=== PATIENT | male | born 1960 | race African-American/Black ===

== ENCOUNTER 2017-01-13 15:48 | Inpatient (IN) | payer OTHER ==
[2017-01-13 16:32] VITALS: BMI 22.8
[2017-01-13] MEDS ORDERED: IBUPROFEN 400 MG TABLET (FP) PO PRN (18:37)
[2017-01-13] MEDS ORDERED: MAGNESIUM HYDROX 2400MG/30ML ORAL SUSPENSION 30 ML CUP PO PRN (18:37)
[2017-01-13] MEDS ORDERED: LOPERAMIDE HCL 2 MG CAPSULE PO PRN (18:37)
[2017-01-13] MEDS ORDERED: hydrOXYzine PAMOATE 50 MG CAPSULE (FP) PO PRN (18:37)
[2017-01-13] MEDS ORDERED: MAG HYDROX/AL HYDROX/SIMETH 30 ML UNIT-DOSE CUP PO PRN (18:37)
[2017-01-13] MEDS ORDERED: MAGNESIUM CITRATE 300 ML BOTTLE PO PRN (18:37)
[2017-01-13] MEDS ORDERED: NICOTINE 14 MG/24 HOURS TOPICAL PATCH TD PRN (18:37)
[2017-01-13] MEDS ORDERED: ACETAMINOPHEN 325 MG TABLET (FP) PO PRN (18:37)
[2017-01-13] MEDS ORDERED: P-EPHED 60MG/TRIPROLIDI 2.5MG TABLET PO PRN (18:37)
[2017-01-13] MEDS ORDERED: chlordiazePOXIDE HCL 25 MG CAPSULE PO PRN (18:37)
[2017-01-13] MEDS ORDERED: guaiFENesin/D-METHORPHAN HB 10 ML UNIT-DOSE CUPS PO PRN (18:37)
[2017-01-13] MEDS ORDERED: MENTHOL/PHENOL 1 EACH UD MM PRN (18:37)
--- NOTE | 2017-01-13 18:37 | HP ---
CIWA Score - CIWA Score Nausea/Vomitin-Mild Nausea/No Vomiting Muscle Tremors: 4-Moderate,w/Arms Extend Anxiety: 4-Mod. Anxious/Guarded Agitation: 4-Moderately Restless Paroxysmal Sweats: 1-Minimal Palms Moist Orientation: 0-Oriented Tacttile Disturbances: 0-None Auditory Disturbances: 0-None Visual Disturbances: 0-None Headache: 0-None Present CIWA-Ar Total Score: 14 Admission ROS BHS - HPI Chief Complaint: WITHDRAWAL SX Allergies/Adverse Reactions: Allergies Allergy/AdvReac Type Severity Reaction Status Date / Time No Known Allergies Allergy Verified 01/13/17 16:54 History of Present Illness: 56 YEARS OLD MALE WITH LONG HISTORY OF ALCOHOL NICOTINE DEPENDENCE DENIES MEDICAL ISSUE HAS BIPOLAR II IS ADMITTED TO REHAB Exam Limitations: No Limitations - Ebola screening Have you traveled outside of the country in the last 21 days: No Have you had contact with anyone from an Ebola affected area: No Have you been sick,other than usual withdrawal symptoms: No Do you have a fever: No - Review of Systems Constitutional: Loss of Appetite, Changes in sleep, Unintentional Wgt. Loss, Unexplained wgt Loss EENT: reports: No Symptoms Reported Respiratory: reports: No Symptoms reported Cardiac: reports: No Symptoms Reported GI: reports: Nausea, Poor Appetite, Poor Fluid Intake, Abdominal cramping : reports: No Symptoms Reported Musculoskeletal: reports: Joint Pain (SHOULDERS) Integumentary: reports: No Symptoms Reported Neuro: reports: Tremors Endocrine: reports: No Symptoms Reported Hematology: reports: No Symptoms Reported Psychiatric: reports: Judgement Intact, Orientated x3, Anxious, Depressed Other Systems: Reviewed and Negative Patient History - Patient Medical History Hx Anemia: No Hx Asthma: No Hx Chronic Obstructive Pulmonary Disease (COPD): No Hx Cancer: No Hx Cardiac Disorders: No Hx Congestive Heart Failure: No Hx Hypertension: No Hx Hypercholesterolemia: No Hx Pacemaker: No HX Cerebrovascular Accident: No Hx Seizures: No Hx Dementia: No Hx Diabetes: No Hx Gastrointestinal Disorders: No Hx Liver Disease: No Hx Genitourinary Disorders: No Hx Sexually Transmitted Disorders: No Hx Renal Disease (ESRD): No Hx Thyroid Disease: No Hx Human Immunodeficiency Virus (HIV): No Hx Hepatitis C: No Hx Depression: No Hx Suicide Attempt: No Hx Bipolar Disorder: Yes Hx Schizophrenia: No - Patient Surgical History Past Surgical History: No Hx Neurologic Surgery: No Hx Cataract Extraction: No Hx Cardiac Surgery: No Hx Lung Surgery: No Hx Breast Surgery: No Hx Breast Biopsy: No Hx Abdominal Surgery: No Hx Appendectomy: No Hx Cholecystectomy: No Hx Genitourinary Surgery: No Hx Orthopedic Surgery: No - PPD History Previous Implant?: Yes Documented Results: Negative w/o proof Implanted On Prior [facility] Admission?: No PPD to be Administered?: Yes - Smoking Cessation Smoking history: Current every day smoker Have you smoked in the past 12 months: Yes Aproximately how many cigarettes per day: 3 Cigars Per Day: 0 Hx Chewing Tobacco Use: No Initiated information on smoking cessation: Yes 'Breaking Loose' booklet given: 01/13/17 - Substance & Tx. History Hx Alcohol Use: Yes Hx Substance Use: Yes Substance Use Type: Alcohol, Cocaine, Heroin, Opiates Hx Substance Use Treatment: Yes (2008 [facility]) - Substances Abused Crack Route: Smoking Frequency: 3-6 times per week Amount used: $30 Age of first use: 27 Date of Last Use: 01/12/17 Heroin Route: Inhalation Frequency: 1-3 times last 30 days Amount used: 1 bag Age of first use: 57 Date of Last Use: 01/12/17 Alcohol-vodka/4 wallaec Route: Oral Frequency: Daily Amount used: 1 pt./2 (32 oz.) Age of first use: 15 Date of Last Use: 01/12/17 Family Disease History - Family Disease History Family Disease History: Diabetes: Mother (), CA: Father (), Other: Father, Mother Admission Physical Exam S - Vital Signs Vital Signs: Vital Signs - 24 hr 01/13/17 16:28 Temperature 97.8 F Pulse Rate 60 Respiratory 18 Rate Blood Pressure 150/70 - Physical General Appearance: Yes: Appropriately Dressed, Mild Distress, Thin, Tremorous, Irritable, Sweating, Anxious HEENTM: Yes: Hearing grossly Normal, Normal ENT Inspection, Normocephalic, Normal Voice Respiratory: Yes: Chest Non-Tender, Lungs Clear, Normal Breath Sounds, No Respiratory Distress, No Accessory Muscle Use Neck: Yes: Supple, Trachea in good position Breast: Yes: Breasts Symetrical Cardiology: Yes: Regular Rhythm, S1, S2, Bradycardia Abdominal: Yes: Non Tender, Soft, Increased Bowel Sounds Genitourinary: Yes: Within Normal Limits Back: Yes: Normal Inspection Musculoskeletal: Yes: full range of Motion, Gait Steady, Muscle Pain (SHOULDERS) Extremities: Yes: Normal Range of Motion, Non-Tender, Tremors Neurological: Yes: Fully Oriented, Alert, Motor Strength 5/5, Normal Response, Depressed Affect Integumentary: Yes: Warm Lymphatic: Yes: Within Normal Limits - Diagnostic (1) Alcohol dependence with uncomplicated withdrawal Current Visit: Yes Status: Acute (2) Cocaine dependence, uncomplicated Current Visit: Yes Status: Chronic (3) Nicotine dependence Current Visit: Yes Status: Acute Qualifiers: Nicotine product type: cigarettes Substance use status: in withdrawal Qualified Code(s): F17.213 - Nicotine dependence, cigarettes, with withdrawal (4) Weight loss Current Visit: Yes Status: Acute (5) Dry skin Current Visit: Yes Status: Chronic Cleared for Admission [facility] - Detox or Rehab [facility] Level of Care: Medically Managed Detox Regimen/Protocol: Librium [facility] Breath Alcohol Content Breath Alcohol Content: 0 Urine Drug Screen - Results Drug Screen Negative: No Urine Drug Screen Results: GAVIN-Cocaine, OPI-Opiates, OXY-Oxycodone
[2017-01-13] MEDS ORDERED: COLLOIDAL OATMEAL 1 BAR EACH TP PRN (18:40)
[2017-01-13 20:18] LABS: URINE APPEARANCE CLEAR; URINE BILIRUBIN NEGATIVE (NEGATIVE); URINE BLOOD NEGATIVE (NEGATIVE); URINE COLOR DKYELLOW; URINE GLUCOSE (UA) NEGATIVE (NEGATIVE); URINE KETONE TRACE (NEGATIVE); URINE LEUK ESTERASE NEGATIVE (NEGATIVE); URINE NITRITE NEGATIVE (NEGATIVE); URINE PROTEIN 1+ (NEGATIVE); URINE UROBILINOGEN 4.0 E.U/dl mg/dL (0.2-1.0)
[2017-01-13 21:09] LABS: URINE MUCUS RARE; URINE RBC <1 /hpf (0-3); URINE WBC 1 /hpf (3-5)
[2017-01-13] MEDS: chlordiazePOXIDE HCL 25 MG CAPSULE PO SCH (22:27)
[2017-01-13] MEDS: diphenhydrAMINE HCL 50 MG CAPSULE PO PRN (22:27)
[2017-01-13] MEDS: THIAMINE HCL 100 MG TABLET (FP) PO SCH (22:29)
[2017-01-13] MEDS: MINERAL OIL/PETROLAT/WATER TOPICAL CREAM 113 GM JAR TP SCH (22:46)
[2017-01-14] MEDS: chlordiazePOXIDE HCL 25 MG CAPSULE PO SCH ×4 (05:13→22:44)
[2017-01-14 09:39] LABS: MCH 31.1 pg (25.7-33.7); MCHC 33.5 g/dl (32.0-35.9); MEAN CELL VOLUME 92.9 fl (80-96); PLATELET COUNT 282 K/MM3 (134-434); RDW 15.2 % (11.9-15.9); WHITE BLOOD COUNT 5.8 K/mm3 (4.0-10.0)
[2017-01-14 09:50] LABS: ANION GAP 8 (8-16); CALCIUM 7.9 mg/dL (8.5-10.1); CO2 28 mmol/L (21-32); GLUCOSE,RANDOM 113 mg/dL (74-106); SGOT/AST 13 U/L (15-37); SGPT/ALT 19 U/L (12-78)
[2017-01-14 09:51] LABS: ALK PHOS 82 U/L (45-117); BILIRUBIN,TOTAL 0.4 mg/dL (0.2-1.0); TOT PROT 5.8 g/dl (6.4-8.2)
[2017-01-14] MEDS: PRENATAL VITAMINS W/ FOLIC ACID TABLET (FP) PO SCH (10:58)
--- NOTE | 2017-01-14 12:33 | PN ---
S CIWA - CIWA Score Nausea/Vomitin Muscle Tremors: 2 Anxiety: 2 Agitation: 2 Paroxysmal Sweats: 3 Orientation: 0-Oriented Tacttile Disturbances: 2-Mild Itch/Numbness/Burn Auditory Disturbances: 0-None Visual Disturbances: 0-None Headache: 0-None Present CIWA-Ar Total Score: 13 S Progress Note (SOAP) Subjective: interrupted sleep, sweats, bodyaches Objective: 01/14/17 12:32 Vital Signs Temperature 98.1 F 01/14/17 10:30 Pulse Rate 69 01/14/17 10:30 Respiratory Rate 18 01/14/17 10:30 Blood Pressure 133/82 01/14/17 10:30 O2 Sat by Pulse Oximetry (%) Laboratory Last Values WBC 5.8 K/mm3 (4.0-10.0) 01/14/17 07:00 RBC 4.04 M/mm3 (4.00-5.60) 01/14/17 07:00 Hgb 12.6 GM/dL (11.7-16.9) 01/14/17 07:00 Hct 37.5 % (35.4-49) 01/14/17 07:00 MCV 92.9 fl (80-96) 01/14/17 07:00 MCH 31.1 pg (25.7-33.7) 01/14/17 07:00 MCHC 33.5 g/dl (32.0-35.9) 01/14/17 07:00 RDW 15.2 % (11.9-15.9) 01/14/17 07:00 Plt Count 282 K/MM3 (134-434) 01/14/17 07:00 MPV 8.0 fl (7.5-11.1) 01/14/17 07:00 Sodium 140 mmol/L (136-145) 01/14/17 07:00 Potassium 3.7 mmol/L (3.5-5.1) 01/14/17 07:00 Chloride 104 mmol/L (98-107) 01/14/17 07:00 Carbon Dioxide 28 mmol/L (21-32) 01/14/17 07:00 Anion Gap 8 (8-16) 01/14/17 07:00 BUN 11 mg/dL (7-18) 01/14/17 07:00 Creatinine 1.0 mg/dL (0.7-1.3) 01/14/17 07:00 Creat Clearance w eGFR > 60 (>60) 01/14/17 07:00 Random Glucose 113 mg/dL (74-106) H 01/14/17 07:00 Calcium 7.9 mg/dL (8.5-10.1) L 01/14/17 07:00 Total Bilirubin 0.4 mg/dL (0.2-1.0) 01/14/17 07:00 AST 13 U/L (15-37) L 01/14/17 07:00 ALT 19 U/L (12-78) 01/14/17 07:00 Alkaline Phosphatase 82 U/L (45-117) 01/14/17 07:00 Total Protein 5.8 g/dl (6.4-8.2) L 01/14/17 07:00 Albumin 3.0 g/dl (3.4-5.0) L 01/14/17 07:00 Urine Color Dkyellow 01/13/17 20:02 Urine Appearance Clear 01/13/17 20:02 Urine pH 7.0 (5.0-8.0) 01/13/17 20:02 Ur Specific [place] 1.020 (1.005-1.025) 01/13/17 20:02 Urine Protein 1+ (NEGATIVE) H 01/13/17 20:02 Urine Glucose (UA) Negative (NEGATIVE) 01/13/17 20:02 Urine Ketones Trace (NEGATIVE) H 01/13/17 20:02 Urine Blood Negative (NEGATIVE) 01/13/17 20:02 Urine Nitrite Negative (NEGATIVE) 01/13/17 20:02 Urine Bilirubin Negative (NEGATIVE) 01/13/17 20:02 Urine Urobilinogen 4.0 e.u/dl mg/dL (0.2-1.0) 01/13/17 20:02 Ur Leukocyte Esterase Negative (NEGATIVE) 01/13/17 20:02 Urine RBC <1 /hpf (0-3) 01/13/17 20:02 Urine WBC 1 /hpf (3-5) 01/13/17 20:02 Urine Mucus Rare 01/13/17 20:02 pt aox3 in nad ambulating Assessment: 01/14/17 12:32 withdrawal sx''s Plan: cont. detox increase fluids motrin prn
--- NOTE | 2017-01-14 12:56 | EKG ---
Test Reason : Blood Pressure : / mmHG Vent. Rate : 063 BPM Atrial Rate : 063 BPM P-R Int : 166 ms QRS Dur : 084 ms QT Int : 460 ms P-R-T Axes : -15 055 -16 degrees QTc Int : 470 ms NORMAL SINUS RHYTHM MINIMAL VOLTAGE CRITERIA FOR LVH, MAY BE NORMAL VARIANT T WAVE ABNORMALITY, CONSIDER ANTEROLATERAL ISCHEMIA PROLONGED QT ABNORMAL ECG NO PREVIOUS ECGS AVAILABLE Confirmed by MD REG, YOLANDA ([id number]) on 01/14/2017 12:55:43 PM Referred By: Confirmed By:YOLANDA FINNEY MD
[2017-01-14 17:51] LABS: HIV 1 & 2 AB NEGATIVE; HIV 1 AGp24 NEGATIVE
[2017-01-14] MEDS: NICOTINE POLACRILEX 2 MG GUM BC PRN ×2 (18:51→22:53)
--- NOTE | 2017-01-14 18:55 | CONSULT ---
[facility] Psychiatric Consult - Data Date of interview: 01/14/17 Admission source: [facility] Identifying data: Readmission to [facility] for this 57 y/o AA male seeking detox treatment on for alcohol,cocaine and opioid dependence.Patient is single without chidren,domiciled,unemployed and supported on welfare. 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 Smoking Cessation. Smoking history: Current every day smoker. Have you smoked in the past 12 months: Yes. Aproximately how many cigarettes per day : 3. Cigars Per Day: 0. Hx Chewing Tobacco Use: No. Initiated information on smoking cessation: Yes. 'Breaking Loose' booklet given: 01/13/17. - Substance & Tx. History. Hx Alcohol Use: Yes. Hx Substance Use: Yes. Substance Use Type : Alcohol, Cocaine, Heroin, Opiates. Hx Substance Use Treatment: Yes (2008). - Substances Abused. Crack. Route: Smoking. Frequency: 3-6 times per week. Amount used: $30. Age of first use: 27. Date of Last Use: . Heroin. Route: Inhalation. Frequency: 1-3 times last 30 days. Amount used: 1 bag. Age of first use: 57. Date of Last Use: 01/12/17. Alcohol-vodka/4 wallace. Route: Oral. Frequency: Daily. Amount used: 1 pt./2 ( 32 oz.). Age of first use: 15. Date of Last Use: 01/12/17 Medical History: Patient endorses good general health. Psychiatric History: Patient admits to a history of 8 -10 psychiatric hospitalizations ([facility]).Diagnosed with Bipolar Disorder.Last hospitalized in May 2015.Followed by Dr Jean-Baptiste,a private psychiatrist in [facility].Mr Veras states that he is maintained on a regimen of seroquel 600 mg/hs + remeron 45 mg/ hs + vistaril (dose not recalled).According to the patient,these medications were last taken on 01/13/17.Patient denies history of suicide attempts. Physical/Sexual Abuse/Trauma History: Patient denies. Additional Comment: Urine Drug Screen Results: GAVIN-Cocaine, OPI-Opiates, OXY- Oxycodone.Noted. Mental Status Exam - Mental Status Exam Alert and Oriented to: Time, Place, Person Cognitive Function: Good Patient Appearance: Well Groomed Mood: Hopeful, Euthymic Affect: Appropriate, Normal Range Patient Behavior: Fatigued, Appropriate, Cooperative Speech Pattern: Clear Voice Loudness: Normal Thought Process: Intact, Goal Oriented Thought Disorder: Not Present Hallucinations: Denies Suicidal Ideation: Denies Homicidal Ideation: Denies Insight/Judgement: Poor Sleep: Poorly, Difficulty falling asleep Appetite: Good Muscle strength/Tone: Normal Gait/Station: Normal Psychiatric Findings - Problem List ([place] 1, 2,3) (1) Alcohol dependence with uncomplicated withdrawal Current Visit: Yes Status: Acute (2) Nicotine dependence Current Visit: Yes Status: Acute Qualifiers: Nicotine product type: cigarettes Substance use status: in withdrawal Qualified Code(s): F17.213 - Nicotine dependence, cigarettes, with withdrawal (3) Cocaine dependence, uncomplicated Current Visit: Yes Status: Acute (4) Heroin abuse Current Visit: Yes Status: Acute (5) Substance induced mood disorder Current Visit: Yes Status: Acute (6) Bipolar disorder Current Visit: Yes Status: Chronic Comment: Self-report. (7) Insomnia Current Visit: Yes Status: Acute - Initial Treatment Plan Initial Treatment Plan: Psychoeducation.Detoxification.Medications : seroquel 300 mg po hs (intentionally reduced at this time ; to be titrated if no oversedation) + remeron 15 mg po hs (also reduced).Side effects/benefits discussed with the patient.He is informed of plan to increase doses if no oversedation form drug-drug interactions.Mr Veras consents to follow this careplan.Observation.Pharmacy claims are reviewed.Patient is a good and reliable historian : documented evidence of scripts dated 12/17/[address] Kim Jean-Baptiste at [facility] # [id number].
[2017-01-14] MEDS ORDERED: QUEtiapine FUMARATE 300 MG TABLET PO SCH (22:00)
[2017-01-14] MEDS ORDERED: MIRTAZAPINE 15 MG TABLET (FP) PO SCH (22:00)
[2017-01-14] MEDS: THIAMINE HCL 100 MG TABLET (FP) PO SCH (22:44)
[2017-01-14] MEDS: diphenhydrAMINE HCL 50 MG CAPSULE PO PRN (22:48)
[2017-01-14] MEDS: MINERAL OIL/PETROLAT/WATER TOPICAL CREAM 113 GM JAR TP SCH (22:58)
[2017-01-15] MEDS: chlordiazePOXIDE HCL 25 MG CAPSULE PO SCH ×3 (05:51→17:35)
[2017-01-15] MEDS: PRENATAL VITAMINS W/ FOLIC ACID TABLET (FP) PO SCH (10:55)
[2017-01-15] MEDS: NICOTINE POLACRILEX 2 MG GUM BC PRN ×4 (10:55→23:16)
--- NOTE | 2017-01-15 15:40 | PN ---
[facility] Progress Note Note: Psychatry Attending's note : Met with patient. Reason : adjustment of seroquel dose. No evidence of oversedation. Dose is now raised to 400 mg po hs. Remeron 15 mg/hs is discontinued. Now increased to 30 mg po hs. Explained to patient. Mr Veras agrees with careplan.
--- NOTE | 2017-01-15 15:42 | PN ---
[facility] CIWA - CIWA Score Nausea/Vomitin-No Nausea/No Vomiting Muscle Tremors: 4-Moderate,w/Arms Extend Anxiety: 5 Agitation: 4-Moderately Restless Paroxysmal Sweats: 2 Orientation: 0-Oriented Tacttile Disturbances: 2-Mild Itch/Numbness/Burn Auditory Disturbances: 0-None Visual Disturbances: 0-None Headache: 0-None Present CIWA-Ar Total Score: 17 S Progress Note (SOAP) Subjective: Tremors, Fatigue, Anxious. Objective: PT. A & O X 3, OBSERVED AMBULATING ON UNIT. NO ACUTE DISTRESS. 01/15/17 15:41 Vital Signs Temperature 97.1 F L 01/15/17 15:30 Pulse Rate 80 01/15/17 15:30 Respiratory Rate 18 01/15/17 15:30 Blood Pressure 114/75 01/15/17 15:30 O2 Sat by Pulse Oximetry (%) Laboratory Tests 01/13/17 01/14/17 01/14/17 20:02 07:00 07:00 WBC 5.8 RBC 4.04 Hgb 12.6 Hct 37.5 MCV 92.9 MCH 31.1 MCHC 33.5 RDW 15.2 Plt Count 282 MPV 8.0 Sodium 140 Potassium 3.7 Chloride 104 Carbon Dioxide 28 Anion Gap 8 BUN 11 Creatinine 1.0 Creat Clearance w eGFR > 60 Random Glucose 113 H Calcium 7.9 L Total Bilirubin 0.4 AST 13 L ALT 19 Alkaline Phosphatase 82 Total Protein 5.8 L Albumin 3.0 L Urine Color Dkyellow Urine Appearance Clear Urine pH 7.0 Ur Specific [place] 1.020 Urine Protein 1+ H Urine Glucose (UA) Negative Urine Ketones Trace H Urine Blood Negative Urine Nitrite Negative Urine Bilirubin Negative Urine Urobilinogen 4.0 e.u/dl Ur Leukocyte Esterase Negative Urine RBC <1 Urine WBC 1 Urine Mucus Rare RPR Titer HIV 1&2 Antibody Screen HIV P24 Antigen 01/14/17 01/14/17 07:00 12:15 WBC RBC Hgb Hct MCV MCH MCHC RDW Plt Count MPV Sodium Potassium Chloride Carbon Dioxide Anion Gap BUN Creatinine Creat Clearance w eGFR Random Glucose Calcium Total Bilirubin AST ALT Alkaline Phosphatase Total Protein Albumin Urine Color Urine Appearance Urine pH Ur Specific [place] Urine Protein Urine Glucose (UA) Urine Ketones Urine Blood Urine Nitrite Urine Bilirubin Urine Urobilinogen Ur Leukocyte Esterase Urine RBC Urine WBC Urine Mucus RPR Titer Nonreactive HIV 1&2 Antibody Screen Negative HIV P24 Antigen Negative LABS NOTED. Assessment: 01/15/17 15:41 WITHDRAWAL SYMPTOMS. Plan: CONTINUE DETOX.
[2017-01-15] MEDS: MIRTAZAPINE 30 MG TABLET (FP) PO SCH (22:55)
[2017-01-15] MEDS: chlordiazePOXIDE 5 MG CAPSULE PO SCH (22:55)
[2017-01-15] MEDS: QUEtiapine FUMARATE 200 MG TABLET PO SCH (22:55)
[2017-01-15] MEDS: MINERAL OIL/PETROLAT/WATER TOPICAL CREAM 113 GM JAR TP SCH (22:56)
[2017-01-15] MEDS: THIAMINE HCL 100 MG TABLET (FP) PO SCH (22:56)
[2017-01-16] MEDS: chlordiazePOXIDE 5 MG CAPSULE PO SCH ×3 (05:48→17:16)
[2017-01-16] MEDS: NICOTINE POLACRILEX 2 MG GUM BC PRN ×4 (05:56→22:41)
[2017-01-16] MEDS: PRENATAL VITAMINS W/ FOLIC ACID TABLET (FP) PO SCH (10:35)
--- NOTE | 2017-01-16 16:41 | PN ---
[facility] Progress Note (SOAP) Subjective: Tremor, chills, sweating, nausea, diarrhea, interrupted sleep Objective: 01/16/17 16:39 Last Vital Signs Temp Pulse Resp BP Pulse Ox 96.9 F L 77 18 115/76 01/16/17 13:16 01/16/17 13:16 01/16/17 13:16 01/16/17 13:16 Laboratory Tests 01/13/17 01/14/17 01/14/17 20:02 07:00 07:00 WBC 5.8 RBC 4.04 Hgb 12.6 Hct 37.5 MCV 92.9 MCH 31.1 MCHC 33.5 RDW 15.2 Plt Count 282 MPV 8.0 Sodium 140 Potassium 3.7 Chloride 104 Carbon Dioxide 28 Anion Gap 8 BUN 11 Creatinine 1.0 Creat Clearance w eGFR > 60 Random Glucose 113 H Calcium 7.9 L Total Bilirubin 0.4 AST 13 L ALT 19 Alkaline Phosphatase 82 Total Protein 5.8 L Albumin 3.0 L Urine Color Dkyellow Urine Appearance Clear Urine pH 7.0 Ur Specific [place] 1.020 Urine Protein 1+ H Urine Glucose (UA) Negative Urine Ketones Trace H Urine Blood Negative Urine Nitrite Negative Urine Bilirubin Negative Urine Urobilinogen 4.0 e.u/dl Ur Leukocyte Esterase Negative Urine RBC <1 Urine WBC 1 Urine Mucus Rare RPR Titer HIV 1&2 Antibody Screen HIV P24 Antigen 01/14/17 01/14/17 07:00 12:15 WBC RBC Hgb Hct MCV MCH MCHC RDW Plt Count MPV Sodium Potassium Chloride Carbon Dioxide Anion Gap BUN Creatinine Creat Clearance w eGFR Random Glucose Calcium Total Bilirubin AST ALT Alkaline Phosphatase Total Protein Albumin Urine Color Urine Appearance Urine pH Ur Specific [place] Urine Protein Urine Glucose (UA) Urine Ketones Urine Blood Urine Nitrite Urine Bilirubin Urine Urobilinogen Ur Leukocyte Esterase Urine RBC Urine WBC Urine Mucus RPR Titer Nonreactive HIV 1&2 Antibody Screen Negative HIV P24 Antigen Negative Labs noted: UA shows 1+ protein Assessment: 01/16/17 16:40 Withdrawal symptoms Noted with proteinuria Plan: Continue detox Proteinuria: encouraged to drink more water, repeat UA
[2017-01-16] MEDS: QUEtiapine FUMARATE 200 MG TABLET PO SCH (22:38)
[2017-01-16] MEDS: chlordiazePOXIDE HCL 10 MG CAPSULE PO SCH (22:38)
[2017-01-16] MEDS: THIAMINE HCL 100 MG TABLET (FP) PO SCH (22:38)
[2017-01-16] MEDS: MIRTAZAPINE 30 MG TABLET (FP) PO SCH (22:39)
[2017-01-16] MEDS: MINERAL OIL/PETROLAT/WATER TOPICAL CREAM 113 GM JAR TP SCH (22:40)
[2017-01-17] MEDS: chlordiazePOXIDE HCL 10 MG CAPSULE PO SCH ×2 (06:13→10:40)
[2017-01-17 09:11] VITALS: BP 116/76; PULSE 78; TEMP 96.7
[2017-01-17] MEDS: NICOTINE POLACRILEX 2 MG GUM BC PRN ×2 (09:55→12:12)
[2017-01-17] MEDS: PRENATAL VITAMINS W/ FOLIC ACID TABLET (FP) PO SCH (10:40)
--- NOTE | 2017-01-17 13:35 | DS ---
[facility] Detox Discharge Summary Admission Date: 01/13/17 Discharge Date: 01/17/17 - History Present History: Alcohol Dependence, Cocaine Dependence Additional Comments: PATIENT GOING TO [facility], [place], [place]. PATIENT ADVISED TO FOLLOW-UP THERE FOR AFTERCARE PER DISCHARGE ARRANGEMENT. PATIENT DISCHARGED FROM UNIT IN STABLE MEDICAL CONDITION. Pertinent Past History: Insomnia. - Physical Exam Results Vital Signs: Vital Signs Temperature 96.7 F L 01/17/17 09:06 Pulse Rate 78 01/17/17 09:06 Respiratory Rate 18 01/17/17 09:06 Blood Pressure 116/76 01/17/17 09:06 O2 Sat by Pulse Oximetry (%) Pertinent Admission Physical Exam Findings: WITHDRAWAL SYMPTOMS. Vital Signs Temperature 96.7 F L 01/17/17 09:06 Pulse Rate 78 01/17/17 09:06 Respiratory Rate 18 01/17/17 09:06 Blood Pressure 116/76 01/17/17 09:06 O2 Sat by Pulse Oximetry (%) Laboratory Tests 01/13/17 01/14/17 01/14/17 20:02 07:00 07:00 WBC 5.8 RBC 4.04 Hgb 12.6 Hct 37.5 MCV 92.9 MCH 31.1 MCHC 33.5 RDW 15.2 Plt Count 282 MPV 8.0 Sodium 140 Potassium 3.7 Chloride 104 Carbon Dioxide 28 Anion Gap 8 BUN 11 Creatinine 1.0 Creat Clearance w eGFR > 60 Random Glucose 113 H Calcium 7.9 L Total Bilirubin 0.4 AST 13 L ALT 19 Alkaline Phosphatase 82 Total Protein 5.8 L Albumin 3.0 L Urine Color Dkyellow Urine Appearance Clear Urine pH 7.0 Ur Specific [place] 1.020 Urine Protein 1+ H Urine Glucose (UA) Negative Urine Ketones Trace H Urine Blood Negative Urine Nitrite Negative Urine Bilirubin Negative Urine Urobilinogen 4.0 e.u/dl Ur Leukocyte Esterase Negative Urine RBC <1 Urine WBC 1 Urine Mucus Rare RPR Titer HIV 1&2 Antibody Screen HIV P24 Antigen 01/14/17 01/14/17 07:00 12:15 WBC RBC Hgb Hct MCV MCH MCHC RDW Plt Count MPV Sodium Potassium Chloride Carbon Dioxide Anion Gap BUN Creatinine Creat Clearance w eGFR Random Glucose Calcium Total Bilirubin AST ALT Alkaline Phosphatase Total Protein Albumin Urine Color Urine Appearance Urine pH Ur Specific [place] Urine Protein Urine Glucose (UA) Urine Ketones Urine Blood Urine Nitrite Urine Bilirubin Urine Urobilinogen Ur Leukocyte Esterase Urine RBC Urine WBC Urine Mucus RPR Titer Nonreactive HIV 1&2 Antibody Screen Negative HIV P24 Antigen Negative LABS NOTED. - Treatment Hospital Course: Detox Protocol Followed, Detoxed Safely, Responded well, Discharged Condition Good Patient has Accepted a Rehab Referral to: PT. GOING TO [facility] FOR AFTERCARE. - Medication Discharge Medications: Ambulatory Orders Folic Acid - 1 mg PO DAILY 01/13/17 Mirtazapine [Remeron -] 45 mg PO HS 01/13/17 Multivitamins [Tab-A-Vit -] 1 tab PO DAILY 01/13/17 Quetiapine Fumarate [Seroquel -] 600 mg PO HS 01/13/17 Thiamine HCl [Vitamin B1] 100 mg PO DAILY 01/13/17 - Diagnosis (1) Alcohol dependence with uncomplicated withdrawal Status: Acute (2) Cocaine dependence, uncomplicated Status: Acute (3) Heroin abuse Status: Acute (4) Insomnia Status: Acute Qualifiers: Insomnia type: unspecified Qualified Code(s): G47.00 - Insomnia, unspecified (5) Nicotine dependence Status: Chronic Qualifiers: Nicotine product type: cigarettes Substance use status: in withdrawal Qualified Code(s): F17.213 - Nicotine dependence, cigarettes, with withdrawal (6) Substance induced mood disorder Status: Acute (7) Weight loss Status: Acute (8) Bipolar disorder Status: Chronic Qualifiers: Active/Remission status: remission status unspecified Qualified Code (s): F31.9 - Bipolar disorder, unspecified (9) Dry skin Status: Chronic - AMA Did Patient Leave Against Medical Advice: No
[2017-01-17 15:36] LABS: URINE APPEARANCE CLEAR; URINE BILIRUBIN NEGATIVE (NEGATIVE); URINE BLOOD NEGATIVE (NEGATIVE); URINE COLOR STRAW; URINE GLUCOSE (UA) NEGATIVE (NEGATIVE); URINE KETONE NEGATIVE (NEGATIVE); URINE LEUK ESTERASE NEGATIVE (NEGATIVE); URINE NITRITE NEGATIVE (NEGATIVE); URINE PROTEIN NEGATIVE (NEGATIVE); URINE UROBILINOGEN NEGATIVE mg/dL (0.2-1.0)
== END 2017-01-17 12:30 | disposition home or self-care (01) | DRG 773 ==
LOC: YASAS 15:48 → Y3N 17:22
PROVIDERS: ADMIT Internal Medicine; ATTEND Internal Medicine
PROC: HZ2ZZZZ Detoxification Services for Substance Abuse Treatment (ICD-10-PCS; principal; 2017-01-13)
DX: F10.230 Alcohol dependence with withdrawal, uncomplicated (principal); F14.20 Cocaine dependence, uncomplicated; F11.10 Opioid abuse, uncomplicated; F17.213 Nicotine dependence, cigarettes, with withdrawal; F19.24 Other psychoactive substance dependence with psychoactive substance-induced mood disorder; F31.9 Bipolar disorder, unspecified; G47.00 Insomnia, unspecified; L98.8 Other specified disorders of the skin and subcutaneous tissue; R80.9 Proteinuria, unspecified; R00.1 Bradycardia, unspecified; Z87.898 Personal history of other specified conditions
CPT/HCPCS: 36415; 80053; 81003; 81015; 85027; 86593; 87389; 93005; 93010

== ENCOUNTER 2017-03-16 09:41 | Inpatient (IN) | payer OTHER ==
[2017-03-16 10:25] VITALS: BMI 23.7
--- NOTE | 2017-03-16 12:42 | HP ---
CIWA Score - CIWA Score Nausea/Vomitin Muscle Tremors: 3 Anxiety: 3 Agitation: 3 Paroxysmal Sweats: 1-Minimal Palms Moist Orientation: 0-Oriented Tacttile Disturbances: 2-Mild Itch/Numbness/Burn Auditory Disturbances: 2-Mild Harshness/Frighten Visual Disturbances: 2-Mild Sensitivity Headache: 2-Mild CIWA-Ar Total Score: 21 Admission ROS BHS - HPI Chief Complaint: i need help to stop drinking alcohol and cocaine dependence Allergies/Adverse Reactions: Allergies Allergy/AdvReac Type Severity Reaction Status Date / Time No Known Allergies Allergy Verified 03/16/17 10:26 History of Present Illness: this 57 years old black male with alcohol and cocaine dependence,seeking detox, last treatment 01/13/17 to 01/17/17 syncope nicotine dependence bipolar disorder longest period of sobriety 2 years Exam Limitations: No Limitations - Ebola screening Have you traveled outside of the country in the last 21 days: No Have you been sick,other than usual withdrawal symptoms: No - Review of Systems Constitutional: Loss of Appetite, Malaise, Night Sweats, Changes in sleep, Weakness, Unintentional Wgt. Loss EENT: reports: Nose Congestion Respiratory: reports: No Symptoms reported Cardiac: reports: No Symptoms Reported GI: reports: Diarrhea, Nausea, Vomiting, Abdominal cramping : reports: No Symptoms Reported Musculoskeletal: reports: Back Pain, Muscle Pain Integumentary: reports: Dryness Neuro: reports: Tremors Endocrine: reports: No Symptoms Reported Hematology: reports: No Symptoms Reported Psychiatric: reports: No Sypmtoms Reported, Judgement Intact, Mood/Affect Appropiate, Orientated x3, other (bipolar disorder) Patient History - Patient Medical History Hx Anemia: No Hx Asthma: No Hx Chronic Obstructive Pulmonary Disease (COPD): No Hx Cancer: No Hx Cardiac Disorders: No Hx Congestive Heart Failure: No Hx Hypertension: No Hx Hypercholesterolemia: No Hx Pacemaker: No HX Cerebrovascular Accident: No Hx Seizures: No Hx Dementia: No Hx Diabetes: No Hx Gastrointestinal Disorders: No Hx Liver Disease: No Hx Genitourinary Disorders: No Hx Sexually Transmitted Disorders: No Hx Renal Disease (ESRD): No Hx Thyroid Disease: No Hx Human Immunodeficiency Virus (HIV): No Hx Hepatitis C: No Hx Depression: Yes (on med) Hx Suicide Attempt: No Hx Bipolar Disorder: Yes (on med) Hx Schizophrenia: No Other Medical History: no suicidal,no homicidal - Patient Surgical History Past Surgical History: No Hx Neurologic Surgery: No Hx Cataract Extraction: No Hx Cardiac Surgery: No Hx Lung Surgery: No Hx Breast Surgery: No Hx Breast Biopsy: No Hx Abdominal Surgery: No Hx Appendectomy: No Hx Cholecystectomy: No Hx Genitourinary Surgery: No Hx Section: No Hx Orthopedic Surgery: No Anesthesia Reaction: No - PPD History Previous Implant?: Yes Documented Results: Negative w/proof Implanted On Prior [facility] Admission?: Yes Date: 01/15/17 Results: 0 mm PPD to be Administered?: No - Smoking Cessation Smoking history: Current every day smoker Have you smoked in the past 12 months: Yes Aproximately how many cigarettes per day: 7 Cigars Per Day: 0 Hx Chewing Tobacco Use: No Initiated information on smoking cessation: Yes 'Breaking Loose' booklet given: 03/16/17 - Substance & Tx. History Hx Alcohol Use: Yes Hx Substance Use: Yes Substance Use Type: Alcohol, Cocaine Hx Substance Use Treatment: Yes (last treatment [facility] 01/13/17 to 01/17/17) - Substances Abused Crack Route: Smoking Frequency: Daily Amount used: $40 Age of first use: 27 Date of Last Use: 03/15/17 Alcohol-vodka/beer Route: Oral Frequency: Daily Amount used: 1 pt./3 (24 oz.) Age of first use: 15 Date of Last Use: 03/15/17 Family Disease History - Family Disease History Family Disease History: Diabetes: Mother (), CA: Father (), Other: Father, Mother Admission Physical Exam S - Vital Signs Vital Signs: Vital Signs - 24 hr 03/16/17 10:15 Temperature 95.5 F L Pulse Rate 60 Respiratory 18 Rate Blood Pressure 120/71 - Physical General Appearance: Yes: Moderate Distress, Tremorous, Irritable, Sweating, Anxious HEENTM: Yes: Normal ENT Inspection, KIRSTIE, Pharynx Normal Respiratory: Yes: Lungs Clear, Normal Breath Sounds, No Respiratory Distress Neck: Yes: Within Normal Limits, Supple, Trachea in good position Breast: Yes: Within Normal Limits Cardiology: Yes: Within Normal Limits, Regular Rhythm, Regular Rate, S1, S2 Abdominal: Yes: Within Normal Limits, Normal Bowel Sounds, Non Tender, Flat, Soft Genitourinary: Yes: Within Normal Limits Back: Yes: Muscle Spasm Extremities: Yes: Normal Range of Motion, Tremors Neurological: Yes: wirer maintenance II-XII NML intact, Fully Oriented, Alert, Motor Strength 5/5 Integumentary: Yes: Dry Lymphatic: Yes: Within Normal Limits - Diagnostic (1) Alcohol dependence with uncomplicated withdrawal Current Visit: Yes Status: Acute (2) Cocaine dependence, uncomplicated Current Visit: Yes Status: Acute (3) Insomnia Current Visit: Yes Status: Acute Qualifiers: Insomnia type: unspecified Qualified Code(s): G47.00 - Insomnia, unspecified; G47.00 - Insomnia, unspecified (4) Weight loss Current Visit: No Status: Acute (5) Bipolar disorder Current Visit: Yes Status: Chronic Qualifiers: Active/Remission status: remission status unspecified Qualified Code (s): F31.9 - Bipolar disorder, unspecified; F31.9 - Bipolar disorder, unspecified; F31.9 - Bipolar disorder, unspecified; F31.9 - Bipolar disorder, unspecified Comment: Self-report. (6) Dry skin Current Visit: No Status: Chronic (7) Nicotine dependence Current Visit: Yes Status: Acute Qualifiers: Nicotine product type: cigarettes Substance use status: in withdrawal Qualified Code(s): F17.213 - Nicotine dependence, cigarettes, with withdrawal; F17.213 - Nicotine dependence, cigarettes, with withdrawal (8) Syncope Current Visit: Yes Status: Acute Cleared for Admission [facility] - Detox or Rehab [facility] Level of Care: Medically Managed Detox Regimen/Protocol: Librium [facility] Breath Alcohol Content Breath Alcohol Content: 0 Urine Drug Screen - Results Drug Screen Negative: No Urine Drug Screen Results: GAVIN-Cocaine, TCA-Tricyclic Antidepress
[2017-03-16] MEDS ORDERED: MAGNESIUM CITRATE 300 ML BOTTLE PO PRN (12:49)
[2017-03-16] MEDS ORDERED: hydrOXYzine PAMOATE 25 MG CAPSULE (FP) PO PRN (12:49)
[2017-03-16] MEDS ORDERED: MAGNESIUM HYDROX 2400MG/30ML ORAL SUSPENSION 30 ML CUP PO PRN (12:49)
[2017-03-16] MEDS ORDERED: chlordiazePOXIDE HCL 25 MG CAPSULE PO PRN (12:49)
[2017-03-16] MEDS ORDERED: P-EPHED 60MG/TRIPROLIDI 2.5MG TABLET PO PRN (12:49)
[2017-03-16] MEDS ORDERED: IBUPROFEN 400 MG TABLET (FP) PO PRN (12:49)
[2017-03-16] MEDS ORDERED: ACETAMINOPHEN 325 MG TABLET (FP) PO PRN (12:49)
[2017-03-16] MEDS ORDERED: LOPERAMIDE HCL 2 MG CAPSULE PO PRN (12:49)
[2017-03-16] MEDS ORDERED: diphenhydrAMINE HCL 50 MG CAPSULE PO PRN (12:49)
[2017-03-16] MEDS ORDERED: MENTHOL/PHENOL 1 EACH UD MM PRN (12:49)
[2017-03-16] MEDS ORDERED: guaiFENesin/D-METHORPHAN HB 10 ML UNIT-DOSE CUPS PO PRN (12:49)
[2017-03-16] MEDS ORDERED: MAG HYDROX/AL HYDROX/SIMETH 30 ML UNIT-DOSE CUP PO PRN (12:49)
[2017-03-16] MEDS ORDERED: chlordiazePOXIDE HCL 25 MG CAPSULE PO ONE (12:59)
[2017-03-16 14:14] LABS: HIV 1 & 2 AB NEGATIVE; HIV 1 AGp24 NEGATIVE
[2017-03-16] MEDS: chlordiazePOXIDE HCL 25 MG CAPSULE PO SCH ×2 (17:14→22:06)
[2017-03-16] MEDS: BACITRACIN 0.9 GM PACKET TP SCH ×2 (17:16→22:06)
[2017-03-16] MEDS: AMMONIUM LACTATE 12% LOTION 225 GM BOTTLE TP SCH ×2 (17:16→22:19)
--- NOTE | 2017-03-16 17:38 | CONSULT ---
[facility] Psychiatric Consult - Data Date of interview: 03/16/17 Admission source: [facility] Identifying data: This is one of multiple admissions to [facility] for this 57 y/ o AA male seeking detox treatment on for alcohol,cocaine and opioid dependence.Patient is single,father of two,domiciled,unemployed and supported by relatives. Substance Abuse History: Discussed with patient in this session.He admits to the use of crack and alcohol.See this [facility] report : Smoking history: Current every day smoker. Have you smoked in the past 12 months: Yes. Aproximately how many cigarettes per day: 7. Cigars Per Day: 0. Hx Chewing Tobacco Use: No. Initiated information on smoking cessation: Yes. 'Breaking Loose' booklet given: 03/16/17. - Substance & Tx. History. Hx Alcohol Use: Yes. Hx Substance Use: Yes. Substance Use Type: Alcohol, Cocaine. Hx Substance Use Treatment: Yes (last treatment [facility] 01/13/17 to 01/17/17). - Substances Abused. Crack. Route: Smoking. Frequency: Daily. Amount used: $40. Age of first use: 27. Date of Last Use: 03/15/17. Alcohol-vodka/beer. Route: Oral. Frequency: Daily. Amount used: 1 pt./3 (24 oz.). Age of first use: 15. Date of Last Use: 03/15/17 Medical History: Patient denies medical problems. Psychiatric History: History of multiple psychiatric hospitalizations ( [facility]) .Diagnosed with Bipolar Disorder.Still followed by Dr Jean-Baptiste,a private psychiatrist in [facility].Prescribed seroquel 600 mg/hs + remeron 45 mg/hs.Mr Veras endorses a history of adequate adherence to his medications + OPD care.Denies history of suicide attempts. Physical/Sexual Abuse/Trauma History: No reported history of abuse. Additional Comment: Urine Drug Screen Results: GAVIN-Cocaine, TCA-Tricyclic Antidepressant.Noted. Mental Status Exam - Mental Status Exam Alert and Oriented to: Time, Place, Person Cognitive Function: Good Patient Appearance: Well Groomed Mood: Hopeful, Euthymic Affect: Normal Range Patient Behavior: Fatigued, Appropriate, Cooperative Speech Pattern: Clear Voice Loudness: Normal Thought Process: Intact, Goal Oriented Thought Disorder: Not Present Hallucinations: Denies Suicidal Ideation: Denies Homicidal Ideation: Denies Insight/Judgement: Poor Sleep: Poorly, Difficulty falling asleep Appetite: Good Muscle strength/Tone: Normal Gait/Station: Normal Psychiatric Findings - Problem List ([place] 1, 2,3) (1) Alcohol dependence with uncomplicated withdrawal Current Visit: Yes Status: Acute (2) Cocaine dependence, uncomplicated Current Visit: Yes Status: Acute (3) Substance induced mood disorder Current Visit: Yes Status: Acute (4) Nicotine dependence Current Visit: Yes Status: Acute Qualifiers: Nicotine product type: cigarettes Substance use status: in withdrawal Qualified Code(s): F17.213 - Nicotine dependence, cigarettes, with withdrawal; F17.213 - Nicotine dependence, cigarettes, with withdrawal (5) Bipolar disorder Current Visit: Yes Status: Chronic Qualifiers: Active/Remission status: remission status unspecified Qualified Code (s): F31.9 - Bipolar disorder, unspecified; F31.9 - Bipolar disorder, unspecified; F31.9 - Bipolar disorder, unspecified; F31.9 - Bipolar disorder, unspecified Comment: Self-report. (6) Insomnia Current Visit: Yes Status: Acute Qualifiers: Insomnia type: unspecified Qualified Code(s): G47.00 - Insomnia, unspecified; G47.00 - Insomnia, unspecified - Initial Treatment Plan Initial Treatment Plan: Previous records are reviewed.Psychoeducation.Detoxification.Medications : seroquel 100 mg po daily + 200 mg po hs (intentionally reduced in view of potential for oversedation ; rapid titration up to 600 mg/day to follow in next 24-48 hours) + remeron 15 mg po hs (to escalate to 30 mg/hs in next 24 hours if no hypotension).Side effects/ benefits are discussed with the patient.Agrees with this careplan.Observation.Pharmacy claims are revisited : confirmed scripts for remeron + seroquel issued on 01/21/17 at [facility] # [id number].Observation.
[2017-03-16] MEDS ORDERED: QUEtiapine FUMARATE 200 MG TABLET PO SCH (22:00)
[2017-03-16] MEDS ORDERED: MIRTAZAPINE 15 MG TABLET (FP) PO SCH (22:00)
[2017-03-16] MEDS: THIAMINE HCL 100 MG TABLET (FP) PO SCH (22:06)
[2017-03-16] MEDS: NICOTINE POLACRILEX 2 MG GUM BUC PRN (22:07)
[2017-03-16 22:31] LABS: URINE APPEARANCE CLEAR; URINE BILIRUBIN NEGATIVE (NEGATIVE); URINE BLOOD NEGATIVE (NEGATIVE); URINE COLOR YELLOW; URINE GLUCOSE (UA) NEGATIVE (NEGATIVE); URINE KETONE NEGATIVE (NEGATIVE); URINE NITRITE NEGATIVE (NEGATIVE); URINE PROTEIN NEGATIVE (NEGATIVE); URINE UROBILINOGEN NEGATIVE mg/dL (0.2-1.0)
[2017-03-17] MEDS: chlordiazePOXIDE HCL 25 MG CAPSULE PO SCH ×4 (05:38→22:15)
[2017-03-17] MEDS: NICOTINE POLACRILEX 2 MG GUM BUC PRN ×3 (05:39→22:19)
[2017-03-17] MEDS ORDERED: QUEtiapine FUMARATE 100 MG TABLET (FP) PO SCH (10:00)
[2017-03-17 10:09] LABS: URINE LEUK ESTERASE Negative (NEGATIVE)
[2017-03-17 10:17] LABS: MCH 31.2 pg (25.7-33.7); MCHC 33.1 g/dl (32.0-35.9); MEAN CELL VOLUME 94.2 fl (80-96); MEAN PLT VOLUME 8.6 fl (7.5-11.1); PLATELET COUNT 326 K/MM3 (134-434); RDW 14.8 % (11.9-15.9); WHITE BLOOD COUNT 4.9 K/mm3 (4.0-10.0)
[2017-03-17 10:41] LABS: ALBUMIN 3.6 g/dl (3.4-5.0); ALK PHOS 88 U/L (45-117); ANION GAP 5 (8-16); BILIRUBIN,TOTAL 0.8 mg/dL (0.2-1.0); CALCIUM 8.7 mg/dL (8.5-10.1); CO2 32 mmol/L (21-32); CREATININE 1.2 mg/dL (0.7-1.3); GLUCOSE,RANDOM 112 mg/dL (74-106); SGOT/AST 14 U/L (15-37); SGPT/ALT 22 U/L (12-78)
[2017-03-17] MEDS: PRENATAL VITAMINS W/ FOLIC ACID TABLET (FP) PO SCH (10:46)
--- NOTE | 2017-03-17 10:47 | EKG ---
Test Reason : Blood Pressure : / mmHG Vent. Rate : 059 BPM Atrial Rate : 059 BPM P-R Int : 178 ms QRS Dur : 090 ms QT Int : 456 ms P-R-T Axes : 058 057 043 degrees QTc Int : 451 ms SINUS BRADYCARDIA MINIMAL VOLTAGE CRITERIA FOR LVH, MAY BE NORMAL VARIANT T WAVE ABNORMALITY, CONSIDER LATERAL ISCHEMIA ABNORMAL ECG WHEN COMPARED WITH ECG OF 13-JAN-2017 18:05, T WAVE INVERSION LESS EVIDENT IN ANTERIOR LEADS Confirmed by DERECK LOVE MD ([id number]) on 03/17/2017 10:47:21 AM Referred By: Confirmed By:DERECK LOVE MD
[2017-03-17] MEDS: BACITRACIN 0.9 GM PACKET TP SCH ×2 (11:07→22:15)
[2017-03-17] MEDS: AMMONIUM LACTATE 12% LOTION 225 GM BOTTLE TP SCH ×2 (11:08→22:16)
--- NOTE | 2017-03-17 12:30 | PN ---
[facility] CIWA - CIWA Score Nausea/Vomitin-No Nausea/No Vomiting Muscle Tremors: 4-Moderate,w/Arms Extend Anxiety: 3 Agitation: 2 Paroxysmal Sweats: 3 Orientation: 0-Oriented Tacttile Disturbances: 2-Mild Itch/Numbness/Burn Auditory Disturbances: 2-Mild Harshness/Frighten Visual Disturbances: 0-None Headache: 0-None Present CIWA-Ar Total Score: 16 S Progress Note (SOAP) Subjective: Fatigue, Tremors, Sweating, Anxious. Objective: PT. A & O X 3. NO ACUTE DISTRESS. 03/17/17 12:28 Vital Signs Temperature 96.1 F L 03/17/17 09:07 Pulse Rate 62 03/17/17 09:07 Respiratory Rate 18 03/17/17 09:07 Blood Pressure 131/72 03/17/17 09:07 O2 Sat by Pulse Oximetry (%) Laboratory Tests 03/16/17 03/16/17 03/17/17 11:00 22:10 06:00 WBC 4.9 RBC 4.38 Hgb 13.7 Hct 41.2 MCV 94.2 MCH 31.2 MCHC 33.1 RDW 14.8 Plt Count 326 MPV 8.6 Sodium Potassium Chloride Carbon Dioxide Anion Gap BUN Creatinine Creat Clearance w eGFR Random Glucose Calcium Total Bilirubin AST ALT Alkaline Phosphatase Total Protein Albumin Urine Color Yellow Urine Appearance Clear Urine pH 7.0 Ur Specific [place] 1.015 Urine Protein Negative Urine Glucose (UA) Negative Urine Ketones Negative Urine Blood Negative Urine Nitrite Negative Urine Bilirubin Negative Urine Urobilinogen Negative Ur Leukocyte Esterase Negative HIV 1&2 Antibody Screen Negative HIV P24 Antigen Negative 03/17/17 06:00 WBC RBC Hgb Hct MCV MCH MCHC RDW Plt Count MPV Sodium 139 Potassium 4.1 Chloride 102 Carbon Dioxide 32 Anion Gap 5 L BUN 15 D Creatinine 1.2 Creat Clearance w eGFR > 60 Random Glucose 112 H Calcium 8.7 Total Bilirubin 0.8 D AST 14 L ALT 22 Alkaline Phosphatase 88 Total Protein 7.0 D Albumin 3.6 Urine Color Urine Appearance Urine pH Ur Specific [place] Urine Protein Urine Glucose (UA) Urine Ketones Urine Blood Urine Nitrite Urine Bilirubin Urine Urobilinogen Ur Leukocyte Esterase HIV 1&2 Antibody Screen HIV P24 Antigen LABS NOTED. RPR RESULT PENDING. 03/17/17 12:29 Assessment: 03/17/17 12:29 WITHDRAWAL SYMPTOMS. Plan: CONTINUE DETOX. INCREASE DAILY PO FLUID INTAKE.
--- NOTE | 2017-03-17 14:26 | PN ---
Psychiatric Progress Note Vital Signs: Vital Signs Period Temp Pulse Resp BP Sys/Lawler Pulse Ox Last 24 Hr 95.2 F-97.9 F 56-93 18-18 102-137/57-78 Date of Session: 03/17/17 Chief Complaint:: Insomnia HPI: Patient reports insomnia, reports taking prior to admission: Seroquel 600mg po qhs. Vistaril 50mg po qhs. Remeron 30mg po qhs Current Medications: Active Medications Generic Name Dose Route Start Last Admin Trade Name Freq PRN Reason Stop Dose Admin Acetaminophen 650 mg 03/16/17 12:49 Tylenol - PO Q4H PRN FEVER OR PAIN Al Hydroxide/Mg Hydroxide 30 ml 03/16/17 12:49 Mylanta Oral Suspension - PO Q6H PRN DYSPEPSIA Bacitracin 0.9 gm 03/16/17 13:56 03/17/17 11:07 Bacitracin - TP Not Given BID SERGIO Chlordiazepoxide HCl 10 mg 03/19/17 17:00 Librium - PO 03/20/17 11:01 [id number] SERGIO Chlordiazepoxide HCl 25 mg 03/16/17 12:49 Librium - PO 03/19/17 12:48 Q4H PRN WITHDRAWAL(CONT SUBST) Chlordiazepoxide HCl 25 mg 03/17/17 17:00 Librium - PO 03/18/17 11:01 [id number] SERGIO Chlordiazepoxide HCl 15 mg 03/18/17 17:00 Librium - PO 03/19/17 11:01 [id number] SERGIO Diphenhydramine HCl 50 mg 03/16/17 12:49 Benadryl - PO HSMR1 PRN INSOMNIA Eucalyptus/Menthol/Phenol/Sorbitol 1 each 03/16/17 12:49 Cepastat Lozenge - MM Q4H PRN SORE THROAT Guaifenesin 10 ml 03/16/17 12:49 Robitussin Dm - PO Q6H PRN COUGH Hydroxyzine Pamoate 25 mg 03/16/17 12:49 Vistaril - PO Q4H PRN AGITATION Ibuprofen 400 mg 03/16/17 12:49 Motrin - PO Q6H PRN SEVERE PAIN Lactic Acid 1 applic 03/16/17 13:30 03/17/17 11:08 Lac-Hydrin 12 TP Not Given BID SERGIO Loperamide HCl 4 mg 03/16/17 12:49 Imodium - PO Q6H PRN DIARRHEA Magnesium Citrate 300 ml 03/16/17 12:49 Citroma - PO Q48H PRN CONSTIPATION Magnesium Hydroxide 30 ml 03/16/17 12:49 Milk Of Magnesia - PO DAILY PRN CONSTIPATION Mirtazapine 15 mg 03/16/17 22:00 03/16/17 22:06 Remeron - PO 15 mg HS SERGIO Administration Nicotine Polacrilex 2 mg 03/16/17 12:49 03/17/17 05:39 Nicorette Gum - BUC 2 mg Q2H PRN Administration NICOTINE REPLACEMENT RX Multivit/Folic Acid/Iron 1 tab 03/17/17 10:00 03/17/17 10:46 Vitamins (Sjr) - PO 1 tab DAILY SERGIO Administration Pseudoephedrine/Triprolidine 1 combo 03/16/17 12:49 Actifed - PO TID PRN NASAL CONGESTION Quetiapine Fumarate 200 mg 03/16/17 22:00 03/16/17 22:06 Seroquel - PO 200 mg HS SERGIO Administration Quetiapine Fumarate 100 mg 03/17/17 10:00 03/17/17 10:46 Seroquel - PO 100 mg DAILY SERGIO Administration Thiamine HCl 100 mg 03/16/17 22:00 03/16/17 22:06 Vitamin B1 - PO 100 mg HS SERGIO Administration Medication(s) Change(s): Seroquel 300mg po qhs. Vistaril 50mg po qhs. Remeron 30mg po qhs Mental Status Exam - Mental Status Exam Alert and Oriented to: Place, Person Cognitive Function: Fair Patient Appearance: Unkempt Mood: Apprehensive Affect: Mood Congruent Patient Behavior: Cooperative Speech Pattern: Appropriate Voice Loudness: Normal Thought Process: Goal Oriented Thought Disorder: Being Controlled Hallucinations: Denies Suicidal Ideation: Denies Homicidal Ideation: Denies Insight/Judgement: Fair Sleep: Difficulty falling asleep Appetite: Fair Muscle strength/Tone: Normal Gait/Station: Normal Additional Comments: Seroquel 600mg po qhs. Vistaril 50mg po qhs. Remeron 30mg po qhs Psychiatric Treatment Plan - Problem List (1) Alcohol dependence with uncomplicated withdrawal Current Visit: Yes (2) Cocaine dependence, uncomplicated Current Visit: Yes (3) Substance induced mood disorder Current Visit: Yes (4) Bipolar disorder Current Visit: Yes Qualifiers: Active/Remission status: remission status unspecified Qualified Code (s): F31.9 - Bipolar disorder, unspecified; F31.9 - Bipolar disorder, unspecified; F31.9 - Bipolar disorder, unspecified; F31.9 - Bipolar disorder, unspecified Comment: Self-report. (5) Opioid-induced sleep disorder, insomnia type, with onset during discontinuation/withdrawal Current Visit: Yes Initial treatment plan: Seroquel 300mg po qhs. Vistaril 50mg po qhs. Remeron 30mg po qhs
--- NOTE | 2017-03-17 14:30 | PN ---
Psychiatric Progress Note Vital Signs: Vital Signs Period Temp Pulse Resp BP Sys/Lawler Pulse Ox Last 24 Hr 95.2 F-97.9 F 56-93 18-18 102-137/57-78 Current Medications: Active Medications Generic Name Dose Route Start Last Admin Trade Name Freq PRN Reason Stop Dose Admin Acetaminophen 650 mg 03/16/17 12:49 Tylenol - PO Q4H PRN FEVER OR PAIN Al Hydroxide/Mg Hydroxide 30 ml 03/16/17 12:49 Mylanta Oral Suspension - PO Q6H PRN DYSPEPSIA Bacitracin 0.9 gm 03/16/17 13:56 03/17/17 11:07 Bacitracin - TP Not Given BID SERGIO Chlordiazepoxide HCl 10 mg 03/19/17 17:00 Librium - PO 03/20/17 11:01 [id number] SERGIO Chlordiazepoxide HCl 25 mg 03/16/17 12:49 Librium - PO 03/19/17 12:48 Q4H PRN WITHDRAWAL(CONT SUBST) Chlordiazepoxide HCl 25 mg 03/17/17 17:00 Librium - PO 03/18/17 11:01 [id number] SERGIO Chlordiazepoxide HCl 15 mg 03/18/17 17:00 Librium - PO 03/19/17 11:01 [id number] SERGIO Diphenhydramine HCl 50 mg 03/16/17 12:49 Benadryl - PO HSMR1 PRN INSOMNIA Eucalyptus/Menthol/Phenol/Sorbitol 1 each 03/16/17 12:49 Cepastat Lozenge - MM Q4H PRN SORE THROAT Guaifenesin 10 ml 03/16/17 12:49 Robitussin Dm - PO Q6H PRN COUGH Hydroxyzine Pamoate 50 mg 03/17/17 22:00 Vistaril - PO HS SERGIO Ibuprofen 400 mg 03/16/17 12:49 Motrin - PO Q6H PRN SEVERE PAIN Lactic Acid 1 applic 03/16/17 13:30 03/17/17 11:08 Lac-Hydrin 12 TP Not Given BID SERGIO Loperamide HCl 4 mg 03/16/17 12:49 Imodium - PO Q6H PRN DIARRHEA Magnesium Citrate 300 ml 03/16/17 12:49 Citroma - PO Q48H PRN CONSTIPATION Magnesium Hydroxide 30 ml 03/16/17 12:49 Milk Of Magnesia - PO DAILY PRN CONSTIPATION Mirtazapine 30 mg 03/17/17 14:28 Remeron - PO HS SERGIO Nicotine Polacrilex 2 mg 03/16/17 12:49 03/17/17 05:39 Nicorette Gum - BUC 2 mg Q2H PRN Administration NICOTINE REPLACEMENT RX Multivit/Folic Acid/Iron 1 tab 03/17/17 10:00 03/17/17 10:46 Vitamins (Sjr) - PO 1 tab DAILY SERGIO Administration Pseudoephedrine/Triprolidine 1 combo 03/16/17 12:49 Actifed - PO TID PRN NASAL CONGESTION Quetiapine Fumarate 300 mg 03/17/17 14:28 Seroquel - PO HS SERGIO Thiamine HCl 100 mg 03/16/17 22:00 03/16/17 22:06 Vitamin B1 - PO 100 mg HS SERGIO Administration Psychiatric Treatment Plan - Problem List (1) Alcohol dependence with uncomplicated withdrawal Current Visit: Yes (2) Cocaine dependence, uncomplicated Current Visit: Yes (3) Substance induced mood disorder Current Visit: Yes (4) Bipolar disorder Current Visit: Yes Qualifiers: Active/Remission status: remission status unspecified Qualified Code (s): F31.9 - Bipolar disorder, unspecified; F31.9 - Bipolar disorder, unspecified; F31.9 - Bipolar disorder, unspecified; F31.9 - Bipolar disorder, unspecified Comment: Self-report. (5) Opioid-induced sleep disorder, insomnia type, with onset during discontinuation/withdrawal Current Visit: Yes
[2017-03-17] MEDS ORDERED: QUEtiapine FUMARATE 300 MG TABLET PO SCH (22:00)
[2017-03-17] MEDS: hydrOXYzine PAMOATE 50 MG CAPSULE (FP) PO SCH (22:16)
[2017-03-17] MEDS: MIRTAZAPINE 30 MG TABLET (FP) PO SCH (22:16)
[2017-03-17] MEDS: THIAMINE HCL 100 MG TABLET (FP) PO SCH (22:17)
[2017-03-18] MEDS: NICOTINE POLACRILEX 2 MG GUM BUC PRN ×5 (04:36→22:09)
[2017-03-18] MEDS: chlordiazePOXIDE HCL 25 MG CAPSULE PO SCH ×2 (04:36→10:18)
[2017-03-18] MEDS: BACITRACIN 0.9 GM PACKET TP SCH ×2 (10:18→22:04)
[2017-03-18] MEDS: AMMONIUM LACTATE 12% LOTION 225 GM BOTTLE TP SCH ×2 (10:18→22:08)
[2017-03-18] MEDS: PRENATAL VITAMINS W/ FOLIC ACID TABLET (FP) PO SCH (10:18)
--- NOTE | 2017-03-18 10:29 | PN ---
[facility] Progress Note Note: Psychiatry Attending's note : Approached by patient for discussion of medications. Mr Veras requests to be on his usual dose of seroquel. Patient is maintained on 600 mg/hs (verified by this screen writer). " It has been my regular dose for years.It works for me." Progress notes are reviewed.No oversedation.Normal vitals. Intervention : Discontinue seroquel 300 mg po hs. Seroquel 600 mg po hs. Ordered. Patient agrees.
--- NOTE | 2017-03-18 12:43 | PN ---
[facility] CIWA - CIWA Score Nausea/Vomitin-No Nausea/No Vomiting Muscle Tremors: 3 Anxiety: 4-Mod. Anxious/Guarded Agitation: 3 Paroxysmal Sweats: No Perspiration Orientation: 0-Oriented Tacttile Disturbances: 2-Mild Itch/Numbness/Burn Auditory Disturbances: 3-Moderate Harsh/Frighten Visual Disturbances: 2-Mild Sensitivity Headache: 0-None Present CIWA-Ar Total Score: 17 S Progress Note (SOAP) Subjective: Anxious, Sweating, Interrupted sleep. Objective: PT. A & O X 3, OBSERVED AMBULATING ON UNIT. NO ACUTE DISTRESS. 03/18/17 12:42 Vital Signs Temperature 96.3 F L 03/18/17 10:00 Pulse Rate 66 03/18/17 10:00 Respiratory Rate 18 03/18/17 10:00 Blood Pressure 137/81 03/18/17 10:00 O2 Sat by Pulse Oximetry (%) Laboratory Tests 03/16/17 03/16/17 03/17/17 11:00 22:10 06:00 WBC 4.9 RBC 4.38 Hgb 13.7 Hct 41.2 MCV 94.2 MCH 31.2 MCHC 33.1 RDW 14.8 Plt Count 326 MPV 8.6 Sodium Potassium Chloride Carbon Dioxide Anion Gap BUN Creatinine Creat Clearance w eGFR Random Glucose Calcium Total Bilirubin AST ALT Alkaline Phosphatase Total Protein Albumin Urine Color Yellow Urine Appearance Clear Urine pH 7.0 Ur Specific [place] 1.015 Urine Protein Negative Urine Glucose (UA) Negative Urine Ketones Negative Urine Blood Negative Urine Nitrite Negative Urine Bilirubin Negative Urine Urobilinogen Negative Ur Leukocyte Esterase Negative RPR Titer HIV 1&2 Antibody Screen Negative HIV P24 Antigen Negative 03/17/17 03/17/17 06:00 06:00 WBC RBC Hgb Hct MCV MCH MCHC RDW Plt Count MPV Sodium 139 Potassium 4.1 Chloride 102 Carbon Dioxide 32 Anion Gap 5 L BUN 15 D Creatinine 1.2 Creat Clearance w eGFR > 60 Random Glucose 112 H Calcium 8.7 Total Bilirubin 0.8 D AST 14 L ALT 22 Alkaline Phosphatase 88 Total Protein 7.0 D Albumin 3.6 Urine Color Urine Appearance Urine pH Ur Specific [place] Urine Protein Urine Glucose (UA) Urine Ketones Urine Blood Urine Nitrite Urine Bilirubin Urine Urobilinogen Ur Leukocyte Esterase RPR Titer Nonreactive HIV 1&2 Antibody Screen HIV P24 Antigen LABS NOTED. Assessment: 03/18/17 12:42 WITHDRAWAL SYMPTOMS. Plan: CONTINUE DETOX.
[2017-03-18] MEDS: chlordiazePOXIDE 5 MG CAPSULE PO SCH ×2 (17:07→22:04)
[2017-03-18] MEDS: QUEtiapine FUMARATE 300 MG TABLET PO SCH (22:04)
[2017-03-18] MEDS: MIRTAZAPINE 30 MG TABLET (FP) PO SCH (22:05)
[2017-03-18] MEDS: THIAMINE HCL 100 MG TABLET (FP) PO SCH (22:05)
[2017-03-18] MEDS: hydrOXYzine PAMOATE 50 MG CAPSULE (FP) PO SCH (22:19)
[2017-03-19] MEDS: chlordiazePOXIDE 5 MG CAPSULE PO SCH ×2 (05:46→10:33)
[2017-03-19] MEDS: PRENATAL VITAMINS W/ FOLIC ACID TABLET (FP) PO SCH (10:33)
[2017-03-19] MEDS: AMMONIUM LACTATE 12% LOTION 225 GM BOTTLE TP SCH ×2 (10:33→22:34)
[2017-03-19] MEDS: BACITRACIN 0.9 GM PACKET TP SCH ×2 (10:33→22:32)
[2017-03-19] MEDS: NICOTINE POLACRILEX 2 MG GUM BUC PRN ×4 (10:34→22:33)
--- NOTE | 2017-03-19 16:19 | PN ---
[facility] Progress Note (SOAP) Subjective: Fatigue, Interrupted sleep. Objective: PT. A & O X 2 (DISORIENTED ABOUT DAY / DATE). PT. OBSERVED AMBULATING ON UNIT. NO ACUTE DISTRESS. 03/19/17 16:18 Laboratory Tests 03/16/17 03/16/17 03/17/17 11:00 22:10 06:00 WBC 4.9 RBC 4.38 Hgb 13.7 Hct 41.2 MCV 94.2 MCH 31.2 MCHC 33.1 RDW 14.8 Plt Count 326 MPV 8.6 Sodium Potassium Chloride Carbon Dioxide Anion Gap BUN Creatinine Creat Clearance w eGFR Random Glucose Calcium Total Bilirubin AST ALT Alkaline Phosphatase Total Protein Albumin Urine Color Yellow Urine Appearance Clear Urine pH 7.0 Ur Specific [place] 1.015 Urine Protein Negative Urine Glucose (UA) Negative Urine Ketones Negative Urine Blood Negative Urine Nitrite Negative Urine Bilirubin Negative Urine Urobilinogen Negative Ur Leukocyte Esterase Negative RPR Titer HIV 1&2 Antibody Screen Negative HIV P24 Antigen Negative 03/17/17 03/17/17 06:00 06:00 WBC RBC Hgb Hct MCV MCH MCHC RDW Plt Count MPV Sodium 139 Potassium 4.1 Chloride 102 Carbon Dioxide 32 Anion Gap 5 L BUN 15 D Creatinine 1.2 Creat Clearance w eGFR > 60 Random Glucose 112 H Calcium 8.7 Total Bilirubin 0.8 D AST 14 L ALT 22 Alkaline Phosphatase 88 Total Protein 7.0 D Albumin 3.6 Urine Color Urine Appearance Urine pH Ur Specific [place] Urine Protein Urine Glucose (UA) Urine Ketones Urine Blood Urine Nitrite Urine Bilirubin Urine Urobilinogen Ur Leukocyte Esterase RPR Titer Nonreactive HIV 1&2 Antibody Screen HIV P24 Antigen LABS NOTED. Assessment: 03/19/17 16:18 WITHDRAWAL SYMPTOMS. Plan: CONTINUE DETOX.
[2017-03-19] MEDS: chlordiazePOXIDE HCL 10 MG CAPSULE PO SCH ×2 (17:18→22:32)
[2017-03-19] MEDS: MIRTAZAPINE 30 MG TABLET (FP) PO SCH (22:32)
[2017-03-19] MEDS: THIAMINE HCL 100 MG TABLET (FP) PO SCH (22:32)
[2017-03-19] MEDS: QUEtiapine FUMARATE 300 MG TABLET PO SCH (22:33)
[2017-03-19] MEDS: hydrOXYzine PAMOATE 50 MG CAPSULE (FP) PO SCH (22:36)
[2017-03-20] MEDS: chlordiazePOXIDE HCL 10 MG CAPSULE PO SCH (05:40)
[2017-03-20 06:37] VITALS: BP 132/71; PULSE 66; TEMP 97.7
[2017-03-20] MEDS: NICOTINE POLACRILEX 2 MG GUM BUC PRN (09:03)
--- NOTE | 2017-03-20 13:00 | DS ---
[facility] Detox Discharge Summary Admission Date: 03/16/17 Discharge Date: 03/20/17 - History Present History: Alcohol Dependence, Cocaine Dependence Pertinent Past History: Denies - Physical Exam Results Vital Signs: Vital Signs Temperature 97.7 F 03/20/17 06:36 Pulse Rate 66 03/20/17 06:36 Respiratory Rate 18 03/20/17 06:36 Blood Pressure 132/71 03/20/17 06:36 O2 Sat by Pulse Oximetry (%) Pertinent Admission Physical Exam Findings: Withdrawal symptoms Laboratory Tests 03/16/17 03/16/17 03/17/17 11:00 22:10 06:00 WBC 4.9 RBC 4.38 Hgb 13.7 Hct 41.2 MCV 94.2 MCH 31.2 MCHC 33.1 RDW 14.8 Plt Count 326 MPV 8.6 Sodium Potassium Chloride Carbon Dioxide Anion Gap BUN Creatinine Creat Clearance w eGFR Random Glucose Calcium Total Bilirubin AST ALT Alkaline Phosphatase Total Protein Albumin Urine Color Yellow Urine Appearance Clear Urine pH 7.0 Ur Specific [place] 1.015 Urine Protein Negative Urine Glucose (UA) Negative Urine Ketones Negative Urine Blood Negative Urine Nitrite Negative Urine Bilirubin Negative Urine Urobilinogen Negative Ur Leukocyte Esterase Negative RPR Titer HIV 1&2 Antibody Screen Negative HIV P24 Antigen Negative 03/17/17 03/17/17 06:00 06:00 WBC RBC Hgb Hct MCV MCH MCHC RDW Plt Count MPV Sodium 139 Potassium 4.1 Chloride 102 Carbon Dioxide 32 Anion Gap 5 L BUN 15 D Creatinine 1.2 Creat Clearance w eGFR > 60 Random Glucose 112 H Calcium 8.7 Total Bilirubin 0.8 D AST 14 L ALT 22 Alkaline Phosphatase 88 Total Protein 7.0 D Albumin 3.6 Urine Color Urine Appearance Urine pH Ur Specific [place] Urine Protein Urine Glucose (UA) Urine Ketones Urine Blood Urine Nitrite Urine Bilirubin Urine Urobilinogen Ur Leukocyte Esterase RPR Titer Nonreactive HIV 1&2 Antibody Screen HIV P24 Antigen Labs noted - Treatment Hospital Course: Detox Protocol Followed, Detoxed Safely, Responded well, Discharged Condition Good - Medication Discharge Medications: Ambulatory Orders Mirtazapine [Remeron -] 45 mg PO HS 01/13/17 Hydroxyzine HCl [Atarax -] 50 mg PO HS 03/16/17 Quetiapine Fumarate [Seroquel -] 800 mg PO HS 03/16/17 Hydroxyzine Pamoate [Vistaril -] 50 mg PO HS #30 cap 03/17/17 Mirtazapine [Remeron -] 30 mg PO HS #30 tablet 03/17/17 Quetiapine Fumarate [Seroquel -] 300 mg PO HS #30 tab 03/17/17 - Diagnosis (1) Alcohol dependence with uncomplicated withdrawal Status: Acute (2) Cocaine dependence, uncomplicated Status: Chronic (3) Insomnia Status: Acute Qualifiers: Insomnia type: unspecified Qualified Code(s): G47.00 - Insomnia, unspecified; G47.00 - Insomnia, unspecified (4) Nicotine dependence Status: Chronic Qualifiers: Nicotine product type: cigarettes Substance use status: in withdrawal Qualified Code(s): F17.213 - Nicotine dependence, cigarettes, with withdrawal; F17.213 - Nicotine dependence, cigarettes, with withdrawal (5) Substance induced mood disorder Status: Acute (6) Bipolar disorder Status: Chronic Qualifiers: Active/Remission status: remission status unspecified Qualified Code (s): F31.9 - Bipolar disorder, unspecified; F31.9 - Bipolar disorder, unspecified; F31.9 - Bipolar disorder, unspecified; F31.9 - Bipolar disorder, unspecified (7) Depression Status: Chronic - AMA Did Patient Leave Against Medical Advice: No (F/U with your PCP in 1-2 weeks)
== END 2017-03-20 09:31 | disposition home or self-care (01) | DRG 774 ==
LOC: YASAS 09:41 → Y3N 12:56
PROVIDERS: ADMIT Internal Medicine; ATTEND Internal Medicine
PROC: HZ2ZZZZ Detoxification Services for Substance Abuse Treatment (ICD-10-PCS; principal; 2017-03-16)
DX: F10.230 Alcohol dependence with withdrawal, uncomplicated (principal); F14.20 Cocaine dependence, uncomplicated; F17.213 Nicotine dependence, cigarettes, with withdrawal; F19.24 Other psychoactive substance dependence with psychoactive substance-induced mood disorder; F31.9 Bipolar disorder, unspecified; F32.9 Major depressive disorder, single episode, unspecified; G47.00 Insomnia, unspecified; L98.8 Other specified disorders of the skin and subcutaneous tissue; Z86.79 Personal history of other diseases of the circulatory system; Z87.898 Personal history of other specified conditions
CPT/HCPCS: 36415; 80053; 81003; 85027; 86593; 87389; 93005; 93010

== ENCOUNTER 2017-05-19 10:49 | Inpatient (IN) | payer OTHER ==
[2017-05-19 14:09] VITALS: BMI 24.1
[2017-05-19] MEDS ORDERED: ACETAMINOPHEN 325 MG TABLET (FP) PO PRN (14:22)
[2017-05-19] MEDS ORDERED: guaiFENesin/D-METHORPHAN HB 10 ML UNIT-DOSE CUPS PO PRN (14:22)
[2017-05-19] MEDS ORDERED: IBUPROFEN 400 MG TABLET (FP) PO PRN (14:22)
[2017-05-19] MEDS ORDERED: LOPERAMIDE HCL 2 MG CAPSULE PO PRN (14:22)
[2017-05-19] MEDS ORDERED: MENTHOL/PHENOL 1 EACH UD MM PRN (14:22)
[2017-05-19] MEDS ORDERED: MAG HYDROX/AL HYDROX/SIMETH 30 ML UNIT-DOSE CUP PO PRN (14:22)
[2017-05-19] MEDS ORDERED: P-EPHED 60MG/TRIPROLIDI 2.5MG TABLET PO PRN (14:22)
[2017-05-19] MEDS ORDERED: chlordiazePOXIDE HCL 25 MG CAPSULE PO PRN (14:22)
[2017-05-19] MEDS ORDERED: MAGNESIUM HYDROX 2400MG/30ML ORAL SUSPENSION 30 ML CUP PO PRN (14:22)
[2017-05-19] MEDS ORDERED: MAGNESIUM CITRATE 300 ML BOTTLE PO PRN (14:22)
--- NOTE | 2017-05-19 14:32 | HP ---
CIWA Score - CIWA Score Nausea/Vomitin Muscle Tremors: 4-Moderate,w/Arms Extend Anxiety: 1-Mildly Anxious Agitation: 1-Slight > Activity Paroxysmal Sweats: 2 Orientation: 0-Oriented Tacttile Disturbances: 2-Mild Itch/Numbness/Burn Auditory Disturbances: 0-None Visual Disturbances: 0-None Headache: 3-Moderate CIWA-Ar Total Score: 16 Admission ROS BHS - HPI Chief Complaint: 57 yr with bipolar d/o, alcohol and cocaine dependence, seeking detox for alcohol. Allergies/Adverse Reactions: Allergies Allergy/AdvReac Type Severity Reaction Status Date / Time No Known Allergies Allergy Verified 05/19/17 14:11 History of Present Illness: has drinking beer without eating solid food or drinking water for the past 2 days. called the van yesterday to come here for rehab. denies withdrawal seizures or ICU stays Exam Limitations: No Limitations - Ebola screening Have you traveled outside of the country in the last 21 days: No Have you had contact with anyone from an Ebola affected area: No Have you been sick,other than usual withdrawal symptoms: No Do you have a fever: No - Review of Systems Constitutional: Loss of Appetite, Unintentional Wgt. Loss (15lbs since feb 2017) EENT: reports: No Symptoms Reported Respiratory: reports: No Symptoms reported Cardiac: reports: No Symptoms Reported GI: reports: Constipated, Nausea : reports: No Symptoms Reported Musculoskeletal: reports: No Symptoms Reported Integumentary: reports: No Symptoms Reported Neuro: reports: Headache, Numbness, Tingling Endocrine: reports: No Symptoms Reported Hematology: reports: No Symptoms Reported Psychiatric: reports: Mood/Affect Appropiate, Orientated x3, Anxious Patient History - Patient Medical History Hx Anemia: No Hx Asthma: No Hx Chronic Obstructive Pulmonary Disease (COPD): No Hx Cancer: No Hx Cardiac Disorders: No Hx Congestive Heart Failure: No Hx Hypertension: No Hx Hypercholesterolemia: No Hx Pacemaker: No HX Cerebrovascular Accident: No Hx Seizures: No Hx Dementia: No Hx Diabetes: No Hx Gastrointestinal Disorders: No Hx Liver Disease: No Hx Genitourinary Disorders: No Hx Sexually Transmitted Disorders: No Hx Renal Disease (ESRD): No Hx Thyroid Disease: No Hx Human Immunodeficiency Virus (HIV): No Hx Hepatitis C: No Hx Depression: Yes Hx Suicide Attempt: No Hx Bipolar Disorder: Yes (on med) Hx Schizophrenia: No - Patient Surgical History Past Surgical History: No Hx Neurologic Surgery: No Hx Cataract Extraction: No Hx Cardiac Surgery: No Hx Lung Surgery: No Hx Breast Surgery: No Hx Breast Biopsy: No Hx Abdominal Surgery: No Hx Appendectomy: No Hx Cholecystectomy: No Hx Genitourinary Surgery: No Hx Section: No Hx Orthopedic Surgery: No Anesthesia Reaction: No - PPD History Previous Implant?: No Documented Results: Negative w/proof Implanted On Prior [facility] Admission?: Yes Date: 01/15/17 Results: 0 mm - Smoking Cessation Smoking history: Current every day smoker Have you smoked in the past 12 months: Yes Aproximately how many cigarettes per day: 7 Cigars Per Day: 0 Hx Chewing Tobacco Use: No Initiated information on smoking cessation: Yes 'Breaking Loose' booklet given: 05/20/17 - Substances Abused Crack Route: Smoking Frequency: Daily Amount used: $60 Age of first use: 33 Date of Last Use: 05/18/17 Alcohol-vodka/beer Route: Oral Frequency: Daily Amount used: 1 1/2 pts./2 (22 oz) Age of first use: 15 Date of Last Use: 05/18/17 Family Disease History - Family Disease History Family Disease History: Diabetes: Grandparent (maternal grandmother), Mother ( , stroke age 52, etoh), Sister, [place]: Father (, lung cancer age 72 , smoker), Other: Father, Mother Admission Physical Exam BHS - Vital Signs Vital Signs: Vital Signs - 24 hr 05/19/17 13:59 Temperature 97.0 F L Pulse Rate 70 Respiratory 18 Rate Blood Pressure 133/68 - Physical General Appearance: Yes: Disheveled, Mild Distress HEENTM: Yes: EOMI, Normal Voice, KIRSTIE, Pharynx Normal, Other (Dry mucous membranes). No: Thrush Respiratory: Yes: Chest Non-Tender, Lungs Clear, Normal Breath Sounds Neck: Yes: No masses,lesions,Nodules, Trachea in good position Breast: Yes: Breast Exam Deferred Cardiology: Yes: Regular Rhythm, Regular Rate, S1, S2 Abdominal: Yes: Normal Bowel Sounds, Flat, Soft Back: Yes: Normal Inspection. No: CVA Tenderness Musculoskeletal: Yes: Within Normal Limits, Gait Steady, Other (b/l arm tremors) Extremities: Yes: Normal Range of Motion, Non-Tender. No: Pedal Edema, Calf Tenderness Neurological: Yes: radiological health specialist II-XII NML intact, Motor Strength 5/5 Integumentary: Yes: Normal Color, Dry, Clammy (hands) Lymphatic: No: Adenopathy Cleared for Admission [facility] - Detox or Rehab [facility] Level of Care: Medically Managed Detox Regimen/Protocol: Librium [facility] Breath Alcohol Content Breath Alcohol Content: 0 Urine Drug Screen - Results Drug Screen Negative: No Urine Drug Screen Results: GAVIN-Cocaine, TCA-Tricyclic Antidepress
[2017-05-19] MEDS ORDERED: chlordiazePOXIDE HCL 25 MG CAPSULE PO ONE (15:47)
[2017-05-19] MEDS: chlordiazePOXIDE HCL 25 MG CAPSULE PO SCH ×2 (17:29→22:37)
[2017-05-19] MEDS: NICOTINE POLACRILEX 2 MG GUM BUC PRN ×2 (17:30→22:18)
[2017-05-19 21:02] LABS: URINE APPEARANCE CLEAR; URINE BILIRUBIN NEGATIVE (NEGATIVE); URINE BLOOD NEGATIVE (NEGATIVE); URINE COLOR YELLOW; URINE GLUCOSE (UA) NEGATIVE (NEGATIVE); URINE KETONE NEGATIVE (NEGATIVE); URINE LEUK ESTERASE NEGATIVE (NEGATIVE); URINE NITRITE NEGATIVE (NEGATIVE); URINE PROTEIN NEGATIVE (NEGATIVE); URINE UROBILINOGEN NEGATIVE mg/dL (0.2-1.0)
[2017-05-19] MEDS ORDERED: MIRTAZAPINE 15 MG TABLET (FP) PO SCH (22:00)
[2017-05-19] MEDS ORDERED: QUEtiapine FUMARATE 300 MG TABLET PO SCH (22:00)
[2017-05-19] MEDS: THIAMINE HCL 100 MG TABLET (FP) PO SCH (22:15)
[2017-05-20] MEDS: chlordiazePOXIDE HCL 25 MG CAPSULE PO SCH ×4 (05:06→22:07)
[2017-05-20] MEDS: NICOTINE POLACRILEX 2 MG GUM BUC PRN ×3 (09:03→22:09)
[2017-05-20 09:53] LABS: HEMATOCRIT 38.8 % (35.4-49); HEMOGLOBIN 12.9 GM/dL (11.7-16.9); MCH 31.1 pg (25.7-33.7); MCHC 33.2 g/dl (32.0-35.9); MEAN CELL VOLUME 93.7 fl (80-96); MEAN PLT VOLUME 8.5 fl (7.5-11.1); PLATELET COUNT 342 K/MM3 (134-434); RBC 4.14 M/mm3 (4.00-5.60); RDW 14.3 % (11.9-15.9); WHITE BLOOD COUNT 6.5 K/mm3 (4.0-10.0)
[2017-05-20 09:59] LABS: ALBUMIN 3.6 g/dl (3.4-5.0); ANION GAP 4 (8-16); BLOOD UREA NITROGEN 23 mg/dL (7-18); CHLORIDE 108 mmol/L (98-107); CO2 30 mmol/L (21-32); GLUCOSE,RANDOM 90 mg/dL (74-106); POTASSIUM 4.5 mmol/L (3.5-5.1); SODIUM 142 mmol/L (136-145)
[2017-05-20 10:04] LABS: ALK PHOS 99 U/L (45-117); BILIRUBIN,TOTAL 0.5 mg/dL (0.2-1.0); CALCIUM 8.6 mg/dL (8.5-10.1); CREATININE 1.1 mg/dL (0.7-1.3); SGOT/AST 16 U/L (15-37); SGPT/ALT 18 U/L (12-78); TOT PROT 7.2 g/dl (6.4-8.2)
[2017-05-20] MEDS: PRENATAL VITAMINS W/ FOLIC ACID TABLET (FP) PO SCH (10:23)
--- NOTE | 2017-05-20 10:23 | CONSULT ---
[facility] Psychiatric Consult - Data Date of interview: 05/20/17 Admission source: [facility] Identifying data: Pt. is a 57 year old male, single, father of two, and currently unemployed. This is one of multiple admissions at [facility]. Pt. admitted to for alcohol and crack/cocaine dependence. Substance Abuse History: Crack/cocaine- First used:33 Frequency: Daily Amount : $60 Last used: 05/18. Alcohol: First used: 15 Frequency: Daily Amount: 1 1/ 2 22oz and 3 beers. Cigarette- Current everyday smoke. 7 cigarettes per day. Medical History: Denies. Psychiatric History: Pt. reports h/o multiple psychiatric hospitalizations with the most recent hospitalization at [facility] in [place] in May of 2015. Pt. states he was admitted for 17 days because he had a "bipolar episode." Pt. states he see's an outpatient psychatrist in [place] named Dr. Jean-Baptiste and also see's a therapist due to needing support after the of his 3 years ago. Pt. is currently prescribed remeron 45mg qhs Seroquel 600mg qhs and vistaril 50mg qhs. Pt. denies h/o suicide attempts. Pt. denies suicidal and homicidal ideation. Physical/Sexual Abuse/Trauma History: Denies. Mental Status Exam - Mental Status Exam Alert and Oriented to: Time, Place, Person Cognitive Function: Good Patient Appearance: Well Groomed Mood: Hopeful Affect: Mood Congruent Patient Behavior: Appropriate, Cooperative Speech Pattern: Clear, Appropriate Voice Loudness: Normal Thought Process: Goal Oriented Thought Disorder: Not Present Hallucinations: Denies Suicidal Ideation: Denies Homicidal Ideation: Denies Insight/Judgement: Poor Sleep: Poorly Appetite: Fair Muscle strength/Tone: Normal Gait/Station: Normal Psychiatric Findings - Problem List ([place] 1, 2,3) (1) Alcohol dependence with uncomplicated withdrawal Current Visit: Yes Status: Acute (2) Heroin abuse Current Visit: Yes Status: Acute (3) Opioid-induced sleep disorder, insomnia type, with onset during discontinuation/withdrawal Current Visit: Yes Status: Acute (4) Insomnia Current Visit: Yes Status: Acute Qualifiers: Insomnia type: unspecified Qualified Code(s): G47.00 - Insomnia, unspecified (5) Substance induced mood disorder Current Visit: Yes Status: Suspected (6) Bipolar disorder Current Visit: Yes Status: Chronic Qualifiers: Active/Remission status: remission status unspecified Qualified Code(s): F31.9 - Bipolar disorder, unspecified Comment: Self-report. (7) Cocaine dependence, uncomplicated Current Visit: Yes Status: Chronic (8) Depression Current Visit: Yes Status: Chronic (9) Nicotine dependence Current Visit: Yes Status: Chronic Qualifiers: Nicotine product type: cigarettes Substance use status: in withdrawal Qualified Code(s): F17.213 - Nicotine dependence, cigarettes, with withdrawal - Initial Treatment Plan Initial Treatment Plan: Psychoeducation provided. Detoxification in progress. Seroquel 300mg qhs and remeron 15mg qhs to be ordered. Both medications will be given as reduce dosages due to drug to drug interactions which can cause oversedation. Plan is to titrate seroquel to 600mg qhs and remeron to 30mg pending oversedation and if no hypotension is noted. Benefits and side effects discussed. Verbal consent given. Pt. agreeable with plan. Will continue to monitor.
[2017-05-20] MEDS: AMMONIUM LACTATE 12% LOTION 225 GM BOTTLE TP PRN ×2 (10:25→22:06)
[2017-05-20] MEDS: NICOTINE 14 MG/24 HOURS TOPICAL PATCH TD SCH (10:25)
--- NOTE | 2017-05-20 12:30 | PN ---
[facility] CIWA - CIWA Score Nausea/Vomitin-Mild Nausea/No Vomiting Muscle Tremors: 4-Moderate,w/Arms Extend Anxiety: 4-Mod. Anxious/Guarded Agitation: 4-Moderately Restless Paroxysmal Sweats: 3 Orientation: 0-Oriented Tacttile Disturbances: 1-Very Mild Itch/Numbness Auditory Disturbances: 0-None Visual Disturbances: 0-None Headache: 1-Very Mild CIWA-Ar Total Score: 18 BHS Progress Note (SOAP) Subjective: Nausea, interrupted sleep, anxious Objective: 05/20/17 12:33 Last Vital Signs Temp Pulse Resp BP Pulse Ox 97.7 F 75 18 119/76 05/20/17 10:00 05/20/17 10:00 05/20/17 10:00 05/20/17 10:00 Laboratory Tests 05/19/17 05/20/17 05/20/17 18:30 06:05 06:05 WBC 6.5 D RBC 4.14 Hgb 12.9 Hct 38.8 MCV 93.7 MCH 31.1 MCHC 33.2 RDW 14.3 Plt Count 342 MPV 8.5 Sodium 142 Potassium 4.5 Chloride 108 H Carbon Dioxide 30 Anion Gap 4 L BUN 23 H D Creatinine 1.1 Creat Clearance w eGFR > 60 Random Glucose 90 Calcium 8.6 Total Bilirubin 0.5 D AST 16 ALT 18 Alkaline Phosphatase 99 Total Protein 7.2 Albumin 3.6 Urine Color Yellow Urine Appearance Clear Urine pH 5.0 D Ur Specific [place] 1.028 Urine Protein Negative Urine Glucose (UA) Negative Urine Ketones Negative Urine Blood Negative Urine Nitrite Negative Urine Bilirubin Negative Urine Urobilinogen Negative Ur Leukocyte Esterase Negative Labs noted: bun 23 Assessment: 05/20/17 12:37 Withdrawal symptoms Azotemia noted Plan: Continue detox Azotemia: encouraged to drink lots of water
[2017-05-20] MEDS: THIAMINE HCL 100 MG TABLET (FP) PO SCH (22:07)
[2017-05-20] MEDS: QUEtiapine FUMARATE 300 MG TABLET PO SCH (22:07)
[2017-05-20] MEDS: MIRTAZAPINE 15 MG TABLET (FP) PO SCH (22:07)
[2017-05-21] MEDS: chlordiazePOXIDE HCL 25 MG CAPSULE PO SCH ×2 (05:14→10:20)
[2017-05-21] MEDS: NICOTINE POLACRILEX 2 MG GUM BUC PRN ×5 (05:15→22:06)
[2017-05-21] MEDS: PRENATAL VITAMINS W/ FOLIC ACID TABLET (FP) PO SCH (10:20)
[2017-05-21] MEDS: NICOTINE 14 MG/24 HOURS TOPICAL PATCH TD SCH (10:20)
--- NOTE | 2017-05-21 11:32 | EKG ---
Test Reason : Blood Pressure : / mmHG Vent. Rate : 062 BPM Atrial Rate : 062 BPM P-R Int : 164 ms QRS Dur : 090 ms QT Int : 428 ms P-R-T Axes : 063 050 -39 degrees QTc Int : 434 ms NORMAL SINUS RHYTHM MINIMAL VOLTAGE CRITERIA FOR LVH, MAY BE NORMAL VARIANT T WAVE ABNORMALITY, CONSIDER LATERAL ISCHEMIA ABNORMAL ECG WHEN COMPARED WITH ECG OF 16-MAR-2017 15:56, NO SIGNIFICANT CHANGE WAS FOUND BASELINE ARTIFACT Confirmed by DENISE HEBERT MD ([id number]) on 05/21/2017 11:32:12 AM Referred By: Confirmed By:DENISE HEBERT MD
--- NOTE | 2017-05-21 13:08 | PN ---
S CIWA - CIWA Score Nausea/Vomitin Muscle Tremors: 3 Anxiety: 2 Agitation: 2 Paroxysmal Sweats: 2 Orientation: 0-Oriented Tacttile Disturbances: 0-None Auditory Disturbances: 0-None Visual Disturbances: 0-None Headache: 0-None Present CIWA-Ar Total Score: 11 BHS Progress Note (SOAP) Subjective: Anxious, sweats, tremors Objective: 05/21/17 13:05 [address], withdrawal sx Vital Signs Temperature 96.3 F L 05/21/17 10:00 Pulse Rate 69 05/21/17 10:00 Respiratory Rate 18 05/21/17 10:00 Blood Pressure 127/79 05/21/17 10:00 O2 Sat by Pulse Oximetry (%) VS noted Laboratory Last Values WBC 6.5 K/mm3 (4.0-10.0) D 05/20/17 06:05 RBC 4.14 M/mm3 (4.00-5.60) 05/20/17 06:05 Hgb 12.9 GM/dL (11.7-16.9) 05/20/17 06:05 Hct 38.8 % (35.4-49) 05/20/17 06:05 MCV 93.7 fl (80-96) 05/20/17 06:05 MCH 31.1 pg (25.7-33.7) 05/20/17 06:05 MCHC 33.2 g/dl (32.0-35.9) 05/20/17 06:05 RDW 14.3 % (11.9-15.9) 05/20/17 06:05 Plt Count 342 K/MM3 (134-434) 05/20/17 06:05 MPV 8.5 fl (7.5-11.1) 05/20/17 06:05 Sodium 142 mmol/L (136-145) 05/20/17 06:05 Potassium 4.5 mmol/L (3.5-5.1) 05/20/17 06:05 Chloride 108 mmol/L (98-107) H 05/20/17 06:05 Carbon Dioxide 30 mmol/L (21-32) 05/20/17 06:05 Anion Gap 4 (8-16) L 05/20/17 06:05 BUN 23 mg/dL (7-18) H D 05/20/17 06:05 Creatinine 1.1 mg/dL (0.7-1.3) 05/20/17 06:05 Creat Clearance w eGFR > 60 (>60) 05/20/17 06:05 Random Glucose 90 mg/dL (74-106) 05/20/17 06:05 Calcium 8.6 mg/dL (8.5-10.1) 05/20/17 06:05 Total Bilirubin 0.5 mg/dL (0.2-1.0) D 05/20/17 06:05 AST 16 U/L (15-37) 05/20/17 06:05 ALT 18 U/L (12-78) 05/20/17 06:05 Alkaline Phosphatase 99 U/L (45-117) 05/20/17 06:05 Total Protein 7.2 g/dl (6.4-8.2) 05/20/17 06:05 Albumin 3.6 g/dl (3.4-5.0) 05/20/17 06:05 Urine Color Yellow 05/19/17 18:30 Urine Appearance Clear 05/19/17 18:30 Urine pH 5.0 (5.0-8.0) D 05/19/17 18:30 Ur Specific [place] 1.028 (1.001-1.035) 05/19/17 18:30 Urine Protein Negative (NEGATIVE) 05/19/17 18:30 Urine Glucose (UA) Negative (NEGATIVE) 05/19/17 18:30 Urine Ketones Negative (NEGATIVE) 05/19/17 18:30 Urine Blood Negative (NEGATIVE) 05/19/17 18:30 Urine Nitrite Negative (NEGATIVE) 05/19/17 18:30 Urine Bilirubin Negative (NEGATIVE) 05/19/17 18:30 Urine Urobilinogen Negative mg/dL (0.2-1.0) 05/19/17 18:30 Ur Leukocyte Esterase Negative (NEGATIVE) 05/19/17 18:30 RPR Titer Nonreactive (NONREACTIVE) 05/20/17 06:05 labs noted Assessment: 05/21/17 13:06 withdrawal symptoms Plan: Continue detox
[2017-05-21] MEDS: chlordiazePOXIDE 5 MG CAPSULE PO SCH ×2 (17:44→22:04)
[2017-05-21] MEDS: THIAMINE HCL 100 MG TABLET (FP) PO SCH (22:03)
[2017-05-21] MEDS: MIRTAZAPINE 15 MG TABLET (FP) PO SCH (22:04)
[2017-05-21] MEDS: QUEtiapine FUMARATE 300 MG TABLET PO SCH (22:04)
[2017-05-22] MEDS: chlordiazePOXIDE 5 MG CAPSULE PO SCH ×2 (05:34→10:13)
[2017-05-22] MEDS: NICOTINE POLACRILEX 2 MG GUM BUC PRN ×4 (05:35→22:14)
[2017-05-22] MEDS: PRENATAL VITAMINS W/ FOLIC ACID TABLET (FP) PO SCH (10:13)
[2017-05-22] MEDS: NICOTINE 14 MG/24 HOURS TOPICAL PATCH TD SCH (10:14)
--- NOTE | 2017-05-22 13:42 | PN ---
BHS Progress Note (SOAP) Subjective: withdrawal sx Objective: 05/22/17 13:40 Vital Signs Temperature 97.5 F L 05/22/17 09:37 Pulse Rate 81 05/22/17 09:37 Respiratory Rate 16 05/22/17 09:37 Blood Pressure 134/65 05/22/17 09:37 O2 Sat by Pulse Oximetry (%) Laboratory Last Values WBC 6.5 K/mm3 (4.0-10.0) D 05/20/17 06:05 RBC 4.14 M/mm3 (4.00-5.60) 05/20/17 06:05 Hgb 12.9 GM/dL (11.7-16.9) 05/20/17 06:05 Hct 38.8 % (35.4-49) 05/20/17 06:05 MCV 93.7 fl (80-96) 05/20/17 06:05 MCH 31.1 pg (25.7-33.7) 05/20/17 06:05 MCHC 33.2 g/dl (32.0-35.9) 05/20/17 06:05 RDW 14.3 % (11.9-15.9) 05/20/17 06:05 Plt Count 342 K/MM3 (134-434) 05/20/17 06:05 MPV 8.5 fl (7.5-11.1) 05/20/17 06:05 Sodium 142 mmol/L (136-145) 05/20/17 06:05 Potassium 4.5 mmol/L (3.5-5.1) 05/20/17 06:05 Chloride 108 mmol/L (98-107) H 05/20/17 06:05 Carbon Dioxide 30 mmol/L (21-32) 05/20/17 06:05 Anion Gap 4 (8-16) L 05/20/17 06:05 BUN 23 mg/dL (7-18) H D 05/20/17 06:05 Creatinine 1.1 mg/dL (0.7-1.3) 05/20/17 06:05 Creat Clearance w eGFR > 60 (>60) 05/20/17 06:05 Random Glucose 90 mg/dL (74-106) 05/20/17 06:05 Calcium 8.6 mg/dL (8.5-10.1) 05/20/17 06:05 Total Bilirubin 0.5 mg/dL (0.2-1.0) D 05/20/17 06:05 AST 16 U/L (15-37) 05/20/17 06:05 ALT 18 U/L (12-78) 05/20/17 06:05 Alkaline Phosphatase 99 U/L (45-117) 05/20/17 06:05 Total Protein 7.2 g/dl (6.4-8.2) 05/20/17 06:05 Albumin 3.6 g/dl (3.4-5.0) 05/20/17 06:05 Urine Color Yellow 05/19/17 18:30 Urine Appearance Clear 05/19/17 18:30 Urine pH 5.0 (5.0-8.0) D 05/19/17 18:30 Ur Specific [place] 1.028 (1.001-1.035) 05/19/17 18:30 Urine Protein Negative (NEGATIVE) 05/19/17 18:30 Urine Glucose (UA) Negative (NEGATIVE) 05/19/17 18:30 Urine Ketones Negative (NEGATIVE) 05/19/17 18:30 Urine Blood Negative (NEGATIVE) 05/19/17 18:30 Urine Nitrite Negative (NEGATIVE) 05/19/17 18:30 Urine Bilirubin Negative (NEGATIVE) 05/19/17 18:30 Urine Urobilinogen Negative mg/dL (0.2-1.0) 05/19/17 18:30 Ur Leukocyte Esterase Negative (NEGATIVE) 05/19/17 18:30 RPR Titer Nonreactive (NONREACTIVE) 05/20/17 06:05 labs noted Assessment: 05/22/17 13:41 withdrawal sx Plan: continue detox
[2017-05-22] MEDS: chlordiazePOXIDE HCL 10 MG CAPSULE PO SCH ×2 (17:38→22:13)
[2017-05-22] MEDS: QUEtiapine FUMARATE 300 MG TABLET PO SCH (22:13)
[2017-05-22] MEDS: THIAMINE HCL 100 MG TABLET (FP) PO SCH (22:13)
[2017-05-22] MEDS: MIRTAZAPINE 15 MG TABLET (FP) PO SCH (22:13)
[2017-05-23] MEDS: chlordiazePOXIDE HCL 10 MG CAPSULE PO SCH (05:46)
[2017-05-23] MEDS: NICOTINE POLACRILEX 2 MG GUM BUC PRN ×2 (05:47→10:52)
--- NOTE | 2017-05-23 09:36 | DS ---
[facility] Detox Discharge Summary Admission Date: 05/19/17 Discharge Date: 05/23/17 - History Present History: Alcohol Dependence, Cocaine Dependence Additional Comments: FOLLOW UP WITH AFTER CARE PROGRAM ARRANGEMENT Pertinent Past History: NICOTINE DEPENDENCE BIPOLAR DISORDER - Physical Exam Results Vital Signs: Vital Signs Temperature 98.1 F 05/23/17 06:00 Pulse Rate 78 05/23/17 06:00 Respiratory Rate 18 05/23/17 06:00 Blood Pressure 104/64 05/23/17 06:00 O2 Sat by Pulse Oximetry (%) Pertinent Admission Physical Exam Findings: WITHDRAWAL SYMPTOM - Treatment Hospital Course: Detox Protocol Followed, Detoxed Safely, Responded well, Discharged Condition Good, Rehab Referral Accepted Patient has Accepted a Rehab Referral to: [facility] - Medication Discharge Medications: Ambulatory Orders Mirtazapine [Remeron -] 45 mg PO HS 01/13/17 Hydroxyzine Pamoate [Vistaril -] 100 mg PO HS 05/19/17 Quetiapine Fumarate [Seroquel -] 600 mg PO HS 05/19/17 - Diagnosis (1) Alcohol dependence with uncomplicated withdrawal Current Visit: Yes Status: Acute (2) Bipolar disorder Current Visit: Yes Status: Chronic Qualifiers: Active/Remission status: remission status unspecified Qualified Code(s): F31.9 - Bipolar disorder, unspecified (3) Cocaine dependence, uncomplicated Current Visit: Yes Status: Chronic (4) Nicotine dependence Current Visit: Yes Status: Chronic Qualifiers: Nicotine product type: cigarettes Substance use status: in withdrawal Qualified Code(s): F17.213 - Nicotine dependence, cigarettes, with withdrawal (5) Syncope Current Visit: No Status: Acute - AMA Did Patient Leave Against Medical Advice: No
[2017-05-23] MEDS: NICOTINE 14 MG/24 HOURS TOPICAL PATCH TD SCH (10:16)
[2017-05-23] MEDS: PRENATAL VITAMINS W/ FOLIC ACID TABLET (FP) PO SCH (10:16)
[2017-05-23 10:18] VITALS: BP 106/60; PULSE 74; TEMP 97
== END 2017-05-23 11:57 | disposition home or self-care (01) | DRG 774 ==
LOC: YASAS 10:49 → Y6N 15:45
PROVIDERS: ADMIT Internal Medicine; ATTEND Internal Medicine
PROC: HZ2ZZZZ Detoxification Services for Substance Abuse Treatment (ICD-10-PCS; principal; 2017-05-19)
DX: F10.230 Alcohol dependence with withdrawal, uncomplicated (principal); F14.20 Cocaine dependence, uncomplicated; F11.982 Opioid use, unspecified with opioid-induced sleep disorder; F17.213 Nicotine dependence, cigarettes, with withdrawal; F31.9 Bipolar disorder, unspecified; F19.24 Other psychoactive substance dependence with psychoactive substance-induced mood disorder; F32.9 Major depressive disorder, single episode, unspecified; G47.00 Insomnia, unspecified; R79.89 Other specified abnormal findings of blood chemistry; Z86.79 Personal history of other diseases of the circulatory system
CPT/HCPCS: 36415; 80053; 81003; 85027; 86593; 93005; 93010

== ENCOUNTER 2017-09-12 10:52 | Inpatient (IN) | payer OTHER ==
[2017-09-12 11:51] VITALS: BMI 24.9
--- NOTE | 2017-09-12 14:13 | HP ---
CIWA Score - CIWA Score Nausea/Vomitin Muscle Tremors: 3 Anxiety: 3 Agitation: 2 Paroxysmal Sweats: 3 Orientation: 0-Oriented Tacttile Disturbances: 0-None Auditory Disturbances: 0-None Visual Disturbances: 0-None Headache: 0-None Present CIWA-Ar Total Score: 14 Admission ROS S - HPI Chief Complaint: "I am here for detox for alcohol and cocaine" Allergies/Adverse Reactions: Allergies Allergy/AdvReac Type Severity Reaction Status Date / Time No Known Allergies Allergy Verified 05/19/17 14:11 History of Present Illness: 57 y/o male with a long history of alcohol abuse here requesting detox. Pt has been here for both detox and rehab, last visit here 12/2016 for detox. Hx Bipolar, Depression, Anxiety, denies medical hx. Pt is on self referral, brought in by Kamila Denies current nor past SI/HI Exam Limitations: No Limitations - Ebola screening Have you traveled outside of the country in the last 21 days: No Have you had contact with anyone from an Ebola affected area: No Have you been sick,other than usual withdrawal symptoms: No Do you have a fever: No - Review of Systems Constitutional: Loss of Appetite, Changes in sleep EENT: reports: No Symptoms Reported Respiratory: reports: No Symptoms reported Cardiac: reports: No Symptoms Reported GI: reports: No Symptoms Reported : reports: No Symptoms Reported Musculoskeletal: reports: No Symptoms Reported Integumentary: reports: Dryness (Generalized dry skin - uses 12% Ammonium lactate lotion) Neuro: reports: No Symptoms reported Endocrine: reports: No Symptoms Reported Hematology: reports: No Symptoms Reported Psychiatric: reports: other (Bipolar, Depression) Other Systems: Reviewed and Negative Patient History - Patient Medical History Hx Anemia: No Hx Asthma: No Hx Chronic Obstructive Pulmonary Disease (COPD): No Hx Cancer: No Hx Cardiac Disorders: No Hx Congestive Heart Failure: No Hx Hypertension: No Hx Hypercholesterolemia: No Hx Pacemaker: No HX Cerebrovascular Accident: No Hx Seizures: No Hx Dementia: No Hx Diabetes: No Hx Gastrointestinal Disorders: No ([place] - not on medication) Hx Liver Disease: No Hx Genitourinary Disorders: No Hx Sexually Transmitted Disorders: No Hx Renal Disease (ESRD): No Hx Thyroid Disease: No Hx Human Immunodeficiency Virus (HIV): No Hx Hepatitis C: No Hx Depression: Yes (On Remeron ) Hx Suicide Attempt: No (Denies) Hx Bipolar Disorder: Yes (on Mirtazapine) Hx Schizophrenia: No (On Seroquel) - Patient Surgical History Past Surgical History: No Hx Neurologic Surgery: No Hx Cataract Extraction: No Hx Cardiac Surgery: No Hx Lung Surgery: No Hx Breast Surgery: No Hx Breast Biopsy: No Hx Abdominal Surgery: No Hx Appendectomy: No Hx Cholecystectomy: No Hx Genitourinary Surgery: No Hx Section: No Hx Orthopedic Surgery: No Anesthesia Reaction: No - PPD History Previous Implant?: Yes Documented Results: Negative w/proof Implanted On Prior R Admission?: Yes Date: 01/15/17 Results: 0 mm PPD to be Administered?: No - Reproductive History Patient is a Female of Child Bearing Age (11 -55 yrs old): No - Smoking Cessation Smoking history: Current every day smoker Have you smoked in the past 12 months: Yes Aproximately how many cigarettes per day: 10 Cigars Per Day: 0 Hx Chewing Tobacco Use: No Initiated information on smoking cessation: Yes 'Breaking Loose' booklet given: 09/12/17 - Substance & Tx. History Hx Alcohol Use: Yes (Vodka, Beer) Hx Substance Use: Yes (Crack cocaine) Hx Substance Use Treatment: Yes - Substances Abused Alcohol Route: Oral Frequency: Daily Amount used: 2 Pints Vodka, 3 (22oz) Age of first use: 15 Date of Last Use: 09/11/17 Crack Route: Smoking Frequency: Daily Amount used: 6 bags Age of first use: 28 Date of Last Use: 09/11/17 Family Disease History - Family Disease History Family Disease History: Diabetes: Grandparent (maternal grandmother, ), Mother (, stroke age 52, etoh), Brother, [place]: Father (, lung cancer age 72, smoker), Other: Father, Mother Admission Physical Exam [facility] - Vital Signs Vital Signs: Vital Signs - 24 hr 09/12/17 11:47 Temperature 95.5 F L Pulse Rate 61 Respiratory 20 Rate Blood Pressure 151/77 - Physical General Appearance: Yes: Appropriately Dressed, Mild Distress HEENTM: Yes: Nasal Congestion Respiratory: Yes: Lungs Clear, No Respiratory Distress Neck: Yes: No masses,lesions,Nodules, Trachea in good position Breast: Yes: Breast Exam Deferred Cardiology: Yes: Regular Rhythm Abdominal: Yes: Normal Bowel Sounds, Non Tender, Distended Genitourinary: Yes: Within Normal Limits Back: Yes: Normal Inspection Musculoskeletal: Yes: full range of Motion, Gait Steady Extremities: Yes: Normal Capillary Refill, Normal Range of Motion Neurological: Yes: Within Normal Limits, Fully Oriented, Motor Strength 5/5 Integumentary: Yes: Normal Color (Uses ammonium lactate lotion for dry skin - dry skin not apparent at this time) Lymphatic: Yes: Within Normal Limits - Diagnostic (1) Alcohol dependence with uncomplicated withdrawal Current Visit: No Status: Acute (2) Cocaine dependence, uncomplicated Current Visit: No Status: Chronic (3) Dry skin Current Visit: No Status: Resolved (4) Nicotine dependence Current Visit: No Status: Chronic Qualifiers: Nicotine product type: cigarettes Substance use status: in withdrawal Qualified Code(s): F17.213 - Nicotine dependence, cigarettes, with withdrawal (5) Substance induced mood disorder Current Visit: No Status: Suspected (6) Bipolar disorder Current Visit: No Status: Chronic Qualifiers: Active/Remission status: remission status unspecified Qualified Code(s): F31.9 - Bipolar disorder, unspecified Comment: Self-report. Cleared for Admission [facility] - Detox or Rehab [facility] Level of Care: Medically Managed Detox Regimen/Protocol: Librium [facility] Breath Alcohol Content Breath Alcohol Content: 0 Urine Drug Screen - Results Drug Screen Negative: No Urine Drug Screen Results: GAVIN-Cocaine, TCA-Tricyclic Antidepress
[2017-09-12] MEDS ORDERED: LOPERAMIDE HCL 2 MG CAPSULE PO PRN (14:46)
[2017-09-12] MEDS ORDERED: IBUPROFEN 400 MG TABLET (FP) PO PRN (14:46)
[2017-09-12] MEDS ORDERED: MENTHOL/PHENOL 1 EACH UD MM PRN (14:46)
[2017-09-12] MEDS ORDERED: P-EPHED 60MG/TRIPROLIDI 2.5MG TABLET PO PRN (14:46)
[2017-09-12] MEDS ORDERED: MAGNESIUM HYDROX 2400MG/30ML ORAL SUSPENSION 30 ML CUP PO PRN (14:46)
[2017-09-12] MEDS ORDERED: MAG HYDROX/AL HYDROX/SIMETH 30 ML UNIT-DOSE CUP PO PRN (14:46)
[2017-09-12] MEDS ORDERED: MAGNESIUM CITRATE 300 ML BOTTLE PO PRN (14:46)
[2017-09-12] MEDS ORDERED: ACETAMINOPHEN 325 MG TABLET (FP) PO PRN (14:46)
[2017-09-12] MEDS ORDERED: MIRTAZAPINE 15 MG TABLET (FP) PO ONE (14:51)
--- NOTE | 2017-09-12 15:42 | CONSULT ---
[facility] Psychiatric Consult - Data Date of interview: 09/12/17 Admission source: [facility] Identifying data: Readmission to [facility] for this 57 y/o AA male seeking detox treatment on for alcohol,cocaine and opioid dependence.Patient is single,father of two,domiciled,unemployed and supported by relatives. Substance Abuse History: Confirmed by the patient in this interview.Details in [facility] report : Smoking history: Current every day smoker. Have you smoked in the past 12 months: Yes. Aproximately how many cigarettes per day: 10. Cigars Per Day: 0. Hx Chewing Tobacco Use: No. Initiated information on smoking cessation: Yes. 'Breaking Loose' booklet given: 09/12/17. - Substance & Tx. History. Hx Alcohol Use: Yes (Vodka, Beer). Hx Substance Use: Yes ( Crack cocaine). Hx Substance Use Treatment: Yes. - Substances Abused. Alcohol. Route: Oral. Frequency: Daily. Amount used: 2 Pints Vodka, 3 (22oz) . Age of first use: 15. Date of Last Use: 09/11/17. Crack. Route: Smoking. Frequency: Daily. Amount used: 6 bags. Age of first use: 28. Date of Last Use: 09/11/17 Medical History: Patient endorses good general health. Psychiatric History: Patient suscribes to a history of multiple psychiatric hospitalizations ([facility]).Diagnosed with Bipolar Disorder.Discharged from [facility] in May 2017.Patient sees Dr Kim Jean-Baptiste,a private psychiatrist in [facility], for medication management.Prescribed seroquel 400 mg/hs + remeron 45 mg/hs + vistaril 45 mg/hs.Mr Veras endorses a history of optimal adherence to his medications.Has maintained a therapeutic alliance with his psychiatrist for past eight years.Patient denies history of suicide attempts. Physical/Sexual Abuse/Trauma History: Patient denies. Additional Comment: Urine Drug Screen Results: GAVIN-Cocaine, TCA-Tricyclic Antidepressant.Noted. Mental Status Exam - Mental Status Exam Alert and Oriented to: Time, Place, Person Cognitive Function: Good Patient Appearance: Well Groomed Mood: Hopeful, Euthymic Affect: Appropriate, Normal Range Patient Behavior: Fatigued, Appropriate, Cooperative Speech Pattern: Clear, Appropriate Voice Loudness: Normal Thought Process: Intact, Goal Oriented Thought Disorder: Not Present Hallucinations: Denies Suicidal Ideation: Denies Homicidal Ideation: Denies Insight/Judgement: Fair Sleep: Poorly, Difficulty falling asleep Appetite: Good Muscle strength/Tone: Normal Gait/Station: Normal Psychiatric Findings - Problem List ([place] 1, 2,3) (1) Alcohol dependence with uncomplicated withdrawal Current Visit: Yes Status: Acute (2) Cocaine dependence, uncomplicated Current Visit: Yes Status: Acute (3) Nicotine dependence Current Visit: Yes Status: Acute Qualifiers: Nicotine product type: cigarettes Substance use status: in withdrawal Qualified Code(s): F17.213 - Nicotine dependence, cigarettes, with withdrawal (4) Substance induced mood disorder Current Visit: Yes Status: Acute (5) Bipolar disorder Current Visit: Yes Status: Chronic Qualifiers: Active/Remission status: remission status unspecified Qualified Code(s): F31.9 - Bipolar disorder, unspecified Comment: As per existing records.On medications.OPD care is confirmed. (6) Insomnia Current Visit: Yes Status: Acute Qualifiers: Insomnia type: unspecified Qualified Code(s): G47.00 - Insomnia, unspecified - Initial Treatment Plan Initial Treatment Plan: Psychoeducation.Sleep hygiene.Detoxification in progress.Medications : seroquel 300 mg po hs + remeron 30 mg po hs (both drugs are resumed at reduced doses as a precaution for oversedation).To be titrated to usual doses if good tolerability.Side effects/benefits are discussed with the patient.Mr Veras has expressed his agreement to this plan of care.Observation.
--- NOTE | 2017-09-12 16:39 | PN ---
[facility] Progress Note Note: Admitting EKG reviewed and compared to previous EKG. EKG interpretation shows junctional rhythm. Pt has history of crack/cocaine and ETOH use. Vital Signs Temperature 96.4 F L 09/12/17 15:40 Pulse Rate 57 L 09/12/17 15:40 Respiratory Rate 18 09/12/17 15:40 Blood Pressure 138/75 09/12/17 15:40 O2 Sat by Pulse Oximetry (%) Subj: Pt denies CP, SOB and dizziness Obj: Car: S1S2. No gallops or murmurs Resp: CTA b/l, no wheezes or rales Ext: no edema noted A/P: Abnormal EKG Will repeat EKG at 8pm continue to monitor clinically
[2017-09-12] MEDS: NICOTINE 21 MG/24 HOURS TOPICAL PATCH TD SCH (16:43)
[2017-09-12] MEDS ORDERED: chlordiazePOXIDE HCL 25 MG CAPSULE PO PRN (16:48)
[2017-09-12] MEDS: chlordiazePOXIDE HCL 25 MG CAPSULE PO SCH ×2 (17:26→22:16)
[2017-09-12 18:01] LABS: URINE APPEARANCE CLEAR; URINE BILIRUBIN NEGATIVE (<2.0 mg/dL); URINE BLOOD NEGATIVE (NEGATIVE); URINE COLOR YELLOW; URINE GLUCOSE (UA) NEGATIVE (NEGATIVE); URINE KETONE NEGATIVE (NEGATIVE); URINE LEUK ESTERASE NEGATIVE (NEGATIVE); URINE NITRITE NEGATIVE (NEGATIVE); URINE PROTEIN NEGATIVE (NEGATIVE)
[2017-09-12] MEDS ORDERED: QUEtiapine FUMARATE 300 MG TABLET PO SCH (22:00)
[2017-09-12] MEDS ORDERED: MELATONIN 5 MG TABLETS PO PRN (22:00)
[2017-09-12] MEDS ORDERED: MIRTAZAPINE 15 MG TABLET (FP) PO SCH (22:00)
[2017-09-12] MEDS: THIAMINE HCL 100 MG TABLET (FP) PO SCH (22:15)
[2017-09-12] MEDS: NICOTINE POLACRILEX 2 MG GUM BUC PRN (22:18)
[2017-09-12] MEDS: hydrOXYzine PAMOATE 50 MG CAPSULE (FP) PO PRN (22:43)
[2017-09-13] MEDS: chlordiazePOXIDE HCL 25 MG CAPSULE PO SCH ×4 (05:58→22:28)
[2017-09-13] MEDS: guaiFENesin/D-METHORPHAN HB 10 ML UNIT-DOSE CUPS PO PRN ×3 (05:59→18:40)
[2017-09-13] MEDS: NICOTINE 21 MG/24 HOURS TOPICAL PATCH TD SCH (10:09)
[2017-09-13] MEDS: NICOTINE POLACRILEX 2 MG GUM BUC PRN ×4 (10:09→22:34)
[2017-09-13] MEDS: PRENATAL VITAMINS W/ FOLIC ACID TABLET (FP) PO SCH (10:09)
--- NOTE | 2017-09-13 10:26 | EKG ---
Test Reason : Blood Pressure : / mmHG Vent. Rate : 060 BPM Atrial Rate : 060 BPM P-R Int : 176 ms QRS Dur : 088 ms QT Int : 444 ms P-R-T Axes : 058 041 -80 degrees QTc Int : 444 ms NORMAL SINUS RHYTHM MINIMAL VOLTAGE CRITERIA FOR LVH, MAY BE NORMAL VARIANT T WAVE ABNORMALITY, CONSIDER INFEROLATERAL ISCHEMIA ABNORMAL ECG WHEN COMPARED WITH ECG OF 12-SEP-2017 15:54, SINUS RHYTHM HAS REPLACED JUNCTIONAL RHYTHM INVERTED T WAVES HAVE REPLACED NONSPECIFIC T WAVE ABNORMALITY IN INFERIOR LEADS Confirmed by MD SAVANNA, BELIA ([id number]) on 09/13/2017 10:25:28 AM Referred By: Confirmed By:BELIA CORRALES MD
--- NOTE | 2017-09-13 10:27 | EKG ---
Test Reason : Blood Pressure : / mmHG Vent. Rate : 057 BPM Atrial Rate : 086 BPM P-R Int : 000 ms QRS Dur : 078 ms QT Int : 458 ms P-R-T Axes : 000 036 -15 degrees QTc Int : 445 ms SINUS BRADYCARDIA T WAVE ABNORMALITY, CONSIDER LATERAL ISCHEMIA ABNORMAL ECG WHEN COMPARED WITH ECG OF 19-MAY-2017 16:57, JUNCTIONAL RHYTHM HAS REPLACED SINUS RHYTHM Confirmed by MD SAVANNA, BELIA ([id number]) on 09/13/2017 10:26:35 AM Referred By: Confirmed By:BELIA CORRALES MD
[2017-09-13 10:30] LABS: HEMATOCRIT 40.3 % (35.4-49); HEMOGLOBIN 13.7 GM/dL (11.7-16.9); MCH 31.6 pg (25.7-33.7); MCHC 34.1 g/dl (32.0-35.9); MEAN CELL VOLUME 92.8 fl (80-96); MEAN PLT VOLUME 9.3 fl (7.5-11.1); PLATELET COUNT 315 K/MM3 (134-434); RBC 4.34 M/mm3 (4.00-5.60); RDW 14.3 % (11.9-15.9); WHITE BLOOD COUNT 5.3 K/mm3 (4.0-10.0)
[2017-09-13 11:10] LABS: ALBUMIN 3.8 g/dl (3.4-5.0); ANION GAP 10 (8-16); BLOOD UREA NITROGEN 13 mg/dL (7-18); CALCIUM 8.8 mg/dL (8.5-10.1); CHLORIDE 107 mmol/L (98-107); CO2 27 mmol/L (21-32); CREATININE 1.2 mg/dL (0.7-1.3); GLUCOSE,RANDOM 109 mg/dL (74-106); POTASSIUM 4.3 mmol/L (3.5-5.1); SGOT/AST 15 U/L (15-37); SGPT/ALT 16 U/L (12-78); SODIUM 144 mmol/L (136-145)
[2017-09-13 11:12] LABS: ALK PHOS 81 U/L (45-117); BILIRUBIN,TOTAL 0.3 mg/dL (0.2-1.0); TOT PROT 7.2 g/dl (6.4-8.2)
--- NOTE | 2017-09-13 12:21 | PN ---
[facility] CIWA - CIWA Score Nausea/Vomitin-No Nausea/No Vomiting Muscle Tremors: 2 Anxiety: 4-Mod. Anxious/Guarded Agitation: 0-Normal Activity Paroxysmal Sweats: 2 Orientation: 0-Oriented Tacttile Disturbances: 3-Moderate Itch/Numb/Burn Auditory Disturbances: 1-Very Mild Visual Disturbances: 2-Mild Sensitivity Headache: 0-None Present CIWA-Ar Total Score: 14 B[facility] Progress Note (SOAP) Subjective: Fatigue, Anxious, Cough, Nasal Congestion, Sweating. Objective: PATIENT A & O X 3, OBSERVED AMBULATING ON UNIT. NO ACUTE DISTRESS. LUNG SOUNDS AUSCULTATED CLEAR AND EQUAL BILATERALLY. 09/13/17 12:18 Vital Signs Temperature 96.6 F L 09/13/17 09:04 Pulse Rate 57 L 09/13/17 09:04 Respiratory Rate 18 09/13/17 09:04 Blood Pressure 109/62 09/13/17 09:04 O2 Sat by Pulse Oximetry (%) Laboratory Tests 09/12/17 09/13/17 09/13/17 17:44 06:00 06:00 WBC 5.3 RBC 4.34 Hgb 13.7 Hct 40.3 MCV 92.8 MCH 31.6 MCHC 34.1 RDW 14.3 Plt Count 315 MPV 9.3 Sodium 144 Potassium 4.3 Chloride 107 Carbon Dioxide 27 Anion Gap 10 BUN 13 D Creatinine 1.2 Creat Clearance w eGFR > 60 Random Glucose 109 H D Calcium 8.8 Total Bilirubin 0.3 D AST 15 ALT 16 Alkaline Phosphatase 81 Total Protein 7.2 Albumin 3.8 Urine Color Yellow Urine Appearance Clear Urine pH 6.0 Ur Specific [place] 1.017 Urine Protein Negative Urine Glucose (UA) Negative Urine Ketones Negative Urine Blood Negative Urine Nitrite Negative Urine Bilirubin Negative Urine Urobilinogen 2.0 Ur Leukocyte Esterase Negative LABS NOTED. RPR RESULT PENDING. 09/13/17 12:19 Assessment: 09/13/17 12:19 WITHDRAWAL SYMPTOMS. Plan: CONTINUE DETOX. PRN GUAIFENESIN FOR COUGH. PRN ACTIFED FOR NASAL CONGESTION. INCREASE DAILY PO FLUID INTAKE.
--- NOTE | 2017-09-13 18:55 | PN ---
[facility] Progress Note Note: Psychiatry Attending's note : Seroquel dose is raised to 400 mg po hs. Remeron titrated to 30 mg po hs. At patient's request.Medications are well tolerated. Steady gait.Benign hospital course.
[2017-09-13] MEDS: THIAMINE HCL 100 MG TABLET (FP) PO SCH (22:28)
[2017-09-13] MEDS: MIRTAZAPINE 30 MG TABLET (FP) PO SCH (22:28)
[2017-09-13] MEDS: QUEtiapine FUMARATE 100 MG TABLET (FP) PO SCH (22:29)
[2017-09-13] MEDS: hydrOXYzine PAMOATE 50 MG CAPSULE (FP) PO PRN (22:31)
[2017-09-14] MEDS: chlordiazePOXIDE HCL 25 MG CAPSULE PO SCH ×2 (05:31→10:08)
[2017-09-14] MEDS: guaiFENesin/D-METHORPHAN HB 10 ML UNIT-DOSE CUPS PO PRN ×3 (05:31→22:31)
[2017-09-14] MEDS: NICOTINE POLACRILEX 2 MG GUM BUC PRN ×5 (05:32→22:33)
[2017-09-14] MEDS: NICOTINE 21 MG/24 HOURS TOPICAL PATCH TD SCH (10:06)
[2017-09-14] MEDS: PRENATAL VITAMINS W/ FOLIC ACID TABLET (FP) PO SCH (10:07)
--- NOTE | 2017-09-14 12:48 | PN ---
[facility] CIWA - CIWA Score Nausea/Vomitin-No Nausea/No Vomiting Muscle Tremors: 4-Moderate,w/Arms Extend Anxiety: 4-Mod. Anxious/Guarded Agitation: 4-Moderately Restless Paroxysmal Sweats: 1-Minimal Palms Moist Orientation: 0-Oriented Tacttile Disturbances: 0-None Auditory Disturbances: 0-None Visual Disturbances: 0-None Headache: 0-None Present CIWA-Ar Total Score: 13 S Progress Note (SOAP) Subjective: ANXIETY,SWEATS,FATIGUE, DRY SKIN, INTERMITTENT SLEEP. Objective: 09/14/17 12:45 Vital Signs Temperature 98.6 F 09/14/17 09:47 Pulse Rate 70 09/14/17 09:47 Respiratory Rate 18 09/14/17 09:47 Blood Pressure 121/68 09/14/17 09:47 O2 Sat by Pulse Oximetry (%) Laboratory Last Values WBC 5.3 K/mm3 (4.0-10.0) 09/13/17 06:00 RBC 4.34 M/mm3 (4.00-5.60) 09/13/17 06:00 Hgb 13.7 GM/dL (11.7-16.9) 09/13/17 06:00 Hct 40.3 % (35.4-49) 09/13/17 06:00 MCV 92.8 fl (80-96) 09/13/17 06:00 MCH 31.6 pg (25.7-33.7) 09/13/17 06:00 MCHC 34.1 g/dl (32.0-35.9) 09/13/17 06:00 RDW 14.3 % (11.9-15.9) 09/13/17 06:00 Plt Count 315 K/MM3 (134-434) 09/13/17 06:00 MPV 9.3 fl (7.5-11.1) 09/13/17 06:00 Sodium 144 mmol/L (136-145) 09/13/17 06:00 Potassium 4.3 mmol/L (3.5-5.1) 09/13/17 06:00 Chloride 107 mmol/L (98-107) 09/13/17 06:00 Carbon Dioxide 27 mmol/L (21-32) 09/13/17 06:00 Anion Gap 10 (8-16) 09/13/17 06:00 BUN 13 mg/dL (7-18) D 09/13/17 06:00 Creatinine 1.2 mg/dL (0.7-1.3) 09/13/17 06:00 Creat Clearance w eGFR > 60 (>60) 09/13/17 06:00 Random Glucose 109 mg/dL (74-106) H D 09/13/17 06:00 Calcium 8.8 mg/dL (8.5-10.1) 09/13/17 06:00 Total Bilirubin 0.3 mg/dL (0.2-1.0) D 09/13/17 06:00 AST 15 U/L (15-37) 09/13/17 06:00 ALT 16 U/L (12-78) 09/13/17 06:00 Alkaline Phosphatase 81 U/L (45-117) 09/13/17 06:00 Total Protein 7.2 g/dl (6.4-8.2) 09/13/17 06:00 Albumin 3.8 g/dl (3.4-5.0) 09/13/17 06:00 Urine Color Yellow 09/12/17 17:44 Urine Appearance Clear 09/12/17 17:44 Urine pH 6.0 (5.0-8.0) 09/12/17 17:44 Ur Specific [place] 1.017 (1.001-1.035) 09/12/17 17:44 Urine Protein Negative (NEGATIVE) 09/12/17 17:44 Urine Glucose (UA) Negative (NEGATIVE) 09/12/17 17:44 Urine Ketones Negative (NEGATIVE) 09/12/17 17:44 Urine Blood Negative (NEGATIVE) 09/12/17 17:44 Urine Nitrite Negative (NEGATIVE) 09/12/17 17:44 Urine Bilirubin Negative (<2.0 mg/dL) 09/12/17 17:44 Urine Urobilinogen 2.0 mg/dL (0.2-1.0) 09/12/17 17:44 Ur Leukocyte Esterase Negative (NEGATIVE) 09/12/17 17:44 RPR Titer Nonreactive (NONREACTIVE) 09/13/17 06:00 Assessment: 09/14/17 12:45 WITHDRAWAL SX Plan: CONTINUE DETOX. LAC HYDRIN LOTION DIRECTED.
[2017-09-14] MEDS: AMMONIUM LACTATE 12% LOTION 225 GM BOTTLE TP SCH (15:15)
[2017-09-14] MEDS: chlordiazePOXIDE 5 MG CAPSULE PO SCH ×2 (17:07→22:29)
[2017-09-14] MEDS: THIAMINE HCL 100 MG TABLET (FP) PO SCH (22:29)
[2017-09-14] MEDS: MIRTAZAPINE 30 MG TABLET (FP) PO SCH (22:29)
[2017-09-14] MEDS: QUEtiapine FUMARATE 100 MG TABLET (FP) PO SCH (22:29)
[2017-09-15] MEDS: chlordiazePOXIDE 5 MG CAPSULE PO SCH ×2 (05:05→10:03)
[2017-09-15] MEDS: guaiFENesin/D-METHORPHAN HB 10 ML UNIT-DOSE CUPS PO PRN (05:06)
[2017-09-15] MEDS: hydrOXYzine PAMOATE 50 MG CAPSULE (FP) PO PRN ×2 (05:07→22:20)
[2017-09-15] MEDS: NICOTINE POLACRILEX 2 MG GUM BUC PRN ×4 (05:08→17:16)
[2017-09-15] MEDS: PRENATAL VITAMINS W/ FOLIC ACID TABLET (FP) PO SCH (10:03)
[2017-09-15] MEDS: AMMONIUM LACTATE 12% LOTION 225 GM BOTTLE TP SCH (10:04)
[2017-09-15] MEDS: NICOTINE 21 MG/24 HOURS TOPICAL PATCH TD SCH (10:04)
--- NOTE | 2017-09-15 13:17 | PN ---
[facility] Progress Note (SOAP) Subjective: DECREASED ANXIETY,SWEATS. ALERT O X 3. REPORTS DETOX PROCEEDING WELL. Objective: 09/15/17 13:17 Vital Signs Temperature 96.2 F L 09/15/17 09:01 Pulse Rate 64 09/15/17 09:01 Respiratory Rate 18 09/15/17 09:01 Blood Pressure 114/61 09/15/17 09:01 O2 Sat by Pulse Oximetry (%) Laboratory Last Values WBC 5.3 K/mm3 (4.0-10.0) 09/13/17 06:00 RBC 4.34 M/mm3 (4.00-5.60) 09/13/17 06:00 Hgb 13.7 GM/dL (11.7-16.9) 09/13/17 06:00 Hct 40.3 % (35.4-49) 09/13/17 06:00 MCV 92.8 fl (80-96) 09/13/17 06:00 MCH 31.6 pg (25.7-33.7) 09/13/17 06:00 MCHC 34.1 g/dl (32.0-35.9) 09/13/17 06:00 RDW 14.3 % (11.9-15.9) 09/13/17 06:00 Plt Count 315 K/MM3 (134-434) 09/13/17 06:00 MPV 9.3 fl (7.5-11.1) 09/13/17 06:00 Sodium 144 mmol/L (136-145) 09/13/17 06:00 Potassium 4.3 mmol/L (3.5-5.1) 09/13/17 06:00 Chloride 107 mmol/L (98-107) 09/13/17 06:00 Carbon Dioxide 27 mmol/L (21-32) 09/13/17 06:00 Anion Gap 10 (8-16) 09/13/17 06:00 BUN 13 mg/dL (7-18) D 09/13/17 06:00 Creatinine 1.2 mg/dL (0.7-1.3) 09/13/17 06:00 Creat Clearance w eGFR > 60 (>60) 09/13/17 06:00 Random Glucose 109 mg/dL (74-106) H D 09/13/17 06:00 Calcium 8.8 mg/dL (8.5-10.1) 09/13/17 06:00 Total Bilirubin 0.3 mg/dL (0.2-1.0) D 09/13/17 06:00 AST 15 U/L (15-37) 09/13/17 06:00 ALT 16 U/L (12-78) 09/13/17 06:00 Alkaline Phosphatase 81 U/L (45-117) 09/13/17 06:00 Total Protein 7.2 g/dl (6.4-8.2) 09/13/17 06:00 Albumin 3.8 g/dl (3.4-5.0) 09/13/17 06:00 Urine Color Yellow 09/12/17 17:44 Urine Appearance Clear 09/12/17 17:44 Urine pH 6.0 (5.0-8.0) 09/12/17 17:44 Ur Specific [place] 1.017 (1.001-1.035) 09/12/17 17:44 Urine Protein Negative (NEGATIVE) 09/12/17 17:44 Urine Glucose (UA) Negative (NEGATIVE) 09/12/17 17:44 Urine Ketones Negative (NEGATIVE) 09/12/17 17:44 Urine Blood Negative (NEGATIVE) 09/12/17 17:44 Urine Nitrite Negative (NEGATIVE) 09/12/17 17:44 Urine Bilirubin Negative (<2.0 mg/dL) 09/12/17 17:44 Urine Urobilinogen 2.0 mg/dL (0.2-1.0) 09/12/17 17:44 Ur Leukocyte Esterase Negative (NEGATIVE) 09/12/17 17:44 RPR Titer Nonreactive (NONREACTIVE) 09/13/17 06:00 Assessment: 09/15/17 13:17 WITHDRAWAL SX Plan: CONTINUE DETOX
--- NOTE | 2017-09-15 16:40 | PN ---
[facility] Progress Note Note: Psychiatric nurse practitioner note: Patient approached bid writer concerning his seroquel dose. Dr. Quinonez note read and appreciated. Pt. with multiple admissions to detox. Pt. with a history of Bipolar disorder and reports taking seroquel 600mg qhs while at home. Pharmacy claims reviewed. Pt. able to tolerate current dose of Seroquel 400mg qhs. Pt. denies oversedation or dizziness. Pt. requesting seroquel dose to be increased. Seroquel to be increased to 500mg. Pt. agreeable with plan. Will continue to monitor.
[2017-09-15] MEDS: chlordiazePOXIDE HCL 10 MG CAPSULE PO SCH ×2 (17:16→22:21)
[2017-09-15] MEDS ORDERED: QUEtiapine FUMARATE 200 MG TABLET ONE (21:36)
[2017-09-15] MEDS ORDERED: QUEtiapine FUMARATE 300 MG TABLET ONE (21:36)
[2017-09-15] MEDS ORDERED: QUEtiapine FUMARATE 400 MG TABLET PO SCH ×2 (22:00)
[2017-09-15] MEDS ORDERED: QUETIAPINE FUMARATE 300 MG, QUETIAPINE FUMARATE 200 MG PO SCH (22:00)
[2017-09-15] MEDS: THIAMINE HCL 100 MG TABLET (FP) PO SCH (22:21)
[2017-09-15] MEDS: MIRTAZAPINE 30 MG TABLET (FP) PO SCH (22:23)
[2017-09-16 06:11] VITALS: BP 108/73; PULSE 85; TEMP 97.5
[2017-09-16] MEDS: chlordiazePOXIDE HCL 10 MG CAPSULE PO SCH (06:28)
[2017-09-16] MEDS: AMMONIUM LACTATE 12% LOTION 225 GM BOTTLE TP SCH (09:38)
[2017-09-16] MEDS: PRENATAL VITAMINS W/ FOLIC ACID TABLET (FP) PO SCH (09:38)
[2017-09-16] MEDS: NICOTINE 21 MG/24 HOURS TOPICAL PATCH TD SCH (09:38)
--- NOTE | 2017-09-16 13:59 | PN ---
[facility] Progress Note (SOAP) Subjective: Patient Denies any current Detox symptoms and reports that he feels well overall. Objective: PATIENT A & O X 3, OBSERVED AMBULATING ON UNIT. NO ACUTE DISTRESS. 09/16/17 13:58 Vital Signs Temperature 97.5 F L 09/16/17 06:11 Pulse Rate 85 09/16/17 06:11 Respiratory Rate 18 09/16/17 06:11 Blood Pressure 108/73 09/16/17 06:11 O2 Sat by Pulse Oximetry (%) Laboratory Tests 09/12/17 09/13/17 09/13/17 17:44 06:00 06:00 WBC 5.3 RBC 4.34 Hgb 13.7 Hct 40.3 MCV 92.8 MCH 31.6 MCHC 34.1 RDW 14.3 Plt Count 315 MPV 9.3 Sodium 144 Potassium 4.3 Chloride 107 Carbon Dioxide 27 Anion Gap 10 BUN 13 D Creatinine 1.2 Creat Clearance w eGFR > 60 Random Glucose 109 H D Calcium 8.8 Total Bilirubin 0.3 D AST 15 ALT 16 Alkaline Phosphatase 81 Total Protein 7.2 Albumin 3.8 Urine Color Yellow Urine Appearance Clear Urine pH 6.0 Ur Specific [place] 1.017 Urine Protein Negative Urine Glucose (UA) Negative Urine Ketones Negative Urine Blood Negative Urine Nitrite Negative Urine Bilirubin Negative Urine Urobilinogen 2.0 Ur Leukocyte Esterase Negative RPR Titer 09/13/17 06:00 WBC RBC Hgb Hct MCV MCH MCHC RDW Plt Count MPV Sodium [place] Chloride Carbon Dioxide Anion Gap BUN Creatinine Creat Clearance w eGFR Random Glucose Calcium Total Bilirubin AST ALT Alkaline Phosphatase Total Protein Albumin Urine Color Urine Appearance Urine pH Ur Specific [place] Urine Protein Urine Glucose (UA) Urine Ketones Urine Blood Urine Nitrite Urine Bilirubin Urine Urobilinogen Ur Leukocyte Esterase RPR Titer Nonreactive LABS NOTED. Assessment: 09/16/17 13:58 COMPLETION OF DETOX REGIMEN. 09/16/17 13:59 Plan: PATIENT SCHEDULED FOR DISCHARGE FROM DETOX UNIT TODAY.
--- NOTE | 2017-09-16 14:06 | DS ---
[facility] Detox Discharge Summary Admission Date: 09/12/17 Discharge Date: 09/16/17 - History Present History: Alcohol Dependence, Cocaine Dependence Additional Comments: PATIENT ELECTING TO GO HOME. PATIENT ADVISED TO CONSIDER LOCAL 12-STEP / NA / AA OUTPATIENT SUPPORT GROUP MEETINGS FOR AFTERCARE. PATIENT WAS DISCHARGED FROM DETOX UNIT IN STABLE MEDICAL CONDITION. Pertinent Past History: Depression, Bipolar Disorder, Dry Skin, Nicotine Dependence, Insomnia. - Physical Exam Results Vital Signs: Vital Signs Temperature 97.5 F L 09/16/17 06:11 Pulse Rate 85 09/16/17 06:11 Respiratory Rate 18 09/16/17 06:11 Blood Pressure 108/73 09/16/17 06:11 O2 Sat by Pulse Oximetry (%) Pertinent Admission Physical Exam Findings: WITHDRAWAL SYMPTOMS. Laboratory Tests 09/12/17 09/13/17 09/13/17 17:44 06:00 06:00 WBC 5.3 RBC 4.34 Hgb 13.7 Hct 40.3 MCV 92.8 MCH 31.6 MCHC 34.1 RDW 14.3 Plt Count 315 MPV 9.3 Sodium 144 Potassium 4.3 Chloride 107 Carbon Dioxide 27 Anion Gap 10 BUN 13 D Creatinine 1.2 Creat Clearance w eGFR > 60 Random Glucose 109 H D Calcium 8.8 Total Bilirubin 0.3 D AST 15 ALT 16 Alkaline Phosphatase 81 Total Protein 7.2 Albumin 3.8 Urine Color Yellow Urine Appearance Clear Urine pH 6.0 Ur Specific [place] 1.017 Urine Protein Negative Urine Glucose (UA) Negative Urine Ketones Negative Urine Blood Negative Urine Nitrite Negative Urine Bilirubin Negative Urine Urobilinogen 2.0 Ur Leukocyte Esterase Negative RPR Titer 09/13/17 06:00 WBC RBC Hgb Hct MCV MCH MCHC RDW Plt Count MPV Sodium Potassium Chloride Carbon Dioxide Anion Gap BUN Creatinine Creat Clearance w eGFR Random Glucose Calcium Total Bilirubin AST ALT Alkaline Phosphatase Total Protein Albumin Urine Color Urine Appearance Urine pH Ur Specific [place] Urine Protein Urine Glucose (UA) Urine Ketones Urine Blood Urine Nitrite Urine Bilirubin Urine Urobilinogen Ur Leukocyte Esterase RPR Titer Nonreactive LABS NOTED. - Treatment Hospital Course: Detox Protocol Followed, Detoxed Safely, Responded well, Discharged Condition Good Patient has Accepted a Rehab Referral to: PT GOING HOME, ADVISED TO CONSIDER LOCAL 12-STEP/NA/AA OP SUPPORT GROUPS. - Medication Discharge Medications: Ambulatory Orders Mirtazapine [Remeron -] 45 mg PO HS 01/13/17 Ammonium Lactate Cream [Lac-Hydrin 12% *Cream*] 1 applic TP BID 09/12/17 Mirtazapine [Remeron -] 30 mg PO HS #30 tablet 09/16/17 Quetiapine Fumarate [Seroquel -] 500 mg PO HS #5 tablet 09/16/17 Quetiapine Fumarate [Seroquel -] 500 mg PO HS #5 tablet 09/16/17 Quetiapine Fumarate [Seroquel] 600 mg PO HS #30 tablet 09/16/17 - Diagnosis (1) Alcohol dependence with uncomplicated withdrawal Status: Acute (2) Cocaine dependence, uncomplicated Status: Acute (3) Nicotine dependence Status: Acute Qualifiers: Nicotine product type: cigarettes Substance use status: in withdrawal Qualified Code(s): F17.213 - Nicotine dependence, cigarettes, with withdrawal (4) Substance induced mood disorder Status: Acute (5) Bipolar disorder Status: Chronic Qualifiers: Active/Remission status: remission status unspecified Qualified Code(s): F31.9 - Bipolar disorder, unspecified (6) Dry skin Status: Chronic (7) Insomnia Status: Acute Qualifiers: Insomnia type: unspecified Qualified Code(s): G47.00 - Insomnia, unspecified - AMA Did Patient Leave Against Medical Advice: No
== END 2017-09-16 09:10 | disposition home or self-care (01) | DRG 774 ==
LOC: YASAS 10:52 → Y3N 15:07
PROVIDERS: ADMIT Internal Medicine; ATTEND Internal Medicine
PROC: HZ2ZZZZ Detoxification Services for Substance Abuse Treatment (ICD-10-PCS; principal; 2017-09-12)
DX: F10.230 Alcohol dependence with withdrawal, uncomplicated (principal); F14.20 Cocaine dependence, uncomplicated; F17.213 Nicotine dependence, cigarettes, with withdrawal; F19.24 Other psychoactive substance dependence with psychoactive substance-induced mood disorder; F31.9 Bipolar disorder, unspecified; L98.8 Other specified disorders of the skin and subcutaneous tissue; G47.00 Insomnia, unspecified; R94.31 Abnormal electrocardiogram [ECG] [EKG]; Z87.898 Personal history of other specified conditions
CPT/HCPCS: 36415; 80053; 81003; 85027; 86593; 93005; 93010

== ENCOUNTER 2017-11-22 13:22 | Inpatient (IN) | payer OTHER ==
[2017-11-22 14:24] VITALS: BMI 23.8
--- NOTE | 2017-11-22 17:08 | HP ---
CIWA Score - CIWA Score Nausea/Vomitin-No Nausea/No Vomiting Muscle Tremors: 2 Anxiety: 3 Agitation: 3 Paroxysmal Sweats: 1-Minimal Palms Moist Orientation: 0-Oriented Tacttile Disturbances: 1-Very Mild Itch/Numbness Auditory Disturbances: 0-None Visual Disturbances: 0-None Headache: 0-None Present CIWA-Ar Total Score: 10 Admission ROS BHS - HPI Chief Complaint: " I don't feel to good." Allergies/Adverse Reactions: Allergies Allergy/AdvReac Type Severity Reaction Status Date / Time No Known Allergies Allergy Verified 09/12/17 14:45 History of Present Illness: 57 yo male with hx of nicotine, alcohol and cocaine dependence is here seeking detox, this one of multiple admissions to [facility]. Last detox [facility] 09/12/17 -. Denies any medical problems , reports hx of depression and schizophrenia. Denies hx of seizures, reports blackouts related to alcohol use. Denies suicidal / homicidal ideation or hx of suicide attempts. Longest period of sobriety 3 years [id number]. Exam Limitations: No Limitations - Ebola screening Have you traveled outside of the country in the last 21 days: No (N) Have you had contact with anyone from an Ebola affected area: No Have you been sick,other than usual withdrawal symptoms: No Do you have a fever: No - Review of Systems Constitutional: Loss of Appetite, Unintentional Wgt. Loss EENT: reports: Nose Congestion, Throat Pain (x 4 days) Respiratory: reports: No Symptoms reported Cardiac: reports: No Symptoms Reported GI: reports: Poor Appetite, Poor Fluid Intake : reports: No Symptoms Reported Musculoskeletal: reports: No Symptoms Reported Integumentary: reports: No Symptoms Reported Neuro: reports: See HPI Endocrine: reports: Increased Thirst Hematology: reports: No Symptoms Reported Psychiatric: reports: Orientated x3, Anxious Other Systems: Reviewed and Negative Patient History - Patient Medical History Hx Anemia: No Hx Asthma: No Hx Chronic Obstructive Pulmonary Disease (COPD): No Hx Cancer: No Hx Cardiac Disorders: No Hx Congestive Heart Failure: No Hx Hypertension: No Hx Hypercholesterolemia: No Hx Pacemaker: No HX Cerebrovascular Accident: No Hx Seizures: No Hx Dementia: No Hx Diabetes: No Hx Gastrointestinal Disorders: No Hx Liver Disease: No Hx Genitourinary Disorders: No Hx Sexually Transmitted Disorders: No Hx Renal Disease (ESRD): No Hx Thyroid Disease: No Hx Human Immunodeficiency Virus (HIV): No Hx Hepatitis C: No Hx Depression: Yes Hx Suicide Attempt: No Hx Bipolar Disorder: Yes (on Mirtazapine) Hx Schizophrenia: No - Patient Surgical History Past Surgical History: No Hx Neurologic Surgery: No Hx Cataract Extraction: No Hx Cardiac Surgery: No Hx Lung Surgery: No Hx Breast Surgery: No Hx Breast Biopsy: No Hx Abdominal Surgery: No Hx Appendectomy: No Hx Cholecystectomy: No Hx Genitourinary Surgery: No Hx Section: No Hx Orthopedic Surgery: No Anesthesia Reaction: No - PPD History Documented Results: Negative w/proof Date: 01/15/17 Results: 0 mm PPD to be Administered?: No - Smoking Cessation Smoking history: Current every day smoker Have you smoked in the past 12 months: Yes Aproximately how many cigarettes per day: 10 Cigars Per Day: 0 Hx Chewing Tobacco Use: No Initiated information on smoking cessation: Yes 'Breaking Loose' booklet given: 11/22/17 - Substance & Tx. History Hx Alcohol Use: Yes Hx Substance Use: Yes Substance Use Type: Alcohol, Cocaine Hx Substance Use Treatment: Yes (Last detox [facility] 09/12/17 -09/16/17.) - Substances Abused Alcohol Route: Oral Frequency: Daily Amount used: 2 pints vodka / az + 4 beers x 22 oz Age of first use: 15 Date of Last Use: 11/21/17 Family Disease History - Family Disease History Family Disease History: Diabetes: Grandparent (maternal grandmother, ), Mother (, stroke age 52, etoh), Brother, Sister, [place]: Father (, lung cancer age 72, smoker), Other: Father, Mother Admission Physical Exam S - Vital Signs Vital Signs: Vital Signs - 24 hr 11/22/17 14:20 Temperature 99.0 F Pulse Rate 79 Respiratory 16 Rate Blood Pressure 125/66 - Physical General Appearance: Yes: Disheveled, Mild Distress, Thin, Anxious HEENTM: Yes: Hearing grossly Normal, Normocephalic, Normal Voice, KIRSTIE, Nasal Congestion, Pharyngeal Erythemia Respiratory: Yes: Chest Non-Tender, Lungs Clear, Normal Breath Sounds, No Respiratory Distress, No Accessory Muscle Use Neck: Yes: No masses,lesions,Nodules, Trachea in good position Breast: Yes: Breast Exam Deferred Cardiology: Yes: Regular Rhythm, Regular Rate Abdominal: Yes: Normal Bowel Sounds, Non Tender, Flat, Soft Genitourinary: Yes: Within Normal Limits Back: Yes: Normal Inspection Musculoskeletal: Yes: full range of Motion, Gait Steady, Pelvis Stable Extremities: Yes: Normal Capillary Refill, Normal Inspection, Normal Range of Motion, Non-Tender Neurological: Yes: personal lines sales rep II-XII NML intact, Fully Oriented, Alert, Motor Strength 5/5, Depressed Affect Integumentary: Yes: Normal Color, Warm, Diaphoresis Lymphatic: Yes: Adenopathy (rigth cervical) - Diagnostic (1) Sore throat Current Visit: Yes Status: Acute (2) Alcohol dependence with uncomplicated withdrawal Current Visit: Yes Status: Acute (3) Cocaine dependence, uncomplicated Current Visit: Yes Status: Acute (4) Insomnia Current Visit: Yes Status: Acute Qualifiers: Insomnia type: unspecified Qualified Code(s): G47.00 - Insomnia, unspecified (5) Nicotine dependence Current Visit: Yes Status: Acute Qualifiers: Nicotine product type: cigarettes Substance use status: in withdrawal Qualified Code(s): F17.213 - Nicotine dependence, cigarettes, with withdrawal (6) Dry skin Current Visit: Yes Status: Chronic Cleared for Admission [facility] - Detox or Rehab [facility] Level of Care: Medically Supervised Detox Regimen/Protocol: Librium [facility] Breath Alcohol Content Breath Alcohol Content: 0 Urine Drug Screen - Results Drug Screen Negative: No Urine Drug Screen Results: GAVIN-Cocaine, TCA-Tricyclic Antidepress
[2017-11-22] MEDS ORDERED: P-EPHED 60MG/TRIPROLIDI 2.5MG TABLET PO PRN (17:14)
[2017-11-22] MEDS ORDERED: MAG HYDROX/AL HYDROX/SIMETH 30 ML UNIT-DOSE CUP PO PRN (17:14)
[2017-11-22] MEDS ORDERED: MAGNESIUM CITRATE 300 ML BOTTLE PO PRN (17:14)
[2017-11-22] MEDS ORDERED: hydrOXYzine PAMOATE 50 MG CAPSULE (FP) PO PRN (17:14)
[2017-11-22] MEDS ORDERED: chlordiazePOXIDE HCL 25 MG CAPSULE PO PRN (17:14)
[2017-11-22] MEDS ORDERED: IBUPROFEN 400 MG TABLET (FP) PO PRN (17:14)
[2017-11-22] MEDS ORDERED: MAGNESIUM HYDROX 2400MG/30ML ORAL SUSPENSION 30 ML CUP PO PRN (17:14)
[2017-11-22] MEDS ORDERED: LOPERAMIDE HCL 2 MG CAPSULE PO PRN (17:14)
[2017-11-22] MEDS ORDERED: ACETAMINOPHEN 325 MG TABLET (FP) PO PRN (17:14)
[2017-11-22] MEDS ORDERED: chlordiazePOXIDE HCL 25 MG CAPSULE PO ONE (18:15)
[2017-11-22] MEDS: guaiFENesin/D-METHORPHAN HB 10 ML UNIT-DOSE CUPS PO PRN (20:38)
[2017-11-22] MEDS: MENTHOL/PHENOL 1 EACH UD MM PRN (20:39)
[2017-11-22] MEDS ORDERED: MELATONIN 5 MG TABLETS PO PRN (22:00)
[2017-11-22] MEDS: THIAMINE HCL 100 MG TABLET (FP) PO SCH (22:20)
[2017-11-22] MEDS: AMMONIUM LACTATE 12% LOTION 225 GM BOTTLE TP SCH (22:20)
[2017-11-22] MEDS: chlordiazePOXIDE HCL 25 MG CAPSULE PO SCH (22:21)
[2017-11-22] MEDS: CHLORHEXIDINE GLUCONATE 0.12% 15ML CUP MM SCH (22:21)
[2017-11-23] MEDS: guaiFENesin/D-METHORPHAN HB 10 ML UNIT-DOSE CUPS PO PRN ×3 (04:11→17:55)
[2017-11-23] MEDS: MENTHOL/PHENOL 1 EACH UD MM PRN (04:11)
[2017-11-23] MEDS: chlordiazePOXIDE HCL 25 MG CAPSULE PO SCH ×4 (05:50→22:02)
[2017-11-23 09:40] LABS: HEMATOCRIT 36.7 % (35.4-49); HEMOGLOBIN 12.4 GM/dL (11.7-16.9); MCH 31.3 pg (25.7-33.7); MCHC 33.6 g/dl (32.0-35.9); MEAN CELL VOLUME 93.1 fl (80-96); PLATELET COUNT 254 K/MM3 (134-434); RBC 3.94 M/mm3 (4.00-5.60); RDW 14.9 % (11.9-15.9)
[2017-11-23 09:58] LABS: CHLORIDE 104 mmol/L (98-107); POTASSIUM 3.8 mmol/L (3.5-5.1); SODIUM 139 mmol/L (136-145)
[2017-11-23] MEDS: PRENATAL VITAMINS W/ FOLIC ACID TABLET (FP) PO SCH (10:11)
[2017-11-23] MEDS: CHLORHEXIDINE GLUCONATE 0.12% 15ML CUP MM SCH ×2 (10:12→22:01)
[2017-11-23] MEDS: NICOTINE 14 MG/24 HOURS TOPICAL PATCH TD SCH (10:12)
[2017-11-23] MEDS: AMMONIUM LACTATE 12% LOTION 225 GM BOTTLE TP SCH ×2 (10:14→23:54)
[2017-11-23] MEDS: NICOTINE POLACRILEX 2 MG GUM BC PRN ×2 (10:14→17:56)
[2017-11-23 10:35] LABS: ALBUMIN 3.3 g/dl (3.4-5.0); ALK PHOS 70 U/L (45-117); ANION GAP 12 (8-16); BILIRUBIN,TOTAL 0.4 mg/dL (0.2-1.0); BLOOD UREA NITROGEN 12 mg/dL (7-18); CO2 23 mmol/L (21-32); CREATININE 1.1 mg/dL (0.7-1.3); GLUCOSE,RANDOM 113 mg/dL (74-106); SGOT/AST 15 U/L (15-37); SGPT/ALT 17 U/L (12-78); TOT PROT 6.4 g/dl (6.4-8.2)
[2017-11-23 11:07] LABS: CALCIUM 8.3 mg/dL (8.5-10.1)
--- NOTE | 2017-11-23 13:36 | PN ---
S CIWA - CIWA Score Nausea/Vomitin-No Nausea/No Vomiting Muscle Tremors: 3 Anxiety: 2 Agitation: 2 Paroxysmal Sweats: 1-Minimal Palms Moist Orientation: 0-Oriented Tacttile Disturbances: 1-Very Mild Itch/Numbness Auditory Disturbances: 0-None Visual Disturbances: 0-None Headache: 1-Very Mild CIWA-Ar Total Score: 10 BHS Progress Note (SOAP) Subjective: sweat tremor restlessness anxiety worry about physical health Objective: 11/23/17 13:35 Vital Signs Temperature 97.9 F 11/23/17 09:52 Pulse Rate 56 L 11/23/17 09:52 Respiratory Rate 16 11/23/17 09:52 Blood Pressure 106/63 11/23/17 09:52 O2 Sat by Pulse Oximetry (%) Laboratory Last Values WBC 5.0 K/mm3 (4.0-10.0) 11/23/17 08:00 RBC 3.94 M/mm3 (4.00-5.60) L 11/23/17 08:00 Hgb 12.4 GM/dL (11.7-16.9) 11/23/17 08:00 Hct 36.7 % (35.4-49) 11/23/17 08:00 MCV 93.1 fl (80-96) 11/23/17 08:00 MCH 31.3 pg (25.7-33.7) 11/23/17 08:00 MCHC 33.6 g/dl (32.0-35.9) 11/23/17 08:00 RDW 14.9 % (11.9-15.9) 11/23/17 08:00 Plt Count 254 K/MM3 (134-434) 11/23/17 08:00 MPV 8.0 fl (7.5-11.1) D 11/23/17 08:00 Sodium 139 mmol/L (136-145) 11/23/17 08:00 Potassium 3.8 mmol/L (3.5-5.1) 11/23/17 08:00 Chloride 104 mmol/L (98-107) 11/23/17 08:00 Carbon Dioxide 23 mmol/L (21-32) 11/23/17 08:00 Anion Gap 12 (8-16) 11/23/17 08:00 BUN 12 mg/dL (7-18) 11/23/17 08:00 Creatinine 1.1 mg/dL (0.7-1.3) 11/23/17 08:00 Creat Clearance w eGFR > 60 (>60) 11/23/17 08:00 Random Glucose 113 mg/dL (74-106) H 11/23/17 08:00 Calcium 8.3 mg/dL (8.5-10.1) L 11/23/17 08:00 Total Bilirubin 0.4 mg/dL (0.2-1.0) 11/23/17 08:00 AST 15 U/L (15-37) 11/23/17 08:00 ALT 17 U/L (12-78) 11/23/17 08:00 Alkaline Phosphatase 70 U/L (45-117) 11/23/17 08:00 Total Protein 6.4 g/dl (6.4-8.2) 11/23/17 08:00 Albumin 3.3 g/dl (3.4-5.0) L 11/23/17 08:00 RPR Titer Nonreactive (NONREACTIVE) 11/23/17 06:20 lab noted Assessment: 11/23/17 13:35 withdrawal sx Plan: continue detox discuss alcohol related health issues
--- NOTE | 2017-11-23 15:42 | CONSULT ---
[facility] Psychiatric Consult - Data Date of interview: 11/23/17 Admission source: [facility] Identifying data: Patient is a 57 year old single male, father of two, unemployed, homeless, and supported by food stamps. This is one of multiple admissions for patient. Pt. admitted to for alcohol and cocaine dependence. Substance Abuse History: Smoking Cessation. Smoking history: Current every day smoker. Have you smoked in the past 12 months: Yes. Aproximately how many cigarettes per day: 10. Cigars Per Day: 0. Hx Chewing Tobacco Use: No. Initiated information on smoking cessation: Yes. 'Breaking Loose' booklet given : 11/22/17. - Substance & Tx. History. Hx Alcohol Use: Yes. Hx Substance Use : Yes. Substance Use Type: Alcohol, Cocaine. Hx Substance Use Treatment: Yes ( Last detox [facility] 09/12/17 -09/16/17.). - Substances Abused. Alcohol. Route: Oral. Frequency: Daily. Amount used: 2 pints vodka / az + 4 beers x 22 oz. Age of first use: 15. Date of Last Use: 11/21/17 Medical History: Denies. Psychiatric History: Patient reports multiple psychiatric hospitalizations, most recently at [facility] in May of 2017 for exhibiting episodes of simran. Diagnosis of Bipolar disorder. Pt. is also known to [facility] and [facility]. OPD is provided by Dr. Jean-Baptiste. Pt. is currently prescribed Seroquel 600mg qhs +Mirtzapine 45mg qhs. Pt. denies h/o suicide attempt. Physical/Sexual Abuse/Trauma History: Denies. Mental Status Exam - Mental Status Exam Alert and Oriented to: Time, Place, Person Cognitive Function: Good Patient Appearance: Well Groomed Mood: Hopeful Affect: Appropriate Patient Behavior: Appropriate, Cooperative Speech Pattern: Clear, Appropriate Voice Loudness: Normal Thought Process: Intact, Goal Oriented Thought Disorder: Not Present Hallucinations: Denies Suicidal Ideation: Denies Homicidal Ideation: Denies Insight/Judgement: Poor Sleep: Poorly Appetite: Fair Muscle strength/Tone: Normal Gait/Station: Normal Psychiatric Findings - Problem List ([place] 1, 2,3) (1) Alcohol dependence with uncomplicated withdrawal Current Visit: Yes Status: Acute (2) Cocaine dependence, uncomplicated Current Visit: Yes Status: Acute (3) Insomnia Current Visit: Yes Status: Acute Qualifiers: Insomnia type: unspecified Qualified Code(s): G47.00 - Insomnia, unspecified (4) Nicotine dependence Current Visit: Yes Status: Acute Qualifiers: Nicotine product type: cigarettes Substance use status: in withdrawal Qualified Code(s): F17.213 - Nicotine dependence, cigarettes, with withdrawal (5) Bipolar disorder Current Visit: Yes Status: Chronic Qualifiers: Active/Remission status: remission status unspecified Qualified Code(s): F31.9 - Bipolar disorder, unspecified Comment: As per existing records.On medications.OPD care is confirmed. - Initial Treatment Plan Initial Treatment Plan: Psychoeducation provided. Detoxification in progress. Will order Seroquel 300mg qhs + Mirtzapine 30mg (reduced dose for both seroquel and mirtzapine due to risk of oversedation). Pt. agreeable with plan. Verbal consent given.
--- NOTE | 2017-11-23 15:47 | EKG ---
Test Reason : Blood Pressure : / mmHG Vent. Rate : 058 BPM Atrial Rate : 058 BPM P-R Int : 184 ms QRS Dur : 088 ms QT Int : 448 ms P-R-T Axes : 074 060 051 degrees QTc Int : 439 ms SINUS BRADYCARDIA T WAVE ABNORMALITY, CONSIDER ANTERIOR ISCHEMIA ABNORMAL ECG WHEN COMPARED WITH ECG OF 12-SEP-2017 20:18, NONSPECIFIC T WAVE ABNORMALITY HAS REPLACED INVERTED T WAVES IN INFERIOR LEADS NONSPECIFIC T WAVE ABNORMALITY HAS REPLACED INVERTED T WAVES IN LATERAL LEADS Confirmed by CARMINE BERKOWITZ, LOPEZ ([id number]) on 11/23/2017 3:46:40 PM Referred By: Confirmed By:LOPEZ LOU MD
[2017-11-23 17:56] LABS: URINE APPEARANCE CLEAR; URINE BILIRUBIN NEGATIVE (<2.0 mg/dL); URINE COLOR LTYELLOW; URINE GLUCOSE (UA) NEGATIVE (NEGATIVE); URINE KETONE NEGATIVE (NEGATIVE); URINE LEUK ESTERASE NEGATIVE (NEGATIVE); URINE NITRITE NEGATIVE (NEGATIVE); URINE PROTEIN NEGATIVE (NEGATIVE); URINE UROBILINOGEN NEGATIVE mg/dL (0.2-1.0)
[2017-11-23] MEDS ORDERED: MIRTAZAPINE 30 MG TABLET (FP) PO SCH (22:00)
[2017-11-23] MEDS ORDERED: QUEtiapine FUMARATE 300 MG TABLET PO SCH (22:00)
[2017-11-23] MEDS: THIAMINE HCL 100 MG TABLET (FP) PO SCH (22:02)
[2017-11-24] MEDS: chlordiazePOXIDE HCL 25 MG CAPSULE PO SCH ×3 (05:52→17:53)
[2017-11-24] MEDS: guaiFENesin/D-METHORPHAN HB 10 ML UNIT-DOSE CUPS PO PRN ×3 (05:54→22:15)
[2017-11-24] MEDS: MENTHOL/PHENOL 1 EACH UD MM PRN ×2 (05:56→15:03)
[2017-11-24] MEDS: NICOTINE POLACRILEX 2 MG GUM BC PRN ×5 (05:56→23:27)
[2017-11-24] MEDS: PRENATAL VITAMINS W/ FOLIC ACID TABLET (FP) PO SCH (11:00)
[2017-11-24] MEDS: NICOTINE 14 MG/24 HOURS TOPICAL PATCH TD SCH (11:01)
[2017-11-24] MEDS: AMMONIUM LACTATE 12% LOTION 225 GM BOTTLE TP SCH ×2 (11:01→22:16)
[2017-11-24] MEDS: CHLORHEXIDINE GLUCONATE 0.12% 15ML CUP MM SCH ×2 (11:04→22:21)
--- NOTE | 2017-11-24 11:29 | PN ---
S CIWA - CIWA Score Nausea/Vomitin-No Nausea/No Vomiting Muscle Tremors: 4-Moderate,w/Arms Extend Anxiety: 2 Agitation: 3 Paroxysmal Sweats: 1-Minimal Palms Moist Orientation: 0-Oriented Tacttile Disturbances: 0-None Auditory Disturbances: 0-None Visual Disturbances: 0-None Headache: 0-None Present CIWA-Ar Total Score: 10 BHS Progress Note (SOAP) Subjective: sweat tremor anxiety restlessness irritable Objective: 11/24/17 11:32 Vital Signs Temperature 97.3 F L 11/24/17 09:31 Pulse Rate 62 11/24/17 09:31 Respiratory Rate 20 11/24/17 09:31 Blood Pressure 120/72 11/24/17 09:31 O2 Sat by Pulse Oximetry (%) Laboratory Last Values WBC 5.0 K/mm3 (4.0-10.0) 11/23/17 08:00 RBC 3.94 M/mm3 (4.00-5.60) L 11/23/17 08:00 Hgb 12.4 GM/dL (11.7-16.9) 11/23/17 08:00 Hct 36.7 % (35.4-49) 11/23/17 08:00 MCV 93.1 fl (80-96) 11/23/17 08:00 MCH 31.3 pg (25.7-33.7) 11/23/17 08:00 MCHC 33.6 g/dl (32.0-35.9) 11/23/17 08:00 RDW 14.9 % (11.9-15.9) 11/23/17 08:00 Plt Count 254 K/MM3 (134-434) 11/23/17 08:00 MPV 8.0 fl (7.5-11.1) D 11/23/17 08:00 Sodium 139 mmol/L (136-145) 11/23/17 08:00 Potassium 3.8 mmol/L (3.5-5.1) 11/23/17 08:00 Chloride 104 mmol/L (98-107) 11/23/17 08:00 Carbon Dioxide 23 mmol/L (21-32) 11/23/17 08:00 Anion Gap 12 (8-16) 11/23/17 08:00 BUN 12 mg/dL (7-18) 11/23/17 08:00 Creatinine 1.1 mg/dL (0.7-1.3) 11/23/17 08:00 Creat Clearance w eGFR > 60 (>60) 11/23/17 08:00 Random Glucose 113 mg/dL (74-106) H 11/23/17 08:00 Calcium 8.3 mg/dL (8.5-10.1) L 11/23/17 08:00 Total Bilirubin 0.4 mg/dL (0.2-1.0) 11/23/17 08:00 AST 15 U/L (15-37) 11/23/17 08:00 ALT 17 U/L (12-78) 11/23/17 08:00 Alkaline Phosphatase 70 U/L (45-117) 11/23/17 08:00 Total Protein 6.4 g/dl (6.4-8.2) 11/23/17 08:00 Albumin 3.3 g/dl (3.4-5.0) L 11/23/17 08:00 Urine Color Ltyellow 11/23/17 16:45 Urine Appearance Clear 11/23/17 16:45 Urine pH 6.0 (5.0-8.0) 11/23/17 16:45 Ur Specific [place] 1.011 (1.001-1.035) 11/23/17 16:45 Urine Protein Negative (NEGATIVE) 11/23/17 16:45 Urine Glucose (UA) Negative (NEGATIVE) 11/23/17 16:45 Urine Ketones Negative (NEGATIVE) 11/23/17 16:45 Urine Blood Negative (NEGATIVE) 11/23/17 16:45 Urine Nitrite Negative (NEGATIVE) 11/23/17 16:45 Urine Bilirubin Negative (<2.0 mg/dL) 11/23/17 16:45 Urine Urobilinogen Negative mg/dL (0.2-1.0) 11/23/17 16:45 Ur Leukocyte Esterase Negative (NEGATIVE) 11/23/17 16:45 RPR Titer Nonreactive (NONREACTIVE) 11/23/17 06:20 lab noted Assessment: 11/24/17 11:32 withdrawal sx Plan: continue detox
--- NOTE | 2017-11-24 11:31 | EKG ---
Test Reason : Blood Pressure : / mmHG Vent. Rate : 094 BPM Atrial Rate : 094 BPM P-R Int : 136 ms QRS Dur : 072 ms QT Int : 360 ms P-R-T Axes : 068 054 -62 degrees QTc Int : 450 ms POOR DATA QUALITY, INTERPRETATION MAY BE ADVERSELY AFFECTED NORMAL SINUS RHYTHM ABNORMAL ECG WHEN COMPARED WITH ECG OF 22-NOV-2017 20:21, VENT. RATE HAS INCREASED BY [address] NOW DEPRESSED IN LATERAL LEADS T WAVE INVERSION NO LONGER EVIDENT IN ANTERIOR LEADS Confirmed by DERECK LOVE MD ([id number]) on 11/24/2017 11:31:19 AM Referred By: Confirmed By:DERECK LOVE MD
--- NOTE | 2017-11-24 16:13 | PN ---
Psychiatric Progress Note Vital Signs: Vital Signs Period Temp Pulse Resp BP Sys/Lawler Pulse Ox Last 24 Hr 96.6 F-98.1 F 55-77 18-20 104-140/59-72 Date of Session: 11/24/17 Chief Complaint:: Insomnia, anxiety HPI: Patient reports taking prior to admission: Seroquel 600mg po qhs. Remeron 45 mg po qhs Current Medications: Active Medications Generic Name Dose Route Start Last Admin Trade Name Freq PRN Reason Stop Dose Admin Acetaminophen 650 mg 11/22/17 17:14 Tylenol - PO Q4H PRN FEVER Al Hydroxide/Mg Hydroxide 30 ml 11/22/17 17:14 Mylanta Oral Suspension - PO Q6H PRN DYSPEPSIA Chlordiazepoxide HCl 25 mg 11/23/17 23:00 11/24/17 11:01 Librium - PO 11/24/17 17:01 25 mg [id number] SERGIO Administration Chlordiazepoxide HCl 15 mg 11/24/17 23:00 Librium - PO 11/25/17 17:01 [id number] SERGIO Chlordiazepoxide HCl 25 mg 11/22/17 17:14 11/22/17 20:36 Librium - PO 11/25/17 17:13 25 mg Q4H PRN Administration WITHDRAWAL(CONT SUBST) Chlordiazepoxide HCl 10 mg 11/25/17 23:00 Librium - PO 11/26/17 17:01 [id number] SERGIO Chlorhexidine Gluconate 15 ml 11/22/17 22:00 11/24/17 11:04 Peridex - MM 15 ml BID SERGIO Administration Eucalyptus/Menthol/Phenol/Sorbitol 1 each 11/22/17 17:14 11/24/17 15:03 Cepastat Lozenge - MM 1 each Q4H PRN Administration SORE THROAT Guaifenesin 10 ml 11/22/17 17:14 11/24/17 15:02 Robitussin Dm - PO 10 ml Q6H PRN Administration COUGH Hydroxyzine Pamoate 50 mg 11/22/17 17:14 Vistaril - PO Q4H PRN AGITATION Ibuprofen 400 mg 11/22/17 17:14 11/24/17 15:04 Motrin - PO 400 mg Q6H PRN Administration PAIN LEVEL 4-6 Lactic Acid 1 applic 11/22/17 22:00 11/24/17 11:01 Lac-Hydrin 12 TP 1 applic BID SERGIO Administration Loperamide HCl 4 mg 11/22/17 17:14 Imodium - PO Q6H PRN DIARRHEA Magnesium Citrate 300 ml 11/22/17 17:14 Citroma - PO Q48H PRN CONSTIPATION Magnesium Hydroxide 30 ml 11/22/17 17:14 Milk Of Magnesia - PO DAILY PRN CONSTIPATION Melatonin 5 mg 11/22/17 22:00 11/22/17 22:22 Melatonin PO 5 mg HS PRN Administration INSOMNIA Mirtazapine 45 mg 11/24/17 16:08 Remeron - PO HS SERGIO Nicotine 14 mg 11/23/17 10:00 11/24/17 11:01 Nicoderm Patch - TD Not Given DAILY SERGIO Nicotine Polacrilex 2 mg 11/22/17 17:14 11/24/17 15:05 Nicorette Gum - BC 2 mg Q2H PRN Administration NICOTINE REPLACEMENT RX Multivit/Folic Acid/Iron 1 tab 11/23/17 10:00 11/24/17 11:00 Vitamins (Sjr) - PO 1 tab DAILY ESRGIO Administration Pseudoephedrine/Triprolidine 1 combo 11/22/17 17:14 11/24/17 11:05 Actifed - PO 1 combo TID PRN Administration NASAL CONGESTION Quetiapine Fumarate 600 mg 11/24/17 16:09 Seroquel - PO HS SERGIO Thiamine HCl 100 mg 11/22/17 22:00 11/23/17 22:02 Vitamin B1 - PO 100 mg HS SERGIO Administration Medication(s) Change(s): Seroquel 600mg po qhs. Remeron 45 mg po qhs Provider note:: Patient started on preadmission medications. Seroquel 600mg po qhs. Remeron 45 mg po qhs Mental Status Exam - Mental Status Exam Alert and Oriented to: Person Cognitive Function: Fair Patient Appearance: Well Groomed Mood: Apprehensive Affect: Mood Congruent Patient Behavior: Cooperative Speech Pattern: Appropriate Voice Loudness: Normal Thought Process: Goal Oriented Thought Disorder: Being Controlled Hallucinations: Denies Suicidal Ideation: Denies Homicidal Ideation: Denies Insight/Judgement: Fair Sleep: Difficulty falling asleep Appetite: Weight loss Muscle strength/Tone: Normal Gait/Station: Normal Additional Comments: Seroquel 600mg po qhs. Remeron 45 mg po qhs Psychiatric Treatment Plan - Problem List (1) Alcohol dependence with uncomplicated withdrawal Current Visit: Yes (2) Cocaine dependence, uncomplicated Current Visit: Yes (3) Insomnia Current Visit: Yes Qualifiers: Insomnia type: unspecified Qualified Code(s): G47.00 - Insomnia, unspecified (4) Nicotine dependence Current Visit: Yes Qualifiers: Nicotine product type: cigarettes Substance use status: in withdrawal Qualified Code(s): F17.213 - Nicotine dependence, cigarettes, with withdrawal (5) Bipolar disorder Current Visit: Yes Qualifiers: Active/Remission status: remission status unspecified Qualified Code(s): F31.9 - Bipolar disorder, unspecified Comment: As per existing records.On medications.OPD care is confirmed. (6) Opioid-induced sleep disorder, insomnia type, with onset during discontinuation/withdrawal Current Visit: No (7) Substance induced mood disorder Current Visit: No (8) Weight loss Current Visit: No Initial treatment plan: Seroquel 600mg po qhs. Remeron 45 mg po qhs
[2017-11-24] MEDS: chlordiazePOXIDE 5 MG CAPSULE PO SCH (22:15)
[2017-11-24] MEDS: MIRTAZAPINE 15 MG TABLET (FP) PO SCH (22:16)
[2017-11-24] MEDS: THIAMINE HCL 100 MG TABLET (FP) PO SCH (22:17)
[2017-11-24] MEDS: QUEtiapine FUMARATE 300 MG TABLET PO SCH (23:27)
[2017-11-25] MEDS: chlordiazePOXIDE 5 MG CAPSULE PO SCH ×3 (06:04→17:59)
[2017-11-25] MEDS: AMMONIUM LACTATE 12% LOTION 225 GM BOTTLE TP SCH ×2 (10:25→22:41)
[2017-11-25] MEDS: PRENATAL VITAMINS W/ FOLIC ACID TABLET (FP) PO SCH (10:26)
[2017-11-25] MEDS: CHLORHEXIDINE GLUCONATE 0.12% 15ML CUP MM SCH ×2 (10:26→22:40)
[2017-11-25] MEDS: NICOTINE 14 MG/24 HOURS TOPICAL PATCH TD SCH (10:26)
[2017-11-25] MEDS: NICOTINE POLACRILEX 2 MG GUM BC PRN ×3 (10:27→18:02)
[2017-11-25] MEDS: MENTHOL/PHENOL 1 EACH UD MM PRN ×2 (12:22→17:59)
[2017-11-25] MEDS: guaiFENesin/D-METHORPHAN HB 10 ML UNIT-DOSE CUPS PO PRN (12:23)
--- NOTE | 2017-11-25 13:42 | PN ---
[facility] Progress Note (SOAP) Subjective: pt here for alcohol detox- pt doing well Objective: 11/25/17 13:36 CBC, BMP 11/23/17 08:00 11/23/17 08:00 Vital Signs - 24 hr 11/24/17 11/24/17 11/24/17 13:55 17:55 22:45 Temperature 97.7 F 98.1 F 97.2 F L Pulse Rate 66 62 58 L Respiratory 18 18 18 Rate Blood Pressure 140/70 117/72 127/72 11/25/17 11/25/17 11/25/17 00:30 03:30 06:16 Temperature 97.5 F L Pulse Rate 60 Respiratory 18 18 18 Rate Blood Pressure 119/61 11/25/17 11:20 Temperature 96.4 F L Pulse Rate 64 Respiratory 16 Rate Blood Pressure 103/64 VS stable PE grossly nl Assessment: 11/25/17 13:42 Pt doing well on detox protocol Plan: Continue detox protocol Pt states levaing to go to rehab in 2 days
[2017-11-25] MEDS: QUEtiapine FUMARATE 300 MG TABLET PO SCH (22:37)
[2017-11-25] MEDS: chlordiazePOXIDE HCL 10 MG CAPSULE PO SCH (22:37)
[2017-11-25] MEDS: MIRTAZAPINE 15 MG TABLET (FP) PO SCH (22:38)
[2017-11-25] MEDS: THIAMINE HCL 100 MG TABLET (FP) PO SCH (22:41)
[2017-11-26] MEDS: chlordiazePOXIDE HCL 10 MG CAPSULE PO SCH ×2 (05:11→10:15)
--- NOTE | 2017-11-26 08:52 | PN ---
S Progress Note (SOAP) Subjective: ALERT,NO COMPLAINT Objective: 11/26/17 08:50 Vital Signs Temperature 97.5 F L 11/26/17 06:29 Pulse Rate 61 11/26/17 06:29 Respiratory Rate 16 11/26/17 06:29 Blood Pressure 124/68 11/26/17 06:29 O2 Sat by Pulse Oximetry (%) Assessment: 11/26/17 08:51 DETOX COMPLETED,NO WITHDRAWAL SYMPTOM Plan: DISCHARGE TODAY,FOLLOW UP WITH AFTER CARE PROGRAM ARRANGEMENT
--- NOTE | 2017-11-26 08:56 | DS ---
[facility] Detox Discharge Summary Admission Date: 11/22/17 Discharge Date: 11/26/17 - History Present History: Alcohol Dependence, Cocaine Dependence Pertinent Past History: NICOTINE DEPENDENCE BIPOLAR DISORDER - Physical Exam Results Vital Signs: Vital Signs Temperature 97.5 F L 11/26/17 06:29 Pulse Rate 61 11/26/17 06:29 Respiratory Rate 16 11/26/17 06:29 Blood Pressure 124/68 11/26/17 06:29 O2 Sat by Pulse Oximetry (%) Pertinent Admission Physical Exam Findings: WITHDRAWAL SIGNS AND SYMPTOM Vital Signs Temperature 97.5 F L 11/26/17 06:29 Pulse Rate 61 11/26/17 06:29 Respiratory Rate 16 11/26/17 06:29 Blood Pressure 124/68 11/26/17 06:29 O2 Sat by Pulse Oximetry (%) Laboratory Last Values WBC 5.0 K/mm3 (4.0-10.0) 11/23/17 08:00 RBC 3.94 M/mm3 (4.00-5.60) L 11/23/17 08:00 Hgb 12.4 GM/dL (11.7-16.9) 11/23/17 08:00 Hct 36.7 % (35.4-49) 11/23/17 08:00 MCV 93.1 fl (80-96) 11/23/17 08:00 MCH 31.3 pg (25.7-33.7) 11/23/17 08:00 MCHC 33.6 g/dl (32.0-35.9) 11/23/17 08:00 RDW 14.9 % (11.9-15.9) 11/23/17 08:00 Plt Count 254 K/MM3 (134-434) 11/23/17 08:00 MPV 8.0 fl (7.5-11.1) D 11/23/17 08:00 Sodium 139 mmol/L (136-145) 11/23/17 08:00 Potassium 3.8 mmol/L (3.5-5.1) 11/23/17 08:00 Chloride 104 mmol/L (98-107) 11/23/17 08:00 Carbon Dioxide 23 mmol/L (21-32) 11/23/17 08:00 Anion Gap 12 (8-16) 11/23/17 08:00 BUN 12 mg/dL (7-18) 11/23/17 08:00 Creatinine 1.1 mg/dL (0.7-1.3) 11/23/17 08:00 Creat Clearance w eGFR > 60 (>60) 11/23/17 08:00 Random Glucose 113 mg/dL (74-106) H 11/23/17 08:00 Calcium 8.3 mg/dL (8.5-10.1) L 11/23/17 08:00 Total Bilirubin 0.4 mg/dL (0.2-1.0) 11/23/17 08:00 AST 15 U/L (15-37) 11/23/17 08:00 ALT 17 U/L (12-78) 11/23/17 08:00 Alkaline Phosphatase 70 U/L (45-117) 11/23/17 08:00 Total Protein 6.4 g/dl (6.4-8.2) 11/23/17 08:00 Albumin 3.3 g/dl (3.4-5.0) L 11/23/17 08:00 Urine Color Ltyellow 11/23/17 16:45 Urine Appearance Clear 11/23/17 16:45 Urine pH 6.0 (5.0-8.0) 11/23/17 16:45 Ur Specific [place] 1.011 (1.001-1.035) 11/23/17 16:45 Urine Protein Negative (NEGATIVE) 11/23/17 16:45 Urine Glucose (UA) Negative (NEGATIVE) 11/23/17 16:45 Urine Ketones Negative (NEGATIVE) 11/23/17 16:45 Urine Blood Negative (NEGATIVE) 11/23/17 16:45 Urine Nitrite Negative (NEGATIVE) 11/23/17 16:45 Urine Bilirubin Negative (<2.0 mg/dL) 11/23/17 16:45 Urine Urobilinogen Negative mg/dL (0.2-1.0) 11/23/17 16:45 Ur Leukocyte Esterase Negative (NEGATIVE) 11/23/17 16:45 RPR Titer Nonreactive (NONREACTIVE) 11/23/17 06:20 HIV 1&2 Antibody Screen Negative 11/24/17 08:00 HIV P24 Antigen Negative 11/24/17 08:00 - Treatment Hospital Course: Detox Protocol Followed, Detoxed Safely, Responded well, Discharged Condition Good, Rehab Referral Accepted Patient has Accepted a Rehab Referral to: [facility] - Medication Discharge Medications: Ambulatory Orders Mirtazapine [Remeron -] 45 mg PO HS 01/13/17 Ammonium Lactate Cream [Lac-Hydrin 12% *Cream*] 1 applic TP BID 09/12/17 Quetiapine Fumarate [Seroquel] 600 mg PO HS #30 tablet 09/16/17 Hydroxyzine HCl 50 mg PO HS 11/22/17 - Diagnosis (1) Alcohol dependence with uncomplicated withdrawal Current Visit: Yes Status: Acute (2) Cocaine dependence, uncomplicated Current Visit: Yes Status: Acute (3) Nicotine dependence Current Visit: Yes Status: Acute Qualifiers: Nicotine product type: cigarettes Substance use status: in withdrawal Qualified Code(s): F17.213 - Nicotine dependence, cigarettes, with withdrawal (4) Bipolar disorder Current Visit: Yes Status: Chronic Qualifiers: Active/Remission status: remission status unspecified Qualified Code(s): F31.9 - Bipolar disorder, unspecified (5) Weight loss Current Visit: No Status: Acute - AMA Did Patient Leave Against Medical Advice: No
[2017-11-26 09:19] VITALS: BP 133/71; PULSE 62; TEMP 98.4
[2017-11-26] MEDS: NICOTINE POLACRILEX 2 MG GUM BC PRN (10:15)
[2017-11-26] MEDS: PRENATAL VITAMINS W/ FOLIC ACID TABLET (FP) PO SCH (10:15)
[2017-11-26] MEDS: NICOTINE 14 MG/24 HOURS TOPICAL PATCH TD SCH (10:15)
[2017-11-26] MEDS: CHLORHEXIDINE GLUCONATE 0.12% 15ML CUP MM SCH (10:16)
[2017-11-26] MEDS: AMMONIUM LACTATE 12% LOTION 225 GM BOTTLE TP SCH (10:17)
== END 2017-11-26 12:15 | disposition other institution (70) | DRG 774 ==
LOC: YASAS 13:22 → Y6N 17:51
PROVIDERS: ADMIT Surgery; ATTEND Surgery
PROC: HZ2ZZZZ Detoxification Services for Substance Abuse Treatment (ICD-10-PCS; principal; 2017-11-22)
DX: F10.230 Alcohol dependence with withdrawal, uncomplicated (principal); F14.20 Cocaine dependence, uncomplicated; F17.213 Nicotine dependence, cigarettes, with withdrawal; F31.9 Bipolar disorder, unspecified; F19.24 Other psychoactive substance dependence with psychoactive substance-induced mood disorder; F19.282 Other psychoactive substance dependence with psychoactive substance-induced sleep disorder; G47.00 Insomnia, unspecified; L85.3 Xerosis cutis; J02.9 Acute pharyngitis, unspecified; R63.4 Abnormal weight loss; Z68.23 Body mass index [BMI] 23.0-23.9, adult
CPT/HCPCS: 36415; 80053; 81003; 85027; 86593; 87070; 87389; 93005; 93010

== ENCOUNTER 2017-11-26 13:13 | Inpatient (IN) | payer OTHER ==
[2017-11-26] MEDS ORDERED: MAGNESIUM CITRATE 300 ML BOTTLE PO PRN (15:05)
[2017-11-26] MEDS ORDERED: MAGNESIUM HYDROX 2400MG/30ML ORAL SUSPENSION 30 ML CUP PO PRN (15:05)
[2017-11-26] MEDS ORDERED: ACETAMINOPHEN 325 MG TABLET (FP) PO PRN (15:05)
[2017-11-26] MEDS ORDERED: IBUPROFEN 400 MG TABLET (FP) PO PRN (15:05)
[2017-11-26] MEDS ORDERED: LOPERAMIDE HCL 2 MG CAPSULE PO PRN (15:05)
[2017-11-26] MEDS ORDERED: P-EPHED 60MG/TRIPROLIDI 2.5MG TABLET PO PRN (15:05)
[2017-11-26] MEDS ORDERED: MAG HYDROX/AL HYDROX/SIMETH 30 ML UNIT-DOSE CUP PO PRN (15:05)
--- NOTE | 2017-11-26 15:05 | HP ---
[facility]ERKOWIT[facility] Rehab Assess/Revision - Admission History Admitted to Rehab from: [facility] Date of Admission to Rehab: 11/26/17 - Findings Detox History & Physical reviewed: Yes Concur with findings: Yes Comments/Additional Findings: for rehab as protocol Inpatient Rehab Admission - Initial Determination Are CD services needed?: Yes Free of communicable disease: Yes Not in need of hospitalization: Yes - Rehab Admission Criteria Previous failed treatment: Yes Poor recovery environment: Yes Comorbidities: Yes Lacks judgement: No Patient is meeting Inpatient Rehab admission criteria:: Yes
[2017-11-26 15:12] VITALS: BMI 23.1
[2017-11-26] MEDS: NICOTINE POLACRILEX 2 MG GUM BUC PRN ×2 (17:47→21:43)
[2017-11-26] MEDS: MENTHOL/PHENOL 1 EACH UD MM PRN (17:48)
[2017-11-26] MEDS: guaiFENesin/D-METHORPHAN HB 10 ML UNIT-DOSE CUPS PO PRN (17:48)
[2017-11-26] MEDS: AMMONIUM LACTATE 12% LOTION 225 GM BOTTLE TP SCH (21:40)
[2017-11-26] MEDS: THIAMINE HCL 100 MG TABLET (FP) PO SCH (21:41)
[2017-11-26] MEDS: QUEtiapine FUMARATE 300 MG TABLET PO SCH (21:41)
[2017-11-26] MEDS: MIRTAZAPINE 15 MG TABLET (FP) PO SCH (21:41)
[2017-11-26] MEDS: hydrOXYzine PAMOATE 50 MG CAPSULE (FP) PO PRN (21:42)
[2017-11-26] MEDS ORDERED: PATIENT'S OWN MEDICATION (NON-FORMULARY) (Ammonium Lactate Cream 1 APPLIC) TP SCH (22:00)
[2017-11-26] MEDS ORDERED: MELATONIN 5 MG TABLETS PO PRN (22:00)
[2017-11-27] MEDS: AMMONIUM LACTATE 12% LOTION 225 GM BOTTLE TP SCH ×2 (09:40→21:43)
[2017-11-27] MEDS: PRENATAL VITAMINS W/ FOLIC ACID TABLET (FP) PO SCH (09:40)
[2017-11-27] MEDS: guaiFENesin/D-METHORPHAN HB 10 ML UNIT-DOSE CUPS PO PRN ×2 (09:41→21:44)
[2017-11-27] MEDS: NICOTINE POLACRILEX 2 MG GUM BUC PRN ×4 (09:43→21:45)
[2017-11-27] MEDS: MENTHOL/PHENOL 1 EACH UD MM PRN ×2 (09:43→21:45)
[2017-11-27] MEDS: MIRTAZAPINE 15 MG TABLET (FP) PO SCH (21:44)
[2017-11-27] MEDS: QUEtiapine FUMARATE 300 MG TABLET PO SCH (21:44)
[2017-11-27] MEDS: THIAMINE HCL 100 MG TABLET (FP) PO SCH (21:46)
[2017-11-28] MEDS: NICOTINE POLACRILEX 2 MG GUM BUC PRN ×4 (08:39→21:38)
[2017-11-28] MEDS: guaiFENesin/D-METHORPHAN HB 10 ML UNIT-DOSE CUPS PO PRN ×2 (09:47→21:36)
[2017-11-28] MEDS: PRENATAL VITAMINS W/ FOLIC ACID TABLET (FP) PO SCH (09:47)
[2017-11-28] MEDS: AMMONIUM LACTATE 12% LOTION 225 GM BOTTLE TP SCH ×2 (09:49→21:38)
--- NOTE | 2017-11-28 11:53 | HP ---
Psychiatrist Admission - Data Date of interview: 11/28/17 Admission source: 6N Identifying data: This is the second [facility] admission for this 57 years old single Black male, father of 2 children, unemployed on public assistance, domiciled Medical History: Unremarkable. Smokes 10 cigarettes daily Psychiatric History: Patient reports that he was diagnosed with Bipolar Disorder in 2009 wile in assisted. Reports a history of multiple psychiatric hospitalizations at various facilities notably [facility], [facility] and most recently [facility] in May 2017. He was discharged on Seroquel 600 mg po HS, Remeron 45 mg po HS, Vistaril and referred back to Dr Kim Jean-Baptiste, his private psychiatrist in [facility], for medication management. Patient endorses a history of optimal adherence to his medications as well as maintaining good therapeutic alliance with his psychiatrist for past 6-8 years.Patient denies history of suicide attempts. At present, reports sleeping poorly without taking Seroquel. Denes experiencing psychotic, manic or depressive symptoms as well as S/H ideations Physical/Sexual Abuse/Trauma History: Denies Additional Comment: Reports history of 3 previous arrests including 2 felony convictions. Denies Vital Signs: Vital Signs - 24 hr 11/28/17 11/28/17 11/28/17 00:30 03:30 07:13 Temperature 97.7 F Pulse Rate 71 Respiratory 18 18 18 Rate Blood Pressure 145/79 Allergies/Adverse Reactions: Allergies Allergy/AdvReac Type Severity Reaction Status Date / Time No Known Allergies Allergy Verified 11/22/17 17:39 Date of last physical exam: 11/22/17 Concur with the findings of this exam: Yes - Substance Abuse/Tx History Hx Alcohol Use: Yes Hx Substance Use: Yes Substance Use Type: Alcohol (Started drinking alcohol at age 15, consumes 2 pints of vodka(az) & 4x 220z of beer daily. Last drank on 11/21/17), Cocaine ( Started smoking crack cocaine at age 23, consumes $60 worth daily. Last smoked on 11/21/17) Hx Substance Use Treatment: Yes (7 previous inpt detox & one inpt rehab admissions @ [facility]) Mental Status Exam - Mental Status Exam Alert and Oriented to: Time, Place, Person Cognitive Function: Fair Patient Appearance: Well Groomed Mood: Happy Affect: Constricted Patient Behavior: Cooperative Speech Pattern: Clear Voice Loudness: Normal Thought Process: Intact, Goal Oriented Thought Disorder: Not Present Hallucinations: Denies Suicidal Ideation: Denies Homicidal Ideation: Denies Insight/Judgement: Fair Sleep: Poorly Appetite: Good Muscle strength/Tone: Normal Gait/Station: Normal Psychiatric Findings - Problem List ([place] 1, 2,3) (1) Alcohol dependence Current Visit: Yes Status: Acute (2) Cocaine dependence Current Visit: Yes Status: Acute (3) Nicotine dependence Current Visit: No Status: Chronic Qualifiers: Nicotine product type: cigarettes Substance use status: in withdrawal Qualified Code(s): F17.213 - Nicotine dependence, cigarettes, with withdrawal (4) Bipolar disorder Current Visit: No Status: Chronic Qualifiers: Active/Remission status: remission status unspecified Qualified Code(s): F31.9 - Bipolar disorder, unspecified Comment: As per existing records.On medications.OPD care is confirmed. (5) Substance-induced sleep disorder Current Visit: Yes Status: Acute - Initial Treatment Plan Initial Treatment Plan: 1) Continue Seroquel 600 mg po HS and Remeron 45 mg po HS. 2) Monitor progress
[2017-11-28] MEDS: MIRTAZAPINE 15 MG TABLET (FP) PO SCH (21:36)
[2017-11-28] MEDS: THIAMINE HCL 100 MG TABLET (FP) PO SCH (21:36)
[2017-11-28] MEDS: QUEtiapine FUMARATE 300 MG TABLET PO SCH (21:36)
[2017-11-28] MEDS: hydrOXYzine PAMOATE 50 MG CAPSULE (FP) PO PRN (21:36)
[2017-11-28] MEDS ORDERED: PT OWN MED DRAWER 7, Y5N ONE (22:21)
[2017-11-29] MEDS: AMMONIUM LACTATE 12% LOTION 225 GM BOTTLE TP SCH ×2 (10:28→23:11)
[2017-11-29] MEDS: PRENATAL VITAMINS W/ FOLIC ACID TABLET (FP) PO SCH (10:28)
[2017-11-29] MEDS: NICOTINE POLACRILEX 2 MG GUM BUC PRN ×3 (12:22→23:09)
[2017-11-29] MEDS: MIRTAZAPINE 15 MG TABLET (FP) PO SCH (21:57)
[2017-11-29] MEDS: THIAMINE HCL 100 MG TABLET (FP) PO SCH (21:57)
[2017-11-29] MEDS: QUEtiapine FUMARATE 300 MG TABLET PO SCH (21:57)
[2017-11-29] MEDS: hydrOXYzine PAMOATE 50 MG CAPSULE (FP) PO PRN (21:58)
[2017-11-29] MEDS: MENTHOL/PHENOL 1 EACH UD MM PRN (22:00)
[2017-11-30] MEDS: NICOTINE POLACRILEX 2 MG GUM BUC PRN ×2 (08:47→21:15)
[2017-11-30] MEDS: AMMONIUM LACTATE 12% LOTION 225 GM BOTTLE TP SCH ×2 (09:39→21:14)
[2017-11-30] MEDS: PRENATAL VITAMINS W/ FOLIC ACID TABLET (FP) PO SCH (09:39)
[2017-11-30] MEDS ORDERED: PT OWN MED DRAWER 7, Y5N ONE (19:07)
[2017-11-30] MEDS: MIRTAZAPINE 15 MG TABLET (FP) PO SCH (21:14)
[2017-11-30] MEDS: THIAMINE HCL 100 MG TABLET (FP) PO SCH (21:14)
[2017-11-30] MEDS: QUEtiapine FUMARATE 300 MG TABLET PO SCH (21:14)
[2017-11-30] MEDS: hydrOXYzine PAMOATE 50 MG CAPSULE (FP) PO PRN (21:15)
[2017-12-01] MEDS: AMMONIUM LACTATE 12% LOTION 225 GM BOTTLE TP SCH ×2 (09:48→21:58)
[2017-12-01] MEDS: PRENATAL VITAMINS W/ FOLIC ACID TABLET (FP) PO SCH (09:48)
[2017-12-01] MEDS: NICOTINE POLACRILEX 2 MG GUM BUC PRN ×3 (15:36→21:15)
[2017-12-01] MEDS: MIRTAZAPINE 15 MG TABLET (FP) PO SCH (21:14)
[2017-12-01] MEDS: THIAMINE HCL 100 MG TABLET (FP) PO SCH (21:14)
[2017-12-01] MEDS: QUEtiapine FUMARATE 300 MG TABLET PO SCH (21:14)
[2017-12-01] MEDS: hydrOXYzine PAMOATE 50 MG CAPSULE (FP) PO PRN (21:14)
[2017-12-02] MEDS: NICOTINE POLACRILEX 2 MG GUM BUC PRN ×3 (08:39→16:39)
[2017-12-02] MEDS: PRENATAL VITAMINS W/ FOLIC ACID TABLET (FP) PO SCH (09:45)
[2017-12-02] MEDS: AMMONIUM LACTATE 12% LOTION 225 GM BOTTLE TP SCH ×2 (09:45→21:28)
[2017-12-02] MEDS: QUEtiapine FUMARATE 300 MG TABLET PO SCH (21:27)
[2017-12-02] MEDS: MIRTAZAPINE 15 MG TABLET (FP) PO SCH (21:27)
[2017-12-02] MEDS: THIAMINE HCL 100 MG TABLET (FP) PO SCH (21:27)
[2017-12-02] MEDS: hydrOXYzine PAMOATE 50 MG CAPSULE (FP) PO PRN (21:28)
[2017-12-03] MEDS: NICOTINE POLACRILEX 2 MG GUM BUC PRN ×4 (08:28→21:50)
[2017-12-03] MEDS ORDERED: PT OWN MED DRAWER 7, Y5N ONE ×2 (08:34→20:25)
[2017-12-03] MEDS: AMMONIUM LACTATE 12% LOTION 225 GM BOTTLE TP SCH ×2 (09:25→21:51)
[2017-12-03] MEDS: PRENATAL VITAMINS W/ FOLIC ACID TABLET (FP) PO SCH (09:26)
[2017-12-03] MEDS: QUEtiapine FUMARATE 300 MG TABLET PO SCH (21:49)
[2017-12-03] MEDS: MIRTAZAPINE 15 MG TABLET (FP) PO SCH (21:49)
[2017-12-03] MEDS: hydrOXYzine PAMOATE 50 MG CAPSULE (FP) PO PRN (21:49)
[2017-12-03] MEDS: THIAMINE HCL 100 MG TABLET (FP) PO SCH (21:49)
[2017-12-04] MEDS ORDERED: PT OWN MED DRAWER 7, Y5N ONE ×2 (08:25→20:33)
[2017-12-04] MEDS: NICOTINE POLACRILEX 2 MG GUM BUC PRN ×4 (08:34→20:27)
[2017-12-04] MEDS: PRENATAL VITAMINS W/ FOLIC ACID TABLET (FP) PO SCH (09:29)
[2017-12-04] MEDS: guaiFENesin/D-METHORPHAN HB 10 ML UNIT-DOSE CUPS PO PRN ×2 (09:30→21:21)
[2017-12-04] MEDS: AMMONIUM LACTATE 12% LOTION 225 GM BOTTLE TP SCH ×2 (09:30→21:20)
[2017-12-04] MEDS: MIRTAZAPINE 15 MG TABLET (FP) PO SCH (21:20)
[2017-12-04] MEDS: THIAMINE HCL 100 MG TABLET (FP) PO SCH (21:20)
[2017-12-04] MEDS: QUEtiapine FUMARATE 300 MG TABLET PO SCH (21:20)
[2017-12-04] MEDS: hydrOXYzine PAMOATE 50 MG CAPSULE (FP) PO PRN (21:21)
[2017-12-05] MEDS: PRENATAL VITAMINS W/ FOLIC ACID TABLET (FP) PO SCH (10:06)
[2017-12-05] MEDS: NICOTINE POLACRILEX 2 MG GUM BUC PRN ×4 (10:07→21:24)
[2017-12-05] MEDS: AMMONIUM LACTATE 12% LOTION 225 GM BOTTLE TP SCH ×2 (10:07→23:15)
[2017-12-05] MEDS: MIRTAZAPINE 15 MG TABLET (FP) PO SCH (21:22)
[2017-12-05] MEDS: guaiFENesin/D-METHORPHAN HB 10 ML UNIT-DOSE CUPS PO PRN (21:22)
[2017-12-05] MEDS: THIAMINE HCL 100 MG TABLET (FP) PO SCH (21:23)
[2017-12-05] MEDS: hydrOXYzine PAMOATE 50 MG CAPSULE (FP) PO PRN (21:23)
[2017-12-05] MEDS: QUEtiapine FUMARATE 300 MG TABLET PO SCH (21:23)
[2017-12-06] MEDS: NICOTINE POLACRILEX 2 MG GUM BUC PRN ×4 (07:10→21:20)
[2017-12-06] MEDS ORDERED: PT OWN MED DRAWER 7, Y5N ONE (08:45)
[2017-12-06] MEDS: guaiFENesin/D-METHORPHAN HB 10 ML UNIT-DOSE CUPS PO PRN ×2 (09:32→21:21)
[2017-12-06] MEDS: PRENATAL VITAMINS W/ FOLIC ACID TABLET (FP) PO SCH (09:32)
[2017-12-06] MEDS: AMMONIUM LACTATE 12% LOTION 225 GM BOTTLE TP SCH ×2 (09:33→21:22)
[2017-12-06] MEDS: hydrOXYzine PAMOATE 50 MG CAPSULE (FP) PO PRN (21:20)
[2017-12-06] MEDS: QUEtiapine FUMARATE 300 MG TABLET PO SCH (21:20)
[2017-12-06] MEDS: THIAMINE HCL 100 MG TABLET (FP) PO SCH (21:20)
[2017-12-06] MEDS: MIRTAZAPINE 15 MG TABLET (FP) PO SCH (21:20)
[2017-12-07] MEDS: guaiFENesin/D-METHORPHAN HB 10 ML UNIT-DOSE CUPS PO PRN (03:37)
--- NOTE | 2017-12-07 06:47 | PN ---
Psychiatric Progress Note Vital Signs: Vital Signs Period Temp Pulse Resp BP Sys/Lawler Pulse Ox Last 24 Hr 96.5 F 64 18-18 140/74 Date of Session: 12/07/17 Chief Complaint:: Discharge Note HPI: Patient addressing Alcohol and Cocaine Dependence comorbid with Nicotine Dependence, Bipolar Disorder and Substance-Induced Sleep Disorder Current Medications: Active Medications Generic Name Dose Route Start Last Admin Trade Name Freq PRN Reason Stop Dose Admin Acetaminophen 650 mg 11/26/17 15:05 Tylenol - PO Q4H PRN FEVER Al Hydroxide/Mg Hydroxide 30 ml 11/26/17 15:05 Mylanta Oral Suspension - PO Q6H PRN DYSPEPSIA Eucalyptus/Menthol/Phenol/Sorbitol 1 each 11/26/17 15:05 11/29/17 22:00 Cepastat Lozenge - MM 1 each Q4H PRN Administration SORE THROAT Guaifenesin 10 ml 11/26/17 15:05 12/07/17 03:37 Robitussin Dm - PO 10 ml Q6H PRN Administration COUGH Hydroxyzine Pamoate 50 mg 11/26/17 15:05 12/06/17 21:20 Vistaril - PO 50 mg Q4H PRN Administration AGITATION Ibuprofen 400 mg 11/26/17 15:05 Motrin - PO Q6H PRN Pain Level 4-6 Lactic Acid 1 applic 11/26/17 22:00 12/06/17 21:22 Lac-Hydrin 12 TP 1 applic BID SERGIO Administration Loperamide HCl 4 mg 11/26/17 15:05 Imodium - PO Q6H PRN DIARRHEA Magnesium Citrate 300 ml 11/26/17 15:05 Citroma - PO Q48H PRN CONSTIPATION Magnesium Hydroxide 30 ml 11/26/17 15:05 Milk Of Magnesia - PO DAILY PRN CONSTIPATION Melatonin 5 mg 11/26/17 22:00 Melatonin PO HS PRN INSOMNIA Mirtazapine 45 mg 11/26/17 22:00 12/06/17 21:20 Remeron - PO 45 mg HS SERGIO Administration Nicotine Polacrilex 2 mg 11/26/17 15:05 12/06/17 21:20 Nicorette Gum - BUC 2 mg Q2H PRN Administration NICOTINE REPLACEMENT RX Multivit/Folic Acid/Iron 1 tab 11/27/17 10:00 12/06/17 09:32 Vitamins (Sjr) - PO 1 tab DAILY SERGIO Administration Pseudoephedrine/Triprolidine 1 combo 11/26/17 15:05 Actifed - PO TID PRN NASAL CONGESTION Quetiapine Fumarate 600 mg 11/26/17 22:00 12/06/17 21:20 Seroquel - PO 600 mg HS SERGIO Administration Thiamine HCl 100 mg 11/26/17 22:00 12/06/17 21:20 Vitamin B1 - PO 100 mg HS SERGIO Administration Current Side Effect: No Lab tests ordered: Yes Lab tests reviewed: Yes Provider note:: Patient has completed this progran today. He has met his treatment goals and will continue to address his issues in outpatient treatment at [facility]. Told proposal manager writer that from his participation in this program, he has learned to surround himself with a sober support network in order to maintain abstinence. He responded well to Seroquel 600 mg po HS and Remeron 45 mg po HS. Scripts for 30 days supply of these medications are electronically transmitted to [facility] at [address] [place] [address] [phone]. He is stable for discharge today Total face to face time:: 35 Mental Status Exam - Mental Status Exam Alert and Oriented to: Time, Place, Person Cognitive Function: Fair Patient Appearance: Well Groomed Mood: Hopeful, Euthymic Affect: Appropriate Patient Behavior: Cooperative Speech Pattern: Clear Voice Loudness: Normal Thought Process: Intact, Goal Oriented Thought Disorder: Not Present Hallucinations: Denies Suicidal Ideation: Denies Homicidal Ideation: Denies Insight/Judgement: Fair Sleep: Fair Appetite: Good Muscle strength/Tone: Normal Gait/Station: Normal Psychiatric Treatment Plan - Problem List (3) Nicotine dependence Qualifiers: Nicotine product type: cigarettes Substance use status: in withdrawal Qualified Code(s): F17.213 - Nicotine dependence, cigarettes, with withdrawal (4) Bipolar disorder Qualifiers: Active/Remission status: remission status unspecified Qualified Code(s): F31.9 - Bipolar disorder, unspecified Comment: As per existing records.On medications.OPD care is confirmed. (5) Substance-induced sleep disorder Initial treatment plan: Patient is discharged today and referred to [facility] for outpatient treatment
[2017-12-07 06:52] VITALS: BP 144/84; PULSE 66; TEMP 96.7
[2017-12-07] MEDS: NICOTINE POLACRILEX 2 MG GUM BUC PRN (08:43)
== END 2017-12-07 09:11 | disposition home or self-care (01) | DRG 772 ==
LOC: YASAS 13:13 → Y3W 13:14
PROVIDERS: ADMIT Psychiatry & Neurology Psychiatry; ATTEND Psychiatry & Neurology Psychiatry
PROC: HZ42ZZZ Group Counseling for Substance Abuse Treatment, Cognitive-Behavioral (ICD-10-PCS; principal; 2017-11-26)
DX: F10.20 Alcohol dependence, uncomplicated (principal); F14.20 Cocaine dependence, uncomplicated; F17.213 Nicotine dependence, cigarettes, with withdrawal; F31.9 Bipolar disorder, unspecified; F19.282 Other psychoactive substance dependence with psychoactive substance-induced sleep disorder

== ENCOUNTER 2018-06-29 13:49 | Inpatient (IN) | payer OTHER ==
[2018-06-29 14:30] VITALS: BMI 24.0
--- NOTE | 2018-06-29 15:19 | HP ---
CIWA Score Nausea/Vomitin Muscle Tremors: 4-Moderate,w/Arms Extend Anxiety: 3 Agitation: 3 Paroxysmal Sweats: 3 Orientation: 0-Oriented Tacttile Disturbances: 0-None Auditory Disturbances: 0-None Visual Disturbances: 0-None Headache: 0-None Present CIWA-Ar Total Score: 15 - Admission Criteria OASAS Guidelines: Admission for Medically Managed Detox: Requires at least one of the followin. CIWA greater than 12 2. Seizures within the past 24 hours 3. Delirium tremens within the past 24 hours 4. Hallucinations within the past 24 hours 5. Acute intervention needed for co occurring medical disorder 6. Acute intervention needed for co occurring psychiatric disorder 7. Severe withdrawal that cannot be handled at a lower level of care (continued vomiting, continued diarrhea, abnormal vital signs) requiring intravenous medication and/or fluids 8. Admission ROS [facility] Chief Complaint: I am here for detox. I will be willing to go to rehab. Allergies/Adverse Reactions: Allergies Allergy/AdvReac Type Severity Reaction Status Date / Time No Known Allergies Allergy Verified 11/22/17 17:39 History of Present Illness: pt is a 58yr old male with a history of alcohol and cocaine dependence seeking detox for treatment. Exam Limitations: No Limitations - Ebola screening Have you traveled outside of the country in the last 21 days: No Have you had contact with anyone from an Ebola affected area: No Have you been sick,other than usual withdrawal symptoms: No Do you have a fever: No - Review of Systems Constitutional: Chills, Loss of Appetite, Night Sweats, Changes in sleep EENT: reports: No Symptoms Reported Respiratory: reports: No Symptoms reported Cardiac: reports: No Symptoms Reported GI: reports: Nausea, Poor Fluid Intake, Indigestion : reports: No Symptoms Reported Musculoskeletal: reports: No Symptoms Reported Integumentary: reports: Flushing, Sweating Neuro: reports: Tingling, Tremors Endocrine: reports: Excessive Sweating, Flushing, Intolerance to Cold, Intolerance to Heat Hematology: reports: No Symptoms Reported Psychiatric: reports: Judgement Intact, Mood/Affect Appropiate, Orientated x3, Agitated, Anxious Other Systems: Reviewed and Negative Patient History - Patient Medical History Hx Anemia: No Hx Asthma: No Hx Chronic Obstructive Pulmonary Disease (COPD): No Hx Cancer: No Hx Cardiac Disorders: No Hx Congestive Heart Failure: No Hx Hypertension: No Hx Hypercholesterolemia: No Hx Pacemaker: No HX Cerebrovascular Accident: No Hx Seizures: No Hx Dementia: No Hx Diabetes: No Hx Gastrointestinal Disorders: No Hx Liver Disease: No Hx Genitourinary Disorders: No Hx Sexually Transmitted Disorders: No Hx Renal Disease (ESRD): No Hx Thyroid Disease: No Hx Human Immunodeficiency Virus (HIV): No (pt denies) Hx Hepatitis C: No (pt denies) Hx Depression: Yes Hx Suicide Attempt: No Hx Bipolar Disorder: Yes (on Mirtazapine and seroquel) Hx Schizophrenia: No - Patient Surgical History Past Surgical History: No Hx Neurologic Surgery: No Hx Cataract Extraction: No Hx Cardiac Surgery: No Hx Lung Surgery: No Hx Breast Surgery: No Hx Breast Biopsy: No Hx Abdominal Surgery: No Hx Appendectomy: No Hx Cholecystectomy: No Hx Genitourinary Surgery: No Hx Section: No Hx Orthopedic Surgery: No Anesthesia Reaction: No - PPD History Previous Implant?: Yes Documented Results: Negative w/o proof Date: 08/22/17 Results: 0 MM PPD to be Administered?: No - Reproductive History Patient is a Female of Child Bearing Age (11 -55 yrs old): No - Smoking Cessation Smoking history: Current every day smoker Have you smoked in the past 12 months: Yes Aproximately how many cigarettes per day: 10 Cigars Per Day: 0 Hx Chewing Tobacco Use: No Initiated information on smoking cessation: Yes 'Breaking Loose' booklet given: 06/29/18 - Substance & Tx. History Hx Alcohol Use: Yes Hx Substance Use: Yes Substance Use Type: Alcohol, Cocaine Hx Substance Use Treatment: Yes (last detox [facility] 10/2017) - Substances Abused Alcohol Route: Oral Frequency: Daily Amount used: one pint of vodka, 3 beers Age of first use: 15 Date of Last Use: 06/28/18 Cocaine Route: Inhalation Frequency: Daily Amount used: $30 Age of first use: 26 Date of Last Use: 06/28/18 Family Disease History - Family Disease History Family Disease History: Diabetes: Grandparent (maternal grandmother, ), Mother, Brother, Sister, [place]: Father, Other: Father, Mother Admission Physical Exam [facility] - Vital Signs Vital Signs: Vital Signs - 24 hr 06/29/18 14:23 Temperature 97.9 F Pulse Rate 70 Respiratory 18 Rate Blood Pressure 140/73 - Physical General Appearance: Yes: Appropriately Dressed, Thin, Tremorous, Irritable, Sweating, Anxious HEENTM: Yes: Hearing grossly Normal, Normal Voice Respiratory: Yes: Lungs Clear, Normal Breath Sounds, No Respiratory Distress Neck: Yes: No masses,lesions,Nodules Breast: Yes: Within Normal Limits Cardiology: Yes: Regular Rhythm, Regular Rate, S1, S2 Abdominal: Yes: Normal Bowel Sounds, Non Tender, Flat Genitourinary: Yes: Within Normal Limits Back: Yes: Normal Inspection Musculoskeletal: Yes: full range of Motion Extremities: Yes: Normal Capillary Refill, Normal Inspection, Non-Tender, Tremors Neurological: Yes: Fully Oriented, Alert, Normal Response Integumentary: Yes: Normal Color, Diaphoresis Lymphatic: Yes: Within Normal Limits - Diagnostic (1) Alcohol dependence with uncomplicated withdrawal Current Visit: Yes Status: Chronic (2) Cocaine dependence, uncomplicated Current Visit: Yes Status: Chronic (3) Insomnia Current Visit: Yes Status: Acute Qualifiers: Insomnia type: unspecified Qualified Code(s): G47.00 - Insomnia, unspecified (4) Substance induced mood disorder Current Visit: No Status: Acute (5) Bipolar disorder Current Visit: No Status: Chronic Qualifiers: Comment: As per existing records.On medications.OPD care is confirmed. (6) Depression Current Visit: No Status: Chronic (7) Nicotine dependence Current Visit: Yes Status: Chronic Qualifiers: Nicotine product type: cigarettes Substance use status: uncomplicated Qualified Code(s): F17.210 - Nicotine dependence, cigarettes, uncomplicated Cleared for Admission [facility] - Detox or Rehab [facility] Level of Care: Medically Managed Detox Regimen/Protocol: Librium [facility] Breath Alcohol Content Breath Alcohol Content: 0 Urine Drug Screen - Results Drug Screen Negative: No Urine Drug Screen Results: [facility] Inpatient Rehab Admission - Rehab Decision to Admit Inpatient rehab admission?: No
[2018-06-29] MEDS ORDERED: MAG HYDROX/AL HYDROX/SIMETH 30 ML UNIT-DOSE CUP PO PRN (15:26)
[2018-06-29] MEDS ORDERED: chlordiazePOXIDE HCL 25 MG CAPSULE PO PRN (15:26)
[2018-06-29] MEDS ORDERED: LOPERAMIDE HCL 2 MG CAPSULE PO PRN (15:26)
[2018-06-29] MEDS ORDERED: MAGNESIUM CITRATE 300 ML BOTTLE PO PRN (15:26)
[2018-06-29] MEDS ORDERED: ACETAMINOPHEN 325 MG TABLET (FP) PO PRN (15:26)
[2018-06-29] MEDS ORDERED: guaiFENesin/D-METHORPHAN HB 10 ML UNIT-DOSE CUPS PO PRN (15:26)
[2018-06-29] MEDS ORDERED: P-EPHED 60MG/TRIPROLIDI 2.5MG TABLET PO PRN (15:26)
[2018-06-29] MEDS ORDERED: MAGNESIUM HYDROX 2400MG/30ML ORAL SUSPENSION 30 ML CUP PO PRN (15:26)
[2018-06-29] MEDS ORDERED: IBUPROFEN 400 MG TABLET (FP) PO PRN (15:26)
[2018-06-29] MEDS ORDERED: MENTHOL/PHENOL 1 EACH UD MM PRN (15:26)
[2018-06-29] MEDS ORDERED: chlordiazePOXIDE HCL 25 MG CAPSULE PO ONE (15:26)
[2018-06-29] MEDS: chlordiazePOXIDE HCL 25 MG CAPSULE PO SCH ×2 (18:27→22:39)
[2018-06-29] MEDS: MELATONIN 5 MG TABLETS PO PRN (22:39)
[2018-06-29] MEDS: THIAMINE HCL 100 MG TABLET (FP) PO SCH (22:39)
--- NOTE | 2018-06-30 06:27 | CONSULT ---
[facility] Psychiatric Consult - Data Date of interview: 06/30/18 Admission source: Self-referred Identifying data: Mr Veras is a 58 years old single Black male, father of 2 children, unemployed on public assistance, domiciled seeking detox treatment for alcohol and cocaine Substance Abuse History: Reports history of alcohol and cocaine use. Reports that he started drinking alcohol at age 15, consumes one pint of vodka & 3 cans of beer daily. Last drank on 06/28/18. He started using cocaine at age 26, consumes $30 worth daily. Last used on 06/28/18. Refer to addiction counselor's summary for further information Medical History: Unremarkable. Smokes 10 cigarettes daily Psychiatric History: Patient is well known to aligner typewriter from a previous encounter in November 2017. He reports that he was diagnosed with Bipolar Disorder in 2009 wile in correction. Reports a history of multiple psychiatric hospitalizations at various institutions including at [facility], [facility] and most recently [facility] in May 2017. He currently sees Dr Kim Jean-Baptiste, a private psychiatrist in [facility], for medication management. He is currently prescribed Quetiapine Fumarate 400 mg po BID, Mirtazapine 45 mg po HS and Hydroxyzine HCL 50 mg po BID. Refills for these medications on 06/14/18 were verified through pharmacy claim at [facility]. Patient endorses a history of optimal adherence to his medications as well as maintaining good therapeutic alliance with his psychiatrist .Patient denies history of suicide attempts. At present, reports sleeping poorly without taking Seroquel. Denes experiencing psychotic, manic or depressive symptoms as well as S/H ideations Physical/Sexual Abuse/Trauma History: Denies history of emotional, physical or sexual abuse as well as DV relationship. No service Additional Comment: Reports history of 3 previous arrests including 2 felony convictions. Denies being on parole/probation Mental Status Exam - Mental Status Exam Alert and Oriented to: Time, Place, Person Cognitive Function: Fair Patient Appearance: Well Groomed Mood: Hopeful, Euthymic Affect: Appropriate Patient Behavior: Cooperative Speech Pattern: Clear Voice Loudness: Normal Thought Process: Intact, Goal Oriented Thought Disorder: Not Present Hallucinations: Denies Suicidal Ideation: Denies Homicidal Ideation: Denies Insight/Judgement: Fair Sleep: Poorly Appetite: Fair Muscle strength/Tone: Normal Gait/Station: Normal Psychiatric Findings - Problem List ([place] 1, 2,3) (1) Bipolar disorder Current Visit: No Status: Chronic Qualifiers: Comment: As per existing records.On medications.OPD care is confirmed. (2) Substance-induced sleep disorder Current Visit: Yes Status: Acute (3) Alcohol dependence with uncomplicated withdrawal Current Visit: Yes Status: Acute (4) Cocaine dependence, uncomplicated Current Visit: Yes Status: Acute (5) Nicotine dependence Current Visit: Yes Status: Chronic Qualifiers: Nicotine product type: cigarettes Substance use status: uncomplicated Qualified Code(s): F17.210 - Nicotine dependence, cigarettes, uncomplicated - Initial Treatment Plan Initial Treatment Plan: 1) Continue Mirtazapine 45 mg po HS. 2) Start Quetiapine 400 mg po HS(dose reduced to minimize sedation). 3) Continue inpatient detoxification
[2018-06-30] MEDS: chlordiazePOXIDE HCL 25 MG CAPSULE PO SCH ×4 (06:29→22:57)
[2018-06-30 10:09] LABS: HEMATOCRIT 35.7 % (35.4-49); HEMOGLOBIN 12.2 GM/dL (11.7-16.9); MCH 31.9 pg (25.7-33.7); MCHC 34.3 g/dl (32.0-35.9); PLATELET COUNT 253 K/MM3 (134-434); RBC 3.84 M/mm3 (4.00-5.60); WHITE BLOOD COUNT 3.6 K/mm3 (4.0-10.0)
[2018-06-30] MEDS: PRENATAL VITAMINS W/ FOLIC ACID TABLET (FP) PO SCH (10:41)
[2018-06-30 10:57] LABS: ALBUMIN 3.2 g/dl (3.4-5.0); ALK PHOS 84 U/L (45-117); ANION GAP 5 MMOL/L (8-16); BILIRUBIN,TOTAL 0.4 mg/dL (0.2-1); BLOOD UREA NITROGEN 14 mg/dL (7-18); CALCIUM 8.5 mg/dL (8.5-10.1); CHLORIDE 106 mmol/L (98-107); CO2 29 mmol/L (21-32); CREATININE 1.1 mg/dL (0.55-1.3); GLUCOSE,RANDOM 67 mg/dL (74-106); POTASSIUM 4.3 mmol/L (3.5-5.1); SGOT/AST 20 U/L (15-37); SGPT/ALT 19 U/L (13-61); SODIUM 140 mmol/L (136-145); TOT PROT 6.2 g/dl (6.4-8.2)
--- NOTE | 2018-06-30 13:24 | PN ---
S CIWA - CIWA Score Nausea/Vomitin-No Nausea/No Vomiting Muscle Tremors: 3 Anxiety: 4-Mod. Anxious/Guarded Agitation: 3 Paroxysmal Sweats: 2 Orientation: 0-Oriented Tacttile Disturbances: 0-None Auditory Disturbances: 0-None Visual Disturbances: 0-None Headache: 0-None Present CIWA-Ar Total Score: 12 [facility]HS Progress Note (SOAP) Subjective: irritable interrupted sleep body aches chills sweats Objective: 06/30/18 13:23 Vital Signs Temperature 97.7 F 06/30/18 06:31 Pulse Rate 67 06/30/18 09:11 Respiratory Rate 18 06/30/18 09:11 Blood Pressure 125/65 06/30/18 09:11 O2 Sat by Pulse Oximetry (%) Laboratory Tests 06/30/18 06/30/18 06/30/18 07:00 07:00 07:00 WBC 3.6 L RBC 3.84 L Hgb 12.2 Hct 35.7 MCV 93.0 MCH 31.9 MCHC 34.3 RDW 14.0 Plt Count 253 MPV 8.0 Sodium 140 Potassium 4.3 Chloride 106 Carbon Dioxide 29 Anion Gap 5 L BUN 14 Creatinine 1.1 Creat Clearance w eGFR > 60 Random Glucose 67 L Calcium 8.5 Total Bilirubin 0.4 AST 20 ALT 19 Alkaline Phosphatase 84 Total Protein 6.2 L Albumin 3.2 L RPR Titer Nonreactive aaox3 ambulating no acute distress Assessment: 06/30/18 13:23 withdrawal sx Plan: continue detox increase fluids
[2018-06-30 16:36] LABS: URINE APPEARANCE CLEAR; URINE BILIRUBIN NEGATIVE (<2.0 mg/dL); URINE COLOR YELLOW; URINE GLUCOSE (UA) NEGATIVE (NEGATIVE); URINE KETONE NEGATIVE (NEGATIVE); URINE LEUK ESTERASE NEGATIVE (NEGATIVE); URINE NITRITE NEGATIVE (NEGATIVE); URINE PROTEIN NEGATIVE (NEGATIVE); URINE UROBILINOGEN 4.0 E.U/dl mg/dL (0.2-1.0)
[2018-06-30] MEDS: hydrOXYzine PAMOATE 50 MG CAPSULE (FP) PO PRN ×2 (17:26→22:57)
[2018-06-30] MEDS: NICOTINE POLACRILEX 2 MG GUM BC PRN (17:26)
[2018-06-30] MEDS: MIRTAZAPINE 15 MG TABLET (FP) PO SCH (22:55)
[2018-06-30] MEDS: QUEtiapine FUMARATE 400 MG TABLET PO SCH (22:57)
[2018-06-30] MEDS: THIAMINE HCL 100 MG TABLET (FP) PO SCH (22:58)
[2018-07-01] MEDS: chlordiazePOXIDE HCL 25 MG CAPSULE PO SCH ×2 (06:01→10:41)
[2018-07-01] MEDS: PRENATAL VITAMINS W/ FOLIC ACID TABLET (FP) PO SCH (10:41)
[2018-07-01] MEDS: NICOTINE POLACRILEX 2 MG GUM BC PRN ×2 (10:42→14:45)
--- NOTE | 2018-07-01 15:31 | PN ---
[facility] CIWA - CIWA Score Nausea/Vomitin-Mild Nausea/No Vomiting Muscle Tremors: 3 Anxiety: 1-Mildly Anxious Agitation: 3 Paroxysmal Sweats: 3 Orientation: 0-Oriented Tacttile Disturbances: 0-None Auditory Disturbances: 0-None Visual Disturbances: 0-None Headache: 0-None Present CIWA-Ar Total Score: 11 [facility] Progress Note (SOAP) Subjective: States librium making him "very tired" sweats Objective: 07/01/18 15:28 in bed, a & O x 3, irritable Vital Signs Temperature 98.1 F 07/01/18 14:22 Pulse Rate 64 07/01/18 14:22 Respiratory Rate 18 07/01/18 14:22 Blood Pressure 133/52 L 07/01/18 14:22 O2 Sat by Pulse Oximetry (%) Laboratory Last Values WBC 3.6 K/mm3 (4.0-10.0) L 06/30/18 07:00 RBC 3.84 M/mm3 (4.00-5.60) L 06/30/18 07:00 Hgb 12.2 GM/dL (11.7-16.9) 06/30/18 07:00 Hct 35.7 % (35.4-49) 06/30/18 07:00 MCV 93.0 fl (80-96) 06/30/18 07:00 MCH 31.9 pg (25.7-33.7) 06/30/18 07:00 MCHC 34.3 g/dl (32.0-35.9) 06/30/18 07:00 RDW 14.0 % (11.9-15.9) 06/30/18 07:00 Plt Count 253 K/MM3 (134-434) 06/30/18 07:00 MPV 8.0 fl (7.5-11.1) 06/30/18 07:00 Sodium 140 mmol/L (136-145) 06/30/18 07:00 Potassium 4.3 mmol/L (3.5-5.1) 06/30/18 07:00 Chloride 106 mmol/L (98-107) 06/30/18 07:00 Carbon Dioxide 29 mmol/L (21-32) 06/30/18 07:00 Anion Gap 5 MMOL/L (8-16) L 06/30/18 07:00 BUN 14 mg/dL (7-18) 06/30/18 07:00 Creatinine 1.1 mg/dL (0.55-1.3) 06/30/18 07:00 Creat Clearance w eGFR > 60 (>60) 06/30/18 07:00 Random Glucose 67 mg/dL (74-106) L 06/30/18 07:00 Calcium 8.5 mg/dL (8.5-10.1) 06/30/18 07:00 Total Bilirubin 0.4 mg/dL (0.2-1) 06/30/18 07:00 AST 20 U/L (15-37) 06/30/18 07:00 ALT 19 U/L (13-61) 06/30/18 07:00 Alkaline Phosphatase 84 U/L (45-117) 06/30/18 07:00 Total Protein 6.2 g/dl (6.4-8.2) L 06/30/18 07:00 Albumin 3.2 g/dl (3.4-5.0) L 06/30/18 07:00 Urine Color Yellow 06/29/18 23:26 Urine Appearance Clear 06/29/18 23:26 Urine pH 7.0 (5.0-8.0) 06/29/18 23:26 Ur Specific [place] 1.016 (1.010-1.035) 06/29/18 23:26 Urine Protein Negative (NEGATIVE) 06/29/18 23:26 Urine Glucose (UA) Negative (NEGATIVE) 06/29/18 23:26 Urine Ketones Negative (NEGATIVE) 06/29/18 23:26 Urine Blood Negative (NEGATIVE) 06/29/18 23:26 Urine Nitrite Negative (NEGATIVE) 06/29/18 23:26 Urine Bilirubin Negative (<2.0 mg/dL) 06/29/18 23:26 Urine Urobilinogen 4.0 e.u/dl mg/dL (0.2-1.0) 06/29/18 23:26 Ur Leukocyte Esterase Negative (NEGATIVE) 06/29/18 23:26 RPR Titer Nonreactive (NONREACTIVE) 06/30/18 07:00 LAbs noted, RBC slightly low but H & H and MCV wnl Assessment: 07/01/18 15:30 withdrawal sx Plan: continue detox Increase hydration On librium taper, so should feel better with lower doses Continue clinical monitoring of symptoms
[2018-07-01] MEDS: chlordiazePOXIDE 5 MG CAPSULE PO SCH ×2 (17:23→22:39)
[2018-07-01] MEDS: QUEtiapine FUMARATE 400 MG TABLET PO SCH (22:33)
[2018-07-01] MEDS: hydrOXYzine PAMOATE 50 MG CAPSULE (FP) PO PRN (22:34)
[2018-07-01] MEDS: THIAMINE HCL 100 MG TABLET (FP) PO SCH (22:34)
[2018-07-01] MEDS: MELATONIN 5 MG TABLETS PO PRN (22:35)
[2018-07-01] MEDS: MIRTAZAPINE 15 MG TABLET (FP) PO SCH (23:15)
[2018-07-02] MEDS: chlordiazePOXIDE 5 MG CAPSULE PO SCH ×2 (06:37→11:00)
[2018-07-02] MEDS: NICOTINE POLACRILEX 2 MG GUM BC PRN ×2 (06:46→15:23)
[2018-07-02] MEDS: PRENATAL VITAMINS W/ FOLIC ACID TABLET (FP) PO SCH (11:01)
--- NOTE | 2018-07-02 15:11 | PN ---
[facility] Progress Note (SOAP) Subjective: Denies any withdrawal symptoms; appears anxious Objective: 07/02/18 15:10 Last Vital Signs Temp Pulse Resp BP Pulse Ox 98.2 F 63 18 115/53 L 07/02/18 13:11 07/02/18 13:11 07/02/18 13:11 07/02/18 13:11 Laboratory Tests 06/29/18 06/30/18 06/30/18 23:26 07:00 07:00 WBC 3.6 L RBC 3.84 L Hgb 12.2 Hct 35.7 MCV 93.0 MCH 31.9 MCHC 34.3 RDW 14.0 Plt Count 253 MPV 8.0 Sodium 140 Potassium 4.3 Chloride 106 Carbon Dioxide 29 Anion Gap 5 L BUN 14 Creatinine 1.1 Creat Clearance w eGFR > 60 Random Glucose 67 L Calcium 8.5 Total Bilirubin 0.4 AST 20 ALT 19 Alkaline Phosphatase 84 Total Protein 6.2 L Albumin 3.2 L Urine Color Yellow Urine Appearance Clear Urine pH 7.0 Ur Specific [place] 1.016 Urine Protein Negative Urine Glucose (UA) Negative Urine Ketones Negative Urine Blood Negative Urine Nitrite Negative Urine Bilirubin Negative Urine Urobilinogen 4.0 e.u/dl Ur Leukocyte Esterase Negative RPR Titer 06/30/18 07:00 WBC RBC Hgb Hct MCV MCH MCHC RDW Plt Count MPV Sodium Potassium Chloride Carbon Dioxide Anion Gap BUN Creatinine Creat Clearance w eGFR Random Glucose Calcium Total Bilirubin AST ALT Alkaline Phosphatase Total Protein Albumin Urine Color Urine Appearance Urine pH Ur Specific [place] Urine Protein Urine Glucose (UA) Urine Ketones Urine Blood Urine Nitrite Urine Bilirubin Urine Urobilinogen Ur Leukocyte Esterase RPR Titer Nonreactive Labs reviewed Assessment: 07/02/18 15:10 Withdrawal symptoms Plan: Continue detox Encouraged PO water intake Patient is scheduled for discharge tomorrow
[2018-07-02] MEDS: chlordiazePOXIDE HCL 10 MG CAPSULE PO SCH ×2 (21:17→22:50)
[2018-07-02] MEDS: MIRTAZAPINE 15 MG TABLET (FP) PO SCH (22:28)
[2018-07-02] MEDS: hydrOXYzine PAMOATE 50 MG CAPSULE (FP) PO PRN (22:28)
[2018-07-02] MEDS: QUEtiapine FUMARATE 400 MG TABLET PO SCH (22:29)
[2018-07-02] MEDS: THIAMINE HCL 100 MG TABLET (FP) PO SCH (22:30)
[2018-07-03] MEDS: chlordiazePOXIDE HCL 10 MG CAPSULE PO SCH (06:10)
[2018-07-03 06:55] VITALS: BP 115/58; PULSE 57; TEMP 97.7
[2018-07-03] MEDS: NICOTINE POLACRILEX 2 MG GUM BC PRN (07:33)
--- NOTE | 2018-07-03 16:41 | DS ---
[facility] Detox Discharge Summary Admission Date: 06/29/18 Discharge Date: 07/03/18 - History Present History: Alcohol Dependence, Cocaine Dependence Additional Comments: PATIENT GOING TO [facility] ([place] [place]) FOR AFTERCARE. PATIENT WAS DISCHARGED FROM DETOX UNIT IN STABLE MEDICAL CONDITION. Pertinent Past History: History of Bipolar Disorder, History of Depression, Nicotine Dependence, - Physical Exam Results Vital Signs: Vital Signs Temperature 97.7 F 07/03/18 06:54 Pulse Rate 57 L 07/03/18 06:54 Respiratory Rate 18 07/03/18 06:54 Blood Pressure 115/58 L 07/03/18 06:54 O2 Sat by Pulse Oximetry (%) Pertinent Admission Physical Exam Findings: WITHDRAWAL SYMPTOMS. Laboratory Tests 06/29/18 06/30/18 06/30/18 23:26 07:00 07:00 WBC 3.6 L RBC 3.84 L Hgb 12.2 Hct 35.7 MCV 93.0 MCH 31.9 MCHC 34.3 RDW 14.0 Plt Count 253 MPV 8.0 Sodium 140 Potassium 4.3 Chloride 106 Carbon Dioxide 29 Anion Gap 5 L BUN 14 Creatinine 1.1 Creat Clearance w eGFR > 60 Random Glucose 67 L Calcium 8.5 Total Bilirubin 0.4 AST 20 ALT 19 Alkaline Phosphatase 84 Total Protein 6.2 L Albumin 3.2 L Urine Color Yellow Urine Appearance Clear Urine pH 7.0 Ur Specific [place] 1.016 Urine Protein Negative Urine Glucose (UA) Negative Urine Ketones Negative Urine Blood Negative Urine Nitrite Negative Urine Bilirubin Negative Urine Urobilinogen 4.0 e.u/dl Ur Leukocyte Esterase Negative RPR Titer 06/30/18 07:00 WBC RBC Hgb Hct MCV MCH MCHC RDW Plt Count MPV Sodium Potassium Chloride Carbon Dioxide Anion Gap BUN Creatinine Creat Clearance w eGFR Random Glucose Calcium Total Bilirubin AST ALT Alkaline Phosphatase Total Protein Albumin Urine Color Urine Appearance Urine pH Ur Specific [place] Urine Protein Urine Glucose (UA) Urine Ketones Urine Blood Urine Nitrite Urine Bilirubin Urine Urobilinogen Ur Leukocyte Esterase RPR Titer Nonreactive LABS NOTED. - Treatment Hospital Course: Detox Protocol Followed, Detoxed Safely, Responded well, Discharged Condition Good, Rehab Referral Accepted Patient has Accepted a Rehab Referral to: [facility] ([place], [place]). - Medication Discharge Medications: Ambulatory Orders Quetiapine Fumarate [Seroquel] 600 mg PO HS #30 tablet 09/16/17 Hydroxyzine HCl 50 mg PO HS 11/22/17 Ammonium Lactate Cream [Lac-Hydrin 12% Cream -] 1 applic TP BID #1 tube Mirtazapine [Remeron -] 45 mg PO HS #90 tablet 12/07/17 - Diagnosis (1) Alcohol dependence with uncomplicated withdrawal Status: Acute (2) Cocaine dependence, uncomplicated Status: Chronic (3) Nicotine dependence Status: Chronic Qualifiers: Nicotine product type: cigarettes Substance use status: uncomplicated Qualified Code(s): F17.210 - Nicotine dependence, cigarettes, uncomplicated (4) Substance induced mood disorder Status: Acute (5) Bipolar disorder Status: Chronic Qualifiers: Active/Remission status: remission status unspecified (6) Depression Status: Chronic Qualifiers: Depression Type: unspecified Qualified Code(s): F32.9 - Major depressive disorder, single episode, unspecified (7) Insomnia Status: Chronic Qualifiers: Insomnia type: unspecified Qualified Code(s): G47.00 - Insomnia, unspecified (8) Substance-induced sleep disorder Status: Acute - AMA Did Patient Leave Against Medical Advice: No
== END 2018-07-03 09:18 | disposition home or self-care (01) | DRG 774 ==
LOC: YASAS 13:49 → Y6N 17:27 → Y3N 22:52 → Y6N 22:53
PROVIDERS: ADMIT Surgery; ATTEND Surgery
PROC: HZ2ZZZZ Detoxification Services for Substance Abuse Treatment (ICD-10-PCS; principal; 2018-06-29)
DX: F10.230 Alcohol dependence with withdrawal, uncomplicated (principal); F14.20 Cocaine dependence, uncomplicated; F17.210 Nicotine dependence, cigarettes, uncomplicated; F19.24 Other psychoactive substance dependence with psychoactive substance-induced mood disorder; F19.282 Other psychoactive substance dependence with psychoactive substance-induced sleep disorder; F31.9 Bipolar disorder, unspecified; G47.00 Insomnia, unspecified
CPT/HCPCS: 36415; 80053; 81003; 85027; 86593

== ENCOUNTER 2018-08-17 14:05 | Inpatient (IN) | payer OTHER ==
[2018-08-17 15:56] VITALS: BMI 24.3
--- NOTE | 2018-08-17 20:17 | HP ---
COWS - Scale Resting Pulse: 0= [place] 80 or Below Sweatin= Chills/Flushing Restless Observation: 5= Unable to Sit Still Pupil Size: 0= Normal to Room Light Bone or Joint Aches: 0= None Runny Nose/ Eye Tearin= None GI Upset > 30mins: 0= None Tremor Observation: 0= None Yawning Observation: 0= None Anxiety or Irritability: 2=Irritable/Anxious Goose Flesh Skin: 0=Smooth Skin COWS Score: 8 CIWA Score Nausea/Vomitin-No Nausea/No Vomiting (HX/O BIPOLAR, ANXIETY D/O ON MEDS) Muscle Tremors: None Anxiety: 3 Agitation: 4-Moderately Restless Paroxysmal Sweats: 3 Orientation: 0-Oriented Tacttile Disturbances: 0-None Auditory Disturbances: 0-None Visual Disturbances: 0-None Headache: 0-None Present CIWA-Ar Total Score: 10 - Admission Criteria OAS Guidelines: Admission for Medically Managed Detox: Requires at least one of the followin. CIWA greater than 12 2. Seizures within the past 24 hours 3. Delirium tremens within the past 24 hours 4. Hallucinations within the past 24 hours 5. Acute intervention needed for co occurring medical disorder 6. Acute intervention needed for co occurring psychiatric disorder 7. Severe withdrawal that cannot be handled at a lower level of care (continued vomiting, continued diarrhea, abnormal vital signs) requiring intravenous medication and/or fluids 8. Patient presents the following: Acute intervention needed for co-occurring med or psych disorder Admission Criteria Met: Admission criteria met Admission [facility] Chief Complaint: C/O WORSENING WITHDRAWAL SX'S. SEEKING DETOX TXMENT Allergies/Adverse Reactions: Allergies Allergy/AdvReac Type Severity Reaction Status Date / Time No Known Allergies Allergy Verified 08/17/18 19:41 History of Present Illness: 58 Y.O. MALE WITH HX/O ALCOHOLISM AND HEROIN HERE FOR DETOX. CLIENT IS SELF REFERRED HE IS KNOWN TO THE PROGRAM. LAST HERE SIX WEEKS AGO PRESENTS TODAY WITH C/O WORSENING WITHDRAWAL SX'S, REPORTING THAT HE IMMEDIATELY BEING DC FROM LAST ADMISSION. HX/O MULTIPLE DETOX ADMISSIONS. REPORTS DRINKING VODKA 1/2 PINT AND 6 BEERS DAILY. LAST USE 1 DAY AGO. HE REPORTS SNIFFING A BAG OF HEROIN 2 TIMES A WEEK BUT SHARES THE BAG WITH ANOTHER PERSON. LAST USED YESTERDAY. COWS 8/CIWA 10. HE REPORTS HX/O BIPOLAR AND ANXIETY D/O COMPLIANT WITH HIS MED MGMT. DENIES HX/O SEIZURES, BLACK OUTS, AVH, SI/HI. HE CURRENTLY HOMELESS, LIVING IN GROUP HOME, UNEMPLOYED- HRA, DENIES LEGALS. Exam Limitations: No Limitations - Ebola screening Have you traveled outside of the country in the last 21 days: No Have you had contact with anyone from an Ebola affected area: No Have you been sick,other than usual withdrawal symptoms: No Do you have a fever: No - Review of Systems Constitutional: Chills, Loss of Appetite, Night Sweats, Unintentional Wgt. Loss EENT: reports: Other (MISSING TEETH) Respiratory: reports: No Symptoms reported Cardiac: reports: No Symptoms Reported GI: reports: Poor Appetite, Poor Fluid Intake : reports: No Symptoms Reported Musculoskeletal: reports: No Symptoms Reported Integumentary: reports: Sweating Neuro: reports: No Symptoms reported Endocrine: reports: No Symptoms Reported Hematology: reports: No Symptoms Reported Psychiatric: reports: Orientated x3, Anxious Other Systems: Reviewed and Negative Patient History - Patient Medical History Hx Anemia: No Hx Asthma: No Hx Chronic Obstructive Pulmonary Disease (COPD): No Hx Cancer: No Hx Cardiac Disorders: No Hx Congestive Heart Failure: No Hx Hypertension: No Hx Hypercholesterolemia: No Hx Pacemaker: No HX Cerebrovascular Accident: No Hx Seizures: No Hx Dementia: No Hx Diabetes: No Hx Gastrointestinal Disorders: No Hx Liver Disease: No Hx Genitourinary Disorders: No Hx Sexually Transmitted Disorders: No Hx Renal Disease (ESRD): No Hx Thyroid Disease: No Hx Human Immunodeficiency Virus (HIV): No (pt denies) Hx Hepatitis C: No (pt denies) Hx Depression: Yes Hx Suicide Attempt: No Hx Bipolar Disorder: Yes (on Mirtazapine and seroquel) Hx Schizophrenia: No Other Medical History: ANXIETY - Patient Surgical History Past Surgical History: No Hx Neurologic Surgery: No Hx Cataract Extraction: No Hx Cardiac Surgery: No Hx Lung Surgery: No Hx Breast Surgery: No Hx Breast Biopsy: No Hx Abdominal Surgery: No Hx Appendectomy: No Hx Cholecystectomy: No Hx Genitourinary Surgery: No Hx Section: No Hx Orthopedic Surgery: No Anesthesia Reaction: No - PPD History Previous Implant?: Yes Documented Results: Negative w/proof Date: 07/01/18 Results: 0 MM PPD to be Administered?: No - Smoking Cessation Smoking history: Current every day smoker Have you smoked in the past 12 months: Yes Aproximately how many cigarettes per day: 10 Cigars Per Day: 0 Hx Chewing Tobacco Use: No Initiated information on smoking cessation: Yes 'Breaking Loose' booklet given: 08/17/18 - Substance & Tx. History Hx Alcohol Use: Yes Hx Substance Use: Yes Substance Use Type: Alcohol, Cocaine, Heroin Hx Substance Use Treatment: Yes ([facility]) - Substances Abused Alcohol Route: Oral Frequency: Daily Amount used: 1/2 PINT AND 6 BEERS/DAILY Age of first use: 15 Date of Last Use: 08/16/18 Cocaine Route: Smoking Frequency: Daily Amount used: $60-70 Age of first use: 23 Date of Last Use: 08/17/18 HEROIN Route: Inhalation Frequency: 1-2 times per week Amount used: 1 BAG DAILY Age of first use: 54 Date of Last Use: 08/16/18 Family Disease History - Family Disease History Family Disease History: Diabetes: Grandparent (maternal grandmother, ), Mother, Brother, Sister, [place]: Father, Other: Father, Mother Admission Physical Exam [facility] - Vital Signs Vital Signs: Vital Signs - 24 hr 08/17/18 15:52 Temperature 97.0 F L Pulse Rate 67 Respiratory 18 Rate Blood Pressure 123/74 - Physical General Appearance: Yes: Appropriately Dressed, Mild Distress, Anxious, Other ( CHILLS) HEENTM: Yes: EOMI, Normocephalic, Normal Voice, KIRSTIE, Pharynx Normal, Nasal Congestion, Other (POOR DENTITION WITH MISSING TEETH) Respiratory: Yes: Chest Non-Tender, Lungs Clear, Normal Breath Sounds, No Respiratory Distress, No Accessory Muscle Use Neck: Yes: No masses,lesions,Nodules, Supple, Trachea in good position Breast: Yes: Breast Exam Deferred Cardiology: Yes: Regular Rhythm, Regular Rate, S1, S2 Abdominal: Yes: Normal Bowel Sounds, Non Tender, Soft Genitourinary: Yes: Within Normal Limits (NO C/O OFFERRED) Back: Yes: Normal Inspection Musculoskeletal: Yes: full range of Motion, Gait Steady Extremities: Yes: Normal Capillary Refill, Normal Range of Motion, Non-Tender Neurological: Yes: Fully Oriented, Alert, Motor Strength 5/5 Integumentary: Yes: Dry, Other (PILOERECTION) Lymphatic: Yes: Within Normal Limits - Diagnostic (1) Alcohol dependence with uncomplicated withdrawal Current Visit: Yes Status: Acute (2) Substance induced mood disorder Current Visit: Yes Status: Chronic (3) Substance-induced sleep disorder Current Visit: Yes Status: Chronic (4) Bipolar disorder Current Visit: Yes Status: Chronic Qualifiers: Active/Remission status: remission status unspecified Qualified Code(s): F31.9 - Bipolar disorder, unspecified Comment: As per existing records.On medications.OPD care is confirmed. (5) Cocaine dependence, uncomplicated Current Visit: Yes Status: Chronic (6) Nicotine dependence Current Visit: Yes Status: Chronic Qualifiers: Nicotine product type: cigarettes Substance use status: uncomplicated Qualified Code(s): F17.210 - Nicotine dependence, cigarettes, uncomplicated (7) Opioid dependence with withdrawal Current Visit: Yes Status: Acute Cleared for Admission [facility] - Detox or Rehab [facility] Level of Care: Medically Managed Detox Regimen/Protocol: Methadone/Librium Claeared for Rehab Admission: No S Breath Alcohol Content Breath Alcohol Content: 0 Urine Drug Screen - Results Drug Screen Negative: No Urine Drug Screen Results: GAVIN-Cocaine, OPI-Opiates Inpatient Rehab Admission - Rehab Decision to Admit Inpatient rehab admission?: No
[2018-08-17] MEDS ORDERED: MAGNESIUM CITRATE 300 ML BOTTLE PO PRN (20:26)
[2018-08-17] MEDS ORDERED: IBUPROFEN 400 MG TABLET (FP) PO PRN (20:26)
[2018-08-17] MEDS ORDERED: METHOCARBAMOL 500 MG TABLET PO PRN (20:26)
[2018-08-17] MEDS ORDERED: DICYCLOMINE HCL 10 MG CAPSULE PO PRN (20:26)
[2018-08-17] MEDS ORDERED: BISMUTH SUBSALICYLATE 524 MG/30 ML UD PO PRN (20:26)
[2018-08-17] MEDS ORDERED: MAGNESIUM HYDROX 2400MG/30ML ORAL SUSPENSION 30 ML CUP PO PRN (20:26)
[2018-08-17] MEDS ORDERED: MENTHOL/PHENOL 1 EACH UD MM PRN (20:26)
[2018-08-17] MEDS ORDERED: MELATONIN 5 MG TABLETS PO PRN (20:26)
[2018-08-17] MEDS ORDERED: P-EPHED 60MG/TRIPROLIDI 2.5MG TABLET PO PRN (20:26)
[2018-08-17] MEDS ORDERED: NALOXONE HCL 0.4 MG/ML VIAL IVPUSH PRN (20:26)
[2018-08-17] MEDS ORDERED: ONDANSETRON *ODT* 4 MG TABLET SL PRN (20:26)
[2018-08-17] MEDS ORDERED: guaiFENesin 200 MG/10 ML 10 ML UNIT-DOSE CUPS PO PRN (20:26)
[2018-08-17] MEDS ORDERED: ACETAMINOPHEN 325 MG TABLET (FP) PO PRN ×2 (20:26)
[2018-08-17] MEDS ORDERED: MAG HYDROX/AL HYDROX/SIMETH 30 ML UNIT-DOSE CUP PO PRN (20:26)
[2018-08-17] MEDS ORDERED: chlordiazePOXIDE HCL 25 MG CAPSULE PO PRN (20:26)
[2018-08-17] MEDS ORDERED: METHADONE HCL 10 MG TABLET (FOR DETOX USE ONLY) PO ONE (23:00)
[2018-08-17] MEDS: THIAMINE HCL 100 MG TABLET (FP) PO SCH (23:06)
[2018-08-17] MEDS: cloNIDine HCL 0.1 MG TABLET PO PRN (23:06)
[2018-08-17] MEDS: hydrOXYzine PAMOATE 25 MG CAPSULE (FP) PO PRN (23:07)
[2018-08-17] MEDS: chlordiazePOXIDE HCL 25 MG CAPSULE PO SCH (23:08)
[2018-08-18] MEDS: chlordiazePOXIDE HCL 25 MG CAPSULE PO SCH ×4 (05:24→23:10)
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
[2018-08-18] MEDS ORDERED: METHADONE HCL 5 MG TABLET (FOR DETOX USE ONLY) PO ONE (10:00)
[2018-08-18 10:14] LABS: URINE APPEARANCE CLEAR; URINE BILIRUBIN NEGATIVE (NEGATIVE); URINE COLOR YELLOW; URINE GLUCOSE (UA) NEGATIVE (NEGATIVE); URINE KETONE NEGATIVE (NEGATIVE); URINE LEUK ESTERASE NEGATIVE (NEGATIVE); URINE NITRITE NEGATIVE (NEGATIVE); URINE PROTEIN NEGATIVE (NEGATIVE); URINE UROBILINOGEN 0.2 mg/dL (0.2-1.0)
--- NOTE | 2018-08-18 10:28 | PN ---
[facility] COWS - Scale Resting Pulse: 0= [place] 80 or Below Sweatin= Chills/Flushing Restless Observation: 1= Difficult to Sit Still Pupil Size: 1= Pupils >than Normal Bone or Joint Aches: 2= Severe Diffuse Aches Runny Nose/ Eye Tearin= Runny Nose/Eyes GI Upset > 30mins: 2= Nausea/Diarrhea Tremor Observation of Outstretched Hands: 2= Slight Tremor Visible Yawning Observation: 1= 1-2x During Session Anxiety or Irritability: 2=Irritable/Anxious Goose Flesh Skin: 0=Smooth Skin COWS Score: 14 [facility] Progress Note (SOAP) Subjective: alert,irritable,anxious,interrupted sleep,tremor,pain in the body Objective: 08/18/18 10:27 Vital Signs Temperature 97.8 F 08/18/18 09:52 Pulse Rate 56 L 08/18/18 09:52 Respiratory Rate 18 08/18/18 09:52 Blood Pressure 100/50 L 08/18/18 09:52 O2 Sat by Pulse Oximetry (%) Laboratory Last Values Urine Color Yellow 08/18/18 07:00 Urine Appearance Clear 08/18/18 07:00 Urine pH 5.0 (5.0-8.0) D 08/18/18 07:00 Ur Specific [place] 1.020 (1.010-1.035) 08/18/18 07:00 Urine Protein Negative (NEGATIVE) 08/18/18 07:00 Urine Glucose (UA) Negative (NEGATIVE) 08/18/18 07:00 Urine Ketones Negative (NEGATIVE) 08/18/18 07:00 Urine Blood Negative (NEGATIVE) 08/18/18 07:00 Urine Nitrite Negative (NEGATIVE) 08/18/18 07:00 Urine Bilirubin Negative (NEGATIVE) 08/18/18 07:00 Urine Urobilinogen 0.2 mg/dL (0.2-1.0) 08/18/18 07:00 Ur Leukocyte Esterase Negative (NEGATIVE) 08/18/18 07:00 labs pending Assessment: 08/18/18 10:27 withdrawal symptom Plan: continue detox
[2018-08-18] MEDS: PRENATAL VITAMINS W/ FOLIC ACID TABLET (FP) PO SCH (10:33)
[2018-08-18] MEDS: NICOTINE 21 MG/24 HOURS TOPICAL PATCH TD SCH (10:33)
[2018-08-18] MEDS: GABAPENTIN 300 MG CAPSULE (FP) PO SCH (10:34)
[2018-08-18 12:08] LABS: ALBUMIN 3.2 g/dl (3.4-5.0); ALK PHOS 88 U/L (45-117); ANION GAP 7 MMOL/L (8-16); BILIRUBIN,TOTAL 0.1 mg/dL (0.2-1); BLOOD UREA NITROGEN 11 mg/dL (7-18); CALCIUM 8.6 mg/dL (8.5-10.1); CHLORIDE 105 mmol/L (98-107); CO2 28 mmol/L (21-32); CREATININE 1.1 mg/dL (0.55-1.3); GLUCOSE,RANDOM 91 mg/dL (74-106); POTASSIUM 4.2 mmol/L (3.5-5.1); SGOT/AST 16 U/L (15-37); SGPT/ALT 20 U/L (13-61); SODIUM 140 mmol/L (136-145); TOT PROT 6.3 g/dl (6.4-8.2)
[2018-08-18 12:10] LABS: HEMATOCRIT 36.7 % (35.4-49); HEMOGLOBIN 12.1 GM/dL (11.7-16.9); MCH 30.7 pg (25.7-33.7); MCHC 33.1 g/dl (32.0-35.9); MEAN CELL VOLUME 92.6 fl (80-96); MEAN PLT VOLUME 8.2 fl (7.5-11.1); PLATELET COUNT 288 K/MM3 (134-434); RBC 3.96 M/mm3 (4.00-5.60); WHITE BLOOD COUNT 3.8 K/mm3 (4.0-10.0)
[2018-08-18] MEDS: NICOTINE POLACRILEX 2 MG GUM BUC PRN ×2 (12:20→16:50)
[2018-08-18] MEDS: AMMONIUM LACTATE 12% LOTION 225 GM BOTTLE TP SCH ×2 (12:47→23:03)
[2018-08-18] MEDS: cloNIDine HCL 0.1 MG TABLET PO PRN (21:40)
[2018-08-18] MEDS: MIRTAZAPINE 30 MG TABLET (FP) PO SCH (21:40)
[2018-08-18] MEDS: QUEtiapine FUMARATE 300 MG TABLET PO SCH (21:40)
[2018-08-18] MEDS: THIAMINE HCL 100 MG TABLET (FP) PO SCH (21:41)
[2018-08-18] MEDS ORDERED: MIRTAZAPINE 15 MG TABLET (FP) PO SCH (22:00)
[2018-08-19] MEDS: chlordiazePOXIDE HCL 25 MG CAPSULE PO SCH ×3 (06:34→17:35)
[2018-08-19] MEDS: NICOTINE POLACRILEX 2 MG GUM BUC PRN ×5 (06:35→21:37)
[2018-08-19] MEDS ORDERED: METHADONE HCL 10 MG TABLET (FOR DETOX USE ONLY) PO ONE (10:00)
[2018-08-19] MEDS: PRENATAL VITAMINS W/ FOLIC ACID TABLET (FP) PO SCH (10:25)
[2018-08-19] MEDS: AMMONIUM LACTATE 12% LOTION 225 GM BOTTLE TP SCH ×2 (10:25→23:34)
[2018-08-19] MEDS: GABAPENTIN 300 MG CAPSULE (FP) PO SCH (10:25)
[2018-08-19] MEDS: NICOTINE 21 MG/24 HOURS TOPICAL PATCH TD SCH (10:26)
--- NOTE | 2018-08-19 12:39 | PN ---
[facility] CIWA - CIWA Score Nausea/Vomitin Muscle Tremors: 2 Anxiety: 2 Agitation: 2 Paroxysmal Sweats: 2 Orientation: 0-Oriented Tacttile Disturbances: 2-Mild Itch/Numbness/Burn Auditory Disturbances: 1-Very Mild Visual Disturbances: 1-Very Mild Sensitivity Headache: 1-Very Mild CIWA-Ar Total Score: 15 [facility] COWS - Scale Resting Pulse: 0= [place] 80 or Below Sweatin= Chills/Flushing Restless Observation: 1= Difficult to Sit Still Pupil Size: 0= Normal to Room Light Bone or Joint Aches: 1= Mild Discomfort Runny Nose/ Eye Tearin= Nasal Congestion GI Upset > 30mins: 2= Nausea/Diarrhea Tremor Observation of Outstretched Hands: 2= Slight Tremor Visible Yawning Observation: 0= None Anxiety or Irritability: 2=Irritable/Anxious Goose Flesh Skin: 0=Smooth Skin COWS Score: 10 S Progress Note (SOAP) Subjective: Interrupted sleep, irritability and abdominal cramps Objective: 08/19/18 12:54 Vital Signs 08/19/18 08/19/18 08:25 09:39 Temperature 97.2 F L 97.3 F L Pulse Rate 57 L 59 L Respiratory 18 18 Rate Blood Pressure 126/64 106/55 L Laboratory Last Values WBC 3.8 K/mm3 (4.0-10.0) L 08/18/18 10:00 RBC 3.96 M/mm3 (4.00-5.60) L 08/18/18 10:00 Hgb 12.1 GM/dL (11.7-16.9) 08/18/18 10:00 Hct 36.7 % (35.4-49) 08/18/18 10:00 MCV 92.6 fl (80-96) 08/18/18 10:00 MCH 30.7 pg (25.7-33.7) 08/18/18 10:00 MCHC 33.1 g/dl (32.0-35.9) 08/18/18 10:00 RDW 14.0 % (11.9-15.9) 08/18/18 10:00 Plt Count 288 K/MM3 (134-434) 08/18/18 10:00 MPV 8.2 fl (7.5-11.1) 08/18/18 10:00 Sodium 140 mmol/L (136-145) 08/18/18 10:00 Potassium 4.2 mmol/L (3.5-5.1) 08/18/18 10:00 Chloride 105 mmol/L (98-107) 08/18/18 10:00 Carbon Dioxide 28 mmol/L (21-32) 08/18/18 10:00 Anion Gap 7 MMOL/L (8-16) L 08/18/18 10:00 BUN 11 mg/dL (7-18) 08/18/18 10:00 Creatinine 1.1 mg/dL (0.55-1.3) 08/18/18 10:00 Creat Clearance w eGFR 69.00 (>60) 08/18/18 10:00 Random Glucose 91 mg/dL (74-106) 08/18/18 10:00 Calcium 8.6 mg/dL (8.5-10.1) 08/18/18 10:00 Total Bilirubin 0.1 mg/dL (0.2-1) L 08/18/18 10:00 AST 16 U/L (15-37) 08/18/18 10:00 ALT 20 U/L (13-61) 08/18/18 10:00 Alkaline Phosphatase 88 U/L (45-117) 08/18/18 10:00 Total Protein 6.3 g/dl (6.4-8.2) L 08/18/18 10:00 Albumin 3.2 g/dl (3.4-5.0) L 08/18/18 10:00 Urine Color Yellow 08/18/18 07:00 Urine Appearance Clear 08/18/18 07:00 Urine pH 5.0 (5.0-8.0) D 08/18/18 07:00 Ur Specific [place] 1.020 (1.010-1.035) 08/18/18 07:00 Urine Protein Negative (NEGATIVE) 08/18/18 07:00 Urine Glucose (UA) Negative (NEGATIVE) 08/18/18 07:00 Urine Ketones Negative (NEGATIVE) 08/18/18 07:00 Urine Blood Negative (NEGATIVE) 08/18/18 07:00 Urine Nitrite Negative (NEGATIVE) 08/18/18 07:00 Urine Bilirubin Negative (NEGATIVE) 08/18/18 07:00 Urine Urobilinogen 0.2 mg/dL (0.2-1.0) 08/18/18 07:00 Ur Leukocyte Esterase Negative (NEGATIVE) 08/18/18 07:00 RPR Titer Nonreactive (NONREACTIVE) 08/18/18 10:00 Labs noted Assessment: 08/19/18 12:55 Withdrawal sx Plan: Continue detox
[2018-08-19] MEDS: MIRTAZAPINE 30 MG TABLET (FP) PO SCH (21:36)
[2018-08-19] MEDS: QUEtiapine FUMARATE 300 MG TABLET PO SCH (21:36)
[2018-08-19] MEDS: THIAMINE HCL 100 MG TABLET (FP) PO SCH (21:38)
[2018-08-19] MEDS ORDERED: chlordiazePOXIDE HCL 10 MG CAPSULE PO PRN (23:00)
[2018-08-19] MEDS: chlordiazePOXIDE HCL 10 MG CAPSULE PO SCH (23:34)
[2018-08-20] MEDS ORDERED: METHADONE HCL 5 MG TABLET (FOR DETOX USE ONLY) PO ONE (06:00)
[2018-08-20] MEDS: chlordiazePOXIDE HCL 10 MG CAPSULE PO SCH ×3 (06:30→17:28)
[2018-08-20] MEDS: NICOTINE POLACRILEX 2 MG GUM BUC PRN ×3 (08:56→15:43)
[2018-08-20] MEDS: hydrOXYzine PAMOATE 25 MG CAPSULE (FP) PO PRN (10:23)
[2018-08-20] MEDS: PRENATAL VITAMINS W/ FOLIC ACID TABLET (FP) PO SCH (10:23)
[2018-08-20] MEDS: NICOTINE 21 MG/24 HOURS TOPICAL PATCH TD SCH (10:24)
[2018-08-20] MEDS: GABAPENTIN 300 MG CAPSULE (FP) PO SCH (10:24)
[2018-08-20] MEDS: AMMONIUM LACTATE 12% LOTION 225 GM BOTTLE TP SCH ×2 (10:24→22:03)
--- NOTE | 2018-08-20 12:11 | PN ---
[facility] Progress Note (SOAP) Subjective: sweats interrupted sleep Objective: 08/20/18 12:09 Vital Signs Temperature 98.4 F 08/20/18 09:55 Pulse Rate 66 08/20/18 09:55 Respiratory Rate 18 08/20/18 09:55 Blood Pressure 116/67 08/20/18 09:55 O2 Sat by Pulse Oximetry (%) Laboratory Tests 08/18/18 08/18/18 08/18/18 07:00 10:00 10:00 WBC 3.8 L RBC 3.96 L Hgb 12.1 Hct 36.7 MCV 92.6 MCH 30.7 MCHC 33.1 RDW 14.0 Plt Count 288 MPV 8.2 Sodium 140 Potassium 4.2 Chloride 105 Carbon Dioxide 28 Anion Gap 7 L BUN 11 Creatinine 1.1 Creat Clearance w eGFR 69.00 Random Glucose 91 Calcium 8.6 Total Bilirubin 0.1 L AST 16 ALT 20 Alkaline Phosphatase 88 Total Protein 6.3 L Albumin 3.2 L Urine Color Yellow Urine Appearance Clear Urine pH 5.0 D Ur Specific [place] 1.020 Urine Protein Negative Urine Glucose (UA) Negative Urine Ketones Negative Urine Blood Negative Urine Nitrite Negative Urine Bilirubin Negative Urine Urobilinogen 0.2 Ur Leukocyte Esterase Negative RPR Titer 08/18/18 10:00 WBC RBC Hgb Hct MCV MCH MCHC RDW Plt Count MPV Sodium Potassium Chloride Carbon Dioxide Anion Gap BUN Creatinine Creat Clearance w eGFR Random Glucose Calcium Total Bilirubin AST ALT Alkaline Phosphatase Total Protein Albumin Urine Color Urine Appearance Urine pH Ur Specific Emerson Urine Protein Urine Glucose (UA) Urine Ketones Urine Blood Urine Nitrite Urine Bilirubin Urine Urobilinogen Ur Leukocyte Esterase RPR Titer Nonreactive aaox3 ambulating no acute distress Assessment: 08/20/18 12:10 mild withdrawal sx Plan: continue detox increase fluids d/c in am
[2018-08-20] MEDS: THIAMINE HCL 100 MG TABLET (FP) PO SCH (22:01)
[2018-08-20] MEDS: QUEtiapine FUMARATE 300 MG TABLET PO SCH (22:03)
[2018-08-20] MEDS: MIRTAZAPINE 30 MG TABLET (FP) PO SCH (22:03)
[2018-08-20] MEDS ORDERED: chlordiazePOXIDE HCL 10 MG CAPSULE PO SCH (23:00)
[2018-08-21] MEDS: NICOTINE POLACRILEX 2 MG GUM BUC PRN (05:56)
[2018-08-21] MEDS: hydrOXYzine PAMOATE 25 MG CAPSULE (FP) PO PRN (05:56)
--- NOTE | 2018-08-21 08:47 | DS ---
[facility] Detox Discharge Summary Admission Date: 08/17/18 Discharge Date: 08/21/18 - History Present History: Alcohol Dependence, Cocaine Dependence, Opioid Dependence - Physical Exam Results Vital Signs: Vital Signs Temperature 96.1 F L 08/21/18 06:26 Pulse Rate 68 08/21/18 06:26 Respiratory Rate 18 08/21/18 06:26 Blood Pressure 140/62 08/21/18 06:26 O2 Sat by Pulse Oximetry (%) - Treatment Hospital Course: Detox Protocol Followed, Detoxed Safely, Responded well, Discharged Condition Good, Rehab Referral Accepted - Medication Discharge Medications: Ambulatory Orders Quetiapine Fumarate [Seroquel] 600 mg PO HS #30 tablet 09/16/17 Hydroxyzine HCl 50 mg PO HS 11/22/17 Ammonium Lactate Cream [Lac-Hydrin 12% Cream -] 1 applic TP BID #1 tube Mirtazapine [Remeron -] 45 mg PO HS #90 tablet 12/07/17 Naloxone HCl [Narcan] 4 mg NS PRN #1 spray 08/21/18 Nicotine Polacrilex [Nicorelief -] 2 mg BUC Q2H PRN #90 gum 08/21/18 - Diagnosis (1) Alcohol dependence with uncomplicated withdrawal Current Visit: Yes Status: Chronic (2) Opioid dependence with withdrawal Current Visit: Yes Status: Chronic (3) Substance induced mood disorder Current Visit: Yes Status: Acute (4) Substance-induced sleep disorder Current Visit: Yes Status: Acute (5) Bipolar disorder Current Visit: Yes Status: Chronic Qualifiers: Active/Remission status: remission status unspecified Qualified Code(s): F31.9 - Bipolar disorder, unspecified (6) Cocaine dependence, uncomplicated Current Visit: Yes Status: Chronic (7) Nicotine dependence Current Visit: Yes Status: Chronic Qualifiers: Nicotine product type: cigarettes Substance use status: uncomplicated Qualified Code(s): F17.210 - Nicotine dependence, cigarettes, uncomplicated (8) Depression Current Visit: No Status: Chronic Qualifiers: Depression Type: unspecified Qualified Code(s): F32.9 - Major depressive disorder, single episode, unspecified (9) Insomnia Current Visit: No Status: Chronic Qualifiers: Insomnia type: unspecified Qualified Code(s): G47.00 - Insomnia, unspecified - AMA Did Patient Leave Against Medical Advice: No ([facility] outpatient rehab)
[2018-08-21 08:50] VITALS: BP 126/63; PULSE 75; TEMP 99.3
== END 2018-08-21 09:15 | disposition home or self-care (01) | DRG 773 ==
LOC: YASAS 14:05 → Y6N 21:20
PROVIDERS: ADMIT Surgery; ATTEND Surgery
PROC: HZ2ZZZZ Detoxification Services for Substance Abuse Treatment (ICD-10-PCS; principal; 2018-08-17)
DX: F11.23 Opioid dependence with withdrawal (principal); F10.230 Alcohol dependence with withdrawal, uncomplicated; F14.20 Cocaine dependence, uncomplicated; F17.210 Nicotine dependence, cigarettes, uncomplicated; F19.24 Other psychoactive substance dependence with psychoactive substance-induced mood disorder; F19.282 Other psychoactive substance dependence with psychoactive substance-induced sleep disorder; F31.9 Bipolar disorder, unspecified; G47.00 Insomnia, unspecified
CPT/HCPCS: 36415; 80053; 81003; 85027; 86593; J0735

== ENCOUNTER 2018-10-04 14:07 | Inpatient (IN) | payer OTHER ==
[2018-10-04 19:40] VITALS: BMI 24.3
--- NOTE | 2018-10-04 20:18 | HP ---
CIWA Score Nausea/Vomitin-Mild Nausea/No Vomiting Muscle Tremors: 3 Anxiety: 3 Agitation: 4-Moderately Restless Paroxysmal Sweats: 2 Orientation: 0-Oriented Tacttile Disturbances: 0-None Auditory Disturbances: 0-None Visual Disturbances: 0-None Headache: 4-Moderately Severe CIWA-Ar Total Score: 17 - Admission Criteria OASAS Guidelines: Admission for Medically Managed Detox: Requires at least one of the followin. CIWA greater than 12 2. Seizures within the past 24 hours 3. Delirium tremens within the past 24 hours 4. Hallucinations within the past 24 hours 5. Acute intervention needed for co occurring medical disorder 6. Acute intervention needed for co occurring psychiatric disorder 7. Severe withdrawal that cannot be handled at a lower level of care (continued vomiting, continued diarrhea, abnormal vital signs) requiring intravenous medication and/or fluids 8. Admission ROS [facility] - [facility] Chief Complaint: Alcohol withdrawal symptoms Allergies/Adverse Reactions: Allergies Allergy/AdvReac Type Severity Reaction Status Date / Time No Known Allergies Allergy Verified 10/04/18 19:28 History of Present Illness: 58 years old male with a long history of alcohol dependence is seeking admission to detox. Patient has been in previous detox and reports 2 years of sobriety. He denies past medical history and suicidal ideation at this time Exam Limitations: No Limitations - Ebola screening Have you traveled outside of the country in the last 21 days: No Have you had contact with anyone from an Ebola affected area: No Have you been sick,other than usual withdrawal symptoms: No Do you have a fever: No - Review of Systems Constitutional: Chills, Loss of Appetite, Malaise, Weakness EENT: reports: No Symptoms Reported Respiratory: reports: No Symptoms reported Cardiac: reports: No Symptoms Reported GI: reports: Nausea, Poor Appetite, Poor Fluid Intake, Abdominal cramping : reports: No Symptoms Reported Musculoskeletal: reports: No Symptoms Reported Integumentary: reports: Dryness, Flushing Neuro: reports: Headache, Tremors Endocrine: reports: No Symptoms Reported Hematology: reports: No Symptoms Reported Psychiatric: reports: Mood/Affect Appropiate, Anxious Other Systems: Reviewed and Negative Patient History - Patient Medical History Hx Anemia: No Hx Asthma: No Hx Chronic Obstructive Pulmonary Disease (COPD): No Hx Cancer: No Hx Cardiac Disorders: No Hx Congestive Heart Failure: No Hx Hypertension: No Hx Hypercholesterolemia: No Hx Pacemaker: No HX Cerebrovascular Accident: No Hx Seizures: No Hx Dementia: No Hx Diabetes: No Hx Gastrointestinal Disorders: No Hx Liver Disease: No Hx Genitourinary Disorders: No Hx Sexually Transmitted Disorders: No Hx Renal Disease (ESRD): No Hx Thyroid Disease: No Hx Human Immunodeficiency Virus (HIV): No (pt denies) Hx Hepatitis C: No (pt denies) Hx Depression: Yes (Seroquel) Hx Suicide Attempt: No Hx Bipolar Disorder: Yes (Mirtazapine and Seroquel) Hx Schizophrenia: No - Patient Surgical History Past Surgical History: No Hx Neurologic Surgery: No Hx Cataract Extraction: No Hx Cardiac Surgery: No Hx Lung Surgery: No Hx Breast Surgery: No Hx Breast Biopsy: No Hx Abdominal Surgery: No Hx Appendectomy: No Hx Cholecystectomy: No Hx Genitourinary Surgery: No Hx Section: No Hx Orthopedic Surgery: No Anesthesia Reaction: No - PPD History Date: 07/01/18 Results: 0 MM - Smoking Cessation Smoking history: Current every day smoker Have you smoked in the past 12 months: Yes Aproximately how many cigarettes per day: 10 Cigars Per Day: 0 Hx Chewing Tobacco Use: No Initiated information on smoking cessation: Yes 'Breaking Loose' booklet given: 10/04/18 - Substances abused Alcohol Substance route: Oral Frequency: Daily Amount used: 1 1/2 PINT OF VODKA Age of first use: 15 Date of last use: 10/04/18 Cocaine Substance route: Inhalation Frequency: Daily Amount used: 6 BAGS Age of first use: 23 Date of last use: 10/03/18 Family Disease History - Family Disease History Family Disease History: Diabetes: Grandparent (maternal grandmother, ), Mother, Brother, Sister, [place]: Father, Other: Father, Mother Admission Physical Exam S - Vital Signs Vital Signs: Vital Signs - 24 hr 10/04/18 19:24 Temperature 97.5 F L Pulse Rate 81 Respiratory 18 Rate Blood Pressure 118/71 - Physical General Appearance: Yes: Moderate Distress, Tremorous, Sweating, Anxious HEENTM: Yes: EOMI, Normal ENT Inspection, Normal Voice, KIRSTIE Respiratory: Yes: Lungs Clear, Normal Breath Sounds, No Respiratory Distress Neck: Yes: Supple Breast: Yes: Breast Exam Deferred Cardiology: Yes: Regular Rhythm, Regular Rate Abdominal: Yes: Normal Bowel Sounds Genitourinary: Yes: Within Normal Limits Back: Yes: Normal Inspection Musculoskeletal: Yes: Within Normal Limits Extremities: Yes: Tremors Neurological: Yes: Alert, Normal Mood/Affect Integumentary: Yes: Warm Lymphatic: Yes: Within Normal Limits Cleared for Admission S - Detox or Rehab [facility] Level of Care: Medically Managed Detox Regimen/Protocol: Librium Claeared for Rehab Admission: No Breathalyzer - Breathalyzer Breathalyzer: 0 Urine Drug Screen - Test Device Lot number: [id number] Expiration date: 06/22/20 - Control Is test valid?: Yes - Results Drug screen NEGATIVE: No Urine drug screen results: GAVIN-Cocaine Inpatient Rehab Admission - Rehab Decision to Admit Inpatient rehab admission?: No
[2018-10-04] MEDS ORDERED: chlordiazePOXIDE HCL 25 MG CAPSULE PO PRN (20:19)
[2018-10-04] MEDS ORDERED: ACETAMINOPHEN 325 MG TABLET (FP) PO PRN ×2 (20:19)
[2018-10-04] MEDS ORDERED: BISMUTH SUBSALICYLATE 524 MG/30 ML UD PO PRN (20:19)
[2018-10-04] MEDS ORDERED: METHOCARBAMOL 500 MG TABLET PO PRN (20:19)
[2018-10-04] MEDS ORDERED: MELATONIN 5 MG TABLETS PO PRN (20:19)
[2018-10-04] MEDS ORDERED: hydrOXYzine PAMOATE 25 MG CAPSULE (FP) PO PRN (20:19)
[2018-10-04] MEDS ORDERED: MAGNESIUM HYDROX 2400MG/30ML ORAL SUSPENSION 30 ML CUP PO PRN (20:19)
[2018-10-04] MEDS ORDERED: IBUPROFEN 400 MG TABLET (FP) PO PRN (20:19)
[2018-10-04] MEDS ORDERED: MAG HYDROX/AL HYDROX/SIMETH 30 ML UNIT-DOSE CUP PO PRN (20:19)
[2018-10-04] MEDS ORDERED: MENTHOL/PHENOL 1 EACH UD MM PRN (20:19)
[2018-10-04] MEDS ORDERED: MAGNESIUM CITRATE 300 ML BOTTLE PO PRN (20:19)
[2018-10-04] MEDS ORDERED: PATIENT'S OWN MEDICATION (NON-FORMULARY) (Ammonium Lactate Cream 1 APPLIC) TP SCH (22:00)
[2018-10-04] MEDS: THIAMINE HCL 100 MG TABLET (FP) PO SCH (22:48)
[2018-10-04] MEDS: chlordiazePOXIDE HCL 25 MG CAPSULE PO SCH (22:48)
[2018-10-04] MEDS: AMMONIUM LACTATE 12% LOTION 225 GM BOTTLE TP SCH (22:50)
[2018-10-04] MEDS: NICOTINE POLACRILEX 2 MG GUM BUC PRN (22:50)
[2018-10-05] MEDS: chlordiazePOXIDE HCL 25 MG CAPSULE PO SCH ×4 (05:27→22:22)
[2018-10-05] MEDS: NICOTINE POLACRILEX 2 MG GUM BUC PRN ×7 (05:28→22:24)
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
[2018-10-05] MEDS: PRENATAL VITAMINS W/ FOLIC ACID TABLET (FP) PO SCH (10:07)
[2018-10-05] MEDS: AMMONIUM LACTATE 12% LOTION 225 GM BOTTLE TP SCH ×2 (10:07→22:21)
[2018-10-05] MEDS: NICOTINE 14 MG/24 HOURS TOPICAL PATCH TD SCH (10:08)
[2018-10-05 10:27] LABS: ALBUMIN 3.6 g/dl (3.4-5.0); BILIRUBIN,TOTAL 0.3 mg/dL (0.2-1); CREATININE 1.1 mg/dL (0.55-1.3); POTASSIUM 4.4 mmol/L (3.5-5.1)
[2018-10-05 10:35] LABS: HEMATOCRIT 39.6 % (35.4-49); HEMOGLOBIN 13.2 GM/dL (11.7-16.9); MCH 31.1 pg (25.7-33.7); MCHC 33.3 g/dl (32.0-35.9); MEAN CELL VOLUME 93.3 fl (80-96); MEAN PLT VOLUME 8.3 fl (7.5-11.1); PLATELET COUNT 304 K/MM3 (134-434); RBC 4.24 M/mm3 (4.00-5.60); RDW 14.7 % (11.9-15.9); WHITE BLOOD COUNT 4.2 K/mm3 (4.0-10.0)
--- NOTE | 2018-10-05 10:42 | PN ---
S CIWA - CIWA Score Nausea/Vomitin-Mild Nausea/No Vomiting Muscle Tremors: 3 Anxiety: 2 Agitation: 3 Paroxysmal Sweats: 1-Minimal Palms Moist Orientation: 1-Uncertain about Date Tacttile Disturbances: 0-None Auditory Disturbances: 0-None Visual Disturbances: 0-None Headache: 2-Mild CIWA-Ar Total Score: 13 S Progress Note (SOAP) Subjective: doing well with librium protocol tolerate food and fluid well social with peers in day room Objective: 10/05/18 10:42 Vital Signs Temperature 96.2 F L 10/05/18 09:46 Pulse Rate 76 10/05/18 09:46 Respiratory Rate 20 10/05/18 09:46 Blood Pressure 119/68 10/05/18 09:46 O2 Sat by Pulse Oximetry (%) Laboratory Last Values Sodium 140 mmol/L (136-145) 10/05/18 07:00 Potassium 4.4 mmol/L (3.5-5.1) 10/05/18 07:00 Chloride 106 mmol/L (98-107) 10/05/18 07:00 Carbon Dioxide 28 mmol/L (21-32) 10/05/18 07:00 Anion Gap 6 MMOL/L (8-16) L 10/05/18 07:00 BUN 18 mg/dL (7-18) 10/05/18 07:00 Creatinine 1.1 mg/dL (0.55-1.3) 10/05/18 07:00 Est GFR (CKD-EPI)AfAm 85.91 10/05/18 07:00 Est GFR (CKD-EPI)NonAf 74.12 10/05/18 07:00 Random Glucose 110 mg/dL (74-106) H 10/05/18 07:00 Calcium 9.0 mg/dL (8.5-10.1) 10/05/18 07:00 Total Bilirubin 0.3 mg/dL (0.2-1) 10/05/18 07:00 AST 22 U/L (15-37) 10/05/18 07:00 ALT 27 U/L (13-61) 10/05/18 07:00 Alkaline Phosphatase 88 U/L (45-117) 10/05/18 07:00 Total Protein 7.0 g/dl (6.4-8.2) 10/05/18 07:00 Albumin 3.6 g/dl (3.4-5.0) 10/05/18 07:00 lab noted Assessment: 10/05/18 10:42 alcohol withdrawal sx Plan: continue detox
[2018-10-05] MEDS ORDERED: QUEtiapine FUMARATE 100 MG TABLET (FP) ONE (21:55)
[2018-10-05] MEDS ORDERED: MIRTAZAPINE 15 MG TABLET (FP) PO SCH (22:00)
[2018-10-05] MEDS ORDERED: QUEtiapine FUMARATE 300 MG TABLET PO SCH (22:00)
[2018-10-05] MEDS ORDERED: GABAPENTIN 300 MG CAPSULE (FP) PO SCH (22:00)
[2018-10-05] MEDS: THIAMINE HCL 100 MG TABLET (FP) PO SCH (22:21)
[2018-10-06] MEDS: chlordiazePOXIDE HCL 25 MG CAPSULE PO SCH ×3 (05:39→17:43)
[2018-10-06] MEDS: NICOTINE POLACRILEX 2 MG GUM BUC PRN ×4 (05:40→17:43)
[2018-10-06] MEDS: NICOTINE 14 MG/24 HOURS TOPICAL PATCH TD SCH (10:33)
[2018-10-06] MEDS: PRENATAL VITAMINS W/ FOLIC ACID TABLET (FP) PO SCH (10:33)
[2018-10-06] MEDS: AMMONIUM LACTATE 12% LOTION 225 GM BOTTLE TP SCH (10:34)
--- NOTE | 2018-10-06 10:59 | PN ---
S Progress Note Note: S: pt states doing well with detox protocol, would like to go to rehab- O: Vital Signs - 24 hr 10/05/18 10/05/18 10/06/18 14:37 21:38 03:30 Temperature 95.9 F L 98.7 F Pulse Rate 64 63 Respiratory 18 16 18 Rate Blood Pressure 131/75 117/72 10/06/18 10/06/18 06:34 09:40 Temperature 97.2 F L 96.2 F L Pulse Rate 58 L 73 Respiratory 16 18 Rate Blood Pressure 93/60 118/75 Breath Alcohol Content Breath Alcohol Content 0 Laboratory Tests 10/05/18 10/05/18 10/05/18 07:00 07:00 07:00 WBC 4.2 RBC 4.24 Hgb 13.2 Hct 39.6 MCV 93.3 MCH 31.1 MCHC 33.3 RDW 14.7 Plt Count 304 MPV 8.3 Sodium 140 Potassium 4.4 Chloride 106 Carbon Dioxide 28 Anion Gap 6 L BUN 18 Creatinine 1.1 Est GFR (CKD-EPI)AfAm 85.91 Est GFR (CKD-EPI)NonAf 74.12 Random Glucose 110 H Calcium 9.0 Total Bilirubin 0.3 AST 22 ALT 27 Alkaline Phosphatase 88 Total Protein 7.0 Albumin 3.6 RPR Titer Nonreactive a/p: continue alcohol detox protocol, to talk to counselor re rehab at discharge
--- NOTE | 2018-10-06 12:09 | DS ---
[facility] Detox Discharge Summary Admission Date: 10/04/18 Discharge Date: 10/06/18 - History Present History: Alcohol Dependence Pertinent Past History: pt admitted for alcohol detox- would like to go to rehab today- bed is available. States he is feeling fine and is aware that his detox regimen will not be continued in rehab- pt states he will be fine- - Physical Exam Results Vital Signs: Vital Signs Temperature 96.2 F L 10/06/18 09:40 Pulse Rate 73 10/06/18 09:40 Respiratory Rate 18 10/06/18 09:40 Blood Pressure 118/75 10/06/18 09:40 O2 Sat by Pulse Oximetry (%) - Treatment Hospital Course: Detox Protocol Followed, Detoxed Safely, Responded well, Discharged Condition Good, Rehab Referral Accepted - Medication Discharge Medications: Ambulatory Orders Hydroxyzine HCl 50 mg PO HS 11/22/17 Ammonium Lactate Cream [Lac-Hydrin 12% Cream -] 1 applic TP BID #1 tube Mirtazapine [Remeron -] 45 mg PO HS #90 tablet 12/07/17 Promethazine HCl 25 mg PO TID 10/04/18 Quetiapine Fumarate [Seroquel] 600 mg PO HS 10/04/18 - Diagnosis (1) Alcohol dependence with uncomplicated withdrawal Current Visit: Yes Status: Chronic - AMA Did Patient Leave Against Medical Advice: No
[2018-10-06 17:58] VITALS: BP 124/76; PULSE 64; TEMP 97.3
[2018-10-06] MEDS ORDERED: chlordiazePOXIDE HCL 10 MG CAPSULE PO SCH (23:00)
[2018-10-06] MEDS ORDERED: chlordiazePOXIDE HCL 10 MG CAPSULE PO PRN (23:00)
[2018-10-07] MEDS ORDERED: chlordiazePOXIDE HCL 10 MG CAPSULE PO SCH (23:00)
== END 2018-10-06 18:27 | disposition other institution (70) | DRG 774 ==
LOC: YASAS 14:07 → Y3N 21:13
PROVIDERS: ADMIT Surgery; ATTEND Surgery
PROC: HZ2ZZZZ Detoxification Services for Substance Abuse Treatment (ICD-10-PCS; principal; 2018-10-04)
DX: F10.230 Alcohol dependence with withdrawal, uncomplicated (principal); F14.20 Cocaine dependence, uncomplicated; F17.210 Nicotine dependence, cigarettes, uncomplicated; F19.282 Other psychoactive substance dependence with psychoactive substance-induced sleep disorder; F31.9 Bipolar disorder, unspecified
CPT/HCPCS: 36415; 80053; 85027; 86593

== ENCOUNTER 2018-10-06 18:18 | Inpatient (IN) | payer OTHER ==
--- NOTE | 2018-10-06 22:39 | HP ---
[facility] Rehab Assess/Revision - Admission History Admitted to Rehab from: [facility] Date of Admission to Rehab: 10/06/2018 - Findings Detox History & Physical reviewed: Yes Concur with findings: Yes Comments/Additional Findings: Admit to rehab early remission alcohol w/ cocaine use disorder. Inpatient Rehab Admission - Rehab Decision to Admit Inpatient rehab admission?: Yes - Initial Determination Are CD services needed?: Yes Free of communicable disease: Yes Not in need of hospitalization: Yes - Rehab Admission Criteria Previous failed treatment: Yes Poor recovery environment: Yes Comorbidities: Yes Lacks judgement: No Patient is meeting Inpatient Rehab admission criteria:: Yes
[2018-10-06] MEDS ORDERED: IBUPROFEN 400 MG TABLET (FP) PO PRN (22:42)
[2018-10-06] MEDS ORDERED: MENTHOL/PHENOL 1 EACH UD MM PRN (22:42)
[2018-10-06] MEDS ORDERED: guaiFENesin 200 MG/10 ML 10 ML UNIT-DOSE CUPS PO PRN (22:42)
[2018-10-06] MEDS ORDERED: MAGNESIUM HYDROX 2400MG/30ML ORAL SUSPENSION 30 ML CUP PO PRN (22:42)
[2018-10-06] MEDS ORDERED: MAGNESIUM CITRATE 300 ML BOTTLE PO PRN (22:42)
[2018-10-06] MEDS ORDERED: P-EPHED 60MG/TRIPROLIDI 2.5MG TABLET PO PRN (22:42)
[2018-10-06] MEDS ORDERED: ACETAMINOPHEN 325 MG TABLET (FP) PO PRN (22:42)
[2018-10-06] MEDS ORDERED: MAG HYDROX/AL HYDROX/SIMETH 30 ML UNIT-DOSE CUP PO PRN (22:42)
[2018-10-06] MEDS ORDERED: LOPERAMIDE HCL 2 MG CAPSULE PO PRN (22:42)
[2018-10-06] MEDS ORDERED: QUEtiapine FUMARATE 300 MG TABLET PO ONE (22:43)
[2018-10-06] MEDS ORDERED: MIRTAZAPINE 15 MG TABLET (FP) PO ONE (22:44)
[2018-10-06] MEDS ORDERED: GABAPENTIN 300 MG CAPSULE (FP) PO ONE (22:45)
[2018-10-06] MEDS: MELATONIN 5 MG TABLETS PO PRN (23:09)
[2018-10-07] MEDS: NICOTINE POLACRILEX 2 MG GUM BUC PRN ×5 (08:22→21:42)
[2018-10-07] MEDS ORDERED: PT OWN MED DRAWER 7, Y5N ONE (09:27)
[2018-10-07] MEDS ORDERED: PATIENT'S OWN MEDICATION (NON-FORMULARY) (Ammonium Lactate Cream 1 APPLIC) TP SCH (10:00)
[2018-10-07] MEDS: PRENATAL VITAMINS W/ FOLIC ACID TABLET (FP) PO SCH (10:10)
[2018-10-07] MEDS: AMMONIUM LACTATE 12% LOTION 225 GM BOTTLE TP SCH ×2 (10:11→21:41)
[2018-10-07] MEDS: NICOTINE 14 MG/24 HOURS TOPICAL PATCH TD SCH (10:11)
--- NOTE | 2018-10-07 14:26 | CONSULT ---
[facility] Psychiatric Consult - Data Date of interview: 10/07/18 Admission source: [facility] Identifying data: Admission to [address] for this 58 y/o AA male wishing to address his issues (alcohol, cocaine dependence co-morbid with bipolar disorder) in rehabilitative care at [facility]. Has completed detoxification at [address] [place] [address]. Patient is single, a father of two, domiciled, unemployed and supported by relatives. Substance Abuse History: Discussed in this session. Patient recognizes this [facility] report on his addictions as accurate : Smoking history: Current every day smoker. Have you smoked in the past 12 months: Yes. Aproximately how many cigarettes per day: 10. Cigars Per Day: 0. Hx Chewing Tobacco Use: No. Initiated information on smoking cessation: Yes. 'Breaking Loose' booklet given : 10/04/18. - Substances abused. Alcohol. Substance route: Oral. Frequency: Daily. Amount used: 1 1/2 PINT OF VODKA. Age of first use: 15. Date of last use: 10/04/18. Cocaine. Substance route: Inhalation. Frequency: Daily. Amount used: 6 BAGS. Age of first use: 23. Date of last use : 10/03/18 Medical History: Patient endorses good general health. Psychiatric History: Patient suscribes to a history of multiple psychiatric hospitalizations ([facility], [facility], [facility]). Diagnosed with Bipolar Disorder. Discharged from [facility] in May 2017. Patient sees Dr Kim Jean-Baptiste,a private psychiatrist in [facility], for medication management. Prescribed seroquel 300 mg/hs + remeron 15 mg/hs + vistaril 50 mg/hs. Mr Veras endorses a history of optimal adherence to his medications. Has maintained a therapeutic alliance with his psychiatrist for past eight years. Patient denies history of suicide attempts. Physical/Sexual Abuse/Trauma History: Patient denies. Additional Comment: Urine drug screen results: GAVIN-Cocaine. Noted. Mental Status Exam - Mental Status Exam Alert and Oriented to: Time, Place, Person Cognitive Function: Good Patient Appearance: Well Groomed Mood: Hopeful, Euthymic (pleasant) Affect: Appropriate, Normal Range Patient Behavior: Appropriate, Cooperative Speech Pattern: Clear, Appropriate Voice Loudness: Normal Thought Process: Intact, Goal Oriented Thought Disorder: Not Present Hallucinations: Denies Suicidal Ideation: Denies Homicidal Ideation: Denies Insight/Judgement: Fair Sleep: Fair (on miratzapine at bedtime) Appetite: Good Muscle strength/Tone: Normal Gait/Station: Normal Psychiatric Findings - Problem List ([place] 1, 2,3) (1) Alcohol dependence Current Visit: Yes Status: Chronic (2) Cocaine dependence, uncomplicated Current Visit: Yes Status: Chronic (3) Nicotine dependence Current Visit: Yes Status: Chronic Qualifiers: Nicotine product type: cigarettes Substance use status: uncomplicated Qualified Code(s): F17.210 - Nicotine dependence, cigarettes, uncomplicated (4) History of bipolar disorder Current Visit: Yes Status: Chronic (5) Insomnia Current Visit: Yes Status: Chronic Qualifiers: Insomnia type: unspecified Qualified Code(s): G47.00 - Insomnia, unspecified - Initial Treatment Plan Initial Treatment Plan: Psychoeducation. Sleep hygiene. Support. AA/NA meetings. Groups. Medications resumed as : seroquel 300 mg po hs + vistaril 50 mg po hs + miratazapine 15 mg po hs. Side effects/benefits of these medications are discussed with patient. Mr Veras gave verbal consent to MD. Mc.
[2018-10-07] MEDS: THIAMINE HCL 100 MG TABLET (FP) PO SCH (21:39)
[2018-10-07] MEDS: hydrOXYzine PAMOATE 25 MG CAPSULE (FP) PO PRN (21:40)
[2018-10-07] MEDS: QUEtiapine FUMARATE 300 MG TABLET PO SCH (21:41)
[2018-10-07] MEDS: MIRTAZAPINE 15 MG TABLET (FP) PO SCH (21:41)
[2018-10-07] MEDS: hydrOXYzine PAMOATE 50 MG CAPSULE (FP) PO SCH (21:41)
[2018-10-07] MEDS ORDERED: PATIENT'S OWN MEDICATION (NON-FORMULARY) (Hydroxyzine Hcl [Hydroxyzine Hcl] 50 MG) PO SCH (22:00)
[2018-10-08] MEDS: PRENATAL VITAMINS W/ FOLIC ACID TABLET (FP) PO SCH (09:13)
[2018-10-08] MEDS: NICOTINE 14 MG/24 HOURS TOPICAL PATCH TD SCH (09:13)
[2018-10-08] MEDS: hydrOXYzine PAMOATE 25 MG CAPSULE (FP) PO PRN (09:14)
[2018-10-08] MEDS: AMMONIUM LACTATE 12% LOTION 225 GM BOTTLE TP SCH ×2 (09:59→21:20)
[2018-10-08] MEDS: NICOTINE POLACRILEX 2 MG GUM BUC PRN ×3 (10:59→17:26)
[2018-10-08] MEDS: MELATONIN 5 MG TABLETS PO PRN (21:21)
[2018-10-08] MEDS: THIAMINE HCL 100 MG TABLET (FP) PO SCH (21:21)
[2018-10-08] MEDS: MIRTAZAPINE 15 MG TABLET (FP) PO SCH (21:21)
[2018-10-08] MEDS: QUEtiapine FUMARATE 300 MG TABLET PO SCH (21:21)
[2018-10-08] MEDS: hydrOXYzine PAMOATE 50 MG CAPSULE (FP) PO SCH (21:21)
[2018-10-09] MEDS: NICOTINE POLACRILEX 2 MG GUM BUC PRN ×5 (08:05→21:31)
[2018-10-09] MEDS: PRENATAL VITAMINS W/ FOLIC ACID TABLET (FP) PO SCH (10:28)
[2018-10-09] MEDS: NICOTINE 14 MG/24 HOURS TOPICAL PATCH TD SCH (10:28)
[2018-10-09] MEDS: hydrOXYzine PAMOATE 25 MG CAPSULE (FP) PO PRN (10:29)
[2018-10-09] MEDS: AMMONIUM LACTATE 12% LOTION 225 GM BOTTLE TP SCH ×2 (10:30→21:30)
[2018-10-09] MEDS: THIAMINE HCL 100 MG TABLET (FP) PO SCH (21:30)
[2018-10-09] MEDS: hydrOXYzine PAMOATE 50 MG CAPSULE (FP) PO SCH (21:30)
[2018-10-09] MEDS: MIRTAZAPINE 15 MG TABLET (FP) PO SCH (21:30)
[2018-10-09] MEDS: QUEtiapine FUMARATE 300 MG TABLET PO SCH (21:31)
[2018-10-09] MEDS: MELATONIN 5 MG TABLETS PO PRN (21:31)
[2018-10-10] MEDS: PRENATAL VITAMINS W/ FOLIC ACID TABLET (FP) PO SCH (09:39)
[2018-10-10] MEDS: hydrOXYzine PAMOATE 25 MG CAPSULE (FP) PO PRN (09:39)
[2018-10-10] MEDS: NICOTINE 14 MG/24 HOURS TOPICAL PATCH TD SCH (09:43)
[2018-10-10] MEDS: AMMONIUM LACTATE 12% LOTION 225 GM BOTTLE TP SCH ×2 (09:43→21:28)
[2018-10-10] MEDS: NICOTINE POLACRILEX 2 MG GUM BUC PRN ×3 (13:06→21:27)
[2018-10-10] MEDS: MELATONIN 5 MG TABLETS PO PRN (21:26)
[2018-10-10] MEDS: MIRTAZAPINE 15 MG TABLET (FP) PO SCH (21:26)
[2018-10-10] MEDS: THIAMINE HCL 100 MG TABLET (FP) PO SCH (21:26)
[2018-10-10] MEDS: hydrOXYzine PAMOATE 50 MG CAPSULE (FP) PO SCH (21:26)
[2018-10-10] MEDS: QUEtiapine FUMARATE 300 MG TABLET PO SCH (21:27)
[2018-10-11] MEDS: PRENATAL VITAMINS W/ FOLIC ACID TABLET (FP) PO SCH (09:36)
[2018-10-11] MEDS: AMMONIUM LACTATE 12% LOTION 225 GM BOTTLE TP SCH ×2 (09:37→21:23)
[2018-10-11] MEDS: NICOTINE POLACRILEX 2 MG GUM BUC PRN ×3 (09:37→19:08)
[2018-10-11] MEDS: NICOTINE 14 MG/24 HOURS TOPICAL PATCH TD SCH (09:37)
[2018-10-11] MEDS: hydrOXYzine PAMOATE 50 MG CAPSULE (FP) PO SCH (21:22)
[2018-10-11] MEDS: MELATONIN 5 MG TABLETS PO PRN (21:22)
[2018-10-11] MEDS: THIAMINE HCL 100 MG TABLET (FP) PO SCH (21:22)
[2018-10-11] MEDS: MIRTAZAPINE 15 MG TABLET (FP) PO SCH (21:22)
[2018-10-11] MEDS: QUEtiapine FUMARATE 300 MG TABLET PO SCH (21:23)
[2018-10-12] MEDS: NICOTINE POLACRILEX 2 MG GUM BUC PRN ×3 (06:40→16:49)
[2018-10-12] MEDS: PRENATAL VITAMINS W/ FOLIC ACID TABLET (FP) PO SCH (10:22)
[2018-10-12] MEDS: NICOTINE 14 MG/24 HOURS TOPICAL PATCH TD SCH (10:22)
[2018-10-12] MEDS: AMMONIUM LACTATE 12% LOTION 225 GM BOTTLE TP SCH ×2 (10:22→21:49)
[2018-10-12] MEDS: THIAMINE HCL 100 MG TABLET (FP) PO SCH (21:47)
[2018-10-12] MEDS: MELATONIN 5 MG TABLETS PO PRN (21:48)
[2018-10-12] MEDS: hydrOXYzine PAMOATE 50 MG CAPSULE (FP) PO SCH (21:49)
[2018-10-12] MEDS: QUEtiapine FUMARATE 300 MG TABLET PO SCH (21:49)
[2018-10-12] MEDS: MIRTAZAPINE 15 MG TABLET (FP) PO SCH (21:49)
[2018-10-13] MEDS: PRENATAL VITAMINS W/ FOLIC ACID TABLET (FP) PO SCH (09:40)
[2018-10-13] MEDS: NICOTINE POLACRILEX 2 MG GUM BUC PRN ×4 (09:40→21:26)
[2018-10-13] MEDS: NICOTINE 14 MG/24 HOURS TOPICAL PATCH TD SCH (09:40)
[2018-10-13] MEDS: AMMONIUM LACTATE 12% LOTION 225 GM BOTTLE TP SCH ×2 (09:40→22:15)
--- NOTE | 2018-10-13 17:43 | PN ---
Psychiatric Progress Note Vital Signs: Vital Signs Period Temp Pulse Resp BP Sys/Lawler Pulse Ox Last 24 Hr 98.0 F 52 16-18 136/70 Date of Session: 10/13/18 Chief Complaint:: " I have trouble sleeping." HPI: This is day 8 of rehab for patient. patient admitted to [facility] for alcohol, cocaine dependence co-morbid with bipolar disorder. Patient reports difficulty sleeping through the night. ROS: Patient is coherent, alert and oriented X3. Current Medications: Active Medications Generic Name Dose Route Start Last Admin Trade Name Freq PRN Reason Stop Dose Admin Acetaminophen 650 mg 10/06/18 22:42 Tylenol - PO Q4H PRN FEVER Al Hydroxide/Mg Hydroxide 30 ml 10/06/18 22:42 Mylanta Oral Suspension - PO Q6H PRN DYSPEPSIA Eucalyptus/Menthol/Phenol/Sorbitol 1 each 10/06/18 22:42 Cepastat Lozenge - MM Q4H PRN SORE THROAT Guaifenesin 10 ml 10/06/18 22:42 Robitussin - PO Q6H PRN COUGH Hydroxyzine Pamoate 25 mg 10/06/18 22:42 10/10/18 09:39 Vistaril - PO 25 mg Q4H PRN Administration AGITATION Hydroxyzine Pamoate 50 mg 10/07/18 22:00 10/12/18 21:49 Vistaril - PO 50 mg HS SERGIO Administration Ibuprofen 400 mg 10/06/18 22:42 Motrin - PO Q6H PRN Pain Level 4-6 Lactic Acid 1 applic 10/07/18 10:00 10/13/18 09:40 Lac-Hydrin 12 TP Not Given BID SERGIO Loperamide HCl 4 mg 10/06/18 22:42 Imodium - PO Q6H PRN DIARRHEA Magnesium Citrate 300 ml 10/06/18 22:42 Citroma - PO Q48H PRN CONSTIPATION Magnesium Hydroxide 30 ml 10/06/18 22:42 Milk Of Magnesia - PO DAILY PRN CONSTIPATION Melatonin 10 mg 10/13/18 22:00 Melatonin PO HS PRN INSOMNIA Mirtazapine 15 mg 10/07/18 22:00 10/12/18 21:49 Remeron - PO 15 mg HS SERGIO Administration Nicotine 14 mg 10/07/18 10:00 10/13/18 09:40 Nicoderm Patch - TD Not Given DAILY SERGIO Nicotine Polacrilex 2 mg 10/06/18 22:42 10/13/18 17:35 Nicorette Gum - BUC 2 mg Q2H PRN Administration NICOTINE REPLACEMENT RX Multivit/Folic Acid/Iron 1 tab 10/07/18 10:00 10/13/18 09:40 Vitamins (Sjr) - PO 1 tab DAILY SERGIO Administration Pseudoephedrine/Triprolidine 1 combo 10/06/18 22:42 Actifed - PO TID PRN NASAL CONGESTION Quetiapine Fumarate 300 mg 10/07/18 22:00 10/12/18 21:49 Seroquel - PO 300 mg HS SERGIO Administration Thiamine HCl 100 mg 10/07/18 22:00 10/12/18 21:47 Vitamin B1 - PO 100 mg HS SERGIO Administration Medication(s) Change(s): Yes. Will d/c melatonin 5mg and Current Side Effect: No Lab tests ordered: No Lab tests reviewed: Yes Provider note:: Patient reports difficulty sleeping through the night and is requesting additional sleep aid. Will d/c Melatonin 5mg and order Melatonin 10mg. Patient educated on the importance of sleep hygiene. Verbal consent given. Total face to face time:: 25 Mental Status Exam - Mental Status Exam Alert and Oriented to: Time, Place, Person Cognitive Function: Good Patient Appearance: Well Groomed Mood: Euthymic Affect: Mood Congruent Patient Behavior: Cooperative Speech Pattern: Appropriate Voice Loudness: Normal Thought Process: Goal Oriented Thought Disorder: Not Present Hallucinations: Denies Suicidal Ideation: Denies Homicidal Ideation: Denies Insight/Judgement: Poor Sleep: Poorly Appetite: Fair Muscle strength/Tone: Normal Gait/Station: Normal Psychiatric Treatment Plan - Problem List (1) Alcohol dependence Comment: .. (2) Cocaine dependence, uncomplicated Comment: .. (3) History of bipolar disorder Comment: .. (4) Insomnia Qualifiers: Insomnia type: unspecified Qualified Code(s): G47.00 - Insomnia, unspecified Comment: .. (5) Nicotine dependence Qualifiers: Nicotine product type: cigarettes Substance use status: uncomplicated Qualified Code(s): F17.210 - Nicotine dependence, cigarettes, uncomplicated Comment: ..
[2018-10-13] MEDS: THIAMINE HCL 100 MG TABLET (FP) PO SCH (21:26)
[2018-10-13] MEDS: MIRTAZAPINE 15 MG TABLET (FP) PO SCH (21:26)
[2018-10-13] MEDS: hydrOXYzine PAMOATE 50 MG CAPSULE (FP) PO SCH (21:26)
[2018-10-13] MEDS: MELATONIN 5 MG TABLETS PO PRN (21:26)
[2018-10-13] MEDS: QUEtiapine FUMARATE 300 MG TABLET PO SCH (21:26)
[2018-10-14] MEDS: NICOTINE POLACRILEX 2 MG GUM BUC PRN ×6 (06:07→21:43)
[2018-10-14] MEDS: PRENATAL VITAMINS W/ FOLIC ACID TABLET (FP) PO SCH (09:38)
[2018-10-14] MEDS: NICOTINE 14 MG/24 HOURS TOPICAL PATCH TD SCH (09:39)
[2018-10-14] MEDS: AMMONIUM LACTATE 12% LOTION 225 GM BOTTLE TP SCH ×2 (09:39→21:44)
[2018-10-14] MEDS: MIRTAZAPINE 15 MG TABLET (FP) PO SCH (21:44)
[2018-10-14] MEDS: THIAMINE HCL 100 MG TABLET (FP) PO SCH (21:44)
[2018-10-14] MEDS: MELATONIN 5 MG TABLETS PO PRN (21:44)
[2018-10-14] MEDS: hydrOXYzine PAMOATE 50 MG CAPSULE (FP) PO SCH (21:44)
[2018-10-14] MEDS: QUEtiapine FUMARATE 300 MG TABLET PO SCH (21:44)
[2018-10-15] MEDS: NICOTINE POLACRILEX 2 MG GUM BUC PRN ×4 (07:34→21:34)
[2018-10-15] MEDS: NICOTINE 14 MG/24 HOURS TOPICAL PATCH TD SCH (09:26)
[2018-10-15] MEDS: AMMONIUM LACTATE 12% LOTION 225 GM BOTTLE TP SCH ×2 (09:26→21:34)
[2018-10-15] MEDS: PRENATAL VITAMINS W/ FOLIC ACID TABLET (FP) PO SCH (09:26)
[2018-10-15] MEDS: MELATONIN 5 MG TABLETS PO PRN (21:33)
[2018-10-15] MEDS: THIAMINE HCL 100 MG TABLET (FP) PO SCH (21:33)
[2018-10-15] MEDS: hydrOXYzine PAMOATE 50 MG CAPSULE (FP) PO SCH (21:33)
[2018-10-15] MEDS: MIRTAZAPINE 15 MG TABLET (FP) PO SCH (21:33)
[2018-10-15] MEDS: QUEtiapine FUMARATE 300 MG TABLET PO SCH (21:33)
[2018-10-16] MEDS: NICOTINE POLACRILEX 2 MG GUM BUC PRN ×5 (06:36→21:26)
[2018-10-16] MEDS: PRENATAL VITAMINS W/ FOLIC ACID TABLET (FP) PO SCH (09:59)
[2018-10-16] MEDS: AMMONIUM LACTATE 12% LOTION 225 GM BOTTLE TP SCH ×2 (10:00→21:31)
[2018-10-16] MEDS: NICOTINE 14 MG/24 HOURS TOPICAL PATCH TD SCH (10:00)
[2018-10-16] MEDS: MIRTAZAPINE 15 MG TABLET (FP) PO SCH (21:25)
[2018-10-16] MEDS: QUEtiapine FUMARATE 300 MG TABLET PO SCH (21:25)
[2018-10-16] MEDS: MELATONIN 5 MG TABLETS PO PRN (21:25)
[2018-10-16] MEDS: THIAMINE HCL 100 MG TABLET (FP) PO SCH (21:25)
[2018-10-16] MEDS: hydrOXYzine PAMOATE 50 MG CAPSULE (FP) PO SCH (21:25)
[2018-10-17] MEDS: NICOTINE POLACRILEX 2 MG GUM BUC PRN ×5 (06:23→21:23)
[2018-10-17] MEDS: AMMONIUM LACTATE 12% LOTION 225 GM BOTTLE TP SCH ×2 (09:33→21:23)
[2018-10-17] MEDS: NICOTINE 14 MG/24 HOURS TOPICAL PATCH TD SCH (09:33)
[2018-10-17] MEDS: PRENATAL VITAMINS W/ FOLIC ACID TABLET (FP) PO SCH (09:34)
[2018-10-17] MEDS: MELATONIN 5 MG TABLETS PO PRN (21:22)
[2018-10-17] MEDS: QUEtiapine FUMARATE 300 MG TABLET PO SCH (21:22)
[2018-10-17] MEDS: MIRTAZAPINE 15 MG TABLET (FP) PO SCH (21:22)
[2018-10-17] MEDS: hydrOXYzine PAMOATE 50 MG CAPSULE (FP) PO SCH (21:22)
[2018-10-17] MEDS: THIAMINE HCL 100 MG TABLET (FP) PO SCH (21:22)
[2018-10-18] MEDS: NICOTINE 14 MG/24 HOURS TOPICAL PATCH TD SCH (10:01)
[2018-10-18] MEDS: PRENATAL VITAMINS W/ FOLIC ACID TABLET (FP) PO SCH (10:01)
[2018-10-18] MEDS: NICOTINE POLACRILEX 2 MG GUM BUC PRN ×4 (10:02→21:24)
[2018-10-18] MEDS: AMMONIUM LACTATE 12% LOTION 225 GM BOTTLE TP SCH ×2 (10:02→21:42)
[2018-10-18] MEDS: THIAMINE HCL 100 MG TABLET (FP) PO SCH (21:22)
[2018-10-18] MEDS: MIRTAZAPINE 15 MG TABLET (FP) PO SCH (21:22)
[2018-10-18] MEDS: hydrOXYzine PAMOATE 50 MG CAPSULE (FP) PO SCH (21:23)
[2018-10-18] MEDS: QUEtiapine FUMARATE 300 MG TABLET PO SCH (21:23)
[2018-10-18] MEDS: MELATONIN 5 MG TABLETS PO PRN (21:23)
[2018-10-19] MEDS: NICOTINE POLACRILEX 2 MG GUM BUC PRN ×4 (05:57→17:33)
[2018-10-19] MEDS: NICOTINE 14 MG/24 HOURS TOPICAL PATCH TD SCH (09:42)
[2018-10-19] MEDS: AMMONIUM LACTATE 12% LOTION 225 GM BOTTLE TP SCH ×2 (09:42→21:26)
[2018-10-19] MEDS: PRENATAL VITAMINS W/ FOLIC ACID TABLET (FP) PO SCH (09:42)
--- NOTE | 2018-10-19 12:32 | PN ---
[facility] Progress Note (SOAP) Subjective: patient will be discharged tomorrow. Objective: A+O x3; no neurological deficits, Heart rate regular, lungs clear, abd soft, non -tender, non-distended. BS+ 10/19/18 12:30 Vital Signs (72 hours) 10/17/18 10/17/18 10/17/18 00:30 03:30 06:38 Temperature 97.6 F Pulse Rate 54 L Respiratory 18 18 18 Rate Blood Pressure 122/60 10/18/18 10/18/18 10/18/18 00:30 03:30 06:53 Temperature 97.6 F Pulse Rate 56 L Respiratory 20 18 18 Rate Blood Pressure 126/79 10/19/18 10/19/18 10/19/18 00:30 03:30 07:09 Temperature 97.5 F L Pulse Rate 54 L Respiratory 18 18 18 Rate Blood Pressure 138/68 Assessment: Medically stable for discharge. Discharge Dx: Cocaine dependence Opioid Dependence Insomnia ETOH dependence Plan: Will seek aftercare at the [facility] in [place], primary care from Dr. Jean-Baptiste in [place]. Prescriptions transmitted to pharmacy.
--- NOTE | 2018-10-19 15:13 | PN ---
[facility] Progress Note Note: Patient is scheduled for discharge tomorrow. Script for 30 days supply of medications(Seroquel 300 mg/hs, Vistaril 50 mg/hs, Remeron 15 mg/hs) will be electronically transmitted to [facility] at [address] [place] [address]
[2018-10-19] MEDS: THIAMINE HCL 100 MG TABLET (FP) PO SCH (21:25)
[2018-10-19] MEDS: MIRTAZAPINE 15 MG TABLET (FP) PO SCH (21:25)
[2018-10-19] MEDS: MELATONIN 5 MG TABLETS PO PRN (21:25)
[2018-10-19] MEDS: QUEtiapine FUMARATE 300 MG TABLET PO SCH (21:25)
[2018-10-19] MEDS: hydrOXYzine PAMOATE 50 MG CAPSULE (FP) PO SCH (21:25)
[2018-10-20 06:38] VITALS: BP 126/66; PULSE 56; TEMP 98.1
[2018-10-20] MEDS: PRENATAL VITAMINS W/ FOLIC ACID TABLET (FP) PO SCH (09:13)
[2018-10-20] MEDS: AMMONIUM LACTATE 12% LOTION 225 GM BOTTLE TP SCH (09:14)
[2018-10-20] MEDS: NICOTINE POLACRILEX 2 MG GUM BUC PRN (09:14)
[2018-10-20] MEDS: NICOTINE 14 MG/24 HOURS TOPICAL PATCH TD SCH (09:14)
--- NOTE | 2018-10-20 09:48 | PN ---
S Progress Note Note: Pt is medically cleared and is discharge today. Pt is alert and oriented x3, in no acute respiratory distress. Pt has completed his rehab protocol and left the unit in stable condition.
== END 2018-10-20 09:19 | disposition home or self-care (01) | DRG 772 ==
LOC: YASAS 18:18 → Y3W 18:19
PROVIDERS: ADMIT Neuromusculoskeletal Medicine & OMM; ATTEND Neuromusculoskeletal Medicine & OMM
PROC: HZ42ZZZ Group Counseling for Substance Abuse Treatment, Cognitive-Behavioral (ICD-10-PCS; principal; 2018-10-06)
DX: F10.20 Alcohol dependence, uncomplicated (principal); F12.20 Cannabis dependence, uncomplicated; F17.210 Nicotine dependence, cigarettes, uncomplicated; G47.00 Insomnia, unspecified

== ENCOUNTER 2019-01-22 11:11 | Inpatient (IN) | payer OTHER ==
[2019-01-22 11:46] VITALS: BMI 23.1
--- NOTE | 2019-01-22 12:16 | HP ---
CIWA Score Nausea/Vomitin Muscle Tremors: 1-None Visible, but [place] Anxiety: 3 Agitation: 0-Normal Activity Paroxysmal Sweats: 1-Minimal Palms Moist Orientation: 1-Uncertain about Date Tacttile Disturbances: 1-Very Mild Itch/Numbness Auditory Disturbances: 0-None Visual Disturbances: 0-None Headache: 2-Mild CIWA-Ar Total Score: 12 - Admission Criteria OASAS Guidelines: Admission for Medically Managed Detox: Requires at least one of the followin. CIWA greater than 12 2. Seizures within the past 24 hours 3. Delirium tremens within the past 24 hours 4. Hallucinations within the past 24 hours 5. Acute intervention needed for co occurring medical disorder 6. Acute intervention needed for co occurring psychiatric disorder 7. Severe withdrawal that cannot be handled at a lower level of care (continued vomiting, continued diarrhea, abnormal vital signs) requiring intravenous medication and/or fluids 8. Patient presents the following: CIWA greater than 12 Admission Criteria Met: Admission criteria met Admission ROS [facility] Chief Complaint: alcohol withdrawal symptoms Allergies/Adverse Reactions: Allergies Allergy/AdvReac Type Severity Reaction Status Date / Time No Known Allergies Allergy Verified 01/22/19 11:21 History of Present Illness: Patient is a 59 yo male with hx of alcohol and crack/cocaine dependence is here seeking inpatient detox d/t withdrawal sx, self referred, longest period of sobriety two years while attending out patient on [facility]. Last detox/ rehab [facility] September 2018, relapse soon after d/c. PMHX: ETOH X syncope with last episode 2004. Psych: bipolar, anxiety, depression and insomnia. Denies SI/H or hx of suicide attempt. Denies hx of seizures or DTS. Exam Limitations: No Limitations - Ebola screening Have you traveled outside of the country in the last 21 days: No (N) Have you had contact with anyone from an Ebola affected area: No Do you have a fever: No - Review of Systems Constitutional: Chills, Loss of Appetite, Changes in sleep, Unintentional Wgt. Loss (15 lbs weight loss in past three months) EENT: reports: No Symptoms Reported Respiratory: reports: No Symptoms reported Cardiac: reports: No Symptoms Reported GI: reports: Nausea, Poor Appetite, Poor Fluid Intake : reports: No Symptoms Reported Musculoskeletal: reports: No Symptoms Reported Integumentary: reports: No Symptoms Reported Neuro: reports: Numbness (left hand) Endocrine: reports: No Symptoms Reported Hematology: reports: No Symptoms Reported Psychiatric: reports: No Sypmtoms Reported, Orientated x3, Anxious Other Systems: Reviewed and Negative Patient History - Patient Medical History Hx Anemia: No Hx Asthma: No Hx Chronic Obstructive Pulmonary Disease (COPD): No Hx Cancer: No Hx Cardiac Disorders: No Hx Congestive Heart Failure: No Hx Hypertension: No Hx Hypercholesterolemia: No Hx Pacemaker: No HX Cerebrovascular Accident: No Hx Seizures: No Hx Dementia: No Hx Diabetes: No Hx Gastrointestinal Disorders: No Hx Liver Disease: No Hx Genitourinary Disorders: No Hx Sexually Transmitted Disorders: No Hx Renal Disease (ESRD): No Hx Thyroid Disease: No Hx Human Immunodeficiency Virus (HIV): No (pt denies) Hx Hepatitis C: No (pt denies) Hx Depression: Yes (Seroquel) Hx Suicide Attempt: No Hx Bipolar Disorder: Yes (Mirtazapine and Seroquel) Hx Schizophrenia: No - Patient Surgical History Past Surgical History: No Hx Neurologic Surgery: No Hx Cataract Extraction: No Hx Cardiac Surgery: No Hx Lung Surgery: No Hx Breast Surgery: No Hx Breast Biopsy: No Hx Abdominal Surgery: No Hx Appendectomy: No Hx Cholecystectomy: No Hx Genitourinary Surgery: No Hx Section: No Hx Orthopedic Surgery: No Anesthesia Reaction: No - PPD History Date: 07/01/18 Results: 0MM PPD to be Administered?: No - Smoking Cessation Smoking history: Current every day smoker Have you smoked in the past 12 months: Yes Aproximately how many cigarettes per day: 10 Cigars Per Day: 0 Hx Chewing Tobacco Use: No Initiated information on smoking cessation: Yes 'Breaking Loose' booklet given: 01/22/19 - Substance & Tx. History Hx Alcohol Use: Yes Hx Substance Use: Yes Substance Use Type: Alcohol, Cocaine Hx Substance Use Treatment: Yes (last detox/ rehab [facility] September 2018) - Substances abused Alcohol Substance route: Oral Frequency: Daily Amount used: 1 1/2 PINT OF VODKA + 6pack of beer Age of first use: 15 Date of last use: 01/21/19 Cocaine Substance route: Smoking Frequency: Daily Amount used: 5 BAGS Age of first use: 24 Date of last use: 01/21/19 Family Disease History - Family Disease History Family Disease History: Diabetes: Grandparent (maternal grandmother, ), Mother, Brother, Sister, [place]: Father, Other: Father, Mother Admission Physical Exam [facility] - Vital Signs Vital Signs: Vital Signs - 24 hr 01/22/19 01/22/19 11:29 11:46 Temperature 97.6 F 97.6 F Pulse Rate 59 L 59 L Respiratory 18 18 Rate Blood Pressure 118/64 118/64 - Physical General Appearance: Yes: Appropriately Dressed, Thin, Anxious HEENTM: Yes: EOMI, Hearing grossly Normal, Normal ENT Inspection, Normocephalic , Normal Voice, KIRSTIE, Pharynx Normal, Tm's normal Respiratory: Yes: Chest Non-Tender, Lungs Clear, Normal Breath Sounds, No Respiratory Distress, No Accessory Muscle Use Neck: Yes: Within Normal Limits Breast: Yes: Breast Exam Deferred Cardiology: Yes: Regular Rhythm, Regular Rate Abdominal: Yes: Normal Bowel Sounds, Non Tender, Flat, Soft Genitourinary: Yes: Within Normal Limits Back: Yes: Normal Inspection Musculoskeletal: Yes: full range of Motion, Gait Steady, Pelvis Stable Extremities: Yes: Within Normal Limits Neurological: Yes: drum tester II-XII NML intact, Fully Oriented, Alert, Motor Strength 5/5, Depressed Affect Integumentary: Yes: Normal Color, Dry, Warm Lymphatic: Yes: Within Normal Limits - Diagnostic (1) Alcohol dependence with uncomplicated withdrawal Current Visit: Yes Status: Chronic (2) Cocaine dependence, uncomplicated Current Visit: Yes Status: Chronic Comment: .. (3) Nicotine dependence Current Visit: Yes Status: Chronic Qualifiers: Nicotine product type: cigarettes Substance use status: uncomplicated Qualified Code(s): F17.210 - Nicotine dependence, cigarettes, uncomplicated Comment: .. Cleared for Admission [facility] - Detox or Rehab [facility] Level of Care: Medically Managed Detox Regimen/Protocol: Librium Breathalyzer - Breathalyzer Breathalyzer: 0 Urine Drug Screen - Test Device Lot number: [id number] Expiration date: 10/20/20 - Control Is test valid?: Yes - Results Drug screen NEGATIVE: No Urine drug screen results: GAVIN-Cocaine Inpatient Rehab Admission - Rehab Decision to Admit Inpatient rehab admission?: No
[2019-01-22] MEDS ORDERED: MAGNESIUM HYDROX 2400MG/30ML ORAL SUSPENSION 30 ML CUP PO PRN (12:20)
[2019-01-22] MEDS ORDERED: BISMUTH SUBSALICYLATE 262 MG/15 ML BTL PO PRN (12:20)
[2019-01-22] MEDS ORDERED: MAG HYDROX/AL HYDROX/SIMETH 30 ML UNIT-DOSE CUP PO PRN (12:20)
[2019-01-22] MEDS ORDERED: MELATONIN 5 MG TABLETS PO PRN (12:20)
[2019-01-22] MEDS ORDERED: ACETAMINOPHEN 325 MG TABLET (FP) PO PRN ×2 (12:20)
[2019-01-22] MEDS ORDERED: IBUPROFEN 400 MG TABLET (FP) PO PRN (12:20)
[2019-01-22] MEDS ORDERED: MAGNESIUM CITRATE 300 ML BOTTLE PO PRN (12:20)
[2019-01-22] MEDS ORDERED: chlordiazePOXIDE HCL 25 MG CAPSULE PO PRN (12:20)
[2019-01-22] MEDS ORDERED: METHOCARBAMOL 500 MG TABLET PO PRN (12:20)
[2019-01-22] MEDS ORDERED: MENTHOL/PHENOL 1 EACH UD MM PRN (12:20)
[2019-01-22] MEDS: GABAPENTIN 300 MG CAPSULE (FP) PO SCH ×2 (13:20→22:38)
[2019-01-22] MEDS: NICOTINE POLACRILEX 2 MG GUM BUC PRN ×3 (16:18→22:39)
--- NOTE | 2019-01-22 17:05 | CONSULT ---
[facility] Psychiatric Consult - Data Date of interview: 01/22/19 Admission source: [facility] Identifying data: This is one of several admissions to [facility] for this 58 y/ o AA male self-referred for detoxification (alcohol, cocaine). Examined on . Patient is single, a father of two, domiciled, unemployed and supported by relatives. Substance Abuse History: Confirmed by patient in this interview. Details in current [facility] report as follows : Smoking history: Current every day smoker. Have you smoked in the past 12 months: Yes. Aproximately how many cigarettes per day: 10. Cigars Per Day: 0. Hx Chewing Tobacco Use: No. Initiated information on smoking cessation: Yes. 'Breaking Loose' booklet given: . - Substance & Tx. History. Hx Alcohol Use: Yes. Hx Substance Use: Yes. Substance Use Type: Alcohol, Cocaine. Hx Substance Use Treatment: Yes (last detox/ rehab [facility] September 2018). - Substances abused. Alcohol. Substance route : Oral. Frequency: Daily. Amount used: 1 1/2 PINT OF VODKA + 6pack of beer. Age of first use: 15. Date of last use: 01/21/19. Cocaine. Substance route : Smoking. Frequency: Daily. Amount used: 5 BAGS. Age of first use: 24. Date of last use: 01/21/19 Medical History: Patient endorses good general health. Psychiatric History: History of multiple psychiatric hospitalizations ( [facility], [facility], [facility]). Patient has been diagnosed with Bipolar Disorder. Patient reports that he is still under the care of Dr Kim Jean-Baptiste, a private psychiatrist, in [facility]. Mr Veras endorses scripts for seroquel 300 mg/hs + remeron 15 mg/hs. Patient insists that he takes his medications " as prescribed ". No reported history of suicide attempts. Physical/Sexual Abuse/Trauma History: Patient denies. Additional Comment: Urine drug screen results: GAVIN-Cocaine. Noted. Mental Status Exam - Mental Status Exam Alert and Oriented to: Time, Place, Person Cognitive Function: Good Patient Appearance: Well Groomed Mood: Withdrawn Affect: Appropriate, Normal Range Patient Behavior: Fatigued, Appropriate, Cooperative Speech Pattern: Clear Voice Loudness: Normal Thought Process: Goal Oriented Thought Disorder: Not Present Hallucinations: Denies Suicidal Ideation: Denies Homicidal Ideation: Denies Insight/Judgement: Poor Sleep: Poorly, Difficulty falling asleep Appetite: Good Muscle strength/Tone: Normal Gait/Station: Normal Psychiatric Findings - Problem List ([place] 1, 2,3) (1) Alcohol dependence with uncomplicated withdrawal Current Visit: Yes Status: Acute (2) Cocaine dependence, uncomplicated Current Visit: Yes Status: Chronic Comment: .. (3) Nicotine dependence Current Visit: Yes Status: Chronic Qualifiers: Nicotine product type: cigarettes Substance use status: uncomplicated Qualified Code(s): F17.210 - Nicotine dependence, cigarettes, uncomplicated Comment: .. (4) Substance induced mood disorder Current Visit: Yes Status: Chronic (5) History of bipolar disorder Current Visit: Yes Status: Chronic Comment: .. (6) Insomnia Current Visit: Yes Status: Chronic Qualifiers: Insomnia type: unspecified Qualified Code(s): G47.00 - Insomnia, unspecified Comment: .. - Initial Treatment Plan Initial Treatment Plan: Psychoeducation. Sleep hygiene. Support. Detoxification. Resumed : seroquel 300 mg po hs (reduced) + remeron 15 mg po hs (reduced). Side effects/benefits are discussed with the patient. Medications were verified via contact with pharmacist at [facility] # [id number] ([phone]) : refills for seroquel 400 mg/bid + gabapentin 800 mg/tid + vistaril 50 mg/bid were picked up on 12/13/18 ; no scripts needed on discharge from [facility] (patient has refills remaining at [facility]). Mr Veras is agreeable with this plan of care. Gave verbal consent to MD. Mc.
[2019-01-22] MEDS: chlordiazePOXIDE HCL 25 MG CAPSULE PO SCH ×2 (17:46→22:38)
[2019-01-22] MEDS ORDERED: hydrOXYzine HCL 50 MG TABLET PO SCH (22:00)
[2019-01-22] MEDS: MIRTAZAPINE 15 MG TABLET (FP) PO SCH (22:38)
[2019-01-22] MEDS: QUEtiapine FUMARATE 300 MG TABLET PO SCH (22:39)
[2019-01-22] MEDS: AMMONIUM LACTATE 12% CREAM 140 GM TUBE TP SCH (22:39)
[2019-01-22] MEDS: THIAMINE HCL 100 MG TABLET (FP) PO SCH (22:39)
[2019-01-22] MEDS: hydrOXYzine HCL 25 MG TABLET (FP) PO SCH (23:12)
[2019-01-23] MEDS: GABAPENTIN 300 MG CAPSULE (FP) PO SCH ×3 (06:44→22:25)
[2019-01-23] MEDS: chlordiazePOXIDE HCL 25 MG CAPSULE PO SCH ×4 (06:45→22:27)
[2019-01-23] MEDS: NICOTINE POLACRILEX 2 MG GUM BUC PRN ×5 (06:57→22:28)
--- NOTE | 2019-01-23 09:18 | PN ---
S CIWA - CIWA Score Nausea/Vomitin Muscle Tremors: 2 Anxiety: 2 Agitation: 2 Paroxysmal Sweats: 1-Minimal Palms Moist Orientation: 0-Oriented Tacttile Disturbances: 1-Very Mild Itch/Numbness Auditory Disturbances: 0-None Visual Disturbances: 0-None Headache: 2-Mild CIWA-Ar Total Score: 12 BHS Progress Note (SOAP) Subjective: alert,irritable,anxious,interrupted sleep,tremor Objective: 01/23/19 09:17 Vital Signs Temperature 97.5 F L 01/23/19 09:12 Pulse Rate 65 01/23/19 09:12 Respiratory Rate 18 01/23/19 09:12 Blood Pressure 118/69 01/23/19 09:12 O2 Sat by Pulse Oximetry (%) 01/23/19 09:17 labs pending Assessment: 01/23/19 09:18 withdrawal symptom Plan: continue detox,librium regimen
[2019-01-23 09:55] LABS: HEMATOCRIT 36.4 % (35.4-49); HEMOGLOBIN 12.3 GM/dL (11.7-16.9); MCHC 33.8 g/dl (32.0-35.9); MEAN CELL VOLUME 94.6 fl (80-96); MEAN PLT VOLUME 8.7 fl (7.5-11.1); PLATELET COUNT 251 K/MM3 (134-434); RBC 3.85 M/mm3 (4.00-5.60); RDW 15.4 % (11.9-15.9); WHITE BLOOD COUNT 4.3 K/mm3 (4.0-10.0)
[2019-01-23 10:09] LABS: ALBUMIN 3.2 g/dl (3.4-5.0); BILIRUBIN,TOTAL 0.3 mg/dL (0.2-1); CALCIUM 8.8 mg/dL (8.5-10.1); CREATININE 1.1 mg/dL (0.55-1.3); POTASSIUM 3.9 mmol/L (3.5-5.1); TOT PROT 6.2 g/dl (6.4-8.2)
[2019-01-23] MEDS: PRENATAL VITAMINS W/ FOLIC ACID TABLET (FP) PO SCH (10:27)
[2019-01-23] MEDS: AMMONIUM LACTATE 12% CREAM 140 GM TUBE TP SCH ×2 (10:28→22:26)
[2019-01-23] MEDS: hydrOXYzine HCL 25 MG TABLET (FP) PO SCH (22:24)
[2019-01-23] MEDS: THIAMINE HCL 100 MG TABLET (FP) PO SCH (22:24)
[2019-01-23] MEDS: MIRTAZAPINE 15 MG TABLET (FP) PO SCH (22:25)
[2019-01-23] MEDS: QUEtiapine FUMARATE 300 MG TABLET PO SCH (22:25)
[2019-01-24] MEDS: chlordiazePOXIDE HCL 25 MG CAPSULE PO SCH ×4 (06:01→22:05)
[2019-01-24] MEDS: GABAPENTIN 300 MG CAPSULE (FP) PO SCH ×3 (06:01→22:05)
[2019-01-24] MEDS: NICOTINE POLACRILEX 2 MG GUM BUC PRN ×4 (06:04→23:25)
--- NOTE | 2019-01-24 09:52 | PN ---
S CIWA - CIWA Score Nausea/Vomitin Muscle Tremors: 2 Anxiety: 2 Agitation: 2 Paroxysmal Sweats: No Perspiration Orientation: 0-Oriented Tacttile Disturbances: 0-None Auditory Disturbances: 0-None Visual Disturbances: 0-None Headache: 1-Very Mild CIWA-Ar Total Score: 9 S Progress Note (SOAP) Subjective: alert,irritable,anxious,interrupted sleep Objective: 01/24/19 09:51 Vital Signs Temperature 97.0 F L 01/24/19 09:05 Pulse Rate 61 01/24/19 09:05 Respiratory Rate 18 01/24/19 09:05 Blood Pressure 126/70 01/24/19 09:05 O2 Sat by Pulse Oximetry (%) Laboratory Last Values WBC 4.3 K/mm3 (4.0-10.0) 01/23/19 07:00 RBC 3.85 M/mm3 (4.00-5.60) L 01/23/19 07:00 Hgb 12.3 GM/dL (11.7-16.9) 01/23/19 07:00 Hct 36.4 % (35.4-49) 01/23/19 07:00 MCV 94.6 fl (80-96) 01/23/19 07:00 MCH 32.0 pg (25.7-33.7) 01/23/19 07:00 MCHC 33.8 g/dl (32.0-35.9) 01/23/19 07:00 RDW 15.4 % (11.9-15.9) 01/23/19 07:00 Plt Count 251 K/MM3 (134-434) 01/23/19 07:00 MPV 8.7 fl (7.5-11.1) 01/23/19 07:00 Sodium 139 mmol/L (136-145) 01/23/19 07:00 Potassium 3.9 mmol/L (3.5-5.1) 01/23/19 07:00 Chloride 106 mmol/L (98-107) 01/23/19 07:00 Carbon Dioxide 30 mmol/L (21-32) 01/23/19 07:00 Anion Gap 4 MMOL/L (8-16) L 01/23/19 07:00 BUN 16.0 mg/dL (7-18) 01/23/19 07:00 Creatinine 1.1 mg/dL (0.55-1.3) 01/23/19 07:00 Est GFR (CKD-EPI)AfAm 85.31 01/23/19 07:00 Est GFR (CKD-EPI)NonAf 73.61 01/23/19 07:00 Random Glucose 79 mg/dL (74-106) 01/23/19 07:00 Calcium 8.8 mg/dL (8.5-10.1) 01/23/19 07:00 Total Bilirubin 0.3 mg/dL (0.2-1) 01/23/19 07:00 AST 14 U/L (15-37) L 01/23/19 07:00 ALT 24 U/L (13-61) 01/23/19 07:00 Alkaline Phosphatase 77 U/L (45-117) 01/23/19 07:00 Total Protein 6.2 g/dl (6.4-8.2) L 01/23/19 07:00 Albumin 3.2 g/dl (3.4-5.0) L 01/23/19 07:00 RPR Titer Nonreactive (NONREACTIVE) 01/23/19 07:00 Assessment: 01/24/19 09:51 withdrawal symptom Plan: continue detox librium regimen
[2019-01-24] MEDS: PRENATAL VITAMINS W/ FOLIC ACID TABLET (FP) PO SCH (10:26)
[2019-01-24] MEDS: AMMONIUM LACTATE 12% CREAM 140 GM TUBE TP SCH ×2 (10:29→22:05)
[2019-01-24] MEDS: THIAMINE HCL 100 MG TABLET (FP) PO SCH (22:04)
[2019-01-24] MEDS: QUEtiapine FUMARATE 300 MG TABLET PO SCH (22:04)
[2019-01-24] MEDS: MIRTAZAPINE 15 MG TABLET (FP) PO SCH (22:04)
[2019-01-24] MEDS: hydrOXYzine HCL 25 MG TABLET (FP) PO SCH (22:04)
[2019-01-25] MEDS ORDERED: chlordiazePOXIDE HCL 10 MG CAPSULE PO PRN
[2019-01-25] MEDS: chlordiazePOXIDE HCL 10 MG CAPSULE PO SCH ×4 (06:01→22:04)
[2019-01-25] MEDS: GABAPENTIN 300 MG CAPSULE (FP) PO SCH ×3 (06:02→22:05)
[2019-01-25] MEDS: NICOTINE POLACRILEX 2 MG GUM BUC PRN ×5 (06:04→22:08)
[2019-01-25] MEDS: hydrOXYzine HCL 25 MG TABLET (FP) PO SCH (10:00)
--- NOTE | 2019-01-25 10:07 | PN ---
S CIWA - CIWA Score Nausea/Vomitin Muscle Tremors: 1-None Visible, but [place] Anxiety: 2 Agitation: 3 Paroxysmal Sweats: No Perspiration Orientation: 0-Oriented Tacttile Disturbances: 0-None Auditory Disturbances: 0-None Visual Disturbances: 0-None Headache: 1-Very Mild CIWA-Ar Total Score: 9 BHS Progress Note (SOAP) Subjective: alert,irritable,anxious,interrupted sleep,pain in the body Objective: 01/25/19 10:05 Vital Signs Temperature 97.9 F 01/25/19 09:16 Pulse Rate 59 L 01/25/19 09:16 Respiratory Rate 18 01/25/19 09:16 Blood Pressure 118/60 01/25/19 09:16 O2 Sat by Pulse Oximetry (%) Assessment: 01/25/19 10:06 withdrawal symptom Plan: continue detox,librium regimen
[2019-01-25] MEDS: PRENATAL VITAMINS W/ FOLIC ACID TABLET (FP) PO SCH (10:47)
[2019-01-25] MEDS: AMMONIUM LACTATE 12% CREAM 140 GM TUBE TP SCH ×2 (10:47→22:27)
[2019-01-25] MEDS: THIAMINE HCL 100 MG TABLET (FP) PO SCH (22:05)
[2019-01-25] MEDS: QUEtiapine FUMARATE 300 MG TABLET PO SCH (22:05)
[2019-01-25] MEDS: MIRTAZAPINE 15 MG TABLET (FP) PO SCH (22:05)
[2019-01-26] MEDS ORDERED: chlordiazePOXIDE HCL 10 MG CAPSULE PO SCH (05:00)
[2019-01-26] MEDS: GABAPENTIN 300 MG CAPSULE (FP) PO SCH (05:52)
[2019-01-26] MEDS: NICOTINE POLACRILEX 2 MG GUM BUC PRN ×3 (05:53→10:36)
[2019-01-26 09:23] VITALS: BP 118/72; PULSE 80; TEMP 97.3
[2019-01-26] MEDS: PRENATAL VITAMINS W/ FOLIC ACID TABLET (FP) PO SCH (10:35)
[2019-01-26] MEDS: AMMONIUM LACTATE 12% CREAM 140 GM TUBE TP SCH (10:35)
--- NOTE | 2019-01-26 11:03 | PN ---
[facility] CIWA - CIWA Score Nausea/Vomitin-No Nausea/No Vomiting Muscle Tremors: 1-None Visible, but [place] Anxiety: 1-Mildly Anxious Agitation: 1-Slight > Activity Paroxysmal Sweats: No Perspiration Orientation: 0-Oriented Tacttile Disturbances: 0-None Auditory Disturbances: 0-None Visual Disturbances: 0-None Headache: 0-None Present CIWA-Ar Total Score: 3 BHS Progress Note (SOAP) Subjective: alert,no complain,interrupted sleep Objective: 01/26/19 11:02 Vital Signs Temperature 97.3 F L 01/26/19 09:22 Pulse Rate 80 01/26/19 09:22 Respiratory Rate 18 01/26/19 09:22 Blood Pressure 118/72 01/26/19 09:22 O2 Sat by Pulse Oximetry (%) Assessment: 01/26/19 11:02 no withdrawal symptom Plan: discharge today to rehab for further level of care
--- NOTE | 2019-01-26 11:08 | DS ---
[facility] Detox Discharge Summary Admission Date: 01/22/19 Discharge Date: 01/26/19 - History Present History: Alcohol Dependence, Cocaine Dependence Additional Comments: detox completed,doing well,[facility] Pertinent Past History: nicotine dependence bipolar disorder - Physical Exam Results Vital Signs: Vital Signs Temperature 97.3 F L 01/26/19 09:22 Pulse Rate 80 01/26/19 09:22 Respiratory Rate 18 01/26/19 09:22 Blood Pressure 118/72 01/26/19 09:22 O2 Sat by Pulse Oximetry (%) Pertinent Admission Physical Exam Findings: withdrawal signs and symptom Vital Signs Temperature 97.3 F L 01/26/19 09:22 Pulse Rate 80 01/26/19 09:22 Respiratory Rate 18 01/26/19 09:22 Blood Pressure 118/72 01/26/19 09:22 O2 Sat by Pulse Oximetry (%) Laboratory Last Values WBC 4.3 K/mm3 (4.0-10.0) 01/23/19 07:00 RBC 3.85 M/mm3 (4.00-5.60) L 01/23/19 07:00 Hgb 12.3 GM/dL (11.7-16.9) 01/23/19 07:00 Hct 36.4 % (35.4-49) 01/23/19 07:00 MCV 94.6 fl (80-96) 01/23/19 07:00 MCH 32.0 pg (25.7-33.7) 01/23/19 07:00 MCHC 33.8 g/dl (32.0-35.9) 01/23/19 07:00 RDW 15.4 % (11.9-15.9) 01/23/19 07:00 Plt Count 251 K/MM3 (134-434) 01/23/19 07:00 MPV 8.7 fl (7.5-11.1) 01/23/19 07:00 Sodium 139 mmol/L (136-145) 01/23/19 07:00 Potassium 3.9 mmol/L (3.5-5.1) 01/23/19 07:00 Chloride 106 mmol/L (98-107) 01/23/19 07:00 Carbon Dioxide 30 mmol/L (21-32) 01/23/19 07:00 Anion Gap 4 MMOL/L (8-16) L 01/23/19 07:00 BUN 16.0 mg/dL (7-18) 01/23/19 07:00 Creatinine 1.1 mg/dL (0.55-1.3) 01/23/19 07:00 Est GFR (CKD-EPI)AfAm 85.31 01/23/19 07:00 Est GFR (CKD-EPI)NonAf 73.61 01/23/19 07:00 Random Glucose 79 mg/dL (74-106) 01/23/19 07:00 Calcium 8.8 mg/dL (8.5-10.1) 01/23/19 07:00 Total Bilirubin 0.3 mg/dL (0.2-1) 01/23/19 07:00 AST 14 U/L (15-37) L 01/23/19 07:00 ALT 24 U/L (13-61) 01/23/19 07:00 Alkaline Phosphatase 77 U/L (45-117) 01/23/19 07:00 Total Protein 6.2 g/dl (6.4-8.2) L 01/23/19 07:00 Albumin 3.2 g/dl (3.4-5.0) L 01/23/19 07:00 RPR Titer Nonreactive (NONREACTIVE) 01/23/19 07:00 - Treatment Hospital Course: Detox Protocol Followed, Detoxed Safely, Responded well, Discharged Condition Good, Rehab Referral Accepted Patient has Accepted a Rehab Referral to: [facility] - Medication Discharge Medications: Ambulatory Orders Mirtazapine [Remeron -] 45 mg PO HS #90 tablet 12/07/17 Promethazine HCl 25 mg PO TID 10/04/18 Ammonium Lactate Cream [Lac-Hydrin 12% Cream -] 1 applic TP BID #1 tube Hydroxyzine HCl 50 mg PO HS #30 tablet 10/19/18 Mirtazapine [Remeron -] 15 mg PO HS #30 tablet 10/19/18 hydrOXYzine PAMOATE [Vistaril -] 50 mg PO HS #30 capsule 10/19/18 Gabapentin 800 mg PO DAILY 01/22/19 Quetiapine Fumarate [Seroquel -] 400 mg PO HS 01/22/19 - Diagnosis (1) Alcohol dependence with uncomplicated withdrawal Current Visit: Yes Status: Acute (2) Cocaine dependence, uncomplicated Current Visit: Yes Status: Chronic (3) History of bipolar disorder Current Visit: Yes Status: Chronic (4) Nicotine dependence Current Visit: Yes Status: Chronic Qualifiers: Nicotine product type: cigarettes Substance use status: uncomplicated Qualified Code(s): F17.210 - Nicotine dependence, cigarettes, uncomplicated - AMA Did Patient Leave Against Medical Advice: No
[2019-01-27] MEDS ORDERED: chlordiazePOXIDE HCL 10 MG CAPSULE PO ONE (05:00)
== END 2019-01-26 13:20 | disposition other institution (70) | DRG 774 ==
LOC: YASAS 11:11 → Y6N 12:48
PROVIDERS: ADMIT Surgery; ATTEND Surgery
PROC: HZ2ZZZZ Detoxification Services for Substance Abuse Treatment (ICD-10-PCS; principal; 2019-01-22)
DX: F10.230 Alcohol dependence with withdrawal, uncomplicated (principal); F14.20 Cocaine dependence, uncomplicated; F17.210 Nicotine dependence, cigarettes, uncomplicated; F19.24 Other psychoactive substance dependence with psychoactive substance-induced mood disorder; F31.9 Bipolar disorder, unspecified; G47.00 Insomnia, unspecified
CPT/HCPCS: 36415; 80053; 85027; 86593

== ENCOUNTER 2019-01-26 13:33 | Inpatient (IN) | payer OTHER | END 2019-02-06 09:50 | disposition home or self-care (01) | LOC: YASAS 13:33 → Y3W 13:34 ==

== ENCOUNTER 2019-07-25 15:49 | Inpatient (IN) | payer OTHER ==
--- NOTE | 2019-07-25 20:16 | BHS.RME ---
Substance Use & Tx History - Last Treatment Date of last treatment: 01/2019 Where was last treatment: Detox Physical/Psych/Mental Status - Behavior Eye Contact: Normal - Cooperativeness Cooperativeness: Cooperative - Thinking Thought Processes: Logical - Physical Health Problems Is patient presently having any pain?: No Does patient presently have any injuries (include location): No Does patient currently have a fever: No CIWA Nausea/Vomitin Muscle Tremors: None Anxiety: 2 Agitation: 0-Normal Activity Paroxysmal Sweats: 2 Orientation: 0-Oriented Tacttile Disturbances: 0-None Auditory Disturbances: 0-None Visual Disturbances: 0-None Headache: 2-Mild CIWA-Ar Total Score: 8
--- NOTE | 2019-07-25 21:17 | HP ---
CIWA Score Nausea/Vomitin Muscle Tremors: None Anxiety: 2 Agitation: 0-Normal Activity Paroxysmal Sweats: 2 Orientation: 0-Oriented Tacttile Disturbances: 0-None Auditory Disturbances: 0-None Visual Disturbances: 0-None Headache: 2-Mild CIWA-Ar Total Score: 8 - Admission Criteria OASAS Guidelines: Admission for Medically Managed Detox: Requires at least one of the followin. CIWA greater than 12 2. Seizures within the past 24 hours 3. Delirium tremens within the past 24 hours 4. Hallucinations within the past 24 hours 5. Acute intervention needed for co occurring medical disorder 6. Acute intervention needed for co occurring psychiatric disorder 7. Severe withdrawal that cannot be handled at a lower level of care (continued vomiting, continued diarrhea, abnormal vital signs) requiring intravenous medication and/or fluids 8. Admitting History and Physical - Smoking History Smoking history: Current every day smoker Have you smoked in the past 12 months: Yes Aproximately how many cigarettes per day: 10 - Alcohol/Substance Use Hx Alcohol Use: Yes Admission [facility] - HPI Allergies/Adverse Reactions: Allergies Allergy/AdvReac Type Severity Reaction Status Date / Time No Known Allergies Allergy Verified 07/25/19 21:46 History of Present Illness: 59 y.o. male here for etoh use , reports 1-2 x 6-pk /day and 2-pints /day , latest use today , occasional tremors if not drinking , denies seizures . cocaine : 80 $ /day denies IV use tobacco / ppd. Exam Limitations: No Limitations - Review of Systems Constitutional: Loss of Appetite EENT: reports: No Symptoms Reported Respiratory: reports: No Symptoms reported Cardiac: reports: No Symptoms Reported GI: reports: Poor Appetite, Indigestion : reports: No Symptoms Reported Musculoskeletal: reports: No Symptoms Reported Integumentary: reports: No Symptoms Reported Neuro: reports: See HPI Endocrine: reports: No Symptoms Reported Psychiatric: reports: Orientated x3 Patient History - Patient Medical History Hx Anemia: No Hx Asthma: No Hx Chronic Obstructive Pulmonary Disease (COPD): No Hx Cancer: No Hx Cardiac Disorders: No Hx Congestive Heart Failure: No Hx Hypertension: No Hx Hypercholesterolemia: No Hx Pacemaker: No HX Cerebrovascular Accident: No Hx Seizures: No Hx Dementia: No Hx Diabetes: No Hx Gastrointestinal Disorders: No Hx Liver Disease: No Hx Genitourinary Disorders: No Hx Sexually Transmitted Disorders: No Hx Renal Disease (ESRD): No Hx Thyroid Disease: No Hx Human Immunodeficiency Virus (HIV): No (pt denies) Hx Hepatitis C: No (pt denies) Hx Depression: Yes Hx Suicide Attempt: No Hx Bipolar Disorder: Yes (Mirtazapine and Seroquel) Hx Schizophrenia: No - Patient Surgical History Past Surgical History: No Hx Neurologic Surgery: No Hx Cataract Extraction: No Hx Cardiac Surgery: No Hx Lung Surgery: No Hx Breast Surgery: No Hx Breast Biopsy: No Hx Abdominal Surgery: No Hx Appendectomy: No Hx Cholecystectomy: No Hx Genitourinary Surgery: No Hx Section: No Hx Orthopedic Surgery: No Anesthesia Reaction: No - PPD History Date: 07/01/18 Results: 0MM - Smoking Cessation Smoking history: Current every day smoker Have you smoked in the past 12 months: Yes Aproximately how many cigarettes per day: 10 Cigars Per Day: 0 Hx Chewing Tobacco Use: No Initiated information on smoking cessation: Yes 'Breaking Loose' booklet given: 07/25/19 Admission Physical Exam BHS - Physical General Appearance: Yes: Mild Distress HEENTM: Yes: EOMI, Hearing grossly Normal, Normocephalic, Normal Voice, Other ( upper dentures) Respiratory: Yes: Chest Non-Tender, Lungs Clear, Normal Breath Sounds, No Respiratory Distress, No Accessory Muscle Use Neck: Yes: No masses,lesions,Nodules, Trachea in good position Cardiology: Yes: Regular Rhythm, Regular Rate, S1, S2 Abdominal: Yes: Non Tender, Soft Musculoskeletal: Yes: Gait Steady Extremities: Yes: Normal Range of Motion, Non-Tender Neurological: Yes: Fully Oriented, Alert, Motor Strength 5/5 Integumentary: Yes: Warm - Diagnostic (1) Alcohol dependence with uncomplicated withdrawal Current Visit: Yes Status: Chronic (2) Cocaine dependence Current Visit: Yes Status: Chronic Qualifiers: Substance use status: uncomplicated Qualified Code(s): F14.20 - Cocaine dependence, uncomplicated (3) Nicotine dependence Current Visit: Yes Status: Chronic Qualifiers: Nicotine product type: cigarettes Breathalyzer - Breathalyzer Breathalyzer: 0 Urine Drug Screen - Test Device Lot number: [id number] Expiration date: 10/20/20 - Control Is test valid?: Yes - Results Drug screen NEGATIVE: No Urine drug screen results: [facility]AVIN-Cocaine Inpatient Rehab Admission - Rehab Decision to Admit Inpatient rehab admission?: No
[2019-07-25] MEDS ORDERED: MAGNESIUM HYDROX 2400MG/30ML ORAL SUSPENSION 30 ML CUP PO PRN (21:33)
[2019-07-25] MEDS ORDERED: MENTHOL/PHENOL 1 EACH UD MM PRN (21:33)
[2019-07-25] MEDS ORDERED: MAGNESIUM CITRATE 300 ML BOTTLE PO PRN (21:33)
[2019-07-25] MEDS ORDERED: BISMUTH SUBSALICYLATE 524 MG/30 ML UD PO PRN (21:33)
[2019-07-25] MEDS ORDERED: MAG HYDROX/AL HYDROX/SIMETH 30 ML UNIT-DOSE CUP PO PRN (21:33)
[2019-07-25] MEDS ORDERED: IBUPROFEN 400 MG TABLET (FP) PO PRN (21:33)
[2019-07-25] MEDS ORDERED: ACETAMINOPHEN 325 MG TABLET (FP) PO PRN ×2 (21:33)
[2019-07-25] MEDS ORDERED: METHOCARBAMOL 500 MG TABLET PO PRN (21:33)
[2019-07-25] MEDS ORDERED: diazePAM 5 MG TABLET PO PRN (21:34)
[2019-07-25 22:16] VITALS: BMI 23.7
[2019-07-25] MEDS: THIAMINE HCL 100 MG TABLET (FP) PO SCH (22:57)
[2019-07-25] MEDS: diazePAM 5 MG TABLET PO SCH (22:58)
[2019-07-25] MEDS: hydrOXYzine PAMOATE 25 MG CAPSULE (FP) PO SCH (22:58)
[2019-07-25] MEDS: MELATONIN 5 MG TABLETS PO SCH (22:59)
[2019-07-25] MEDS: NICOTINE POLACRILEX 2 MG GUM BUC PRN (23:00)
[2019-07-26] MEDS: diazePAM 5 MG TABLET PO SCH ×3 (05:43→22:36)
[2019-07-26] MEDS: hydrOXYzine PAMOATE 25 MG CAPSULE (FP) PO SCH ×5 (07:43→22:37)
[2019-07-26] MEDS: PRENATAL VITAMINS W/ FOLIC ACID TABLET (FP) PO SCH (10:11)
[2019-07-26] MEDS: NICOTINE POLACRILEX 2 MG GUM BUC PRN ×4 (10:11→22:38)
[2019-07-26 13:04] LABS: HEMATOCRIT 35.4 % (35.4-49); HEMOGLOBIN 11.9 GM/dL (11.7-16.9); MCH 31.6 pg (25.7-33.7); MCHC 33.6 g/dl (32.0-35.9); MEAN CELL VOLUME 94.1 fl (80-96); MEAN PLT VOLUME 8.2 fl (7.5-11.1); PLATELET COUNT 250 K/MM3 (134-434); RBC 3.76 M/mm3 (4.00-5.60); RDW 15.2 % (11.9-15.9); WHITE BLOOD COUNT 4.7 K/mm3 (4.0-10.0)
[2019-07-26 13:15] LABS: ALBUMIN 3.1 g/dl (3.4-5.0); BILIRUBIN,TOTAL 0.5 mg/dL (0.2-1); BLOOD UREA NITROGEN 16.4 mg/dL (7-18); CALCIUM 8.3 mg/dL (8.5-10.1); POTASSIUM 4.7 mmol/L (3.5-5.1); TOT PROT 6.1 g/dl (6.4-8.2)
--- NOTE | 2019-07-26 13:32 | PN ---
[facility] CIWA - CIWA Score Nausea/Vomitin-No Nausea/No Vomiting Muscle Tremors: 4-Moderate,w/Arms Extend Anxiety: 3 Agitation: 1-Slight > Activity Paroxysmal Sweats: 2 Orientation: 0-Oriented Tacttile Disturbances: 0-None Auditory Disturbances: 0-None Visual Disturbances: 2-Mild Sensitivity Headache: 0-None Present CIWA-Ar Total Score: 12 BHS Progress Note (SOAP) Subjective: 59 years old male admitted on 07/25/19 for alcohol withdrawal sx management treating with valium detox regiment tremor anxiety restlessness Objective: 07/26/19 13:34 Vital Signs Temperature 97.4 F L 07/26/19 12:30 Pulse Rate 61 07/26/19 12:30 Respiratory Rate 18 07/26/19 12:30 Blood Pressure 127/77 07/26/19 12:30 O2 Sat by Pulse Oximetry (%) Laboratory Last Values WBC 4.7 K/mm3 (4.0-10.0) 07/26/19 09:00 RBC 3.76 M/mm3 (4.00-5.60) L 07/26/19 09:00 Hgb 11.9 GM/dL (11.7-16.9) 07/26/19 09:00 Hct 35.4 % (35.4-49) 07/26/19 09:00 MCV 94.1 fl (80-96) 07/26/19 09:00 MCH 31.6 pg (25.7-33.7) 07/26/19 09:00 MCHC 33.6 g/dl (32.0-35.9) 07/26/19 09:00 RDW 15.2 % (11.9-15.9) 07/26/19 09:00 Plt Count 250 K/MM3 (134-434) 07/26/19 09:00 MPV 8.2 fl (7.5-11.1) 07/26/19 09:00 Sodium 141 mmol/L (136-145) 07/26/19 09:00 Potassium 4.7 mmol/L (3.5-5.1) 07/26/19 09:00 Chloride 108 mmol/L (98-107) H 07/26/19 09:00 Carbon Dioxide 29 mmol/L (21-32) 07/26/19 09:00 Anion Gap 4 MMOL/L (8-16) L 07/26/19 09:00 BUN 16.4 mg/dL (7-18) 07/26/19 09:00 Creatinine 1.0 mg/dL (0.55-1.3) 07/26/19 09:00 Est GFR (CKD-EPI)AfAm 95.73 07/26/19 09:00 Est GFR (CKD-EPI)NonAf 82.60 07/26/19 09:00 Random Glucose 84 mg/dL (74-106) 07/26/19 09:00 Calcium 8.3 mg/dL (8.5-10.1) L 07/26/19 09:00 Total Bilirubin 0.5 mg/dL (0.2-1) 07/26/19 09:00 AST 16 U/L (15-37) 07/26/19 09:00 ALT 22 U/L (13-61) 07/26/19 09:00 Alkaline Phosphatase 97 U/L (45-117) 07/26/19 09:00 Total Protein 6.1 g/dl (6.4-8.2) L 07/26/19 09:00 Albumin 3.1 g/dl (3.4-5.0) L 07/26/19 09:00 lab noted Assessment: 07/26/19 13:34 alcohol withdrawal Plan: valium regiment
--- NOTE | 2019-07-26 14:06 | EKG ---
Test Reason : Blood Pressure : / mmHG Vent. Rate : 064 BPM Atrial Rate : 064 BPM P-R Int : 170 ms QRS Dur : 092 ms QT Int : 416 ms P-R-T Axes : 059 057 -01 degrees QTc Int : 429 ms NORMAL SINUS RHYTHM T WAVE ABNORMALITY, CONSIDER ANTERIOR ISCHEMIA ABNORMAL ECG WHEN COMPARED WITH ECG OF 22-NOV-2017 20:38, QRS DURATION HAS INCREASED ST NO LONGER DEPRESSED IN LATERAL LEADS T WAVE INVERSION NOW EVIDENT IN ANTERIOR LEADS Confirmed by DERECK LOVE MD ([id number]) on 07/26/2019 2:06:01 PM Referred By: Confirmed By:DERECK LOVE MD
[2019-07-26] MEDS: AMMONIUM LACTATE 12% LOTION 225 GM BOTTLE TP SCH ×2 (14:36→22:38)
--- NOTE | 2019-07-26 16:35 | CONSULT ---
[facility] Psychiatric Consult - Data Date of interview: 07/26/19 Admission source: [facility] Identifying data: Patient is a 59 year old single male, father of two, unemployed, domiciled, and is not supported with public assistance. This is one of multiple admissions for patient. Patient admitted to for alcohol and cocaine dependence. Substance Abuse History: History of alcohol + cocaine use. Smoking Cessation. Smoking history: Current every day smoker. Have you smoked in the past 12 months: Yes. Aproximately how many cigarettes per day: 10. Cigars Per Day: 0. Hx Chewing Tobacco Use: No. Initiated information on smoking cessation: Yes. 'Breaking Loose' booklet given: 07/25/19 Medical History: unremarkable Psychiatric History: Patient reports h/o multiple psychiatric hospitalizations ([facility]) most recently 18 months ago at [facility] due to mood instability. Diagnosis of Bipolar disorder. No reported history of suicide attempt. Mr. eVras is currently provided with outpatient psychiatric care by Dr. Jean-Baptiste and claims to be prescribed Seroquel 400mg BID +Gabapentin 800mg TID. Stated to account underwriter he is no longer on remeron. Patient rep orts medication compliance. He reports stable mood but had difficulty sleeping last night. Physical/Sexual Abuse/Trauma History: denies. Mental Status Exam - Mental Status Exam Alert and Oriented to: Time, Place, Person Cognitive Function: Good Patient Appearance: Well Groomed Mood: Withdrawn Affect: Mood Congruent Patient Behavior: Fatigued, Cooperative Speech Pattern: Appropriate Voice Loudness: Normal Thought Process: Goal Oriented Thought Disorder: Not Present Hallucinations: Denies Suicidal Ideation: Denies Homicidal Ideation: Denies Insight/Judgement: Poor Sleep: Poorly Appetite: Fair Muscle strength/Tone: Normal Gait/Station: Normal Psychiatric Findings - Problem List ([place] 1, 2,3) (1) Alcohol dependence with uncomplicated withdrawal Current Visit: Yes Status: Acute (2) Cocaine dependence Current Visit: Yes Status: Chronic Qualifiers: Substance use status: uncomplicated Qualified Code(s): F14.20 - Cocaine dependence, uncomplicated (3) Nicotine dependence Current Visit: Yes Status: Chronic Qualifiers: Nicotine product type: cigarettes (4) Substance-induced sleep disorder Current Visit: Yes Status: Acute (5) Bipolar disorder Current Visit: Yes Status: Chronic Qualifiers: Active/Remission status: remission status unspecified Qualified Code(s): F31.9 - Bipolar disorder, unspecified Comment: As per existing records.On medications.OPD care is confirmed. - Initial Treatment Plan Initial Treatment Plan: Psychoeducation provided. Detoxification in progress. [facility] pharmacy contacted and able to speak to pharmacy staff. As per the pharmacy staff patient picked up the following prescription on 05/27/19: Gabapentin 800mg QID. 2) Seroquel 400mg BID was picked up on 06/27/[address] [facility] in [place]. Will order Seroquel 300mg HS + Gabapentin 400mg BID (reduced dosages of both medications as patient appears fatigue.) Benefits and side effects discussed. Verbal consent given.
[2019-07-26] MEDS ORDERED: QUEtiapine FUMARATE 100 MG TABLET (FP) ONE (21:42)
[2019-07-26] MEDS ORDERED: QUEtiapine FUMARATE 300 MG TABLET PO SCH (22:00)
[2019-07-26] MEDS: THIAMINE HCL 100 MG TABLET (FP) PO SCH (22:36)
[2019-07-26] MEDS: MELATONIN 5 MG TABLETS PO SCH (22:36)
[2019-07-26] MEDS: GABAPENTIN 400 MG CAPSULE PO SCH (22:37)
[2019-07-27] MEDS: diazePAM 5 MG TABLET PO SCH ×2 (05:09→18:43)
[2019-07-27] MEDS: hydrOXYzine PAMOATE 25 MG CAPSULE (FP) PO SCH ×5 (05:09→22:35)
[2019-07-27] MEDS: NICOTINE POLACRILEX 2 MG GUM BUC PRN ×4 (05:09→18:47)
[2019-07-27] MEDS: GABAPENTIN 400 MG CAPSULE PO SCH ×2 (10:05→22:35)
[2019-07-27] MEDS: PRENATAL VITAMINS W/ FOLIC ACID TABLET (FP) PO SCH (10:05)
[2019-07-27] MEDS: AMMONIUM LACTATE 12% LOTION 225 GM BOTTLE TP SCH ×2 (10:06→22:37)
--- NOTE | 2019-07-27 11:25 | PN ---
S CIWA - CIWA Score Nausea/Vomitin-No Nausea/No Vomiting Muscle Tremors: None Anxiety: 0-No Anxiety, at Ease Agitation: 0-Normal Activity Paroxysmal Sweats: No Perspiration Orientation: 0-Oriented Tacttile Disturbances: 0-None Auditory Disturbances: 0-None Visual Disturbances: 1-Very Mild Sensitivity Headache: 0-None Present CIWA-Ar Total Score: 1 BHS Progress Note (SOAP) Subjective: Light sensitivity Objective: 07/27/19 11:23 Laboratory Tests 07/26/19 07/26/19 07/26/19 09:00 09:00 09:00 WBC 4.7 RBC 3.76 L Hgb 11.9 Hct 35.4 MCV 94.1 MCH 31.6 MCHC 33.6 RDW 15.2 Plt Count 250 MPV 8.2 Sodium 141 Potassium 4.7 Chloride 108 H Carbon Dioxide 29 Anion Gap 4 L BUN 16.4 Creatinine 1.0 Est GFR (CKD-EPI)AfAm 95.73 Est GFR (CKD-EPI)NonAf 82.60 Random Glucose 84 Calcium 8.3 L Total Bilirubin 0.5 AST 16 ALT 22 Alkaline Phosphatase 97 Total Protein 6.1 L Albumin 3.1 L RPR Titer Nonreactive Vital Signs - 24 hr 07/26/19 07/26/19 07/26/19 12:30 16:45 21:22 Temperature 97.4 F L 95.9 F L 97.4 F L Pulse Rate 61 57 L 63 Respiratory 18 18 20 Rate Blood Pressure 127/77 120/66 106/56 L 07/27/19 07/27/19 07/27/19 03:36 06:22 08:36 Temperature 97.2 F L 97.2 F L Pulse Rate 72 61 Respiratory 16 18 18 Rate Blood Pressure 132/73 128/73 PE Gnl: WDWN, in no distress Mental status: nl Motor: grossly nl Assessment: 07/27/19 11:23 1. Alcohol use disorder Plan: 1. continue Valium withdrawal protocol 2. pending discharge in am
--- NOTE | 2019-07-27 15:01 | DS ---
[facility] Detox Discharge Summary Admission Date: 07/25/19 Discharge Date: 07/27/19 - History Present History: Alcohol Dependence - Physical Exam Results Vital Signs: Vital Signs Temperature 97.2 F L 07/27/19 08:36 Pulse Rate 61 07/27/19 08:36 Respiratory Rate 18 07/27/19 08:36 Blood Pressure 128/73 07/27/19 08:36 O2 Sat by Pulse Oximetry (%) Pertinent Admission Physical Exam Findings: PE Gnl: WDWN, in no distress MS: awake, alert, nl language function Motor: nl Gait: steady - Treatment Hospital Course: Detox Protocol Followed, Detoxed Safely, Responded well, Discharged Condition Good, Rehab Referral Accepted Patient has Accepted a Rehab Referral to: [facility] - Medication Discharge Medications: Ambulatory Orders Mirtazapine [Remeron -] 45 mg PO HS #90 tablet 12/07/17 Promethazine HCl 25 mg PO TID 10/04/18 Ammonium Lactate Cream [Lac-Hydrin 12% Cream -] 1 applic TP BID #1 tube 10/19/18 Hydroxyzine HCl 50 mg PO HS #30 tablet 10/19/18 Mirtazapine [Remeron -] 15 mg PO HS #30 tablet 10/19/18 hydrOXYzine PAMOATE [Vistaril -] 50 mg PO HS #30 capsule 10/19/18 Gabapentin 800 mg PO DAILY 01/22/19 Quetiapine Fumarate [Seroquel -] 400 mg PO HS 01/22/19 Gabapentin 800 mg PO TID #90 tablet 02/05/19 Quetiapine Fumarate [Seroquel -] 400 mg PO BID #60 tablet 02/05/19 - Diagnosis (1) Alcohol dependence with uncomplicated withdrawal Current Visit: Yes Status: Acute - AMA Did Patient Leave Against Medical Advice: No
--- NOTE | 2019-07-27 17:40 | PN ---
[facility] Progress Note Note: Psychiatry Attending's note : Approached by patient. Issue : request for more seroquel at bedtime. Mr Veras reports his usual dose as 400 mg/hs. Chart reviewed. Consult note (07/26/19) by purification director Susana Martino : appreciated. Patient is already known to this verse writer from previous visits to [facility]. Noted by verse writer as ambulatory, friendly, alert, fully oriented and appropriate. Steady gait. Intact cognition. Normal vitals. Current seroquel dose : well tolerated. Plan : Seroquel 400 mg po hs (increased from 300 mg). Side effects/benefits discussed with the patient. Mr Veras has expressed agreement with this plan of care.
[2019-07-27] MEDS ORDERED: QUEtiapine FUMARATE 400 MG TABLET PO SCH (22:00)
[2019-07-27] MEDS: MELATONIN 5 MG TABLETS PO SCH (22:35)
[2019-07-27] MEDS: THIAMINE HCL 100 MG TABLET (FP) PO SCH (22:35)
[2019-07-28] MEDS ORDERED: diazePAM 5 MG TABLET PO ONE (06:00)
[2019-07-28] MEDS: NICOTINE POLACRILEX 2 MG GUM BUC PRN ×3 (06:25→12:55)
[2019-07-28] MEDS: hydrOXYzine PAMOATE 25 MG CAPSULE (FP) PO SCH ×2 (06:25→10:44)
[2019-07-28 09:14] VITALS: BP 118/67; PULSE 67; TEMP 96.7
[2019-07-28] MEDS: GABAPENTIN 400 MG CAPSULE PO SCH (10:44)
[2019-07-28] MEDS: PRENATAL VITAMINS W/ FOLIC ACID TABLET (FP) PO SCH (10:44)
[2019-07-28] MEDS: AMMONIUM LACTATE 12% LOTION 225 GM BOTTLE TP SCH (10:45)
--- NOTE | 2019-07-28 15:03 | DS ---
[facility] Detox Discharge Summary Admission Date: 07/25/19 Discharge Date: 07/28/19 - History Present History: Alcohol Dependence, Cocaine Dependence Additional Comments: Pt is medically cleared and discharged to [facility] for continued management. Pt completed the detox protocol. Pt is encouraged to follow with the rehab protocol. Pt verbalized understanding of the information given. Pt is alert and oriented x3 and in no acute respiratory distress. Pertinent Past History: h/o alcohol and cocaine use disorder. - Physical Exam Results Vital Signs: Vital Signs Temperature 96.7 F L 07/28/19 08:41 Pulse Rate 67 07/28/19 08:41 Respiratory Rate 18 07/28/19 08:41 Blood Pressure 118/67 07/28/19 08:41 O2 Sat by Pulse Oximetry (%) Vital Signs 07/28/19 08:41 Temperature 96.7 F L Pulse Rate 67 Respiratory 18 Rate Blood Pressure 118/67 Lab Results WBC 4.7 K/mm3 (4.0-10.0) 07/26/19 09:00 RBC 3.76 M/mm3 (4.00-5.60) L 07/26/19 09:00 Hgb 11.9 GM/dL (11.7-16.9) 07/26/19 09:00 Hct 35.4 % (35.4-49) 07/26/19 09:00 MCV 94.1 fl (80-96) 07/26/19 09:00 MCHC 33.6 g/dl (32.0-35.9) 07/26/19 09:00 RDW 15.2 % (11.9-15.9) 07/26/19 09:00 Plt Count 250 K/MM3 (134-434) 07/26/19 09:00 Sodium 141 mmol/L (136-145) 07/26/19 09:00 Potassium 4.7 mmol/L (3.5-5.1) 07/26/19 09:00 Chloride 108 mmol/L (98-107) H 07/26/19 09:00 Carbon Dioxide 29 mmol/L (21-32) 07/26/19 09:00 Anion Gap 4 MMOL/L (8-16) L 07/26/19 09:00 BUN 16.4 mg/dL (7-18) 07/26/19 09:00 Creatinine 1.0 mg/dL (0.55-1.3) 07/26/19 09:00 Random Glucose 84 mg/dL (74-106) 07/26/19 09:00 Calcium 8.3 mg/dL (8.5-10.1) L 07/26/19 09:00 Labs noted. Pertinent Admission Physical Exam Findings: withdrawal symptoms. - Treatment Hospital Course: Detox Protocol Followed, Detoxed Safely, Responded well, Discharged Condition Good, Rehab Referral Accepted Patient has Accepted a Rehab Referral to: [facility]. - Medication Discharge Medications: Ambulatory Orders Mirtazapine [Remeron -] 45 mg PO HS #90 tablet 12/07/17 Ammonium Lactate Cream [Lac-Hydrin 12% Cream -] 1 applic TP BID #1 tube 10/19/18 Mirtazapine [Remeron -] 15 mg PO HS #30 tablet 10/19/18 Gabapentin 800 mg PO BID 01/22/19 Quetiapine Fumarate [Seroquel -] 400 mg PO BID #60 tablet 02/05/19 - Diagnosis (1) Alcohol dependence Status: Chronic (2) Alcohol dependence with uncomplicated withdrawal Status: Acute (3) Cocaine dependence Status: Chronic Qualifiers: Substance use status: uncomplicated Qualified Code(s): F14.20 - Cocaine dependence, uncomplicated (4) Cocaine dependence, uncomplicated Status: Chronic (5) Nicotine dependence Status: Chronic Qualifiers: Nicotine product type: cigarettes Substance use status: uncomplicated Qualified Code(s): F17.210 - Nicotine dependence, cigarettes, uncomplicated (6) Opioid dependence with withdrawal Status: Chronic - AMA Did Patient Leave Against Medical Advice: No
== END 2019-07-28 12:58 | disposition other institution (70) | DRG 773 ==
LOC: YASAS 15:49 → Y3N 20:45
PROVIDERS: ADMIT Allergy & Immunology; ATTEND Allergy & Immunology
PROC: HZ2ZZZZ Detoxification Services for Substance Abuse Treatment (ICD-10-PCS; principal; 2019-07-25)
DX: F10.230 Alcohol dependence with withdrawal, uncomplicated (principal); F11.23 Opioid dependence with withdrawal; F14.20 Cocaine dependence, uncomplicated; F17.210 Nicotine dependence, cigarettes, uncomplicated; F19.282 Other psychoactive substance dependence with psychoactive substance-induced sleep disorder; F31.9 Bipolar disorder, unspecified
CPT/HCPCS: 36415; 80053; 85027; 86593; 93005; 93010

== ENCOUNTER 2019-07-28 13:02 | Inpatient (IN) | payer OTHER ==
[2019-07-28] MEDS ORDERED: MAG HYDROX/AL HYDROX/SIMETH 30 ML UNIT-DOSE CUP PO PRN (15:12)
[2019-07-28] MEDS ORDERED: IBUPROFEN 400 MG TABLET (FP) PO PRN (15:12)
[2019-07-28] MEDS ORDERED: MAGNESIUM CITRATE 300 ML BOTTLE PO PRN (15:12)
[2019-07-28] MEDS ORDERED: MAGNESIUM HYDROX 2400MG/30ML ORAL SUSPENSION 30 ML CUP PO PRN (15:12)
[2019-07-28] MEDS ORDERED: P-EPHED 60MG/TRIPROLIDI 2.5MG TABLET PO PRN (15:12)
[2019-07-28] MEDS ORDERED: guaiFENesin 200 MG/10 ML 10 ML UNIT-DOSE CUPS PO PRN (15:12)
[2019-07-28] MEDS ORDERED: MENTHOL/PHENOL 1 EACH UD MM PRN (15:12)
[2019-07-28] MEDS ORDERED: LOPERAMIDE HCL 2 MG CAPSULE PO PRN (15:12)
[2019-07-28] MEDS ORDERED: ACETAMINOPHEN 325 MG TABLET (FP) PO PRN (15:12)
--- NOTE | 2019-07-28 15:12 | HP ---
[facility] Rehab Assess/Revision - Admission History Admitted to Rehab from: [facility] Date of Admission to Rehab: 07/28/2019 - Vital signs Vital Signs: Vital Signs Period Temp Pulse Resp BP Sys/Lawler Pulse Ox Last 24 Hr 98.1 F 80 18 136/68 - Findings Detox History & Physical reviewed: Yes Concur with findings: Yes Inpatient Rehab Admission - Rehab Decision to Admit Inpatient rehab admission?: Yes - Initial Determination Are CD services needed?: Yes Free of communicable disease: Yes Not in need of hospitalization: Yes - Rehab Admission Criteria Previous failed treatment: Yes Poor recovery environment: Yes Comorbidities: Yes Lacks judgement: Yes Patient is meeting Inpatient Rehab admission criteria:: Yes
[2019-07-28] MEDS ORDERED: TUBERCULIN PPD 5 TU/0.1ML VIAL ID ONE (17:25)
[2019-07-28] MEDS: MELATONIN 5 MG TABLETS PO SCH (21:07)
[2019-07-28] MEDS: hydrOXYzine PAMOATE 25 MG CAPSULE (FP) PO PRN (21:07)
[2019-07-28] MEDS: THIAMINE HCL 100 MG TABLET (FP) PO SCH (21:07)
[2019-07-28] MEDS: NICOTINE POLACRILEX 2 MG GUM BUC PRN (21:09)
[2019-07-29] MEDS: NICOTINE POLACRILEX 2 MG GUM BUC PRN ×4 (08:27→21:33)
--- NOTE | 2019-07-29 08:27 | PN ---
[facility] Progress Note Note: Patient requests for his medications(Seroquel, Gabapentin) be ordered the way they were prescribed prior to his recent admission to detox. He was prescribed Seroquel 400 mg/bid & Gabapentin 800 mg/qid and he was ordered Seroquel 300 mg/hs, Gabapentin 400 mg/bid while in detox. Seroquel and Gabapentin will be ordered as requested by patient
[2019-07-29] MEDS: PRENATAL VITAMINS W/ FOLIC ACID TABLET (FP) PO SCH (09:53)
[2019-07-29] MEDS: QUEtiapine FUMARATE 400 MG TABLET PO SCH ×2 (09:54→21:32)
[2019-07-29] MEDS: NICOTINE 7 MG/24 HOURS TOPICAL PATCH TD SCH (09:54)
[2019-07-29] MEDS: GABAPENTIN 400 MG CAPSULE PO SCH ×4 (09:54→21:32)
[2019-07-29] MEDS: MELATONIN 5 MG TABLETS PO SCH (21:32)
[2019-07-29] MEDS: THIAMINE HCL 100 MG TABLET (FP) PO SCH (21:32)
[2019-07-29] MEDS: hydrOXYzine PAMOATE 25 MG CAPSULE (FP) PO PRN (21:33)
[2019-07-30] MEDS: NICOTINE POLACRILEX 2 MG GUM BUC PRN ×5 (06:45→21:08)
[2019-07-30] MEDS: QUEtiapine FUMARATE 400 MG TABLET PO SCH ×2 (10:01→21:07)
[2019-07-30] MEDS: NICOTINE 7 MG/24 HOURS TOPICAL PATCH TD SCH (10:02)
[2019-07-30] MEDS: PRENATAL VITAMINS W/ FOLIC ACID TABLET (FP) PO SCH (10:02)
[2019-07-30] MEDS: GABAPENTIN 400 MG CAPSULE PO SCH ×4 (10:02→21:07)
--- NOTE | 2019-07-30 11:54 | PN ---
[facility] Progress Note Note: Patient admitted to [facility] after completing detox for alcohol dependence. Labs reviewed, V/S stable. Patient requested to consult with psychiatry regarding Bipolar disorder. Order placed. In NAD. Complains of dry skin. Vital Signs (72 hours) 07/28/19 07/29/19 07/29/19 13:10 00:30 04:13 Temperature 98.1 F Pulse Rate 80 Respiratory 18 17 18 Rate Blood Pressure 136/68 07/29/19 07/30/19 07/30/19 07:32 00:31 07:22 Temperature 97.4 F L 98.1 F Pulse Rate 66 69 Respiratory 18 18 18 Rate Blood Pressure 138/71 133/72 PE: alert and oriented x 3 skin warm and dry in nad ext full rom, amb ad mervin no tremors visible A/P: alcohol dependence Dry skin Continue rehab services ammonia lactate lotion ordered for dry skin
[2019-07-30] MEDS: AMMONIUM LACTATE 12% LOTION 225 GM BOTTLE TP SCH ×2 (13:41→21:08)
[2019-07-30] MEDS: hydrOXYzine PAMOATE 25 MG CAPSULE (FP) PO PRN (21:07)
[2019-07-30] MEDS: THIAMINE HCL 100 MG TABLET (FP) PO SCH (21:07)
[2019-07-30] MEDS: MELATONIN 5 MG TABLETS PO SCH (21:07)
[2019-07-31 08:02] VITALS: BP 131/71; PULSE 67; TEMP 97.3
--- NOTE | 2019-07-31 09:02 | DS ---
[facility] Rehab Discharge Summary - [facility] Rehab Discharge Summary Admission Date: 07/28/19 Discharge Date: 07/31/19 - History Present History: Alcohol dependence, Cocaine dependence Pertinent Past History: 59 y.o. male here for etoh use, reports 1-2 x 6-pk /day and 2-pints /day, occasional tremors if not drinking, denies seizures. cocaine : 80 $ /day denies IV use tobacco 1/4 ppd. - Discharge Physical Exam Vital Signs: Vital Signs Temperature 97.3 F L 07/31/19 08:01 Pulse Rate 67 07/31/19 08:01 Respiratory Rate 18 07/31/19 08:01 Blood Pressure 131/71 07/31/19 08:01 O2 Sat by Pulse Oximetry (%) Pertinent Admission Physical Exam Findings: - Physical General Appearance: no apparent distress HEENTM: Normocephalic, Respiratory: Lungs Clear, Neck: supple Cardiology: S1, S2 Abdominal: +BS, Soft Musculoskeletal: Gait Steady Neurological: Cn 2-12 - Treatment Discharge Condition: Outpatient referral accepted (medically stable for discharge. [facility] will be going to [facility] Hospital Course: patient was in rehab for 3 days. Attended groups, had 1:1 with his counselor, was adherent to the treatment plan and medication regimen. He had no acute or urgent medical problems while in rehab. - Medication Discharge Medications: Ambulatory Orders Mirtazapine [Remeron -] 45 mg PO HS #90 tablet 12/07/17 Ammonium Lactate Cream [Lac-Hydrin 12% Cream -] 1 applic TP BID #1 tube 10/19/18 Mirtazapine [Remeron -] 15 mg PO HS #30 tablet 10/19/18 Gabapentin 800 mg PO BID 01/22/19 Quetiapine Fumarate [Seroquel -] 400 mg PO BID #60 tablet 02/05/19 - Medication-Assisted Treatment (MAT) Medication-Assisted Treatment (MAT): No - Discharge Instructions Diet, activity, other medical instructions: Diet: as tolerated Activity: as tolerated Other medical instructions: Please follow up with aftercare referral. - Follow-up Referral Minutes to complete discharge: 15 - AMA Did Patient Leave Against Medical Advice: No
[2019-07-31] MEDS: GABAPENTIN 400 MG CAPSULE PO SCH (09:18)
[2019-07-31] MEDS: AMMONIUM LACTATE 12% LOTION 225 GM BOTTLE TP SCH (09:18)
[2019-07-31] MEDS: NICOTINE 7 MG/24 HOURS TOPICAL PATCH TD SCH (09:18)
[2019-07-31] MEDS: QUEtiapine FUMARATE 400 MG TABLET PO SCH (09:18)
[2019-07-31] MEDS: PRENATAL VITAMINS W/ FOLIC ACID TABLET (FP) PO SCH (09:18)
--- NOTE | 2019-07-31 09:32 | PN ---
[facility] Progress Note Note: Patient is discharged today. Scripts for 30 days supply of medications(Seroquel 400 mg/bid, Gabapentin 800 mg/qid) are electronically transmitted to [id number] in [place], [place]
== END 2019-07-31 09:29 | disposition home or self-care (01) | DRG 772 ==
LOC: YASAS 13:02 → Y3W 13:03
PROVIDERS: ADMIT Allergy & Immunology; ATTEND Allergy & Immunology
PROC: HZ42ZZZ Group Counseling for Substance Abuse Treatment, Cognitive-Behavioral (ICD-10-PCS; principal; 2019-07-28)
DX: F10.20 Alcohol dependence, uncomplicated (principal); F14.20 Cocaine dependence, uncomplicated; F17.210 Nicotine dependence, cigarettes, uncomplicated; L85.3 Xerosis cutis

== ENCOUNTER 2019-11-13 12:36 | Inpatient (IN) | payer OTHER ==
--- NOTE | 2019-11-13 13:18 | BHS.RME ---
Substance Use & Tx History - Substance Use History Alcohol Substance amount: 1.5 pints vodka and 4 beers Frequency of use: Daily Substance route: Oral Date of Last Use: 11/12/19 Cocaine- Powder Substance amount: $80 Frequency of use: Daily Substance route: Inhalation (ex: sniffing or snorting), Smoking Date of Last Use: 11/12/19 Nicotine Substance amount: 1 pack Frequency of use: Daily Substance route: Smoking Date of Last Use: 11/13/19 Physical/Psych/Mental Status - Behavior General Behavior: Increased activity (restlessness, agitation) Eye Contact: Normal - Cooperativeness Cooperativeness: Cooperative - Thinking Thought Processes: Tight, Logical, Goal Directed - Physical Health Problems Is patient presently having any pain?: No Does patient presently have any injuries (include location): No Does patient currently have a fever: No Is patient : No CIWA Nausea/Vomitin-Mild Nausea/No Vomiting Muscle Tremors: 2 Anxiety: 3 Agitation: 1-Slight > Activity Paroxysmal Sweats: 1-Minimal Palms Moist Orientation: 1-Uncertain about Date Tacttile Disturbances: 0-None Auditory Disturbances: 0-None Visual Disturbances: 0-None Headache: 2-Mild CIWA-Ar Total Score: 11
--- NOTE | 2019-11-13 13:21 | BHS.RME ---
Substance Use & Tx History - Substance Use History Alcohol Substance amount: 1 pint + Beers Frequency of use: Daily Substance route: Oral Date of Last Use: 11/12/19 Cocaine- Powder Substance amount: $80 Frequency of use: Daily Substance route: Inhalation (ex: sniffing or snorting) Date of Last Use: 11/12/19 Physical/Psych/Mental Status - Behavior General Behavior: Increased activity (restlessness, agitation) Eye Contact: Normal - Cooperativeness Cooperativeness: Cooperative - Thinking Thought Processes: Tight, Logical, Goal Directed - Physical Health Problems Is patient presently having any pain?: No Does patient presently have any injuries (include location): No Does patient currently have a fever: No Is patient : No CIWA Nausea/Vomitin-Mild Nausea/No Vomiting Muscle Tremors: 2 Anxiety: 3 Agitation: 1-Slight > Activity Paroxysmal Sweats: 1-Minimal Palms Moist Orientation: 1-Uncertain about Date Tacttile Disturbances: 0-None Auditory Disturbances: 0-None Visual Disturbances: 0-None Headache: 2-Mild CIWA-Ar Total Score: 11
--- NOTE | 2019-11-13 14:02 | HP ---
CIWA Score Nausea/Vomitin-Mild Nausea/No Vomiting Muscle Tremors: 2 Anxiety: 3 Agitation: 1-Slight > Activity Paroxysmal Sweats: 1-Minimal Palms Moist Orientation: 1-Uncertain about Date Tacttile Disturbances: 0-None Auditory Disturbances: 0-None Visual Disturbances: 0-None Headache: 2-Mild CIWA-Ar Total Score: 11 - Admission Criteria OASAS Guidelines: Admission for Medically Managed Detox: Requires at least one of the followin. CIWA greater than 12 2. Seizures within the past 24 hours 3. Delirium tremens within the past 24 hours 4. Hallucinations within the past 24 hours 5. Acute intervention needed for co occurring medical disorder 6. Acute intervention needed for co occurring psychiatric disorder 7. Severe withdrawal that cannot be handled at a lower level of care (continued vomiting, continued diarrhea, abnormal vital signs) requiring intravenous medication and/or fluids 8. Admitting History and Physical - Admission Chief Complaint: Mr. Veras is a 59 yo man who states "I need to get off the chemical addiction", he requests admission to detox. History of Present Illness: Mr. Veras is a 59 yo man who states "I need to get off the chemical addiction", he requests admission to detox. He was last here between July 27 and , but, left AMA. 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 Cocaine- Powder Substance amount: $80 Frequency of use: Daily Substance route: Inhalation (ex: sniffing or snorting) Date of Last Use: 11/12/19 Began: age 24 y Nicotine: 1ppd, began age 17y Meets admission criteria: comorbid Psychiatric dx, high risk relapse History Source: Patient Limitations to Obtaining History: No Limitations - Smoking History Smoking history: Current every day smoker Have you smoked in the past 12 months: Yes Aproximately how many cigarettes per day: 10 - Alcohol/Substance Use Hx Alcohol Use: Yes Admission ROS BHS - HPI Allergies/Adverse Reactions: Allergies Allergy/AdvReac Type Severity Reaction Status Date / Time No Known Allergies Allergy Verified 07/28/19 14:17 Exam Limitations: No Limitations - Ebola screening Have you traveled outside of the country in the last 21 days: No Have you been sick,other than usual withdrawal symptoms: No Do you have a fever: No - Review of Systems Constitutional: Unintentional Wgt. Loss (lost 20 lbs since July 2019) EENT: reports: No Symptoms Reported Respiratory: reports: No Symptoms reported Cardiac: reports: No Symptoms Reported GI: reports: Nausea : reports: No Symptoms Reported Musculoskeletal: reports: No Symptoms Reported Integumentary: reports: Dryness Neuro: reports: Headache Endocrine: reports: No Symptoms Reported Hematology: reports: No Symptoms Reported Psychiatric: reports: Anxious Patient History - Patient Medical History Hx Anemia: No Hx Asthma: No Hx Chronic Obstructive Pulmonary Disease (COPD): No Hx Cancer: No Hx Cardiac Disorders: No Hx Congestive Heart Failure: No Hx Hypertension: No Hx Hypercholesterolemia: No Hx Pacemaker: No HX Cerebrovascular Accident: No Hx Seizures: No Hx Dementia: No Hx Diabetes: No Hx Gastrointestinal Disorders: No Hx Liver Disease: No Hx Genitourinary Disorders: No Hx Sexually Transmitted Disorders: No Hx Renal Disease (ESRD): No Hx Thyroid Disease: No Hx Human Immunodeficiency Virus (HIV): No (pt denies) Hx Hepatitis C: No (pt denies) Hx Depression: Yes Hx Suicide Attempt: No Hx Bipolar Disorder: Yes (Mirtazapine and Seroquel) Hx Schizophrenia: No - Patient Surgical History Past Surgical History: No Hx Neurologic Surgery: No Hx Cataract Extraction: No Hx Cardiac Surgery: No Hx Lung Surgery: No Hx Breast Surgery: No Hx Breast Biopsy: No Hx Abdominal Surgery: No Hx Appendectomy: No Hx Cholecystectomy: No Hx Genitourinary Surgery: No Hx Section: No Hx Orthopedic Surgery: No Anesthesia Reaction: No - PPD History Date: 07/30/19 Results: 0 mm - Smoking Cessation Smoking history: Current every day smoker Have you smoked in the past 12 months: Yes Aproximately how many cigarettes per day: 20 Cigars Per Day: 0 Hx Chewing Tobacco Use: No Initiated information on smoking cessation: Yes 'Breaking Loose' booklet given: 11/13/19 Admission Physical Exam S - Physical General Appearance: Yes: Nourished, Appropriately Dressed, Anxious HEENTM: Yes: EOMI, Hearing grossly Normal, Normocephalic, Normal Voice Respiratory: Yes: Lungs Clear, Normal Breath Sounds, No Accessory Muscle Use Neck: Yes: Supple Breast: Yes: Breast Exam Deferred Cardiology: Yes: Regular Rhythm, Regular Rate Abdominal: Yes: Normal Bowel Sounds, Non Tender, Flat, Soft Genitourinary: Yes: Other (deferred) Back: Yes: Normal Inspection Musculoskeletal: Yes: Gait Steady Extremities: Yes: Normal Inspection, Non-Tender Neurological: Yes: Alert, Normal Mood/Affect, Normal Response Integumentary: Yes: Normal Color, Dry, Warm - Diagnostic (1) Alcohol dependence with uncomplicated withdrawal Current Visit: Yes Status: Acute (2) Cocaine dependence Current Visit: Yes Status: Acute Qualifiers: Substance use status: uncomplicated Qualified Code(s): F14.20 - Cocaine dependence, uncomplicated (3) History of bipolar disorder Current Visit: Yes Status: Chronic Comment: .. (4) Nicotine dependence Current Visit: Yes Status: Acute Qualifiers: Nicotine product type: cigarettes Substance use status: uncomplicated Qualified Code(s): F17.210 - Nicotine dependence, cigarettes, uncomplicated Comment: .. Cleared for Admission S - Detox or Rehab [facility] Level of Care: Medically Managed Detox Regimen/Protocol: Librium Breathalyzer - Breathalyzer Breathalyzer: 0 Urine Drug Screen - Test Device Lot number: [id number] Expiration date: 01/20/21 - Control Is test valid?: Yes - Results Drug screen NEGATIVE: No Urine drug screen results: GAVIN-Cocaine Inpatient Rehab Admission - Rehab Decision to Admit Inpatient rehab admission?: No
[2019-11-13] MEDS ORDERED: MAGNESIUM HYDROX 2400MG/30ML ORAL SUSPENSION 30 ML CUP PO PRN (14:09)
[2019-11-13] MEDS ORDERED: MAGNESIUM CITRATE 300 ML BOTTLE PO PRN (14:09)
[2019-11-13] MEDS ORDERED: METHOCARBAMOL 500 MG TABLET PO PRN (14:09)
[2019-11-13] MEDS ORDERED: ONDANSETRON *ODT* 4 MG TABLET SL ONE (14:09)
[2019-11-13] MEDS ORDERED: IBUPROFEN 400 MG TABLET (FP) PO PRN (14:09)
[2019-11-13] MEDS ORDERED: BISMUTH SUBSALICYLATE 262 MG/15 ML BTL PO PRN (14:09)
[2019-11-13] MEDS ORDERED: MAG HYDROX/AL HYDROX/SIMETH 30 ML UNIT-DOSE CUP PO PRN (14:09)
[2019-11-13] MEDS ORDERED: ACETAMINOPHEN 325 MG TABLET (FP) PO PRN ×2 (14:09)
[2019-11-13] MEDS ORDERED: MENTHOL/PHENOL 1 EACH UD MM PRN (14:09)
[2019-11-13] MEDS ORDERED: chlordiazePOXIDE HCL 25 MG CAPSULE PO PRN (14:09)
[2019-11-13 14:51] VITALS: BMI 23.1
[2019-11-13] MEDS: PRENATAL VITAMINS W/ FOLIC ACID TABLET (FP) PO SCH (15:35)
[2019-11-13] MEDS: NICOTINE POLACRILEX 2 MG GUM BUC PRN ×2 (15:38→21:21)
[2019-11-13 17:31] LABS: HEMATOCRIT 38.8 % (35.4-49); HEMOGLOBIN 12.9 GM/dL (11.7-16.9); MCH 31.8 pg (25.7-33.7); MCHC 33.3 g/dl (32.0-35.9); MEAN CELL VOLUME 95.6 fl (80-96); MEAN PLT VOLUME 8.6 fl (7.5-11.1); PLATELET COUNT 276 K/MM3 (134-434); RBC 4.06 M/mm3 (4.00-5.60); RDW 14.9 % (11.9-15.9); WHITE BLOOD COUNT 4.3 K/mm3 (4.0-10.0)
[2019-11-13 17:44] LABS: ALBUMIN 3.7 g/dl (3.4-5.0); BLOOD UREA NITROGEN 19.8 mg/dL (7-18); CALCIUM 8.6 mg/dL (8.5-10.1); CREATININE 1.3 mg/dL (0.55-1.3); POTASSIUM 4.1 mmol/L (3.5-5.1)
[2019-11-13] MEDS: chlordiazePOXIDE HCL 25 MG CAPSULE PO SCH ×2 (18:56→22:33)
[2019-11-13] MEDS: hydrOXYzine PAMOATE 25 MG CAPSULE (FP) PO SCH ×2 (18:56→22:33)
--- NOTE | 2019-11-13 22:06 | PN ---
[facility] Progress Note Note: seen for reactive syphilis results. titers pending. Laboratory Tests 11/13/19 11/13/19 11/13/19 14:15 14:15 14:15 WBC 4.3 RBC 4.06 Hgb 12.9 Hct 38.8 MCV 95.6 MCH 31.8 MCHC 33.3 RDW 14.9 Plt Count 276 MPV 8.6 Sodium 140 Potassium 4.1 Chloride 106 Carbon Dioxide 28 Anion Gap 6 L BUN 19.8 H Creatinine 1.3 Est GFR (CKD-EPI)AfAm 69.71 Est GFR (CKD-EPI)NonAf 60.14 Random Glucose 101 Calcium 8.6 Total Bilirubin 1.0 AST 19 ALT 26 Alkaline Phosphatase 77 Total Protein 7.0 Albumin 3.7 Syphilis Serology Reactive A* client reports receiving 1 dose of txment on 11/02/[address] phillips at [facility]. reports he had tested positive since 07/2019 but was not treated until 11/02/2019. client agrees to have attending contact provider to discuss in the a.m. if needed. will sign consent. client informed to inform female partner of status and encourage her to get tested. client verbalized understanding. states he spoke to her but will reach out to her agin to do so as she has not. protective sex/ abstinence discussed titers pending will endorse to unit attending to f/u. Vital Signs Temperature 97.7 F 11/13/19 17:15 Pulse Rate 56 L 11/13/19 17:15 Respiratory Rate 18 11/13/19 17:15 Blood Pressure 129/70 11/13/19 17:15 O2 Sat by Pulse Oximetry (%) 96 11/13/19 15:42
[2019-11-13] MEDS: THIAMINE HCL 100 MG TABLET (FP) PO SCH (22:33)
[2019-11-13] MEDS: MELATONIN 5 MG TABLETS PO SCH (22:33)
[2019-11-13] MEDS: AMMONIUM LACTATE 12% CREAM 140 GM TUBE TP SCH (22:36)
[2019-11-14] MEDS: hydrOXYzine PAMOATE 25 MG CAPSULE (FP) PO SCH ×3 (06:06→14:46)
[2019-11-14] MEDS: chlordiazePOXIDE HCL 25 MG CAPSULE PO SCH ×4 (06:06→22:05)
[2019-11-14] MEDS: NICOTINE POLACRILEX 2 MG GUM BUC PRN ×3 (06:09→15:35)
[2019-11-14] MEDS: PRENATAL VITAMINS W/ FOLIC ACID TABLET (FP) PO SCH (10:08)
[2019-11-14] MEDS: AMMONIUM LACTATE 12% CREAM 140 GM TUBE TP SCH ×2 (10:08→22:07)
--- NOTE | 2019-11-14 12:47 | PN ---
S CIWA - CIWA Score Nausea/Vomitin-No Nausea/No Vomiting Muscle Tremors: 3 Anxiety: 5 Agitation: 3 Paroxysmal Sweats: 1-Minimal Palms Moist Orientation: 0-Oriented Tacttile Disturbances: 0-None Auditory Disturbances: 0-None Visual Disturbances: 0-None Headache: 0-None Present CIWA-Ar Total Score: 12 BHS Progress Note (SOAP) Subjective: Pt is a 59 y/o male admitted to detox yesterday. hx of KERRY-alcohol,cocaine. PMHx of VDRL+ with treatment ;Psych Hx of Bipolar disorder/Anxiety disorder. c/o: seats Headache "Stressed" Objective: 11/14/19 12:45 Vital Signs 11/14/19 11/14/19 05:38 09:12 Temperature 97.4 F L 97.8 F Pulse Rate 60 66 Respiratory 18 18 Rate Blood Pressure 127/68 115/66 O2 Sat by Pulse 96 95 Oximetry (%) Laboratory Tests 11/13/19 11/13/19 11/13/19 14:15 14:15 14:15 WBC 4.3 RBC 4.06 Hgb 12.9 Hct 38.8 MCV 95.6 MCH 31.8 MCHC 33.3 RDW 14.9 Plt Count 276 MPV 8.6 Sodium 140 Potassium 4.1 Chloride 106 Carbon Dioxide 28 Anion Gap 6 L BUN 19.8 H Creatinine 1.3 Est GFR (CKD-EPI)AfAm 69.71 Est GFR (CKD-EPI)NonAf 60.14 Random Glucose 101 Calcium 8.6 Total Bilirubin 1.0 AST 19 ALT 26 Alkaline Phosphatase 77 Total Protein 7.0 Albumin 3.7 Syphilis Serology Reactive A* RPR Titer 11/13/19 14:15 WBC RBC Hgb Hct MCV MCH MCHC RDW Plt Count MPV Sodium Potassium Chloride Carbon Dioxide Anion Gap BUN Creatinine Est GFR (CKD-EPI)AfAm Est GFR (CKD-EPI)NonAf Random Glucose Calcium Total Bilirubin AST ALT Alkaline Phosphatase Total Protein Albumin Syphilis Serology RPR Titer Reactive 1:1 H D Pt reports he was treated with ??2 injections at one once. Spoke to pt this morning who will contact his provider via his counselor to fax record and status to this facility for treatment sequence information. Assessment: 11/14/19 12:47 withdrawal sx Plan: cont rehab maintain safety increase po fluids
--- NOTE | 2019-11-14 16:25 | CONSULT ---
[facility] Psychiatric Consult - Data Date of interview: 11/14/19 Admission source: [facility] Identifying data: Patient is a 59 year old single male, father of two, unemployed, domiciled, and is supported by public assistance. This is one of multiple admissions for patient. Patient admitted to for alcohol and cocaine dependence. Substance Abuse History: History of alcohol and cocaine dependence. Medical History: Unremarkable. Psychiatric History: Patient known to facility. Mr. Veras reports history of multiple psychiatric hospitalizations ([facility]) most recen tly two years ago at [facility] due to mood instability. Diagnosis of Bipolar disorder. No reported history of suicide attempt. Mr. Veras is currently provided with outpatient psychiatric care by Dr. Jean-Baptiste located in [place] on [facility] and claims to be prescribed Seroquel 400mg BID + Remeron 15mg HS. Patient reports most recently taking his medications on tuesday. At present patient reports difficulty sleeping. Physical/Sexual Abuse/Trauma History: denies. Mental Status Exam - Mental Status Exam Alert and Oriented to: Time, Place, Person Cognitive Function: Good Patient Appearance: Well Groomed Mood: Hopeful Affect: Appropriate Patient Behavior: Fatigued, Cooperative Speech Pattern: Clear Voice Loudness: Mildly Soft/Quiet Thought Process: Intact, Goal Oriented Thought Disorder: Not Present Hallucinations: Denies Suicidal Ideation: Denies Homicidal Ideation: Denies Insight/Judgement: Poor Sleep: Poorly Appetite: Fair Muscle strength/Tone: Normal Gait/Station: Normal Psychiatric Findings - Problem List ([place] 1, 2,3) (1) Alcohol dependence with uncomplicated withdrawal Current Visit: Yes Status: Acute (2) Cocaine dependence Current Visit: Yes Status: Acute Qualifiers: Substance use status: uncomplicated Qualified Code(s): F14.20 - Cocaine dependence, uncomplicated (3) Nicotine dependence Current Visit: Yes Status: Acute Qualifiers: Nicotine product type: cigarettes Substance use status: uncomplicated Qualified Code(s): F17.210 - Nicotine dependence, cigarettes, uncomplicated Comment: .. (4) History of bipolar disorder Current Visit: Yes Status: Chronic Comment: .. (5) Substance-induced sleep disorder Current Visit: Yes Status: Acute - Initial Treatment Plan Initial Treatment Plan: Psychoeducation provided. Detoxification in progress. Will order Seroquel 200mg HS + Remeron 15mg HS. Reduce dose due to risk of over sedation. Will also hold seroquel morning dose. Benefits and side effects discussed. Verbal consent given.
[2019-11-14 18:32] LABS: PH,URINE 7.5 (5.0-8.0); URINE APPEARANCE CLEAR; URINE BILIRUBIN NEGATIVE (NEGATIVE); URINE COLOR YELLOW; URINE GLUCOSE (UA) NEGATIVE (NEGATIVE); URINE KETONE NEGATIVE (NEGATIVE); URINE LEUK ESTERASE NEGATIVE (NEGATIVE); URINE NITRITE NEGATIVE (NEGATIVE); URINE PROTEIN NEGATIVE (NEGATIVE); URINE UROBILINOGEN 0.2 mg/dL (0.2-1.0)
[2019-11-14] MEDS: THIAMINE HCL 100 MG TABLET (FP) PO SCH (22:04)
[2019-11-14] MEDS: hydrOXYzine PAMOATE 50 MG CAPSULE (FP) PO PRN (22:04)
[2019-11-14] MEDS: MELATONIN 5 MG TABLETS PO SCH (22:05)
[2019-11-14] MEDS: QUEtiapine FUMARATE 200 MG TABLET PO SCH (22:05)
[2019-11-14] MEDS: MIRTAZAPINE 15 MG TABLET (FP) PO SCH (22:05)
[2019-11-15] MEDS: chlordiazePOXIDE HCL 25 MG CAPSULE PO SCH ×4 (07:07→22:12)
[2019-11-15] MEDS: NICOTINE POLACRILEX 2 MG GUM BUC PRN ×4 (07:09→22:14)
[2019-11-15] MEDS: AMMONIUM LACTATE 12% CREAM 140 GM TUBE TP SCH ×2 (11:12→22:11)
[2019-11-15] MEDS: PRENATAL VITAMINS W/ FOLIC ACID TABLET (FP) PO SCH (11:12)
[2019-11-15] MEDS: hydrOXYzine PAMOATE 50 MG CAPSULE (FP) PO PRN ×3 (11:15→22:11)
--- NOTE | 2019-11-15 11:50 | PN ---
S CIWA - CIWA Score Nausea/Vomitin-No Nausea/No Vomiting Muscle Tremors: 3 Anxiety: 3 Agitation: 3 Paroxysmal Sweats: 1-Minimal Palms Moist Orientation: 0-Oriented Tacttile Disturbances: 0-None Auditory Disturbances: 0-None Visual Disturbances: 0-None Headache: 0-None Present CIWA-Ar Total Score: 10 S Progress Note (SOAP) Subjective: Sl anxiety, tremors, reports slept well and detox proceeding well. Objective: 11/15/19 11:49 Vital Signs 11/15/19 11/15/19 06:25 08:59 Temperature 97.8 F 98.4 F Pulse Rate 58 L 63 Respiratory 20 16 Rate Blood Pressure 112/63 117/66 O2 Sat by Pulse 100 95 Oximetry (%) Laboratory Tests 11/13/19 11/13/19 11/13/19 14:15 14:15 14:15 WBC 4.3 RBC 4.06 Hgb 12.9 Hct 38.8 MCV 95.6 MCH 31.8 MCHC 33.3 RDW 14.9 Plt Count 276 MPV 8.6 Sodium 140 Potassium 4.1 Chloride 106 Carbon Dioxide 28 Anion Gap 6 L BUN 19.8 H Creatinine 1.3 Est GFR (CKD-EPI)AfAm 69.71 Est GFR (CKD-EPI)NonAf 60.14 Random Glucose 101 Calcium 8.6 Total Bilirubin 1.0 AST 19 ALT 26 Alkaline Phosphatase 77 Total Protein 7.0 Albumin 3.7 Urine Color Urine Appearance Urine pH Ur Specific [place] Urine Protein Urine Glucose (UA) Urine Ketones Urine Blood Urine Nitrite Urine Bilirubin Urine Urobilinogen Ur Leukocyte Esterase Syphilis Serology Reactive A* RPR Titer COVID-19 (RYANNE) 11/13/19 11/13/19 11/14/19 14:15 14:40 16:10 WBC RBC Hgb Hct MCV MCH MCHC RDW Plt Count MPV Sodium Potassium Chloride Carbon Dioxide Anion Gap BUN Creatinine Est GFR (CKD-EPI)AfAm Est GFR (CKD-EPI)NonAf Random Glucose Calcium Total Bilirubin AST ALT Alkaline Phosphatase Total Protein Albumin Urine Color Yellow Urine Appearance Clear Urine pH 7.5 D Ur Specific [place] 1.011 Urine Protein Negative Urine Glucose (UA) Negative Urine Ketones Negative Urine Blood Negative Urine Nitrite Negative Urine Bilirubin Negative Urine Urobilinogen 0.2 Ur Leukocyte Esterase Negative Syphilis Serology RPR Titer Reactive 1:1 H D COVID-19 (RYANNE) Not detected covid-19 not detected RPR 1:1 Pt reports had 2 inj. with [facility].D clinic of [place], [place] on 11/02/19. Assessment: 11/15/19 11:51 withdrawal sx Plan: continue detox increase po fluids maintain safety
[2019-11-15] MEDS: MIRTAZAPINE 15 MG TABLET (FP) PO SCH (22:11)
[2019-11-15] MEDS: QUEtiapine FUMARATE 200 MG TABLET PO SCH (22:11)
[2019-11-15] MEDS: MELATONIN 5 MG TABLETS PO SCH (22:11)
[2019-11-15] MEDS: THIAMINE HCL 100 MG TABLET (FP) PO SCH (22:11)
[2019-11-16] MEDS ORDERED: chlordiazePOXIDE HCL 10 MG CAPSULE PO PRN
[2019-11-16] MEDS: chlordiazePOXIDE HCL 10 MG CAPSULE PO SCH ×4 (06:07→22:08)
[2019-11-16] MEDS: NICOTINE POLACRILEX 2 MG GUM BUC PRN ×6 (06:09→22:08)
--- NOTE | 2019-11-16 09:56 | PN ---
S CIWA - CIWA Score Nausea/Vomitin-No Nausea/No Vomiting Muscle Tremors: 2 Anxiety: 4-Mod. Anxious/Guarded Agitation: 0-Normal Activity Paroxysmal Sweats: 1-Minimal Palms Moist Orientation: 0-Oriented Tacttile Disturbances: 0-None Auditory Disturbances: 0-None Visual Disturbances: 0-None Headache: 0-None Present CIWA-Ar Total Score: 7 BHS Progress Note (SOAP) Subjective: Anxiety slight tremors sweats Objective: 11/16/19 09:57 Vital Signs 11/16/19 11/16/19 11/16/19 03:30 05:00 06:36 Temperature 97.6 F Pulse Rate 59 L Respiratory 18 18 Rate Blood Pressure 112/64 O2 Sat by Pulse 96 Oximetry (%) Laboratory Tests 11/13/19 11/13/19 11/13/19 14:15 14:15 14:15 WBC 4.3 RBC 4.06 Hgb 12.9 Hct 38.8 MCV 95.6 MCH 31.8 MCHC 33.3 RDW 14.9 Plt Count 276 MPV 8.6 Sodium 140 Potassium 4.1 Chloride 106 Carbon Dioxide 28 Anion Gap 6 L BUN 19.8 H Creatinine 1.3 Est GFR (CKD-EPI)AfAm 69.71 Est GFR (CKD-EPI)NonAf 60.14 Random Glucose 101 Calcium 8.6 Total Bilirubin 1.0 AST 19 ALT 26 Alkaline Phosphatase 77 Total Protein 7.0 Albumin 3.7 Urine Color Urine Appearance Urine pH Ur Specific [place] Urine Protein Urine Glucose (UA) Urine Ketones Urine Blood Urine Nitrite Urine Bilirubin Urine Urobilinogen Ur Leukocyte Esterase Syphilis Serology Reactive A* RPR Titer COVID-19 (RYANNE) 11/13/19 11/13/19 11/14/19 14:15 14:40 16:10 WBC RBC Hgb Hct MCV MCH MCHC RDW Plt Count MPV Sodium Potassium Chloride Carbon Dioxide Anion Gap BUN Creatinine Est GFR (CKD-EPI)AfAm Est GFR (CKD-EPI)NonAf Random Glucose Calcium Total Bilirubin AST ALT Alkaline Phosphatase Total Protein Albumin Urine Color Yellow Urine Appearance Clear Urine pH 7.5 D Ur Specific [place] 1.011 Urine Protein Negative Urine Glucose (UA) Negative Urine Ketones Negative Urine Blood Negative Urine Nitrite Negative Urine Bilirubin Negative Urine Urobilinogen 0.2 Ur Leukocyte Esterase Negative Syphilis Serology RPR Titer Reactive 1:1 H D COVID-19 (RYANNE) Not detected covid-19 not detected Assessment: 11/16/19 09:57 withdrawal sx Plan: cont detox increase po fluids maintain safety
[2019-11-16] MEDS: AMMONIUM LACTATE 12% CREAM 140 GM TUBE TP SCH ×2 (10:31→22:10)
[2019-11-16] MEDS: PRENATAL VITAMINS W/ FOLIC ACID TABLET (FP) PO SCH (10:31)
--- NOTE | 2019-11-16 11:50 | PN ---
[facility] Progress Note Note: Call was placed to [facility], [address] [place]; to verify last Syphilis treatment. Spoke the the Ms Song Nurse at the Specialty Clinic who reported that last dose of Bicillin inj x 1 only was given on 11/01/19 for RPR 1:2 and pt does not need any dose at this time. She reports hx of previous testings: December 2018- TPA Reactive, RPR Nonreactive June 2019-TPA reactive, RPR Nonreactive July 2019-TPA Reactive ,RPR reactive and titer 1:23 October 2019- TPA Reactive , RPR reactive and titer 1:2(Pt was treated as above per nurse Song) Pt is also reported to be on PrEP and Rx given on 11/01/19 x 3 months(pt did not inform admitting staff he is on PrEP and stated today that he did not think we needed to know. Pt will continue care with his clinic after discharge from detox); Pt was given next appointment by his clinic on January 24, 2020(pt says he is aware). Pt has been reminded to follow up with his interactive account manager Mr Roche at [employer] for future communications. All information above relayed to pt's counselor, Ms Rhina Servin for coordination of care.
[2019-11-16] MEDS: QUEtiapine FUMARATE 200 MG TABLET PO SCH (22:08)
[2019-11-16] MEDS: MIRTAZAPINE 15 MG TABLET (FP) PO SCH (22:08)
[2019-11-16] MEDS: MELATONIN 5 MG TABLETS PO SCH (22:08)
[2019-11-16] MEDS: hydrOXYzine PAMOATE 50 MG CAPSULE (FP) PO PRN (22:08)
[2019-11-16] MEDS: THIAMINE HCL 100 MG TABLET (FP) PO SCH (22:08)
[2019-11-17] MEDS ORDERED: chlordiazePOXIDE HCL 10 MG CAPSULE PO SCH (05:00)
[2019-11-17] MEDS: NICOTINE POLACRILEX 2 MG GUM BUC PRN (06:21)
--- NOTE | 2019-11-17 09:10 | PN ---
[facility] Progress Note Note: Psychiatric nurse practitioner note: Patient scheduled for discharge today. A 30 day prescription of Seroquel 200mg HS + Remeron 15mg HS was electronically sent to [facility] @ [address] [place] [address].
[2019-11-17 09:53] VITALS: BP 135/65; PULSE 69; TEMP 97.5
--- NOTE | 2019-11-17 15:15 | DS ---
[facility] Detox Discharge Summary Admission Date: 11/13/19 Discharge Date: 11/17/19 - History Present History: Alcohol Dependence, Cocaine Dependence Additional Comments: Since Patient reports that current withdrawal / detox symptoms are minimal in degree and that he feels well overall, at Patients request, he was granted an early discharge from Detox unit today so that he may return home to attend to personal affairs. Patient advised to consider Local 12-Step / NA / AA outpatient support group programs for aftercare. Patient advised to follow-up with medical provider at [facility] for further medical evaluation for RPR result and history of treatment for Syphilis noted during Detox admission. Patient verbalized understanding of all recommendations presented to him. Patient was Discharged from Detox Unit in stable medical condition. Pertinent Past History: History of Bipolar Disorder, History of Anxiety, Nicotine Dependence. - Physical Exam Results Vital Signs: Vital Signs Temperature 97.5 F L 11/17/19 09:30 Pulse Rate 69 11/17/19 09:30 Respiratory Rate 18 11/17/19 09:30 Blood Pressure 135/65 11/17/19 09:30 O2 Sat by Pulse Oximetry (%) 98 11/17/19 09:30 Pertinent Admission Physical Exam Findings: WITHDRAWAL SYMPTOMS. Laboratory Tests 11/13/19 11/13/19 11/13/19 14:15 14:15 14:15 WBC 4.3 RBC 4.06 Hgb 12.9 Hct 38.8 MCV 95.6 MCH 31.8 MCHC 33.3 RDW 14.9 Plt Count 276 MPV 8.6 Sodium 140 Potassium 4.1 Chloride 106 Carbon Dioxide 28 Anion Gap 6 L BUN 19.8 H Creatinine 1.3 Est GFR (CKD-EPI)AfAm 69.71 Est GFR (CKD-EPI)NonAf 60.14 Random Glucose 101 Calcium 8.6 Total Bilirubin 1.0 AST 19 ALT 26 Alkaline Phosphatase 77 Total Protein 7.0 Albumin 3.7 Urine Color Urine Appearance Urine pH Ur Specific [place] Urine Protein Urine Glucose (UA) Urine Ketones Urine Blood Urine Nitrite Urine Bilirubin Urine Urobilinogen Ur Leukocyte Esterase Syphilis Serology Reactive A* RPR Titer COVID-19 (RYANNE) 11/13/19 11/13/19 11/14/19 14:15 14:40 16:10 WBC RBC Hgb Hct MCV MCH MCHC RDW Plt Count MPV Sodium Potassium Chloride Carbon Dioxide Anion Gap BUN Creatinine Est GFR (CKD-EPI)AfAm Est GFR (CKD-EPI)NonAf Random Glucose Calcium Total Bilirubin AST ALT Alkaline Phosphatase Total Protein Albumin Urine Color Yellow Urine Appearance Clear Urine pH 7.5 D Ur Specific [place] 1.011 Urine Protein Negative Urine Glucose (UA) Negative Urine Ketones Negative Urine Blood Negative Urine Nitrite Negative Urine Bilirubin Negative Urine Urobilinogen 0.2 Ur Leukocyte Esterase Negative Syphilis Serology RPR Titer Reactive 1:1 H D COVID-19 (RYANNE) Not detected Lab Results Noted. - Treatment Hospital Course: Detox Protocol Followed, Detoxed Safely, Responded well, Discharged Condition Good Patient has Accepted a Rehab Referral to: Pt advised to consider Local 12-Step / NA / AA outpatient support groups. - Medication Discharge Medications: Ambulatory Orders Mirtazapine [Remeron -] 15 mg PO HS #30 tablet 10/19/18 Quetiapine Fumarate [Seroquel -] 400 mg PO BID #60 tablet 07/31/19 Ammonium Lactate Lotion [Lac-Hydrin 12% Lotion -] 1 applic TP ASDIR 11/13/19 Gabapentin 800 mg PO QID PRN 11/13/19 Mirtazapine [Remeron -] 15 mg PO HS #30 tablet 11/17/19 Quetiapine Fumarate [Seroquel -] 200 mg PO HS #30 tablet 11/17/19 - Diagnosis (1) Alcohol dependence with uncomplicated withdrawal Status: Acute (2) Substance-induced sleep disorder Status: Acute (3) Cocaine dependence, uncomplicated Status: Chronic (4) History of bipolar disorder Status: Chronic (5) Nicotine dependence Status: Chronic Qualifiers: Nicotine product type: cigarettes Substance use status: uncomplicated Qualified Code(s): F17.210 - Nicotine dependence, cigarettes, uncomplicated - AMA Did Patient Leave Against Medical Advice: No
[2019-11-18] MEDS ORDERED: chlordiazePOXIDE HCL 10 MG CAPSULE PO ONE (05:00)
== END 2019-11-17 09:20 | disposition home or self-care (01) | DRG 774 ==
LOC: YASAS 12:36 → Y5N DETOX 14:30
PROVIDERS: ADMIT Allergy & Immunology; ATTEND Allergy & Immunology
PROC: HZ2ZZZZ Detoxification Services for Substance Abuse Treatment (ICD-10-PCS; principal; 2019-11-13)
DX: F10.230 Alcohol dependence with withdrawal, uncomplicated (principal); F14.20 Cocaine dependence, uncomplicated; F17.210 Nicotine dependence, cigarettes, uncomplicated; F19.282 Other psychoactive substance dependence with psychoactive substance-induced sleep disorder; F31.9 Bipolar disorder, unspecified; R63.4 Abnormal weight loss
CPT/HCPCS: 36415; 80053; 81003; 85027; 86593; 86780; Q0162; U0003

== ENCOUNTER 2020-09-24 15:47 | Inpatient (IN) | payer OTHER ==
[2020-09-24 17:53] VITALS: BMI 25.8
[2020-09-24] MEDS ORDERED: MAGNESIUM CITRATE 300 ML BOTTLE PO PRN (21:37)
[2020-09-24] MEDS ORDERED: MAG HYDROX/AL HYDROX/SIMETH 30 ML UNIT-DOSE CUP PO PRN (21:37)
[2020-09-24] MEDS ORDERED: ACETAMINOPHEN 325 MG TABLET (FP) PO PRN (21:37)
[2020-09-24] MEDS ORDERED: IBUPROFEN 400 MG TABLET (FP) PO PRN (21:37)
[2020-09-24] MEDS ORDERED: MAGNESIUM HYDROX 2400MG/30ML ORAL SUSPENSION 30 ML CUP PO PRN (21:37)
[2020-09-24] MEDS ORDERED: METHOCARBAMOL 500 MG TABLET PO PRN (21:37)
[2020-09-24] MEDS ORDERED: ONDANSETRON *ODT* 4 MG TABLET SL PRN (21:37)
[2020-09-24] MEDS ORDERED: MENTHOL/PHENOL 1 EACH UD MM PRN (21:37)
[2020-09-24] MEDS ORDERED: BISMUTH SUBSALICYLATE 524 MG/30 ML UD PO PRN (21:37)
[2020-09-24] MEDS: THIAMINE HCL 100 MG TABLET (FP) PO SCH (23:33)
[2020-09-24] MEDS: hydrOXYzine PAMOATE 25 MG CAPSULE (FP) PO SCH (23:33)
[2020-09-24] MEDS: MELATONIN 5 MG TABLETS PO SCH (23:33)
[2020-09-24] MEDS: NICOTINE POLACRILEX 2 MG GUM BUC PRN (23:33)
[2020-09-25] MEDS: hydrOXYzine PAMOATE 25 MG CAPSULE (FP) PO SCH ×5 (05:43→22:49)
[2020-09-25] MEDS: NICOTINE POLACRILEX 2 MG GUM BUC PRN ×4 (05:44→18:45)
[2020-09-25] MEDS ORDERED: chlordiazePOXIDE HCL 25 MG CAPSULE PO PRN (09:26)
[2020-09-25] MEDS: chlordiazePOXIDE HCL 25 MG CAPSULE PO SCH ×3 (10:09→22:47)
[2020-09-25] MEDS: PRENATAL VITAMINS W/ FOLIC ACID TABLET (FP) PO SCH (10:09)
[2020-09-25 11:43] LABS: HEMATOCRIT 34.4 % (35.4-49); HEMOGLOBIN 11.9 GM/dL (11.7-16.9); MCH 32.4 pg (25.7-33.7); MCHC 34.5 g/dl (32.0-35.9); MEAN CELL VOLUME 93.8 fl (80-96); PLATELET COUNT 280 K/MM3 (134-434); RBC 3.67 M/mm3 (4.00-5.60); RDW 14.4 % (11.9-15.9); WHITE BLOOD COUNT 4.4 K/mm3 (4.0-10.0)
[2020-09-25 11:59] LABS: ALBUMIN 3.2 g/dl (3.4-5.0); CALCIUM 8.2 mg/dL (8.5-10.1)
[2020-09-25 12:02] LABS: CREATININE 0.9 mg/dL (0.55-1.3)
[2020-09-25 12:04] LABS: BILIRUBIN,TOTAL 0.3 mg/dL (0.2-1); TOT PROT 6.3 g/dl (6.4-8.2)
[2020-09-25] MEDS ORDERED: MIRTAZAPINE 15 MG TABLET (FP) PO SCH (22:00)
[2020-09-25] MEDS: THIAMINE HCL 100 MG TABLET (FP) PO SCH (22:46)
[2020-09-25] MEDS: QUEtiapine FUMARATE 400 MG TABLET PO SCH (22:46)
[2020-09-25] MEDS: MELATONIN 5 MG TABLETS PO SCH (22:48)
[2020-09-26] MEDS: chlordiazePOXIDE HCL 25 MG CAPSULE PO SCH ×4 (05:22→22:24)
[2020-09-26] MEDS: ACETAMINOPHEN 325 MG TABLET (FP) PO PRN ×2 (05:24→11:06)
[2020-09-26] MEDS: hydrOXYzine PAMOATE 25 MG CAPSULE (FP) PO SCH ×5 (05:25→22:58)
[2020-09-26] MEDS: NICOTINE POLACRILEX 2 MG GUM BUC PRN ×5 (05:28→22:29)
[2020-09-26] MEDS ORDERED: QUEtiapine FUMARATE 100 MG TABLET (FP) PO SCH (10:00)
[2020-09-26] MEDS: CITALOPRAM HYDROBROMIDE 20 MG TABLET PO SCH (11:03)
[2020-09-26] MEDS: PRENATAL VITAMINS W/ FOLIC ACID TABLET (FP) PO SCH (11:03)
[2020-09-26] MEDS: MIRTAZAPINE 15 MG TABLET (FP) PO SCH (22:24)
[2020-09-26] MEDS: MELATONIN 5 MG TABLETS PO SCH (22:24)
[2020-09-26] MEDS: THIAMINE HCL 100 MG TABLET (FP) PO SCH (22:24)
[2020-09-26] MEDS: QUEtiapine FUMARATE 400 MG TABLET PO SCH (22:24)
[2020-09-27] MEDS: hydrOXYzine PAMOATE 25 MG CAPSULE (FP) PO SCH ×5 (06:35→23:02)
[2020-09-27] MEDS: chlordiazePOXIDE HCL 25 MG CAPSULE PO SCH ×4 (06:35→23:01)
[2020-09-27] MEDS: NICOTINE POLACRILEX 2 MG GUM BUC PRN ×6 (07:32→22:46)
[2020-09-27] MEDS: ACETAMINOPHEN 325 MG TABLET (FP) PO PRN ×2 (10:33→18:36)
[2020-09-27] MEDS: QUEtiapine FUMARATE 200 MG TABLET PO SCH (10:34)
[2020-09-27] MEDS: PRENATAL VITAMINS W/ FOLIC ACID TABLET (FP) PO SCH (10:34)
[2020-09-27] MEDS: CITALOPRAM HYDROBROMIDE 20 MG TABLET PO SCH (10:34)
[2020-09-27] MEDS: THIAMINE HCL 100 MG TABLET (FP) PO SCH (22:45)
[2020-09-27] MEDS: MIRTAZAPINE 15 MG TABLET (FP) PO SCH (22:45)
[2020-09-27] MEDS: QUEtiapine FUMARATE 400 MG TABLET PO SCH (22:45)
[2020-09-27] MEDS: MELATONIN 5 MG TABLETS PO SCH (23:01)
[2020-09-28] MEDS ORDERED: chlordiazePOXIDE HCL 10 MG CAPSULE PO PRN
[2020-09-28] MEDS: hydrOXYzine PAMOATE 25 MG CAPSULE (FP) PO SCH ×5 (05:29→22:31)
[2020-09-28] MEDS: chlordiazePOXIDE HCL 10 MG CAPSULE PO SCH ×4 (05:29→22:28)
[2020-09-28] MEDS: NICOTINE POLACRILEX 2 MG GUM BUC PRN ×5 (05:30→22:31)
[2020-09-28] MEDS: QUEtiapine FUMARATE 200 MG TABLET PO SCH (10:27)
[2020-09-28] MEDS: PRENATAL VITAMINS W/ FOLIC ACID TABLET (FP) PO SCH (10:28)
[2020-09-28] MEDS: CITALOPRAM HYDROBROMIDE 20 MG TABLET PO SCH (10:28)
[2020-09-28] MEDS ORDERED: cloNIDine HCL 0.1 MG TABLET PO PRN (11:21)
[2020-09-28] MEDS: MIRTAZAPINE 15 MG TABLET (FP) PO SCH (22:29)
[2020-09-28] MEDS: MELATONIN 5 MG TABLETS PO SCH (22:29)
[2020-09-28] MEDS: QUEtiapine FUMARATE 400 MG TABLET PO SCH (22:29)
[2020-09-28] MEDS: THIAMINE HCL 100 MG TABLET (FP) PO SCH (22:30)
[2020-09-29] MEDS ORDERED: chlordiazePOXIDE HCL 10 MG CAPSULE PO SCH (05:00)
[2020-09-29] MEDS: hydrOXYzine PAMOATE 25 MG CAPSULE (FP) PO SCH ×2 (05:48→10:11)
[2020-09-29 06:05] LABS: SARS-CoV-2 NAA Not Detected (Not Detected)
[2020-09-29] MEDS: NICOTINE POLACRILEX 2 MG GUM BUC PRN ×2 (07:13→10:13)
[2020-09-29 09:58] VITALS: BP 108/70; PULSE 62; TEMP 97.5
[2020-09-29] MEDS: QUEtiapine FUMARATE 200 MG TABLET PO SCH (10:11)
[2020-09-29] MEDS: CITALOPRAM HYDROBROMIDE 20 MG TABLET PO SCH (10:11)
[2020-09-29] MEDS: PRENATAL VITAMINS W/ FOLIC ACID TABLET (FP) PO SCH (10:11)
[2020-09-30] MEDS ORDERED: chlordiazePOXIDE HCL 10 MG CAPSULE PO ONE (05:00)
== END 2020-09-29 12:18 | disposition other institution (70) | DRG 774 ==
LOC: YASAS 15:47 → Y6N 21:36 → UNDOADMIN 21:36 → Y6N 09-25 11:20
PROVIDERS: ADMIT Allergy & Immunology; ATTEND Allergy & Immunology
PROC: HZ2ZZZZ Detoxification Services for Substance Abuse Treatment (ICD-10-PCS; principal; 2020-09-24)
DX: F10.230 Alcohol dependence with withdrawal, uncomplicated (principal); F14.20 Cocaine dependence, uncomplicated; F17.210 Nicotine dependence, cigarettes, uncomplicated; F19.282 Other psychoactive substance dependence with psychoactive substance-induced sleep disorder; F32.9 Major depressive disorder, single episode, unspecified; Z86.19 Personal history of other infectious and parasitic diseases
CPT/HCPCS: 36415; 80053; 85027; 86593; 86780; C9803; U0003; U0005

== ENCOUNTER 2020-11-12 11:56 | Inpatient (IN) | payer OTHER ==
[2020-11-12 14:16] VITALS: BMI 25.2
[2020-11-12] MEDS ORDERED: P-EPHED 60MG/TRIPROLIDI 2.5MG TABLET PO PRN (20:41)
[2020-11-12] MEDS ORDERED: MAG HYDROX/AL HYDROX/SIMETH 30 ML UNIT-DOSE CUP PO PRN (20:41)
[2020-11-12] MEDS ORDERED: ACETAMINOPHEN 325 MG TABLET (FP) PO PRN (20:41)
[2020-11-12] MEDS ORDERED: MAGNESIUM CITRATE 300 ML BOTTLE PO PRN (20:41)
[2020-11-12] MEDS ORDERED: LOPERAMIDE HCL 2 MG CAPSULE PO PRN (20:41)
[2020-11-12] MEDS ORDERED: MAGNESIUM HYDROX 2400MG/30ML ORAL SUSPENSION 30 ML CUP PO PRN (20:41)
[2020-11-12] MEDS ORDERED: IBUPROFEN 400 MG TABLET (FP) PO PRN (20:41)
[2020-11-12] MEDS ORDERED: guaiFENesin 200 MG/10 ML 10 ML UNIT-DOSE CUPS PO PRN (20:41)
[2020-11-12] MEDS: THIAMINE HCL 100 MG TABLET (FP) PO SCH (21:49)
[2020-11-12] MEDS: MELATONIN 5 MG TABLETS PO SCH (21:49)
[2020-11-12] MEDS: NICOTINE POLACRILEX 2 MG GUM BC PRN (21:50)
[2020-11-13] MEDS: NICOTINE POLACRILEX 2 MG GUM BC PRN ×4 (06:26→21:41)
[2020-11-13] MEDS: NICOTINE 14 MG/24 HOURS TOPICAL PATCH TD SCH (10:51)
[2020-11-13] MEDS: PRENATAL VITAMINS W/ FOLIC ACID TABLET (FP) PO SCH (10:51)
[2020-11-13 11:06] LABS: HEMATOCRIT 37.4 % (35.4-49); HEMOGLOBIN 12.4 GM/dL (11.7-16.9); MCH 30.7 pg (25.7-33.7); MEAN PLT VOLUME 8.3 fl (7.5-11.1); PLATELET COUNT 250 10^3/uL (134-434); RBC 4.03 M/mm3 (4.00-5.60); RDW 13.9 % (11.9-15.9); WHITE BLOOD COUNT 3.9 K/mm3 (4.0-10.0)
[2020-11-13 11:16] LABS: CALCIUM 8.6 mg/dL (8.5-10.1)
[2020-11-13 11:17] LABS: ALBUMIN 3.1 g/dl (3.4-5.0); BLOOD UREA NITROGEN 15.9 mg/dL (7-18)
[2020-11-13 11:20] LABS: CREATININE 1.1 mg/dL (0.55-1.3)
[2020-11-13 11:21] LABS: TOT PROT 6.2 g/dl (6.4-8.2)
[2020-11-13 11:42] LABS: BILIRUBIN,TOTAL 0.2 mg/dL (0.2-1)
[2020-11-13 13:44] LABS: PH,URINE 6.5 (5.0-8.0); URINE APPEARANCE CLEAR; URINE BILIRUBIN NEGATIVE (NEGATIVE); URINE COLOR YELLOW; URINE GLUCOSE (UA) NEGATIVE (NEGATIVE); URINE KETONE NEGATIVE (NEGATIVE); URINE LEUK ESTERASE NEGATIVE (NEGATIVE); URINE NITRITE NEGATIVE (NEGATIVE); URINE PROTEIN NEGATIVE (NEGATIVE); URINE UROBILINOGEN 0.2 mg/dL (0.2-1.0)
[2020-11-13] MEDS: QUEtiapine FUMARATE 400 MG TABLET PO SCH ×2 (14:43→21:38)
[2020-11-13] MEDS: CITALOPRAM HYDROBROMIDE 20 MG TABLET PO SCH (14:43)
[2020-11-13] MEDS: MIRTAZAPINE 15 MG TABLET (FP) PO SCH (21:39)
[2020-11-13] MEDS: hydrOXYzine PAMOATE 25 MG CAPSULE (FP) PO PRN (21:39)
[2020-11-13] MEDS: THIAMINE HCL 100 MG TABLET (FP) PO SCH (21:40)
[2020-11-13] MEDS: MELATONIN 5 MG TABLETS PO SCH (21:40)
[2020-11-14] MEDS: PRENATAL VITAMINS W/ FOLIC ACID TABLET (FP) PO SCH (10:19)
[2020-11-14] MEDS: QUEtiapine FUMARATE 400 MG TABLET PO SCH ×2 (10:19→21:14)
[2020-11-14] MEDS: CITALOPRAM HYDROBROMIDE 20 MG TABLET PO SCH (10:19)
[2020-11-14] MEDS: NICOTINE 14 MG/24 HOURS TOPICAL PATCH TD SCH (10:19)
[2020-11-14] MEDS: hydrOXYzine PAMOATE 25 MG CAPSULE (FP) PO PRN ×2 (10:20→21:13)
[2020-11-14] MEDS: NICOTINE POLACRILEX 2 MG GUM BC PRN ×3 (10:21→21:15)
[2020-11-14] MEDS ORDERED: PT OWN MED DRAWER 7, Y5N ONE (14:40)
[2020-11-14] MEDS: MIRTAZAPINE 15 MG TABLET (FP) PO SCH (21:14)
[2020-11-14] MEDS: THIAMINE HCL 100 MG TABLET (FP) PO SCH (21:14)
[2020-11-14] MEDS: MELATONIN 5 MG TABLETS PO SCH (21:14)
[2020-11-15] MEDS: NICOTINE POLACRILEX 2 MG GUM BC PRN ×4 (07:19→21:46)
[2020-11-15] MEDS: CITALOPRAM HYDROBROMIDE 20 MG TABLET PO SCH (09:42)
[2020-11-15] MEDS: QUEtiapine FUMARATE 400 MG TABLET PO SCH ×2 (09:42→21:45)
[2020-11-15] MEDS: PRENATAL VITAMINS W/ FOLIC ACID TABLET (FP) PO SCH (09:42)
[2020-11-15] MEDS: NICOTINE 14 MG/24 HOURS TOPICAL PATCH TD SCH (09:43)
[2020-11-15] MEDS: hydrOXYzine PAMOATE 25 MG CAPSULE (FP) PO PRN (09:43)
[2020-11-15] MEDS: MIRTAZAPINE 15 MG TABLET (FP) PO SCH (21:45)
[2020-11-15] MEDS: MELATONIN 5 MG TABLETS PO SCH (21:45)
[2020-11-15] MEDS: THIAMINE HCL 100 MG TABLET (FP) PO SCH (21:45)
[2020-11-16] MEDS: CITALOPRAM HYDROBROMIDE 20 MG TABLET PO SCH (09:03)
[2020-11-16] MEDS: QUEtiapine FUMARATE 400 MG TABLET PO SCH ×2 (09:03→21:15)
[2020-11-16] MEDS: NICOTINE 14 MG/24 HOURS TOPICAL PATCH TD SCH (09:03)
[2020-11-16] MEDS: PRENATAL VITAMINS W/ FOLIC ACID TABLET (FP) PO SCH (09:03)
[2020-11-16] MEDS: NICOTINE POLACRILEX 2 MG GUM BC PRN ×5 (09:03→21:16)
[2020-11-16] MEDS: MIRTAZAPINE 15 MG TABLET (FP) PO SCH (21:16)
[2020-11-16] MEDS: MELATONIN 5 MG TABLETS PO SCH (21:16)
[2020-11-16] MEDS: hydrOXYzine PAMOATE 25 MG CAPSULE (FP) PO PRN (21:16)
[2020-11-16] MEDS: THIAMINE HCL 100 MG TABLET (FP) PO SCH (21:17)
[2020-11-17] MEDS: NICOTINE 14 MG/24 HOURS TOPICAL PATCH TD SCH (09:47)
[2020-11-17] MEDS: PRENATAL VITAMINS W/ FOLIC ACID TABLET (FP) PO SCH (09:47)
[2020-11-17] MEDS: CITALOPRAM HYDROBROMIDE 20 MG TABLET PO SCH (09:47)
[2020-11-17] MEDS: AMMONIUM LACTATE 12% LOTION 225 GM BOTTLE TP PRN (09:47)
[2020-11-17] MEDS: NICOTINE POLACRILEX 2 MG GUM BC PRN ×5 (09:49→21:50)
[2020-11-17] MEDS: QUEtiapine FUMARATE 400 MG TABLET PO SCH ×2 (10:31→21:48)
[2020-11-17] MEDS ORDERED: COVID-19 VAC,AD26(JANSSEN)/PF 0.5 ML IM ONE (12:00)
[2020-11-17] MEDS: MIRTAZAPINE 15 MG TABLET (FP) PO SCH (21:48)
[2020-11-17] MEDS: MELATONIN 5 MG TABLETS PO SCH (21:48)
[2020-11-17] MEDS: hydrOXYzine PAMOATE 25 MG CAPSULE (FP) PO PRN (21:49)
[2020-11-17] MEDS: THIAMINE HCL 100 MG TABLET (FP) PO SCH (21:56)
[2020-11-18] MEDS: NICOTINE POLACRILEX 2 MG GUM BC PRN ×4 (06:24→21:10)
[2020-11-18] MEDS: PRENATAL VITAMINS W/ FOLIC ACID TABLET (FP) PO SCH (10:23)
[2020-11-18] MEDS: QUEtiapine FUMARATE 400 MG TABLET PO SCH ×2 (10:23→21:09)
[2020-11-18] MEDS: CITALOPRAM HYDROBROMIDE 20 MG TABLET PO SCH (10:23)
[2020-11-18] MEDS: NICOTINE 14 MG/24 HOURS TOPICAL PATCH TD SCH (10:24)
[2020-11-18] MEDS: hydrOXYzine PAMOATE 25 MG CAPSULE (FP) PO PRN (21:09)
[2020-11-18] MEDS: MIRTAZAPINE 15 MG TABLET (FP) PO SCH (21:09)
[2020-11-18] MEDS: THIAMINE HCL 100 MG TABLET (FP) PO SCH (21:09)
[2020-11-18] MEDS: MELATONIN 5 MG TABLETS PO SCH (21:09)
[2020-11-19] MEDS: NICOTINE POLACRILEX 2 MG GUM BC PRN ×4 (06:09→21:43)
[2020-11-19] MEDS: PRENATAL VITAMINS W/ FOLIC ACID TABLET (FP) PO SCH (09:53)
[2020-11-19] MEDS: CITALOPRAM HYDROBROMIDE 20 MG TABLET PO SCH (09:53)
[2020-11-19] MEDS: QUEtiapine FUMARATE 400 MG TABLET PO SCH ×2 (09:53→21:40)
[2020-11-19] MEDS: NICOTINE 14 MG/24 HOURS TOPICAL PATCH TD SCH (09:54)
[2020-11-19] MEDS: MIRTAZAPINE 15 MG TABLET (FP) PO SCH (21:40)
[2020-11-19] MEDS: hydrOXYzine PAMOATE 25 MG CAPSULE (FP) PO PRN (21:40)
[2020-11-19] MEDS: MELATONIN 5 MG TABLETS PO SCH (21:40)
[2020-11-19] MEDS: THIAMINE HCL 100 MG TABLET (FP) PO SCH (21:40)
[2020-11-19] MEDS: TOLNAFTATE 1% CREAM 15 GM TUBE TP SCH (21:42)
[2020-11-20] MEDS: hydrOXYzine PAMOATE 25 MG CAPSULE (FP) PO PRN ×2 (09:37→21:10)
[2020-11-20] MEDS: NICOTINE 14 MG/24 HOURS TOPICAL PATCH TD SCH (09:37)
[2020-11-20] MEDS: CITALOPRAM HYDROBROMIDE 20 MG TABLET PO SCH (09:37)
[2020-11-20] MEDS: PRENATAL VITAMINS W/ FOLIC ACID TABLET (FP) PO SCH (09:37)
[2020-11-20] MEDS: AMMONIUM LACTATE 12% LOTION 225 GM BOTTLE TP PRN (09:37)
[2020-11-20] MEDS: QUEtiapine FUMARATE 400 MG TABLET PO SCH ×2 (09:37→21:09)
[2020-11-20] MEDS: TOLNAFTATE 1% CREAM 15 GM TUBE TP SCH ×2 (09:38→21:10)
[2020-11-20] MEDS: NICOTINE POLACRILEX 2 MG GUM BC PRN ×3 (09:38→18:46)
[2020-11-20] MEDS: MIRTAZAPINE 15 MG TABLET (FP) PO SCH (21:09)
[2020-11-20] MEDS: THIAMINE HCL 100 MG TABLET (FP) PO SCH (21:09)
[2020-11-20] MEDS: MELATONIN 5 MG TABLETS PO SCH (21:09)
[2020-11-21] MEDS: QUEtiapine FUMARATE 400 MG TABLET PO SCH ×2 (09:44→21:36)
[2020-11-21] MEDS: CITALOPRAM HYDROBROMIDE 20 MG TABLET PO SCH (09:44)
[2020-11-21] MEDS: NICOTINE 14 MG/24 HOURS TOPICAL PATCH TD SCH (09:44)
[2020-11-21] MEDS: PRENATAL VITAMINS W/ FOLIC ACID TABLET (FP) PO SCH (09:44)
[2020-11-21] MEDS: NICOTINE POLACRILEX 2 MG GUM BC PRN ×4 (09:45→21:36)
[2020-11-21] MEDS: TOLNAFTATE 1% CREAM 15 GM TUBE TP SCH ×2 (09:45→21:36)
[2020-11-21] MEDS: MIRTAZAPINE 15 MG TABLET (FP) PO SCH (21:36)
[2020-11-21] MEDS: MELATONIN 5 MG TABLETS PO SCH (21:36)
[2020-11-21] MEDS: THIAMINE HCL 100 MG TABLET (FP) PO SCH (21:36)
[2020-11-21] MEDS: hydrOXYzine PAMOATE 25 MG CAPSULE (FP) PO PRN (21:37)
[2020-11-22] MEDS: NICOTINE POLACRILEX 2 MG GUM BC PRN ×6 (07:20→21:25)
[2020-11-22] MEDS: NICOTINE 14 MG/24 HOURS TOPICAL PATCH TD SCH (09:47)
[2020-11-22] MEDS: PRENATAL VITAMINS W/ FOLIC ACID TABLET (FP) PO SCH (09:47)
[2020-11-22] MEDS: CITALOPRAM HYDROBROMIDE 20 MG TABLET PO SCH (09:47)
[2020-11-22] MEDS: QUEtiapine FUMARATE 400 MG TABLET PO SCH ×2 (09:47→21:23)
[2020-11-22] MEDS: TOLNAFTATE 1% CREAM 15 GM TUBE TP SCH ×2 (09:54→21:24)
[2020-11-22] MEDS: MELATONIN 5 MG TABLETS PO SCH (21:23)
[2020-11-22] MEDS: MIRTAZAPINE 15 MG TABLET (FP) PO SCH (21:23)
[2020-11-22] MEDS: THIAMINE HCL 100 MG TABLET (FP) PO SCH (21:24)
[2020-11-22] MEDS: hydrOXYzine PAMOATE 25 MG CAPSULE (FP) PO PRN (21:24)
[2020-11-23] MEDS: AMMONIUM LACTATE 12% LOTION 225 GM BOTTLE TP PRN (06:03)
[2020-11-23] MEDS: NICOTINE POLACRILEX 2 MG GUM BC PRN ×4 (06:03→21:41)
[2020-11-23] MEDS: CITALOPRAM HYDROBROMIDE 20 MG TABLET PO SCH (09:31)
[2020-11-23] MEDS: QUEtiapine FUMARATE 400 MG TABLET PO SCH ×2 (09:31→21:40)
[2020-11-23] MEDS: PRENATAL VITAMINS W/ FOLIC ACID TABLET (FP) PO SCH (09:31)
[2020-11-23] MEDS: NICOTINE 14 MG/24 HOURS TOPICAL PATCH TD SCH (09:32)
[2020-11-23] MEDS: TOLNAFTATE 1% CREAM 15 GM TUBE TP SCH ×2 (10:18→21:41)
[2020-11-23] MEDS: THIAMINE HCL 100 MG TABLET (FP) PO SCH (21:40)
[2020-11-23] MEDS: MELATONIN 5 MG TABLETS PO SCH (21:40)
[2020-11-23] MEDS: MIRTAZAPINE 15 MG TABLET (FP) PO SCH (21:40)
[2020-11-23] MEDS: hydrOXYzine PAMOATE 25 MG CAPSULE (FP) PO PRN (21:40)
[2020-11-24] MEDS: NICOTINE POLACRILEX 2 MG GUM BC PRN ×4 (06:25→21:15)
[2020-11-24] MEDS: TOLNAFTATE 1% CREAM 15 GM TUBE TP SCH ×2 (10:00→21:14)
[2020-11-24] MEDS: CITALOPRAM HYDROBROMIDE 20 MG TABLET PO SCH (10:00)
[2020-11-24] MEDS: PRENATAL VITAMINS W/ FOLIC ACID TABLET (FP) PO SCH (10:00)
[2020-11-24] MEDS: NICOTINE 14 MG/24 HOURS TOPICAL PATCH TD SCH (10:00)
[2020-11-24] MEDS: QUEtiapine FUMARATE 400 MG TABLET PO SCH ×2 (10:00→21:14)
[2020-11-24] MEDS ORDERED: COVID-19 VAC,AD26(JANSSEN)/PF 0.5 ML IM ONE (11:00)
[2020-11-24] MEDS: hydrOXYzine PAMOATE 25 MG CAPSULE (FP) PO PRN (21:14)
[2020-11-24] MEDS: MIRTAZAPINE 15 MG TABLET (FP) PO SCH (21:14)
[2020-11-24] MEDS: MELATONIN 5 MG TABLETS PO SCH (21:14)
[2020-11-24] MEDS: THIAMINE HCL 100 MG TABLET (FP) PO SCH (21:14)
[2020-11-25] MEDS: NICOTINE POLACRILEX 2 MG GUM BC PRN ×5 (07:25→21:30)
[2020-11-25] MEDS: PRENATAL VITAMINS W/ FOLIC ACID TABLET (FP) PO SCH (09:41)
[2020-11-25] MEDS: QUEtiapine FUMARATE 400 MG TABLET PO SCH ×2 (09:41→21:30)
[2020-11-25] MEDS: CITALOPRAM HYDROBROMIDE 20 MG TABLET PO SCH (09:41)
[2020-11-25] MEDS: NICOTINE 14 MG/24 HOURS TOPICAL PATCH TD SCH (09:43)
[2020-11-25] MEDS: TOLNAFTATE 1% CREAM 15 GM TUBE TP SCH ×2 (09:55→21:30)
[2020-11-25] MEDS: MELATONIN 5 MG TABLETS PO SCH (21:29)
[2020-11-25] MEDS: THIAMINE HCL 100 MG TABLET (FP) PO SCH (21:29)
[2020-11-25] MEDS: MIRTAZAPINE 15 MG TABLET (FP) PO SCH (21:30)
[2020-11-25] MEDS: hydrOXYzine PAMOATE 25 MG CAPSULE (FP) PO PRN (21:30)
[2020-11-26] MEDS: NICOTINE POLACRILEX 2 MG GUM BC PRN ×3 (07:33→21:06)
[2020-11-26] MEDS: PRENATAL VITAMINS W/ FOLIC ACID TABLET (FP) PO SCH (10:04)
[2020-11-26] MEDS: QUEtiapine FUMARATE 400 MG TABLET PO SCH ×2 (10:04→21:06)
[2020-11-26] MEDS: TOLNAFTATE 1% CREAM 15 GM TUBE TP SCH ×2 (10:04→21:07)
[2020-11-26] MEDS: CITALOPRAM HYDROBROMIDE 20 MG TABLET PO SCH (10:04)
[2020-11-26] MEDS: NICOTINE 14 MG/24 HOURS TOPICAL PATCH TD SCH (10:05)
[2020-11-26] MEDS: hydrOXYzine PAMOATE 25 MG CAPSULE (FP) PO PRN (21:06)
[2020-11-26] MEDS: MIRTAZAPINE 15 MG TABLET (FP) PO SCH (21:06)
[2020-11-26] MEDS: THIAMINE HCL 100 MG TABLET (FP) PO SCH (21:06)
[2020-11-26] MEDS: MELATONIN 5 MG TABLETS PO SCH (21:06)
[2020-11-27] MEDS: NICOTINE POLACRILEX 2 MG GUM BC PRN ×2 (06:54→17:38)
[2020-11-27] MEDS: PRENATAL VITAMINS W/ FOLIC ACID TABLET (FP) PO SCH (09:39)
[2020-11-27] MEDS: QUEtiapine FUMARATE 400 MG TABLET PO SCH ×2 (09:39→21:13)
[2020-11-27] MEDS: NICOTINE 14 MG/24 HOURS TOPICAL PATCH TD SCH (09:39)
[2020-11-27] MEDS: CITALOPRAM HYDROBROMIDE 20 MG TABLET PO SCH (09:39)
[2020-11-27] MEDS: TOLNAFTATE 1% CREAM 15 GM TUBE TP SCH ×2 (09:41→21:14)
[2020-11-27] MEDS: THIAMINE HCL 100 MG TABLET (FP) PO SCH (21:13)
[2020-11-27] MEDS: MIRTAZAPINE 15 MG TABLET (FP) PO SCH (21:13)
[2020-11-27] MEDS: MELATONIN 5 MG TABLETS PO SCH (21:13)
[2020-11-27] MEDS: hydrOXYzine PAMOATE 25 MG CAPSULE (FP) PO PRN (21:13)
[2020-11-28] MEDS: NICOTINE POLACRILEX 2 MG GUM BC PRN ×3 (08:37→21:30)
[2020-11-28] MEDS: CITALOPRAM HYDROBROMIDE 20 MG TABLET PO SCH (09:49)
[2020-11-28] MEDS: QUEtiapine FUMARATE 400 MG TABLET PO SCH ×2 (09:49→21:29)
[2020-11-28] MEDS: PRENATAL VITAMINS W/ FOLIC ACID TABLET (FP) PO SCH (09:49)
[2020-11-28] MEDS: NICOTINE 14 MG/24 HOURS TOPICAL PATCH TD SCH (09:50)
[2020-11-28] MEDS: TOLNAFTATE 1% CREAM 15 GM TUBE TP SCH ×2 (10:16→21:30)
[2020-11-28] MEDS: MIRTAZAPINE 15 MG TABLET (FP) PO SCH (21:29)
[2020-11-28] MEDS: hydrOXYzine PAMOATE 25 MG CAPSULE (FP) PO PRN (21:29)
[2020-11-28] MEDS: MELATONIN 5 MG TABLETS PO SCH (21:30)
[2020-11-28] MEDS: THIAMINE HCL 100 MG TABLET (FP) PO SCH (21:30)
[2020-11-29] MEDS: NICOTINE POLACRILEX 2 MG GUM BC PRN ×4 (07:10→19:29)
[2020-11-29] MEDS: NICOTINE 14 MG/24 HOURS TOPICAL PATCH TD SCH (09:43)
[2020-11-29] MEDS: PRENATAL VITAMINS W/ FOLIC ACID TABLET (FP) PO SCH (09:43)
[2020-11-29] MEDS: QUEtiapine FUMARATE 400 MG TABLET PO SCH ×2 (09:43→21:10)
[2020-11-29] MEDS: CITALOPRAM HYDROBROMIDE 20 MG TABLET PO SCH (09:43)
[2020-11-29] MEDS: TOLNAFTATE 1% CREAM 15 GM TUBE TP SCH ×2 (09:45→21:11)
[2020-11-29] MEDS: hydrOXYzine PAMOATE 25 MG CAPSULE (FP) PO PRN (21:10)
[2020-11-29] MEDS: MIRTAZAPINE 15 MG TABLET (FP) PO SCH (21:10)
[2020-11-29] MEDS: MELATONIN 5 MG TABLETS PO SCH (21:10)
[2020-11-29] MEDS: THIAMINE HCL 100 MG TABLET (FP) PO SCH (21:10)
[2020-11-30] MEDS: TOLNAFTATE 1% CREAM 15 GM TUBE TP SCH ×2 (09:34→21:37)
[2020-11-30] MEDS: QUEtiapine FUMARATE 400 MG TABLET PO SCH ×2 (09:34→21:37)
[2020-11-30] MEDS: CITALOPRAM HYDROBROMIDE 20 MG TABLET PO SCH (09:34)
[2020-11-30] MEDS: PRENATAL VITAMINS W/ FOLIC ACID TABLET (FP) PO SCH (09:34)
[2020-11-30] MEDS: AMMONIUM LACTATE 12% LOTION 225 GM BOTTLE TP PRN (09:36)
[2020-11-30] MEDS: NICOTINE POLACRILEX 2 MG GUM BC PRN ×4 (09:36→21:37)
[2020-11-30] MEDS: NICOTINE 14 MG/24 HOURS TOPICAL PATCH TD SCH (10:30)
[2020-11-30] MEDS: hydrOXYzine PAMOATE 25 MG CAPSULE (FP) PO PRN (21:36)
[2020-11-30] MEDS: MIRTAZAPINE 15 MG TABLET (FP) PO SCH (21:36)
[2020-11-30] MEDS: THIAMINE HCL 100 MG TABLET (FP) PO SCH (21:36)
[2020-11-30] MEDS: MELATONIN 5 MG TABLETS PO SCH (21:37)
[2020-12-01 06:45] VITALS: BP 137/72; PULSE 60; TEMP 97.5
[2020-12-01] MEDS: CITALOPRAM HYDROBROMIDE 20 MG TABLET PO SCH (09:45)
[2020-12-01] MEDS: PRENATAL VITAMINS W/ FOLIC ACID TABLET (FP) PO SCH (09:45)
[2020-12-01] MEDS: QUEtiapine FUMARATE 400 MG TABLET PO SCH (09:45)
[2020-12-01] MEDS: NICOTINE 14 MG/24 HOURS TOPICAL PATCH TD SCH (09:45)
[2020-12-01] MEDS: TOLNAFTATE 1% CREAM 15 GM TUBE TP SCH (09:46)
== END 2020-12-01 10:42 | disposition home or self-care (01) | DRG 772 ==
LOC: YASAS 11:56 → Y3W 20:58
PROVIDERS: ADMIT Allergy & Immunology; ATTEND Allergy & Immunology
PROC: HZ42ZZZ Group Counseling for Substance Abuse Treatment, Cognitive-Behavioral (ICD-10-PCS; principal; 2020-11-12)
DX: F10.20 Alcohol dependence, uncomplicated (principal); F14.20 Cocaine dependence, uncomplicated; F17.210 Nicotine dependence, cigarettes, uncomplicated; F19.282 Other psychoactive substance dependence with psychoactive substance-induced sleep disorder; F31.9 Bipolar disorder, unspecified; Z62.810 Personal history of physical and sexual abuse in childhood; Z86.19 Personal history of other infectious and parasitic diseases
CPT/HCPCS: 0031A; 36415; 80053; 81003; 85027; 86593; 86780; 91303; 93005; 93010; C9803; U0003; U0005

== ENCOUNTER 2021-02-09 10:32 | Inpatient (IN) | payer OTHER ==
[2021-02-09 11:05] VITALS: BMI 26.4
[2021-02-09] MEDS ORDERED: MAG HYDROX/AL HYDROX/SIMETH 30 ML UNIT-DOSE CUP PO PRN (12:21)
[2021-02-09] MEDS ORDERED: MENTHOL/PHENOL 1 EACH UD MM PRN (12:21)
[2021-02-09] MEDS ORDERED: NICOTINE 10 MG CARTRIDGE (INHALER) IH PRN (12:21)
[2021-02-09] MEDS ORDERED: ACETAMINOPHEN 325 MG TABLET (FP) PO PRN ×2 (12:21)
[2021-02-09] MEDS ORDERED: diazePAM 5 MG TABLET PO PRN (12:21)
[2021-02-09] MEDS ORDERED: IBUPROFEN 400 MG TABLET (FP) PO PRN (12:21)
[2021-02-09] MEDS ORDERED: METHOCARBAMOL 500 MG TABLET PO PRN (12:21)
[2021-02-09] MEDS ORDERED: BISMUTH SUBSALICYLATE 524 MG/30 ML PO PRN (12:21)
[2021-02-09] MEDS ORDERED: MAGNESIUM HYDROX 2400MG/30ML ORAL SUSPENSION 30 ML CUP PO PRN (12:21)
[2021-02-09] MEDS ORDERED: MAGNESIUM CITRATE 300 ML BOTTLE PO PRN (12:21)
[2021-02-09] MEDS ORDERED: ONDANSETRON *ODT* 4 MG TABLET SL PRN (12:21)
[2021-02-09] MEDS: NICOTINE POLACRILEX 2 MG GUM BUC PRN ×3 (14:30→22:49)
[2021-02-09] MEDS: diazePAM 5 MG TABLET PO SCH ×3 (14:42→22:47)
[2021-02-09] MEDS: hydrOXYzine PAMOATE 25 MG CAPSULE (FP) PO SCH ×3 (14:43→22:47)
[2021-02-09] MEDS: PRENATAL VITAMINS W/ FOLIC ACID TABLET (FP) PO SCH (14:43)
[2021-02-09 17:12] LABS: HEMATOCRIT 35.3 % (35.4-49); HEMOGLOBIN 12.3 GM/dL (11.7-16.9); MCHC 34.8 g/dl (32.0-35.9); MEAN CELL VOLUME 91.7 fl (80-96); MEAN PLT VOLUME 7.9 fl (7.5-11.1); PLATELET COUNT 260 10^3/uL (134-434); RBC 3.85 M/mm3 (4.00-5.60); RDW 14.6 % (11.9-15.9)
[2021-02-09 17:23] LABS: ALBUMIN 3.5 g/dl (3.4-5.0); BILIRUBIN,TOTAL 0.2 mg/dL (0.2-1); CALCIUM 8.8 mg/dL (8.5-10.1)
[2021-02-09 17:26] LABS: CREATININE 1.3 mg/dL (0.55-1.3)
[2021-02-09 17:29] LABS: TOT PROT 7.1 g/dl (6.4-8.2)
[2021-02-09] MEDS ORDERED: MELATONIN 5 MG TABLETS PO SCH (22:00)
[2021-02-09] MEDS: THIAMINE HCL 100 MG TABLET (FP) PO SCH (22:47)
[2021-02-10] MEDS: diazePAM 5 MG TABLET PO SCH ×4 (05:25→22:46)
[2021-02-10] MEDS: hydrOXYzine PAMOATE 25 MG CAPSULE (FP) PO SCH (05:25)
[2021-02-10] MEDS: NICOTINE POLACRILEX 2 MG GUM BUC PRN ×4 (05:26→15:23)
[2021-02-10] MEDS: PRENATAL VITAMINS W/ FOLIC ACID TABLET (FP) PO SCH (10:39)
[2021-02-10] MEDS: CITALOPRAM HYDROBROMIDE 20 MG TABLET PO SCH (10:39)
[2021-02-10] MEDS: QUEtiapine FUMARATE 400 MG TABLET PO SCH ×2 (10:39→23:20)
[2021-02-10] MEDS: MIRTAZAPINE 15 MG TABLET (FP) PO SCH (22:45)
[2021-02-10] MEDS: THIAMINE HCL 100 MG TABLET (FP) PO SCH (22:45)
[2021-02-10] MEDS: hydrOXYzine PAMOATE 50 MG CAPSULE (FP) PO PRN (22:49)
[2021-02-11] MEDS: diazePAM 5 MG TABLET PO SCH ×3 (05:10→22:30)
[2021-02-11] MEDS: NICOTINE POLACRILEX 2 MG GUM BUC PRN ×4 (05:12→22:33)
[2021-02-11] MEDS: QUEtiapine FUMARATE 400 MG TABLET PO SCH ×2 (10:03→22:31)
[2021-02-11] MEDS: CITALOPRAM HYDROBROMIDE 20 MG TABLET PO SCH (10:03)
[2021-02-11] MEDS: PRENATAL VITAMINS W/ FOLIC ACID TABLET (FP) PO SCH (10:04)
[2021-02-11] MEDS: hydrOXYzine PAMOATE 50 MG CAPSULE (FP) PO PRN (10:05)
[2021-02-11] MEDS: MIRTAZAPINE 15 MG TABLET (FP) PO SCH (22:31)
[2021-02-11] MEDS: GABAPENTIN 400 MG CAPSULE PO SCH (22:31)
[2021-02-11] MEDS: THIAMINE HCL 100 MG TABLET (FP) PO SCH (22:31)
[2021-02-12] MEDS: diazePAM 5 MG TABLET PO SCH ×2 (05:14→17:03)
[2021-02-12] MEDS: NICOTINE POLACRILEX 2 MG GUM BUC PRN ×4 (05:15→22:47)
[2021-02-12] MEDS: PRENATAL VITAMINS W/ FOLIC ACID TABLET (FP) PO SCH (10:10)
[2021-02-12] MEDS: CITALOPRAM HYDROBROMIDE 20 MG TABLET PO SCH (10:11)
[2021-02-12] MEDS: QUEtiapine FUMARATE 400 MG TABLET PO SCH ×2 (10:11→22:44)
[2021-02-12] MEDS: THIAMINE HCL 100 MG TABLET (FP) PO SCH (22:44)
[2021-02-12] MEDS: MIRTAZAPINE 15 MG TABLET (FP) PO SCH (22:44)
[2021-02-12] MEDS: GABAPENTIN 400 MG CAPSULE PO SCH (22:44)
[2021-02-12] MEDS: hydrOXYzine PAMOATE 50 MG CAPSULE (FP) PO PRN (22:45)
[2021-02-13] MEDS: NICOTINE POLACRILEX 2 MG GUM BUC PRN ×4 (03:04→10:40)
[2021-02-13] MEDS ORDERED: diazePAM 5 MG TABLET PO ONE (06:00)
[2021-02-13 08:50] VITALS: BP 127/76; PULSE 74; TEMP 96.6
[2021-02-13] MEDS: PRENATAL VITAMINS W/ FOLIC ACID TABLET (FP) PO SCH (10:40)
[2021-02-13] MEDS: CITALOPRAM HYDROBROMIDE 20 MG TABLET PO SCH (10:40)
[2021-02-13] MEDS: QUEtiapine FUMARATE 400 MG TABLET PO SCH (10:40)
== END 2021-02-13 12:07 | disposition other institution (70) | DRG 774 ==
LOC: YASAS 10:32 → Y3N 13:25
PROVIDERS: ADMIT Allergy & Immunology; ATTEND Allergy & Immunology
PROC: HZ2ZZZZ Detoxification Services for Substance Abuse Treatment (ICD-10-PCS; principal; 2021-02-09)
DX: F10.230 Alcohol dependence with withdrawal, uncomplicated (principal); F14.20 Cocaine dependence, uncomplicated; F17.210 Nicotine dependence, cigarettes, uncomplicated; F19.282 Other psychoactive substance dependence with psychoactive substance-induced sleep disorder; F31.9 Bipolar disorder, unspecified; Z62.810 Personal history of physical and sexual abuse in childhood; Z86.19 Personal history of other infectious and parasitic diseases; Z56.0 Unemployment, unspecified; Z59.0 Homelessness
CPT/HCPCS: 36415; 80053; 85027; 86593; 86780; C9803; Q0162; U0003; U0005

== ENCOUNTER 2021-07-09 18:02 | Inpatient (IN) | payer OTHER ==
[2021-07-09 18:33] VITALS: BMI 26.6
[2021-07-10] MEDS ORDERED: P-EPHED 60MG/TRIPROLIDI 2.5MG TABLET PO PRN (02:21)
[2021-07-10] MEDS ORDERED: MAG HYDROX/AL HYDROX/SIMETH 30 ML UNIT-DOSE CUP PO PRN (02:21)
[2021-07-10] MEDS ORDERED: ACETAMINOPHEN 325 MG TABLET (FP) PO PRN (02:21)
[2021-07-10] MEDS ORDERED: MAGNESIUM CITRATE 300 ML BOTTLE PO PRN (02:21)
[2021-07-10] MEDS ORDERED: MAGNESIUM HYDROX 2400MG/30ML ORAL SUSPENSION 30 ML CUP PO PRN (02:21)
[2021-07-10] MEDS ORDERED: guaiFENesin 200 MG/10 ML 10 ML UNIT-DOSE CUPS PO PRN (02:21)
[2021-07-10] MEDS ORDERED: IBUPROFEN 400 MG TABLET (FP) PO PRN (02:21)
[2021-07-10] MEDS ORDERED: LOPERAMIDE HCL 2 MG CAPSULE PO PRN (02:21)
[2021-07-10] MEDS: NICOTINE POLACRILEX 2 MG GUM BC PRN ×4 (08:51→21:32)
[2021-07-10] MEDS: PRENATAL VITAMINS W/ FOLIC ACID TABLET (FP) PO SCH (10:23)
[2021-07-10] MEDS: NICOTINE 14 MG/24 HOURS TOPICAL PATCH TD SCH (10:23)
[2021-07-10 10:29] LABS: HEMATOCRIT 35.6 % (35.4-49); HEMOGLOBIN 11.8 GM/dL (11.7-16.9); MCH 30.8 pg (25.7-33.7); MEAN CELL VOLUME 93.4 fl (80-96); MEAN PLT VOLUME 8.2 fl (7.5-11.1); PLATELET COUNT 272 10^3/uL (134-434); RBC 3.82 M/mm3 (4.00-5.60); RDW 15.4 % (11.9-15.9); WHITE BLOOD COUNT 4.2 K/mm3 (4.0-10.0)
[2021-07-10 10:57] LABS: BLOOD UREA NITROGEN 15.7 mg/dL (7-18); CALCIUM 8.6 mg/dL (8.5-10.1)
[2021-07-10 10:58] LABS: ALBUMIN 3.3 g/dl (3.4-5.0)
[2021-07-10 11:01] LABS: CREATININE 1.2 mg/dL (0.55-1.3)
[2021-07-10 11:02] LABS: BILIRUBIN,TOTAL 0.3 mg/dL (0.2-1); TOT PROT 6.4 g/dl (6.4-8.2)
[2021-07-10] MEDS: AMMONIUM LACTATE 12% LOTION 225 GM BOTTLE TP SCH (16:19)
[2021-07-10] MEDS: MIRTAZAPINE 15 MG TABLET (FP) PO SCH (21:29)
[2021-07-10] MEDS: QUEtiapine FUMARATE 400 MG TABLET PO SCH (21:29)
[2021-07-10] MEDS: THIAMINE HCL 100 MG TABLET (FP) PO SCH (21:29)
[2021-07-10] MEDS: hydrOXYzine PAMOATE 25 MG CAPSULE (FP) PO SCH (21:31)
[2021-07-10] MEDS ORDERED: MELATONIN 5 MG TABLETS PO SCH (22:00)
[2021-07-10] MEDS: CITALOPRAM HYDROBROMIDE 20 MG TABLET PO SCH (23:05)
[2021-07-11] MEDS: NICOTINE POLACRILEX 2 MG GUM BC PRN ×4 (06:38→21:26)
[2021-07-11] MEDS: PRENATAL VITAMINS W/ FOLIC ACID TABLET (FP) PO SCH (09:20)
[2021-07-11] MEDS: NICOTINE 14 MG/24 HOURS TOPICAL PATCH TD SCH (09:20)
[2021-07-11] MEDS: AMMONIUM LACTATE 12% LOTION 225 GM BOTTLE TP SCH (09:20)
[2021-07-11] MEDS: MIRTAZAPINE 15 MG TABLET (FP) PO SCH ×2 (09:22→21:23)
[2021-07-11] MEDS: GABAPENTIN 400 MG CAPSULE PO SCH (13:22)
[2021-07-11 16:11] LABS: SARS-CoV-2 NAA Not Detected (Not Detected)
[2021-07-11 18:35] LABS: URINE APPEARANCE CLEAR; URINE BILIRUBIN NEGATIVE (NEGATIVE); URINE COLOR YELLOW; URINE GLUCOSE (UA) NEGATIVE (NEGATIVE); URINE KETONE NEGATIVE (NEGATIVE); URINE LEUK ESTERASE NEGATIVE (NEGATIVE); URINE NITRITE NEGATIVE (NEGATIVE); URINE PROTEIN NEGATIVE (NEGATIVE); URINE UROBILINOGEN 0.2 mg/dL (0.2-1.0)
[2021-07-11] MEDS: QUEtiapine FUMARATE 400 MG TABLET PO SCH (21:23)
[2021-07-11] MEDS: THIAMINE HCL 100 MG TABLET (FP) PO SCH (21:23)
[2021-07-11] MEDS: CITALOPRAM HYDROBROMIDE 20 MG TABLET PO SCH (21:23)
[2021-07-11] MEDS: hydrOXYzine PAMOATE 25 MG CAPSULE (FP) PO SCH (21:25)
[2021-07-12] MEDS: NICOTINE POLACRILEX 2 MG GUM BC PRN ×4 (06:22→21:31)
[2021-07-12] MEDS: AMMONIUM LACTATE 12% LOTION 225 GM BOTTLE TP SCH (09:09)
[2021-07-12] MEDS: PRENATAL VITAMINS W/ FOLIC ACID TABLET (FP) PO SCH (09:10)
[2021-07-12] MEDS: NICOTINE 14 MG/24 HOURS TOPICAL PATCH TD SCH (09:10)
[2021-07-12] MEDS: GABAPENTIN 400 MG CAPSULE PO SCH (09:10)
[2021-07-12] MEDS: MIRTAZAPINE 15 MG TABLET (FP) PO SCH ×2 (09:11→21:31)
[2021-07-12] MEDS: THIAMINE HCL 100 MG TABLET (FP) PO SCH (21:29)
[2021-07-12] MEDS: hydrOXYzine PAMOATE 25 MG CAPSULE (FP) PO SCH (21:30)
[2021-07-12] MEDS: QUEtiapine FUMARATE 400 MG TABLET PO SCH (21:30)
[2021-07-12] MEDS: CITALOPRAM HYDROBROMIDE 20 MG TABLET PO SCH (21:30)
[2021-07-13] MEDS: NICOTINE POLACRILEX 2 MG GUM BC PRN ×5 (06:18→22:01)
[2021-07-13] MEDS: NICOTINE 14 MG/24 HOURS TOPICAL PATCH TD SCH (09:51)
[2021-07-13] MEDS: PRENATAL VITAMINS W/ FOLIC ACID TABLET (FP) PO SCH (09:52)
[2021-07-13] MEDS: GABAPENTIN 400 MG CAPSULE PO SCH (09:52)
[2021-07-13] MEDS: MIRTAZAPINE 15 MG TABLET (FP) PO SCH ×2 (09:53→21:59)
[2021-07-13] MEDS: AMMONIUM LACTATE 12% LOTION 225 GM BOTTLE TP SCH (09:53)
[2021-07-13] MEDS: hydrOXYzine PAMOATE 25 MG CAPSULE (FP) PO SCH (21:58)
[2021-07-13] MEDS: THIAMINE HCL 100 MG TABLET (FP) PO SCH (21:59)
[2021-07-13] MEDS: CITALOPRAM HYDROBROMIDE 20 MG TABLET PO SCH (21:59)
[2021-07-13] MEDS: QUEtiapine FUMARATE 400 MG TABLET PO SCH (21:59)
[2021-07-14] MEDS: MIRTAZAPINE 15 MG TABLET (FP) PO SCH ×2 (10:07→21:00)
[2021-07-14] MEDS: PRENATAL VITAMINS W/ FOLIC ACID TABLET (FP) PO SCH (10:08)
[2021-07-14] MEDS: AMMONIUM LACTATE 12% LOTION 225 GM BOTTLE TP SCH (10:08)
[2021-07-14] MEDS: GABAPENTIN 400 MG CAPSULE PO SCH (10:08)
[2021-07-14] MEDS: NICOTINE 14 MG/24 HOURS TOPICAL PATCH TD SCH (10:08)
[2021-07-14 10:09] LABS: SARS-CoV-2 NAA Not Detected (Not Detected)
[2021-07-14] MEDS: NICOTINE POLACRILEX 2 MG GUM BC PRN ×3 (10:09→21:03)
[2021-07-14] MEDS: CITALOPRAM HYDROBROMIDE 20 MG TABLET PO SCH (20:59)
[2021-07-14] MEDS: QUEtiapine FUMARATE 400 MG TABLET PO SCH (20:59)
[2021-07-14] MEDS: hydrOXYzine PAMOATE 25 MG CAPSULE (FP) PO SCH (21:01)
[2021-07-14] MEDS: THIAMINE HCL 100 MG TABLET (FP) PO SCH (21:01)
[2021-07-15] MEDS: AMMONIUM LACTATE 12% LOTION 225 GM BOTTLE TP SCH (10:01)
[2021-07-15] MEDS: GABAPENTIN 400 MG CAPSULE PO SCH (10:01)
[2021-07-15] MEDS: NICOTINE POLACRILEX 2 MG GUM BC PRN ×5 (10:02→22:00)
[2021-07-15] MEDS: PRENATAL VITAMINS W/ FOLIC ACID TABLET (FP) PO SCH (10:02)
[2021-07-15] MEDS: NICOTINE 14 MG/24 HOURS TOPICAL PATCH TD SCH (10:02)
[2021-07-15] MEDS: MIRTAZAPINE 15 MG TABLET (FP) PO SCH ×2 (10:02→21:59)
[2021-07-15] MEDS: hydrOXYzine PAMOATE 25 MG CAPSULE (FP) PO SCH (21:59)
[2021-07-15] MEDS: THIAMINE HCL 100 MG TABLET (FP) PO SCH (21:59)
[2021-07-15] MEDS: QUEtiapine FUMARATE 400 MG TABLET PO SCH (21:59)
[2021-07-15] MEDS: CITALOPRAM HYDROBROMIDE 20 MG TABLET PO SCH (21:59)
[2021-07-16] MEDS: GABAPENTIN 400 MG CAPSULE PO SCH (09:47)
[2021-07-16] MEDS: AMMONIUM LACTATE 12% LOTION 225 GM BOTTLE TP SCH (09:47)
[2021-07-16] MEDS: PRENATAL VITAMINS W/ FOLIC ACID TABLET (FP) PO SCH (09:48)
[2021-07-16] MEDS: MIRTAZAPINE 15 MG TABLET (FP) PO SCH ×2 (09:48→21:45)
[2021-07-16] MEDS: NICOTINE 14 MG/24 HOURS TOPICAL PATCH TD SCH (09:48)
[2021-07-16] MEDS: NICOTINE POLACRILEX 2 MG GUM BC PRN ×2 (09:51→17:54)
[2021-07-16] MEDS: QUEtiapine FUMARATE 400 MG TABLET PO SCH (21:44)
[2021-07-16] MEDS: hydrOXYzine PAMOATE 25 MG CAPSULE (FP) PO SCH (21:44)
[2021-07-16] MEDS: THIAMINE HCL 100 MG TABLET (FP) PO SCH (21:44)
[2021-07-16] MEDS: CITALOPRAM HYDROBROMIDE 20 MG TABLET PO SCH (21:44)
[2021-07-17] MEDS: NICOTINE POLACRILEX 2 MG GUM BC PRN ×4 (07:02→18:35)
[2021-07-17] MEDS: GABAPENTIN 400 MG CAPSULE PO SCH (09:17)
[2021-07-17] MEDS: MIRTAZAPINE 15 MG TABLET (FP) PO SCH ×2 (09:18→22:23)
[2021-07-17] MEDS: PRENATAL VITAMINS W/ FOLIC ACID TABLET (FP) PO SCH (09:18)
[2021-07-17] MEDS: NICOTINE 14 MG/24 HOURS TOPICAL PATCH TD SCH (09:19)
[2021-07-17] MEDS: AMMONIUM LACTATE 12% LOTION 225 GM BOTTLE TP SCH (09:19)
[2021-07-17] MEDS: QUEtiapine FUMARATE 400 MG TABLET PO SCH (22:04)
[2021-07-17] MEDS: hydrOXYzine PAMOATE 25 MG CAPSULE (FP) PO SCH (22:22)
[2021-07-17] MEDS: THIAMINE HCL 100 MG TABLET (FP) PO SCH (22:22)
[2021-07-17] MEDS: CITALOPRAM HYDROBROMIDE 20 MG TABLET PO SCH (22:24)
[2021-07-18 06:27] VITALS: BP 143/72; PULSE 68; TEMP 96.9
[2021-07-18] MEDS: NICOTINE POLACRILEX 2 MG GUM BC PRN (06:45)
== END 2021-07-18 09:13 | disposition home or self-care (01) | DRG 772 ==
LOC: YASAS 18:02 → Y3N 22:48 → Y3E 07-10 00:59
PROVIDERS: ADMIT Allergy & Immunology; ATTEND Allergy & Immunology
PROC: HZ42ZZZ Group Counseling for Substance Abuse Treatment, Cognitive-Behavioral (ICD-10-PCS; principal; 2021-07-09)
DX: F10.20 Alcohol dependence, uncomplicated (principal); F14.20 Cocaine dependence, uncomplicated; F16.20 Hallucinogen dependence, uncomplicated; F17.210 Nicotine dependence, cigarettes, uncomplicated; F19.282 Other psychoactive substance dependence with psychoactive substance-induced sleep disorder; F19.24 Other psychoactive substance dependence with psychoactive substance-induced mood disorder; F41.9 Anxiety disorder, unspecified; Z62.810 Personal history of physical and sexual abuse in childhood; Z86.19 Personal history of other infectious and parasitic diseases; Z56.0 Unemployment, unspecified; Z59.01 Sheltered homelessness
CPT/HCPCS: 36415; 80053; 81003; 82962; 85027; 86593; 86780; 87811; 93005; 93010; C9803; U0003; U0005

== ENCOUNTER 2021-10-26 11:09 | Inpatient (IN) | payer OTHER ==
[2021-10-26 11:51] VITALS: BMI 23.6
[2021-10-26] MEDS ORDERED: IBUPROFEN 600 MG TABLET (FP) PO PRN (13:19)
[2021-10-26] MEDS ORDERED: ACETAMINOPHEN 325 MG TABLET (FP) PO PRN ×2 (13:19)
[2021-10-26] MEDS ORDERED: MAG HYDROX/AL HYDROX/SIMETH 30 ML UNIT-DOSE CUP PO PRN (13:19)
[2021-10-26] MEDS ORDERED: MAGNESIUM HYDROX 2400MG/30ML ORAL SUSPENSION 30 ML CUP PO PRN (13:19)
[2021-10-26] MEDS ORDERED: METHOCARBAMOL 500 MG TABLET PO PRN (13:19)
[2021-10-26] MEDS ORDERED: chlordiazePOXIDE HCL 25 MG CAPSULE PO PRN (13:19)
[2021-10-26] MEDS ORDERED: NALOXONE HCL (KLOXXADO) 8 MG SPRAY NS PRN (13:19)
[2021-10-26] MEDS ORDERED: BISMUTH SUBSALICYLATE 524 MG/30 ML PO PRN (13:19)
[2021-10-26] MEDS ORDERED: BENZOCAINE/MENTHOL (CHLORASEPTIC ) LOZENGE MM PRN (13:19)
[2021-10-26] MEDS ORDERED: ONDANSETRON *ODT* 4 MG TABLET SL PRN (13:19)
[2021-10-26] MEDS ORDERED: DICYCLOMINE HCL 10 MG CAPSULE PO PRN (13:19)
[2021-10-26] MEDS ORDERED: IBUPROFEN 400 MG TABLET (FP) PO PRN (13:19)
[2021-10-26] MEDS ORDERED: LOPERAMIDE HCL 2 MG CAPSULE PO PRN (13:19)
[2021-10-26] MEDS ORDERED: MAGNESIUM CITRATE 300 ML BOTTLE PO PRN (13:19)
[2021-10-26] MEDS ORDERED: hydrOXYzine PAMOATE 25 MG CAPSULE (FP) PO ONE (14:38)
[2021-10-26] MEDS: hydrOXYzine PAMOATE 25 MG CAPSULE (FP) PO SCH ×3 (14:44→22:30)
[2021-10-26] MEDS: PRENATAL VITAMINS W/ FOLIC ACID TABLET (FP) PO SCH (15:01)
[2021-10-26] MEDS: chlordiazePOXIDE HCL 25 MG CAPSULE PO SCH ×2 (17:32→22:31)
[2021-10-26] MEDS: THIAMINE HCL 100 MG TABLET (FP) PO SCH (22:30)
[2021-10-26] MEDS: NICOTINE POLACRILEX 2 MG GUM BUC PRN (22:31)
[2021-10-26] MEDS: MELATONIN 5 MG TABLETS PO SCH (22:31)
[2021-10-27] MEDS: chlordiazePOXIDE HCL 25 MG CAPSULE PO SCH ×4 (05:15→22:43)
[2021-10-27] MEDS: hydrOXYzine PAMOATE 25 MG CAPSULE (FP) PO SCH (05:15)
[2021-10-27] MEDS: NICOTINE POLACRILEX 2 MG GUM BUC PRN ×4 (09:15→22:47)
[2021-10-27] MEDS ORDERED: COLLOIDAL OATMEAL 1 BAR EACH TP PRN (09:20)
[2021-10-27] MEDS: AMMONIUM LACTATE 12% LOTION 225 GM BOTTLE TP SCH ×2 (10:09→22:44)
[2021-10-27] MEDS: QUEtiapine FUMARATE 400 MG TABLET PO SCH ×2 (10:09→22:43)
[2021-10-27] MEDS: PRENATAL VITAMINS W/ FOLIC ACID TABLET (FP) PO SCH (10:09)
[2021-10-27 10:55] LABS: HEMATOCRIT 36.1 % (35.4-49); HEMOGLOBIN 12.1 GM/dL (11.7-16.9); MCH 30.6 pg (25.7-33.7); MCHC 33.5 g/dl (32.0-35.9); MEAN CELL VOLUME 91.5 fl (80-96); MEAN PLT VOLUME 8.9 fl (7.5-11.1); PLATELET COUNT 262 10^3/uL (134-434); RBC 3.95 M/mm3 (4.00-5.60); RDW 13.8 % (11.9-15.9); WHITE BLOOD COUNT 3.6 K/mm3 (4.0-10.0)
[2021-10-27 11:04] LABS: ALBUMIN 3.5 g/dl (3.4-5.0); BLOOD UREA NITROGEN 17.4 mg/dL (7-18); CALCIUM 8.6 mg/dL (8.5-10.1)
[2021-10-27 11:08] LABS: CREATININE 1.1 mg/dL (0.55-1.3)
[2021-10-27 11:10] LABS: BILIRUBIN,TOTAL 0.3 mg/dL (0.2-1)
[2021-10-27] MEDS: hydrOXYzine PAMOATE 50 MG CAPSULE (FP) PO SCH (22:43)
[2021-10-27] MEDS: MELATONIN 5 MG TABLETS PO SCH (22:43)
[2021-10-27] MEDS: CITALOPRAM HYDROBROMIDE 20 MG TABLET PO SCH (22:43)
[2021-10-27] MEDS: THIAMINE HCL 100 MG TABLET (FP) PO SCH (22:43)
[2021-10-28] MEDS: chlordiazePOXIDE HCL 25 MG CAPSULE PO SCH ×4 (05:30→22:43)
[2021-10-28] MEDS: NICOTINE POLACRILEX 2 MG GUM BUC PRN ×5 (05:32→22:47)
[2021-10-28] MEDS: QUEtiapine FUMARATE 400 MG TABLET PO SCH ×2 (10:31→22:43)
[2021-10-28] MEDS: PRENATAL VITAMINS W/ FOLIC ACID TABLET (FP) PO SCH (10:31)
[2021-10-28] MEDS: AMMONIUM LACTATE 12% LOTION 225 GM BOTTLE TP SCH ×2 (10:33→22:44)
[2021-10-28] MEDS: CITALOPRAM HYDROBROMIDE 20 MG TABLET PO SCH (22:42)
[2021-10-28] MEDS: THIAMINE HCL 100 MG TABLET (FP) PO SCH (22:43)
[2021-10-28] MEDS: MELATONIN 5 MG TABLETS PO SCH (22:44)
[2021-10-28] MEDS: hydrOXYzine PAMOATE 50 MG CAPSULE (FP) PO SCH (22:47)
[2021-10-29] MEDS ORDERED: chlordiazePOXIDE HCL 10 MG CAPSULE PO PRN
[2021-10-29] MEDS: chlordiazePOXIDE HCL 10 MG CAPSULE PO SCH ×4 (05:06→22:19)
[2021-10-29] MEDS: NICOTINE POLACRILEX 2 MG GUM BUC PRN ×4 (05:07→18:08)
[2021-10-29] MEDS: QUEtiapine FUMARATE 400 MG TABLET PO SCH ×2 (10:32→22:19)
[2021-10-29] MEDS: PRENATAL VITAMINS W/ FOLIC ACID TABLET (FP) PO SCH (10:32)
[2021-10-29] MEDS: AMMONIUM LACTATE 12% LOTION 225 GM BOTTLE TP SCH ×2 (10:33→22:20)
[2021-10-29] MEDS: CITALOPRAM HYDROBROMIDE 20 MG TABLET PO SCH (22:19)
[2021-10-29] MEDS: hydrOXYzine PAMOATE 50 MG CAPSULE (FP) PO SCH (22:19)
[2021-10-29] MEDS: THIAMINE HCL 100 MG TABLET (FP) PO SCH (22:19)
[2021-10-29] MEDS: MELATONIN 5 MG TABLETS PO SCH (22:20)
[2021-10-30] MEDS: chlordiazePOXIDE HCL 10 MG CAPSULE PO SCH ×2 (05:15→20:07)
[2021-10-30] MEDS: NICOTINE POLACRILEX 2 MG GUM BUC PRN ×3 (05:18→16:55)
[2021-10-30] MEDS: AMMONIUM LACTATE 12% LOTION 225 GM BOTTLE TP SCH ×2 (10:10→23:04)
[2021-10-30] MEDS: QUEtiapine FUMARATE 400 MG TABLET PO SCH ×2 (10:10→23:03)
[2021-10-30] MEDS: PRENATAL VITAMINS W/ FOLIC ACID TABLET (FP) PO SCH (10:10)
[2021-10-30] MEDS: MELATONIN 5 MG TABLETS PO SCH (23:03)
[2021-10-30] MEDS: THIAMINE HCL 100 MG TABLET (FP) PO SCH (23:03)
[2021-10-30] MEDS: hydrOXYzine PAMOATE 50 MG CAPSULE (FP) PO SCH (23:03)
[2021-10-30] MEDS: CITALOPRAM HYDROBROMIDE 20 MG TABLET PO SCH (23:03)
[2021-10-31] MEDS ORDERED: chlordiazePOXIDE HCL 10 MG CAPSULE PO ONE (05:00)
[2021-10-31] MEDS: NICOTINE POLACRILEX 2 MG GUM BUC PRN ×2 (05:16→10:59)
[2021-10-31] MEDS: QUEtiapine FUMARATE 400 MG TABLET PO SCH (10:57)
[2021-10-31] MEDS: PRENATAL VITAMINS W/ FOLIC ACID TABLET (FP) PO SCH (10:57)
[2021-10-31] MEDS: AMMONIUM LACTATE 12% LOTION 225 GM BOTTLE TP SCH (10:58)
[2021-10-31 12:57] VITALS: BP 140/79; PULSE 66; TEMP 97.7
== END 2021-10-31 12:44 | disposition other institution (70) | DRG 773 ==
LOC: YASAS 11:09 → Y6N 14:01
PROVIDERS: ADMIT Allergy & Immunology; ATTEND Surgery
PROC: HZ2ZZZZ Detoxification Services for Substance Abuse Treatment (ICD-10-PCS; principal; 2021-10-26)
DX: F11.23 Opioid dependence with withdrawal (principal); F10.230 Alcohol dependence with withdrawal, uncomplicated; F14.20 Cocaine dependence, uncomplicated; F17.210 Nicotine dependence, cigarettes, uncomplicated; F31.81 Bipolar II disorder; F19.280 Other psychoactive substance dependence with psychoactive substance-induced anxiety disorder; F19.282 Other psychoactive substance dependence with psychoactive substance-induced sleep disorder; F19.24 Other psychoactive substance dependence with psychoactive substance-induced mood disorder; Z86.19 Personal history of other infectious and parasitic diseases; Z56.0 Unemployment, unspecified; Z59.00 Homelessness unspecified
CPT/HCPCS: 36415; 80053; 85027; 86593; 86780; C9803-CS; U0003; U0005

== ENCOUNTER 2021-10-31 12:48 | Inpatient (IN) | payer OTHER ==
[2021-10-31] MEDS ORDERED: MAGNESIUM CITRATE 300 ML BOTTLE PO PRN (15:22)
[2021-10-31] MEDS ORDERED: hydrOXYzine PAMOATE 25 MG CAPSULE (FP) PO PRN (15:22)
[2021-10-31] MEDS ORDERED: IBUPROFEN 400 MG TABLET (FP) PO PRN (15:22)
[2021-10-31] MEDS ORDERED: BENZOCAINE/MENTHOL (CHLORASEPTIC ) LOZENGE MM PRN (15:22)
[2021-10-31] MEDS ORDERED: P-EPHED 60MG/TRIPROLIDI 2.5MG TABLET PO PRN (15:22)
[2021-10-31] MEDS ORDERED: guaiFENesin 200 MG/10 ML 10 ML UNIT-DOSE CUPS PO PRN (15:22)
[2021-10-31] MEDS ORDERED: LOPERAMIDE HCL 2 MG CAPSULE PO PRN (15:22)
[2021-10-31] MEDS ORDERED: MAG HYDROX/AL HYDROX/SIMETH 30 ML UNIT-DOSE CUP PO PRN (15:22)
[2021-10-31] MEDS ORDERED: MAGNESIUM HYDROX 2400MG/30ML ORAL SUSPENSION 30 ML CUP PO PRN (15:22)
[2021-10-31] MEDS ORDERED: ACETAMINOPHEN 325 MG TABLET (FP) PO PRN (15:22)
[2021-10-31] MEDS: NICOTINE POLACRILEX 2 MG GUM BUC PRN ×2 (19:30→21:33)
[2021-10-31] MEDS: THIAMINE HCL 100 MG TABLET (FP) PO SCH (21:31)
[2021-10-31] MEDS: MELATONIN 5 MG TABLETS PO PRN (21:31)
[2021-10-31] MEDS: hydrOXYzine PAMOATE 25 MG CAPSULE (FP) PO PRN (21:32)
[2021-10-31] MEDS ORDERED: CITALOPRAM HYDROBROMIDE 20 MG TABLET PO ONE (22:00)
[2021-10-31] MEDS ORDERED: QUEtiapine FUMARATE 400 MG TABLET PO ONE (22:00)
[2021-11-01] MEDS: PRENATAL VITAMINS W/ FOLIC ACID TABLET (FP) PO SCH (10:22)
[2021-11-01] MEDS: QUEtiapine FUMARATE 400 MG TABLET PO SCH ×2 (10:22→21:32)
[2021-11-01] MEDS: NICOTINE POLACRILEX 2 MG GUM BUC PRN ×3 (10:25→21:34)
[2021-11-01] MEDS: CITALOPRAM HYDROBROMIDE 20 MG TABLET PO SCH (21:32)
[2021-11-01] MEDS: hydrOXYzine PAMOATE 25 MG CAPSULE (FP) PO PRN (21:32)
[2021-11-01] MEDS: MELATONIN 5 MG TABLETS PO PRN (21:32)
[2021-11-01] MEDS: THIAMINE HCL 100 MG TABLET (FP) PO SCH (21:33)
[2021-11-02] MEDS: NICOTINE POLACRILEX 2 MG GUM BUC PRN ×3 (06:41→17:51)
[2021-11-02] MEDS: QUEtiapine FUMARATE 400 MG TABLET PO SCH ×2 (10:35→21:26)
[2021-11-02] MEDS: PRENATAL VITAMINS W/ FOLIC ACID TABLET (FP) PO SCH (10:35)
[2021-11-02] MEDS ORDERED: NICOTINE 10 MG CARTRIDGE (INHALER) IH PRN (11:08)
[2021-11-02] MEDS: THIAMINE HCL 100 MG TABLET (FP) PO SCH (21:26)
[2021-11-02] MEDS: CITALOPRAM HYDROBROMIDE 20 MG TABLET PO SCH (21:26)
[2021-11-02] MEDS: MELATONIN 5 MG TABLETS PO PRN (21:26)
[2021-11-02] MEDS: hydrOXYzine PAMOATE 25 MG CAPSULE (FP) PO PRN (21:27)
[2021-11-03 06:50] VITALS: BP 117/65; PULSE 71; TEMP 97.5
[2021-11-03] MEDS: NICOTINE POLACRILEX 2 MG GUM BUC PRN (06:57)
== END 2021-11-03 09:57 | disposition left against medical advice (07) | DRG 770 ==
LOC: YASAS 12:48 → Y3W 12:49
PROVIDERS: ADMIT Allergy & Immunology; ATTEND Psychiatry & Neurology Pain Medicine
PROC: HZ2ZZZZ Detoxification Services for Substance Abuse Treatment (ICD-10-PCS; principal; 2021-10-31)
DX: F11.20 Opioid dependence, uncomplicated (principal); F14.20 Cocaine dependence, uncomplicated; F10.20 Alcohol dependence, uncomplicated; F17.210 Nicotine dependence, cigarettes, uncomplicated; Z86.19 Personal history of other infectious and parasitic diseases

== ENCOUNTER 2022-03-11 10:59 | Inpatient (IN) | payer OTHER ==
[2022-03-11 11:46] VITALS: BMI 24.0
[2022-03-11] MEDS ORDERED: LOPERAMIDE HCL 2 MG CAPSULE PO PRN (12:04)
[2022-03-11] MEDS ORDERED: ACETAMINOPHEN 325 MG TABLET (FP) PO PRN (12:04)
[2022-03-11] MEDS ORDERED: NALOXONE HCL (KLOXXADO) 8 MG SPRAY NS PRN (12:04)
[2022-03-11] MEDS ORDERED: BISMUTH SUBSALICYLATE 262 MG/15 ML BTL PO PRN (12:04)
[2022-03-11] MEDS ORDERED: NICOTINE 10 MG CARTRIDGE (INHALER) IH PRN (12:04)
[2022-03-11] MEDS ORDERED: MAGNESIUM CITRATE 300 ML BOTTLE PO PRN (12:04)
[2022-03-11] MEDS ORDERED: IBUPROFEN 600 MG TABLET (FP) PO PRN (12:04)
[2022-03-11] MEDS ORDERED: METHOCARBAMOL 500 MG TABLET PO PRN (12:04)
[2022-03-11] MEDS ORDERED: BENZOCAINE/MENTHOL (CHLORASEPTIC ) LOZENGE MM PRN (12:04)
[2022-03-11] MEDS ORDERED: IBUPROFEN 400 MG TABLET (FP) PO PRN (12:04)
[2022-03-11] MEDS ORDERED: ONDANSETRON *ODT* 4 MG TABLET SL PRN (12:04)
[2022-03-11] MEDS ORDERED: MAGNESIUM HYDROX 2400MG/30ML ORAL SUSPENSION 30 ML CUP PO PRN (12:04)
[2022-03-11] MEDS ORDERED: chlordiazePOXIDE HCL 25 MG CAPSULE PO PRN (12:04)
[2022-03-11] MEDS ORDERED: MAG HYDROX/AL HYDROX/SIMETH 30 ML UNIT-DOSE CUP PO PRN (12:04)
[2022-03-11] MEDS ORDERED: DICYCLOMINE HCL 10 MG CAPSULE PO PRN (12:04)
[2022-03-11] MEDS ORDERED: NICOTINE 14 MG/24 HOURS TOPICAL PATCH TD SCH (12:15)
[2022-03-11] MEDS: PRENATAL VITAMINS W/ FOLIC ACID TABLET (FP) PO SCH (12:47)
[2022-03-11 15:39] LABS: HEMATOCRIT 33.4 % (35.4-49); HEMOGLOBIN 11.5 GM/dL (11.7-16.9); MCH 31.3 pg (25.7-33.7); MCHC 34.5 g/dl (32.0-35.9); MEAN CELL VOLUME 90.7 fl (80-96); MEAN PLT VOLUME 7.5 fl (7.5-11.1); PLATELET COUNT 268 10^3/uL (134-434); RBC 3.68 M/mm3 (4.00-5.60); RDW 15.5 % (11.9-15.9); WHITE BLOOD COUNT 5.9 K/mm3 (4.0-10.0)
[2022-03-11 16:20] LABS: ALBUMIN 3.5 g/dl (3.4-5.0); BLOOD UREA NITROGEN 18.4 mg/dL (7-18); CALCIUM 8.5 mg/dL (8.5-10.1)
[2022-03-11 16:25] LABS: BILIRUBIN,TOTAL 0.4 mg/dL (0.2-1); TOT PROT 6.3 g/dl (6.4-8.2)
[2022-03-11 16:29] LABS: CREATININE 1.2 mg/dL (0.55-1.3)
[2022-03-11] MEDS: chlordiazePOXIDE HCL 25 MG CAPSULE PO SCH ×2 (18:07→22:03)
[2022-03-11] MEDS: NICOTINE POLACRILEX 2 MG GUM BUC PRN (18:09)
[2022-03-11] MEDS: MELATONIN 5 MG TABLETS PO SCH (22:04)
[2022-03-11] MEDS: THIAMINE HCL 100 MG TABLET (FP) PO SCH (22:04)
[2022-03-11] MEDS: hydrOXYzine PAMOATE 25 MG CAPSULE (FP) PO PRN (22:04)
[2022-03-12] MEDS: chlordiazePOXIDE HCL 25 MG CAPSULE PO SCH ×4 (05:22→23:12)
[2022-03-12] MEDS: QUEtiapine FUMARATE 400 MG TABLET PO SCH ×2 (10:33→23:09)
[2022-03-12] MEDS: ACETAMINOPHEN 325 MG TABLET (FP) PO PRN (10:34)
[2022-03-12] MEDS: PRENATAL VITAMINS W/ FOLIC ACID TABLET (FP) PO SCH (10:34)
[2022-03-12] MEDS: NICOTINE POLACRILEX 2 MG GUM BUC PRN ×2 (10:36→18:14)
[2022-03-12 16:31] LABS: IRON SERUM 72 ug/dL (50-175)
[2022-03-12 16:33] LABS: TOTAL IRON BINDING CAPACITY 229 ug/dL (250-450)
[2022-03-12] MEDS: CITALOPRAM HYDROBROMIDE 20 MG TABLET PO SCH (23:09)
[2022-03-12] MEDS: THIAMINE HCL 100 MG TABLET (FP) PO SCH (23:09)
[2022-03-12] MEDS: MIRTAZAPINE 15 MG TABLET (FP) PO SCH (23:09)
[2022-03-13] MEDS: MELATONIN 5 MG TABLETS PO SCH (00:24)
[2022-03-13] MEDS: chlordiazePOXIDE HCL 25 MG CAPSULE PO SCH ×4 (05:29→22:37)
[2022-03-13] MEDS: QUEtiapine FUMARATE 400 MG TABLET PO SCH ×2 (10:32→22:36)
[2022-03-13] MEDS: ACETAMINOPHEN 325 MG TABLET (FP) PO PRN (10:32)
[2022-03-13] MEDS: PRENATAL VITAMINS W/ FOLIC ACID TABLET (FP) PO SCH (10:32)
[2022-03-13] MEDS: NICOTINE POLACRILEX 2 MG GUM BUC PRN ×2 (10:34→17:51)
[2022-03-13] MEDS: MIRTAZAPINE 15 MG TABLET (FP) PO SCH (22:36)
[2022-03-13] MEDS: hydrOXYzine PAMOATE 25 MG CAPSULE (FP) PO PRN (22:37)
[2022-03-13] MEDS: CITALOPRAM HYDROBROMIDE 20 MG TABLET PO SCH (22:37)
[2022-03-13] MEDS: THIAMINE HCL 100 MG TABLET (FP) PO SCH (22:37)
[2022-03-14] MEDS ORDERED: chlordiazePOXIDE HCL 10 MG CAPSULE PO PRN
[2022-03-14] MEDS: MELATONIN 5 MG TABLETS PO SCH ×2 (01:11→22:48)
[2022-03-14] MEDS: chlordiazePOXIDE HCL 10 MG CAPSULE PO SCH ×4 (05:19→22:04)
[2022-03-14] MEDS: hydrOXYzine PAMOATE 25 MG CAPSULE (FP) PO PRN ×2 (10:47→22:04)
[2022-03-14] MEDS: QUEtiapine FUMARATE 400 MG TABLET PO SCH ×2 (10:47→22:04)
[2022-03-14] MEDS: PRENATAL VITAMINS W/ FOLIC ACID TABLET (FP) PO SCH (10:47)
[2022-03-14] MEDS: LACTULOSE 20 GM/30 ML UDC (FOR ORAL USE ONLY) PO SCH ×2 (13:38→22:03)
[2022-03-14] MEDS: CITALOPRAM HYDROBROMIDE 20 MG TABLET PO SCH (22:04)
[2022-03-14] MEDS: THIAMINE HCL 100 MG TABLET (FP) PO SCH (22:04)
[2022-03-14] MEDS: MIRTAZAPINE 15 MG TABLET (FP) PO SCH (22:04)
[2022-03-14] MEDS: NICOTINE POLACRILEX 2 MG GUM BUC PRN (22:07)
[2022-03-15] MEDS ORDERED: chlordiazePOXIDE HCL 10 MG CAPSULE PO SCH (05:00)
[2022-03-15] MEDS: LACTULOSE 20 GM/30 ML UDC (FOR ORAL USE ONLY) PO SCH (05:47)
[2022-03-15 09:48] VITALS: TEMP 98.3
[2022-03-15] MEDS: PRENATAL VITAMINS W/ FOLIC ACID TABLET (FP) PO SCH (10:19)
[2022-03-15] MEDS: QUEtiapine FUMARATE 400 MG TABLET PO SCH (10:19)
[2022-03-15 13:36] VITALS: BP 130/76; PULSE 85; RESP 17
[2022-03-16] MEDS ORDERED: chlordiazePOXIDE HCL 10 MG CAPSULE PO ONE (05:00)
== END 2022-03-15 14:30 | disposition home or self-care (01) | DRG 773 ==
LOC: YASAS 10:59 → Y6N 12:08
PROVIDERS: ADMIT Allergy & Immunology; ATTEND Surgery
PROC: HZ2ZZZZ Detoxification Services for Substance Abuse Treatment (ICD-10-PCS; principal; 2022-03-11)
DX: F11.23 Opioid dependence with withdrawal (principal); F10.230 Alcohol dependence with withdrawal, uncomplicated; F14.20 Cocaine dependence, uncomplicated; F17.210 Nicotine dependence, cigarettes, uncomplicated; F31.81 Bipolar II disorder; F19.282 Other psychoactive substance dependence with psychoactive substance-induced sleep disorder; F19.280 Other psychoactive substance dependence with psychoactive substance-induced anxiety disorder; F19.24 Other psychoactive substance dependence with psychoactive substance-induced mood disorder; R79.89 Other specified abnormal findings of blood chemistry; Z62.810 Personal history of physical and sexual abuse in childhood; Z86.19 Personal history of other infectious and parasitic diseases; Z56.0 Unemployment, unspecified; Z59.01 Sheltered homelessness
CPT/HCPCS: 36415; 80053; 82140; 83540; 83550; 85027; 86593; 86780; C9803-CS; U0003; U0005

== ENCOUNTER 2022-04-27 13:11 | Inpatient (IN) | payer OTHER ==
[2022-04-27 14:17] VITALS: BMI 22.0
[2022-04-27] MEDS ORDERED: ACETAMINOPHEN 325 MG TABLET (FP) PO PRN ×2 (15:15)
[2022-04-27] MEDS ORDERED: MAGNESIUM HYDROX 2400MG/30ML ORAL SUSPENSION 30 ML CUP PO PRN (15:15)
[2022-04-27] MEDS ORDERED: BISMUTH SUBSALICYLATE 524 MG/30 ML PO PRN (15:15)
[2022-04-27] MEDS ORDERED: DICYCLOMINE HCL 10 MG CAPSULE PO PRN (15:15)
[2022-04-27] MEDS ORDERED: guaiFENesin 200 MG/10 ML 10 ML UNIT-DOSE CUPS PO PRN (15:15)
[2022-04-27] MEDS ORDERED: P-EPHED 60MG/TRIPROLIDI 2.5MG TABLET PO PRN (15:15)
[2022-04-27] MEDS ORDERED: LOPERAMIDE HCL 2 MG CAPSULE PO PRN (15:15)
[2022-04-27] MEDS ORDERED: MAG HYDROX/AL HYDROX/SIMETH 30 ML UNIT-DOSE CUP PO PRN (15:15)
[2022-04-27] MEDS ORDERED: IBUPROFEN 600 MG TABLET (FP) PO PRN (15:15)
[2022-04-27] MEDS ORDERED: IBUPROFEN 400 MG TABLET (FP) PO PRN (15:15)
[2022-04-27] MEDS ORDERED: POLYETHYLENE GLYCOL (HEALTHYLAX) 3350 17 GM PACKET PO PRN (15:15)
[2022-04-27] MEDS ORDERED: BENZOCAINE/MENTHOL (CHLORASEPTIC ) LOZENGE MM PRN (15:15)
[2022-04-27] MEDS ORDERED: ONDANSETRON *ODT* 4 MG TABLET SL PRN (15:15)
[2022-04-27] MEDS ORDERED: MELATONIN 5 MG TABLETS PO SCH (22:00)
[2022-04-27] MEDS: hydrOXYzine PAMOATE 25 MG CAPSULE (FP) PO PRN (22:20)
[2022-04-27] MEDS: METHOCARBAMOL 500 MG TABLET PO PRN (22:20)
[2022-04-27] MEDS: THIAMINE HCL 100 MG TABLET (FP) PO SCH (22:20)
[2022-04-28] MEDS ORDERED: chlordiazePOXIDE HCL 25 MG CAPSULE PO PRN (08:54)
[2022-04-28] MEDS: QUEtiapine FUMARATE 400 MG TABLET PO SCH ×2 (10:27→22:21)
[2022-04-28] MEDS: PRENATAL VITAMINS W/ FOLIC ACID TABLET (FP) PO SCH (10:27)
[2022-04-28] MEDS: hydrOXYzine PAMOATE 25 MG CAPSULE (FP) PO PRN ×2 (10:27→22:26)
[2022-04-28] MEDS: METHOCARBAMOL 500 MG TABLET PO PRN (10:27)
[2022-04-28] MEDS: chlordiazePOXIDE HCL 25 MG CAPSULE PO SCH ×3 (10:28→22:32)
[2022-04-28 14:51] LABS: ALBUMIN 2.8 g/dl (3.4-5.0); CALCIUM 8.3 mg/dL (8.5-10.1)
[2022-04-28 14:52] LABS: BLOOD UREA NITROGEN 11.6 mg/dL (7-18)
[2022-04-28 14:55] LABS: CREATININE 0.9 mg/dL (0.55-1.3)
[2022-04-28 14:56] LABS: BILIRUBIN,TOTAL 0.2 mg/dL (0.2-1); TOT PROT 5.7 g/dl (6.4-8.2)
[2022-04-28 15:12] LABS: HEMATOCRIT 36.5 % (35.4-49); HEMOGLOBIN 12.1 GM/dL (11.7-16.9); MCH 30.5 pg (25.7-33.7); MCHC 33.1 g/dl (32.0-35.9); MEAN CELL VOLUME 92.2 fl (80-96); MEAN PLT VOLUME 8.2 fl (7.5-11.1); PLATELET COUNT 294 10^3/uL (134-434); RBC 3.96 M/mm3 (4.00-5.60); RDW 15.4 % (11.9-15.9); WHITE BLOOD COUNT 3.5 K/mm3 (4.0-10.0)
[2022-04-28] MEDS: THIAMINE HCL 100 MG TABLET (FP) PO SCH (22:21)
[2022-04-28] MEDS: CITALOPRAM HYDROBROMIDE 20 MG TABLET PO SCH (22:21)
[2022-04-29] MEDS: chlordiazePOXIDE HCL 25 MG CAPSULE PO SCH ×4 (05:23→22:27)
[2022-04-29] MEDS: QUEtiapine FUMARATE 400 MG TABLET PO SCH ×2 (10:47→22:25)
[2022-04-29] MEDS: PRENATAL VITAMINS W/ FOLIC ACID TABLET (FP) PO SCH (10:47)
[2022-04-29] MEDS: NICOTINE POLACRILEX 2 MG GUM BUC PRN (17:20)
[2022-04-29] MEDS: THIAMINE HCL 100 MG TABLET (FP) PO SCH (22:25)
[2022-04-29] MEDS: CITALOPRAM HYDROBROMIDE 20 MG TABLET PO SCH (22:25)
[2022-04-29] MEDS: hydrOXYzine PAMOATE 25 MG CAPSULE (FP) PO PRN (22:25)
[2022-04-29] MEDS: MIRTAZAPINE 15 MG TABLET (FP) PO SCH (22:26)
[2022-04-30] MEDS: chlordiazePOXIDE HCL 25 MG CAPSULE PO SCH ×4 (06:10→22:59)
[2022-04-30] MEDS: PRENATAL VITAMINS W/ FOLIC ACID TABLET (FP) PO SCH (10:55)
[2022-04-30] MEDS: QUEtiapine FUMARATE 400 MG TABLET PO SCH ×2 (10:56→22:47)
[2022-04-30] MEDS: NICOTINE POLACRILEX 2 MG GUM BUC PRN ×3 (10:59→20:55)
[2022-04-30] MEDS: MIRTAZAPINE 15 MG TABLET (FP) PO SCH (22:47)
[2022-04-30] MEDS: THIAMINE HCL 100 MG TABLET (FP) PO SCH (22:47)
[2022-04-30] MEDS: CITALOPRAM HYDROBROMIDE 20 MG TABLET PO SCH (22:47)
[2022-04-30] MEDS: hydrOXYzine PAMOATE 25 MG CAPSULE (FP) PO PRN (22:49)
[2022-05-01] MEDS ORDERED: chlordiazePOXIDE HCL 10 MG CAPSULE PO PRN
[2022-05-01] MEDS: chlordiazePOXIDE HCL 10 MG CAPSULE PO SCH ×3 (06:37→21:42)
[2022-05-01] MEDS: QUEtiapine FUMARATE 400 MG TABLET PO SCH ×2 (11:00→22:30)
[2022-05-01] MEDS: PRENATAL VITAMINS W/ FOLIC ACID TABLET (FP) PO SCH (11:00)
[2022-05-01] MEDS: hydrOXYzine PAMOATE 25 MG CAPSULE (FP) PO PRN ×2 (11:00→22:32)
[2022-05-01] MEDS: NICOTINE POLACRILEX 2 MG GUM BUC PRN ×2 (11:03→22:33)
[2022-05-01] MEDS: THIAMINE HCL 100 MG TABLET (FP) PO SCH (22:30)
[2022-05-01] MEDS: MIRTAZAPINE 15 MG TABLET (FP) PO SCH (22:30)
[2022-05-01] MEDS: CITALOPRAM HYDROBROMIDE 20 MG TABLET PO SCH (22:31)
[2022-05-02] MEDS: chlordiazePOXIDE HCL 10 MG CAPSULE PO SCH ×3 (01:06→18:33)
[2022-05-02] MEDS: PRENATAL VITAMINS W/ FOLIC ACID TABLET (FP) PO SCH (10:50)
[2022-05-02] MEDS: QUEtiapine FUMARATE 400 MG TABLET PO SCH ×2 (10:51→22:26)
[2022-05-02] MEDS: hydrOXYzine PAMOATE 25 MG CAPSULE (FP) PO PRN ×2 (10:51→22:26)
[2022-05-02] MEDS: NICOTINE POLACRILEX 2 MG GUM BUC PRN (12:16)
[2022-05-02] MEDS: CITALOPRAM HYDROBROMIDE 20 MG TABLET PO SCH (22:26)
[2022-05-02] MEDS: THIAMINE HCL 100 MG TABLET (FP) PO SCH (22:26)
[2022-05-02] MEDS: MIRTAZAPINE 15 MG TABLET (FP) PO SCH (22:26)
[2022-05-03] MEDS ORDERED: chlordiazePOXIDE HCL 10 MG CAPSULE PO ONE (05:00)
[2022-05-03] MEDS: PRENATAL VITAMINS W/ FOLIC ACID TABLET (FP) PO SCH (10:25)
[2022-05-03] MEDS: QUEtiapine FUMARATE 400 MG TABLET PO SCH (10:25)
[2022-05-03] MEDS: NICOTINE POLACRILEX 2 MG GUM BUC PRN (10:26)
[2022-05-03 17:30] VITALS: BP 136/56; PULSE 63; RESP 16; TEMP 97.7
== END 2022-05-03 17:32 | disposition other institution (70) | DRG 774 ==
LOC: YASAS 13:11 → Y6N 17:34
PROVIDERS: ADMIT Allergy & Immunology; ATTEND Surgery
PROC: HZ2ZZZZ Detoxification Services for Substance Abuse Treatment (ICD-10-PCS; principal; 2022-04-27)
DX: F10.230 Alcohol dependence with withdrawal, uncomplicated (principal); F14.20 Cocaine dependence, uncomplicated; F17.210 Nicotine dependence, cigarettes, uncomplicated; F31.81 Bipolar II disorder; F19.24 Other psychoactive substance dependence with psychoactive substance-induced mood disorder; Z62.810 Personal history of physical and sexual abuse in childhood; Z86.19 Personal history of other infectious and parasitic diseases; Z56.0 Unemployment, unspecified; Z59.01 Sheltered homelessness
CPT/HCPCS: 36415; 80053; 85027; 86593; 86780; C9803-CS; U0003; U0005

== ENCOUNTER 2022-05-03 18:12 | Inpatient (IN) | payer OTHER ==
[2022-05-03] MEDS ORDERED: MELATONIN 5 MG TABLETS PO SCH (22:00)
[2022-05-03] MEDS ORDERED: LOPERAMIDE HCL 2 MG CAPSULE PO PRN (22:21)
[2022-05-03] MEDS ORDERED: guaiFENesin 200 MG/10 ML 10 ML UNIT-DOSE CUPS PO PRN (22:21)
[2022-05-03] MEDS ORDERED: MAGNESIUM HYDROX 2400MG/30ML ORAL SUSPENSION 30 ML CUP PO PRN (22:21)
[2022-05-03] MEDS ORDERED: MAG HYDROX/AL HYDROX/SIMETH 30 ML UNIT-DOSE CUP PO PRN (22:21)
[2022-05-03] MEDS ORDERED: POLYETHYLENE GLYCOL (HEALTHYLAX) 3350 17 GM PACKET PO PRN (22:21)
[2022-05-03] MEDS ORDERED: IBUPROFEN 400 MG TABLET (FP) PO PRN (22:21)
[2022-05-03] MEDS ORDERED: BENZOCAINE/MENTHOL (CHLORASEPTIC ) LOZENGE MM PRN (22:21)
[2022-05-03] MEDS ORDERED: ACETAMINOPHEN 325 MG TABLET (FP) PO PRN (22:21)
[2022-05-03] MEDS ORDERED: P-EPHED 60MG/TRIPROLIDI 2.5MG TABLET PO PRN (22:21)
[2022-05-03] MEDS ORDERED: QUEtiapine FUMARATE 200 MG TABLET PO ONE (22:23)
[2022-05-03] MEDS ORDERED: MIRTAZAPINE 15 MG TABLET (FP) PO ONE (22:24)
[2022-05-03] MEDS ORDERED: CITALOPRAM HYDROBROMIDE 20 MG TABLET PO ONE (22:26)
[2022-05-04] MEDS: PRENATAL VITAMINS W/ FOLIC ACID TABLET (FP) PO SCH (09:26)
[2022-05-04] MEDS: NICOTINE POLACRILEX 4 MG GUM BUC PRN (09:27)
[2022-05-04] MEDS ORDERED: NICOTINE 7 MG/24 HOURS TOPICAL PATCH TD SCH (10:00)
[2022-05-04] MEDS ORDERED: NICOTINE 7 MG/24 HOURS TOPICAL PATCH TD PRN (10:09)
[2022-05-04] MEDS: MIRTAZAPINE 15 MG TABLET (FP) PO SCH (22:07)
[2022-05-04] MEDS: THIAMINE HCL 100 MG TABLET (FP) PO SCH (22:07)
[2022-05-04] MEDS: QUEtiapine FUMARATE 400 MG TABLET PO SCH (22:42)
[2022-05-04] MEDS: CITALOPRAM HYDROBROMIDE 20 MG TABLET PO SCH (22:42)
[2022-05-05] MEDS: NICOTINE POLACRILEX 4 MG GUM BUC PRN ×3 (07:25→21:15)
[2022-05-05] MEDS: PRENATAL VITAMINS W/ FOLIC ACID TABLET (FP) PO SCH (09:42)
[2022-05-05] MEDS: QUEtiapine FUMARATE 400 MG TABLET PO SCH ×2 (09:42→21:14)
[2022-05-05] MEDS: CITALOPRAM HYDROBROMIDE 20 MG TABLET PO SCH (21:14)
[2022-05-05] MEDS: THIAMINE HCL 100 MG TABLET (FP) PO SCH (21:14)
[2022-05-05] MEDS: MIRTAZAPINE 15 MG TABLET (FP) PO SCH (21:14)
[2022-05-05] MEDS: hydrOXYzine PAMOATE 50 MG CAPSULE (FP) PO PRN (21:14)
[2022-05-06] MEDS: NICOTINE POLACRILEX 4 MG GUM BUC PRN ×3 (06:30→21:17)
[2022-05-06] MEDS: QUEtiapine FUMARATE 400 MG TABLET PO SCH ×2 (10:02→21:17)
[2022-05-06] MEDS: PRENATAL VITAMINS W/ FOLIC ACID TABLET (FP) PO SCH (10:02)
[2022-05-06] MEDS: CITALOPRAM HYDROBROMIDE 20 MG TABLET PO SCH (21:16)
[2022-05-06] MEDS: THIAMINE HCL 100 MG TABLET (FP) PO SCH (21:16)
[2022-05-06] MEDS: MIRTAZAPINE 15 MG TABLET (FP) PO SCH (21:17)
[2022-05-06] MEDS: hydrOXYzine PAMOATE 50 MG CAPSULE (FP) PO PRN (21:17)
[2022-05-07] MEDS: NICOTINE POLACRILEX 4 MG GUM BUC PRN ×3 (06:26→12:33)
[2022-05-07] MEDS: QUEtiapine FUMARATE 400 MG TABLET PO SCH ×2 (09:32→21:07)
[2022-05-07] MEDS: PRENATAL VITAMINS W/ FOLIC ACID TABLET (FP) PO SCH (09:32)
[2022-05-07] MEDS: MIRTAZAPINE 15 MG TABLET (FP) PO SCH (21:07)
[2022-05-07] MEDS: THIAMINE HCL 100 MG TABLET (FP) PO SCH (21:07)
[2022-05-07] MEDS: CITALOPRAM HYDROBROMIDE 20 MG TABLET PO SCH (21:07)
[2022-05-07] MEDS: hydrOXYzine PAMOATE 50 MG CAPSULE (FP) PO PRN (21:08)
[2022-05-08] MEDS: NICOTINE POLACRILEX 4 MG GUM BUC PRN ×3 (06:36→21:39)
[2022-05-08] MEDS: QUEtiapine FUMARATE 400 MG TABLET PO SCH ×2 (09:23→21:37)
[2022-05-08] MEDS: PRENATAL VITAMINS W/ FOLIC ACID TABLET (FP) PO SCH (09:23)
[2022-05-08] MEDS: hydrOXYzine PAMOATE 50 MG CAPSULE (FP) PO PRN (21:37)
[2022-05-08] MEDS: CITALOPRAM HYDROBROMIDE 20 MG TABLET PO SCH (21:37)
[2022-05-08] MEDS: THIAMINE HCL 100 MG TABLET (FP) PO SCH (21:37)
[2022-05-08] MEDS: MIRTAZAPINE 15 MG TABLET (FP) PO SCH (21:37)
[2022-05-09] MEDS: NICOTINE 10 MG CARTRIDGE (INHALER) IH PRN (06:28)
[2022-05-09] MEDS: QUEtiapine FUMARATE 400 MG TABLET PO SCH ×2 (09:36→21:26)
[2022-05-09] MEDS: NICOTINE POLACRILEX 4 MG GUM BUC PRN ×5 (09:37→21:27)
[2022-05-09] MEDS: PRENATAL VITAMINS W/ FOLIC ACID TABLET (FP) PO SCH (09:37)
[2022-05-09] MEDS: THIAMINE HCL 100 MG TABLET (FP) PO SCH (21:25)
[2022-05-09] MEDS: CITALOPRAM HYDROBROMIDE 20 MG TABLET PO SCH (21:25)
[2022-05-09] MEDS: MIRTAZAPINE 15 MG TABLET (FP) PO SCH (21:25)
[2022-05-09] MEDS: hydrOXYzine PAMOATE 50 MG CAPSULE (FP) PO PRN (21:26)
[2022-05-10] MEDS: NICOTINE 10 MG CARTRIDGE (INHALER) IH PRN (06:14)
[2022-05-10] MEDS: QUEtiapine FUMARATE 400 MG TABLET PO SCH ×2 (09:22→21:15)
[2022-05-10] MEDS: NICOTINE POLACRILEX 4 MG GUM BUC PRN ×2 (09:22→15:31)
[2022-05-10] MEDS: PRENATAL VITAMINS W/ FOLIC ACID TABLET (FP) PO SCH (09:22)
[2022-05-10] MEDS: MIRTAZAPINE 15 MG TABLET (FP) PO SCH (21:14)
[2022-05-10] MEDS: hydrOXYzine PAMOATE 50 MG CAPSULE (FP) PO PRN (21:14)
[2022-05-10] MEDS: CITALOPRAM HYDROBROMIDE 20 MG TABLET PO SCH (21:15)
[2022-05-10] MEDS: THIAMINE HCL 100 MG TABLET (FP) PO SCH (21:15)
[2022-05-11] MEDS: NICOTINE POLACRILEX 4 MG GUM BUC PRN ×2 (06:10→08:54)
[2022-05-11] MEDS: PRENATAL VITAMINS W/ FOLIC ACID TABLET (FP) PO SCH (09:29)
[2022-05-11] MEDS: QUEtiapine FUMARATE 400 MG TABLET PO SCH ×2 (09:29→21:31)
[2022-05-11] MEDS ORDERED: AMMONIUM LACTATE 12% LOTION 225 GM BOTTLE TP PRN (12:43)
[2022-05-11] MEDS: SALICYLIC ACID 1 APPLIC BOTTLE TP SCH (14:04)
[2022-05-11] MEDS: NICOTINE POLACRILEX 2 MG GUM BUC PRN ×2 (14:06→21:32)
[2022-05-11] MEDS: THIAMINE HCL 100 MG TABLET (FP) PO SCH (21:31)
[2022-05-11] MEDS: hydrOXYzine PAMOATE 50 MG CAPSULE (FP) PO PRN (21:31)
[2022-05-11] MEDS: CITALOPRAM HYDROBROMIDE 20 MG TABLET PO SCH (21:31)
[2022-05-11] MEDS: MIRTAZAPINE 15 MG TABLET (FP) PO SCH (21:34)
[2022-05-12] MEDS: NICOTINE POLACRILEX 2 MG GUM BUC PRN ×4 (06:11→21:17)
[2022-05-12] MEDS: QUEtiapine FUMARATE 400 MG TABLET PO SCH ×2 (09:28→21:16)
[2022-05-12] MEDS: PRENATAL VITAMINS W/ FOLIC ACID TABLET (FP) PO SCH (09:28)
[2022-05-12] MEDS: SALICYLIC ACID 1 APPLIC BOTTLE TP SCH (09:28)
[2022-05-12] MEDS: THIAMINE HCL 100 MG TABLET (FP) PO SCH (21:16)
[2022-05-12] MEDS: CITALOPRAM HYDROBROMIDE 20 MG TABLET PO SCH (21:16)
[2022-05-12] MEDS: hydrOXYzine PAMOATE 50 MG CAPSULE (FP) PO PRN (21:16)
[2022-05-12] MEDS: MIRTAZAPINE 15 MG TABLET (FP) PO SCH (21:30)
[2022-05-13] MEDS: NICOTINE 10 MG CARTRIDGE (INHALER) IH PRN (06:58)
[2022-05-13] MEDS: PRENATAL VITAMINS W/ FOLIC ACID TABLET (FP) PO SCH (09:33)
[2022-05-13] MEDS: QUEtiapine FUMARATE 400 MG TABLET PO SCH ×2 (09:33→21:35)
[2022-05-13] MEDS: SALICYLIC ACID 1 APPLIC BOTTLE TP SCH (09:34)
[2022-05-13] MEDS: NICOTINE POLACRILEX 2 MG GUM BUC PRN ×2 (09:35→12:36)
[2022-05-13] MEDS: CITALOPRAM HYDROBROMIDE 20 MG TABLET PO SCH (21:25)
[2022-05-13] MEDS: THIAMINE HCL 100 MG TABLET (FP) PO SCH (21:25)
[2022-05-13] MEDS: hydrOXYzine PAMOATE 50 MG CAPSULE (FP) PO PRN (21:25)
[2022-05-13] MEDS: MIRTAZAPINE 15 MG TABLET (FP) PO SCH (21:26)
[2022-05-14] MEDS: NICOTINE POLACRILEX 2 MG GUM BUC PRN (06:18)
[2022-05-14 06:44] VITALS: BP 131/76; PULSE 61; RESP 18; TEMP 97.5
== END 2022-05-14 09:27 | disposition home or self-care (01) | DRG 772 ==
LOC: YASAS 18:12 → Y3E 18:14
PROVIDERS: ADMIT Allergy & Immunology; ATTEND Psychiatry & Neurology Pain Medicine
PROC: HZ42ZZZ Group Counseling for Substance Abuse Treatment, Cognitive-Behavioral (ICD-10-PCS; principal; 2022-05-03)
DX: F10.20 Alcohol dependence, uncomplicated (principal); F14.20 Cocaine dependence, uncomplicated; F17.210 Nicotine dependence, cigarettes, uncomplicated; F19.24 Other psychoactive substance dependence with psychoactive substance-induced mood disorder; F31.9 Bipolar disorder, unspecified; F41.9 Anxiety disorder, unspecified; L84 Corns and callosities; Z86.19 Personal history of other infectious and parasitic diseases; Z59.01 Sheltered homelessness; Z56.0 Unemployment, unspecified

== ENCOUNTER 2022-08-09 12:23 | Inpatient (IN) | payer OTHER ==
[2022-08-09 12:39] VITALS: BMI 21.6
[2022-08-09] MEDS ORDERED: MAG HYDROX/AL HYDROX/SIMETH 30 ML UNIT-DOSE CUP PO PRN (13:03)
[2022-08-09] MEDS ORDERED: IBUPROFEN 600 MG TABLET (FP) PO PRN (13:03)
[2022-08-09] MEDS ORDERED: BISMUTH SUBSALICYLATE 524 MG/30 ML PO PRN (13:03)
[2022-08-09] MEDS ORDERED: BENZOCAINE/MENTHOL (CHLORASEPTIC ) LOZENGE MM PRN (13:03)
[2022-08-09] MEDS ORDERED: IBUPROFEN 400 MG TABLET (FP) PO PRN (13:03)
[2022-08-09] MEDS ORDERED: BENZONATATE 200 MG CAPSULE PO PRN (13:03)
[2022-08-09] MEDS ORDERED: hydrOXYzine PAMOATE 25 MG CAPSULE (FP) PO PRN (13:03)
[2022-08-09] MEDS ORDERED: POLYETHYLENE GLYCOL (HEALTHYLAX) 3350 17 GM PACKET PO PRN (13:03)
[2022-08-09] MEDS ORDERED: diazePAM 5 MG TABLET PO PRN (13:03)
[2022-08-09] MEDS ORDERED: METHOCARBAMOL 500 MG TABLET PO PRN (13:03)
[2022-08-09] MEDS ORDERED: diazePAM 5 MG TABLET PO ONE (13:03)
[2022-08-09] MEDS ORDERED: LOPERAMIDE HCL 2 MG CAPSULE PO PRN (13:03)
[2022-08-09] MEDS ORDERED: guaiFENesin 600 MG TABLET.ER (FP) PO PRN (13:03)
[2022-08-09] MEDS ORDERED: ACETAMINOPHEN 325 MG TABLET (FP) PO PRN (13:03)
[2022-08-09] MEDS ORDERED: NICOTINE 10 MG CARTRIDGE (INHALER) IH PRN (13:03)
[2022-08-09] MEDS ORDERED: DICYCLOMINE HCL 10 MG CAPSULE PO PRN (13:03)
[2022-08-09] MEDS ORDERED: NALOXONE HCL (KLOXXADO) 8 MG SPRAY NS PRN (13:03)
[2022-08-09] MEDS ORDERED: NALOXONE HCL 0.4 MG/ML VIAL IM PRN (13:03)
[2022-08-09] MEDS ORDERED: MAGNESIUM HYDROX 2400MG/30ML ORAL SUSPENSION 30 ML CUP PO PRN (13:03)
[2022-08-09] MEDS ORDERED: LORazepam 1 MG TABLET PO PRN (13:11)
[2022-08-09] MEDS ORDERED: LORazepam 2 MG TABLET PO ONE (13:30)
[2022-08-09] MEDS ORDERED: LORazepam 2 MG TABLET ONE (13:41)
[2022-08-09] MEDS ORDERED: PRENATAL VITAMINS W/ FOLIC ACID TABLET (FP) PO ONE (13:42)
[2022-08-09] MEDS: PRENATAL VITAMINS W/ FOLIC ACID TABLET (FP) PO SCH (13:47)
[2022-08-09] MEDS ORDERED: diazePAM 5 MG TABLET PO SCH (17:00)
[2022-08-09] MEDS: LORazepam 2 MG TABLET PO SCH ×2 (18:00→23:03)
[2022-08-09 18:31] LABS: HEMATOCRIT 37.3 % (35.4-49); HEMOGLOBIN 12.7 GM/dL (11.7-16.9); MCH 31.7 pg (25.7-33.7); MCHC 34.1 g/dl (32.0-35.9); MEAN CELL VOLUME 92.8 fl (80-96); MEAN PLT VOLUME 8.1 fl (7.5-11.1); PLATELET COUNT 359 10^3/uL (134-434); RBC 4.01 M/mm3 (4.00-5.60); RDW 15.1 % (11.9-15.9); WHITE BLOOD COUNT 4.1 K/mm3 (4.0-10.0)
[2022-08-09 18:40] LABS: ALBUMIN 3.5 g/dl (3.4-5.0); CALCIUM 8.3 mg/dL (8.5-10.1)
[2022-08-09 18:41] LABS: BLOOD UREA NITROGEN 10.8 mg/dL (7-18)
[2022-08-09 18:44] LABS: CREATININE 0.9 mg/dL (0.55-1.3)
[2022-08-09 18:45] LABS: BILIRUBIN,TOTAL 0.3 mg/dL (0.2-1); TOT PROT 6.8 g/dl (6.4-8.2)
[2022-08-09] MEDS: THIAMINE HCL 100 MG TABLET (FP) PO SCH (23:03)
[2022-08-09] MEDS: MELATONIN 5 MG TABLETS PO SCH (23:04)
[2022-08-09] MEDS: NICOTINE POLACRILEX 2 MG GUM BUC PRN (23:06)
[2022-08-10] MEDS: LORazepam 2 MG TABLET PO SCH ×4 (05:57→22:48)
[2022-08-10] MEDS: NICOTINE POLACRILEX 2 MG GUM BUC PRN ×2 (06:09→11:00)
[2022-08-10] MEDS: ONDANSETRON *ODT* 4 MG TABLET SL PRN (10:57)
[2022-08-10] MEDS: PRENATAL VITAMINS W/ FOLIC ACID TABLET (FP) PO SCH (10:57)
[2022-08-10] MEDS: QUEtiapine FUMARATE 400 MG TABLET PO SCH ×2 (11:47→22:47)
[2022-08-10] MEDS: LACTULOSE 20 GM/30 ML UDC (FOR ORAL USE ONLY) PO SCH ×2 (16:06→22:46)
[2022-08-10] MEDS: MELATONIN 5 MG TABLETS PO SCH (22:46)
[2022-08-10] MEDS: THIAMINE HCL 100 MG TABLET (FP) PO SCH (22:47)
[2022-08-10] MEDS: CITALOPRAM HYDROBROMIDE 20 MG TABLET PO SCH (22:48)
[2022-08-10] MEDS: MIRTAZAPINE 15 MG TABLET (FP) PO SCH (22:48)
[2022-08-11] MEDS: LORazepam 1 MG TABLET PO SCH ×4 (05:57→22:11)
[2022-08-11] MEDS: LACTULOSE 20 GM/30 ML UDC (FOR ORAL USE ONLY) PO SCH ×3 (05:57→22:12)
[2022-08-11] MEDS ORDERED: diazePAM 5 MG TABLET PO SCH (06:00)
[2022-08-11] MEDS: PRENATAL VITAMINS W/ FOLIC ACID TABLET (FP) PO SCH (10:58)
[2022-08-11] MEDS: QUEtiapine FUMARATE 400 MG TABLET PO SCH ×2 (10:58→22:11)
[2022-08-11] MEDS: NICOTINE POLACRILEX 2 MG GUM BUC PRN ×3 (14:07→22:14)
[2022-08-11] MEDS: THIAMINE HCL 100 MG TABLET (FP) PO SCH (22:10)
[2022-08-11] MEDS: MIRTAZAPINE 15 MG TABLET (FP) PO SCH (22:10)
[2022-08-11] MEDS: CITALOPRAM HYDROBROMIDE 20 MG TABLET PO SCH (22:11)
[2022-08-11] MEDS: MELATONIN 5 MG TABLETS PO SCH (23:34)
[2022-08-12] MEDS ORDERED: LORazepam 0.5 MG TABLET PO PRN
[2022-08-12] MEDS ORDERED: diazePAM 5 MG TABLET PO SCH (06:00)
[2022-08-12] MEDS: LORazepam 0.5 MG TABLET PO SCH ×4 (06:00→22:26)
[2022-08-12] MEDS: LACTULOSE 20 GM/30 ML UDC (FOR ORAL USE ONLY) PO SCH (06:44)
[2022-08-12] MEDS: PRENATAL VITAMINS W/ FOLIC ACID TABLET (FP) PO SCH (10:34)
[2022-08-12] MEDS: QUEtiapine FUMARATE 400 MG TABLET PO SCH ×2 (10:36→22:21)
[2022-08-12] MEDS: NICOTINE POLACRILEX 2 MG GUM BUC PRN ×2 (10:39→17:25)
[2022-08-12] MEDS: CITALOPRAM HYDROBROMIDE 20 MG TABLET PO SCH (22:21)
[2022-08-12] MEDS: THIAMINE HCL 100 MG TABLET (FP) PO SCH (22:22)
[2022-08-12] MEDS: MIRTAZAPINE 15 MG TABLET (FP) PO SCH (22:25)
[2022-08-12] MEDS: MELATONIN 5 MG TABLETS PO SCH (22:26)
[2022-08-13] MEDS: ONDANSETRON *ODT* 4 MG TABLET SL PRN (03:44)
[2022-08-13] MEDS ORDERED: LORazepam 0.5 MG TABLET PO ONE (05:00)
[2022-08-13] MEDS ORDERED: diazePAM 5 MG TABLET PO ONE (06:00)
[2022-08-13] MEDS ORDERED: TRIMETHOBENZAMIDE HCL 200MG/2ML INJ IM ONE (06:44)
[2022-08-13] MEDS: QUEtiapine FUMARATE 400 MG TABLET PO SCH (10:24)
[2022-08-13] MEDS: PRENATAL VITAMINS W/ FOLIC ACID TABLET (FP) PO SCH (10:24)
[2022-08-13 13:42] VITALS: PULSE 69
[2022-08-13 18:06] VITALS: BP 111/58; RESP 17; TEMP 99.1
[2022-08-13] MEDS: NICOTINE POLACRILEX 2 MG GUM BUC PRN (18:42)
== END 2022-08-13 18:48 | disposition other institution (70) | DRG 774 ==
LOC: YASAS 12:23 → Y6N 14:08
PROVIDERS: ADMIT Surgery; ATTEND Allergy & Immunology
PROC: HZ2ZZZZ Detoxification Services for Substance Abuse Treatment (ICD-10-PCS; principal; 2022-08-09)
DX: F10.230 Alcohol dependence with withdrawal, uncomplicated (principal); F14.20 Cocaine dependence, uncomplicated; F17.210 Nicotine dependence, cigarettes, uncomplicated; F31.81 Bipolar II disorder; F19.24 Other psychoactive substance dependence with psychoactive substance-induced mood disorder; E72.20 Disorder of urea cycle metabolism, unspecified; R11.10 Vomiting, unspecified; Z62.810 Personal history of physical and sexual abuse in childhood; Z86.19 Personal history of other infectious and parasitic diseases
CPT/HCPCS: 36415; 80053; 82140; 85027; 86593; 86780; 87811; C9803-CS; Q0162; U0003; U0005

== ENCOUNTER 2022-08-13 19:12 | Inpatient (IN) | payer OTHER ==
[2022-08-13] MEDS ORDERED: MELATONIN 5 MG TABLETS PO SCH (22:00)
[2022-08-13] MEDS ORDERED: IBUPROFEN 600 MG TABLET (FP) PO PRN (23:04)
[2022-08-13] MEDS ORDERED: ACETAMINOPHEN 325 MG TABLET (FP) PO PRN (23:04)
[2022-08-13] MEDS ORDERED: BENZONATATE 200 MG CAPSULE PO PRN (23:04)
[2022-08-13] MEDS ORDERED: MAG HYDROX/AL HYDROX/SIMETH 30 ML UNIT-DOSE CUP PO PRN (23:04)
[2022-08-13] MEDS ORDERED: NALOXONE HCL 0.4 MG/ML VIAL IVPUSH PRN (23:04)
[2022-08-13] MEDS ORDERED: NALOXONE HCL (KLOXXADO) 8 MG SPRAY NS PRN (23:04)
[2022-08-13] MEDS ORDERED: IBUPROFEN 400 MG TABLET (FP) PO PRN (23:04)
[2022-08-13] MEDS ORDERED: guaiFENesin 600 MG TABLET.ER (FP) PO PRN (23:04)
[2022-08-13] MEDS ORDERED: LOPERAMIDE HCL 2 MG CAPSULE PO PRN (23:04)
[2022-08-13] MEDS ORDERED: BENZOCAINE/MENTHOL (CHLORASEPTIC ) LOZENGE MM PRN (23:04)
[2022-08-13] MEDS ORDERED: MAGNESIUM HYDROX 2400MG/30ML ORAL SUSPENSION 30 ML CUP PO PRN (23:04)
[2022-08-13] MEDS ORDERED: POLYETHYLENE GLYCOL (HEALTHYLAX) 3350 17 GM PACKET PO PRN (23:04)
[2022-08-13] MEDS ORDERED: METHOCARBAMOL 500 MG TABLET PO PRN (23:04)
[2022-08-14] MEDS: PRENATAL VITAMINS W/ FOLIC ACID TABLET (FP) PO SCH (09:57)
[2022-08-14] MEDS: NICOTINE POLACRILEX 2 MG GUM BUC PRN ×4 (09:57→21:44)
[2022-08-14] MEDS: QUEtiapine FUMARATE 400 MG TABLET PO SCH ×2 (09:57→21:43)
[2022-08-14] MEDS: NICOTINE 14 MG/24 HOURS TOPICAL PATCH TD SCH (10:09)
[2022-08-14] MEDS: THIAMINE HCL 100 MG TABLET (FP) PO SCH (21:43)
[2022-08-14] MEDS: CITALOPRAM HYDROBROMIDE 20 MG TABLET PO SCH (21:43)
[2022-08-14] MEDS: MIRTAZAPINE 15 MG TABLET (FP) PO SCH (21:43)
[2022-08-14] MEDS: hydrOXYzine PAMOATE 25 MG CAPSULE (FP) PO PRN (21:44)
[2022-08-15] MEDS: NICOTINE POLACRILEX 2 MG GUM BUC PRN ×4 (06:51→21:16)
[2022-08-15] MEDS: QUEtiapine FUMARATE 400 MG TABLET PO SCH ×2 (09:35→21:14)
[2022-08-15] MEDS: PRENATAL VITAMINS W/ FOLIC ACID TABLET (FP) PO SCH (09:35)
[2022-08-15] MEDS: NICOTINE 14 MG/24 HOURS TOPICAL PATCH TD SCH (10:14)
[2022-08-15] MEDS: CITALOPRAM HYDROBROMIDE 20 MG TABLET PO SCH (21:14)
[2022-08-15] MEDS: THIAMINE HCL 100 MG TABLET (FP) PO SCH (21:14)
[2022-08-15] MEDS: MIRTAZAPINE 15 MG TABLET (FP) PO SCH (21:15)
[2022-08-15] MEDS: hydrOXYzine PAMOATE 25 MG CAPSULE (FP) PO PRN (21:15)
[2022-08-16] MEDS: PRENATAL VITAMINS W/ FOLIC ACID TABLET (FP) PO SCH (10:03)
[2022-08-16] MEDS: QUEtiapine FUMARATE 400 MG TABLET PO SCH ×2 (10:03→21:19)
[2022-08-16] MEDS: NICOTINE POLACRILEX 2 MG GUM BUC PRN ×4 (10:04→21:20)
[2022-08-16] MEDS: NICOTINE 14 MG/24 HOURS TOPICAL PATCH TD SCH (10:04)
[2022-08-16] MEDS: MIRTAZAPINE 15 MG TABLET (FP) PO SCH (21:19)
[2022-08-16] MEDS: CITALOPRAM HYDROBROMIDE 20 MG TABLET PO SCH (21:19)
[2022-08-16] MEDS: THIAMINE HCL 100 MG TABLET (FP) PO SCH (21:19)
[2022-08-16] MEDS: hydrOXYzine PAMOATE 25 MG CAPSULE (FP) PO PRN (21:20)
[2022-08-17] MEDS: QUEtiapine FUMARATE 400 MG TABLET PO SCH ×2 (09:48→21:25)
[2022-08-17] MEDS: PRENATAL VITAMINS W/ FOLIC ACID TABLET (FP) PO SCH (09:48)
[2022-08-17] MEDS: NICOTINE POLACRILEX 2 MG GUM BUC PRN ×4 (09:49→21:26)
[2022-08-17] MEDS: NICOTINE 14 MG/24 HOURS TOPICAL PATCH TD SCH (10:51)
[2022-08-17] MEDS: CITALOPRAM HYDROBROMIDE 20 MG TABLET PO SCH (21:25)
[2022-08-17] MEDS: THIAMINE HCL 100 MG TABLET (FP) PO SCH (21:26)
[2022-08-17] MEDS: MIRTAZAPINE 15 MG TABLET (FP) PO SCH (21:26)
[2022-08-17] MEDS: hydrOXYzine PAMOATE 25 MG CAPSULE (FP) PO PRN (21:26)
[2022-08-18] MEDS ORDERED: SALICYLIC ACID 1 APPLIC BOTTLE TP PRN (08:44)
[2022-08-18] MEDS: NICOTINE 14 MG/24 HOURS TOPICAL PATCH TD SCH (09:50)
[2022-08-18] MEDS: PRENATAL VITAMINS W/ FOLIC ACID TABLET (FP) PO SCH (09:50)
[2022-08-18] MEDS: QUEtiapine FUMARATE 400 MG TABLET PO SCH ×2 (09:51→21:22)
[2022-08-18] MEDS: NICOTINE POLACRILEX 2 MG GUM BUC PRN ×4 (09:51→21:23)
[2022-08-18] MEDS: AMMONIUM LACTATE 12% LOTION 225 GM BOTTLE TP PRN (09:52)
[2022-08-18] MEDS: MIRTAZAPINE 15 MG TABLET (FP) PO SCH (21:22)
[2022-08-18] MEDS: CITALOPRAM HYDROBROMIDE 20 MG TABLET PO SCH (21:22)
[2022-08-18] MEDS: THIAMINE HCL 100 MG TABLET (FP) PO SCH (21:22)
[2022-08-18] MEDS: hydrOXYzine PAMOATE 25 MG CAPSULE (FP) PO PRN (21:23)
[2022-08-19] MEDS: PRENATAL VITAMINS W/ FOLIC ACID TABLET (FP) PO SCH (10:25)
[2022-08-19] MEDS: QUEtiapine FUMARATE 400 MG TABLET PO SCH ×2 (10:25→21:26)
[2022-08-19] MEDS: NICOTINE POLACRILEX 2 MG GUM BUC PRN ×4 (10:26→19:58)
[2022-08-19] MEDS: NICOTINE 14 MG/24 HOURS TOPICAL PATCH TD SCH (10:26)
[2022-08-19] MEDS: hydrOXYzine PAMOATE 25 MG CAPSULE (FP) PO PRN (21:26)
[2022-08-19] MEDS: MIRTAZAPINE 15 MG TABLET (FP) PO SCH (21:26)
[2022-08-19] MEDS: THIAMINE HCL 100 MG TABLET (FP) PO SCH (21:26)
[2022-08-19] MEDS: CITALOPRAM HYDROBROMIDE 20 MG TABLET PO SCH (21:26)
[2022-08-20] MEDS: PRENATAL VITAMINS W/ FOLIC ACID TABLET (FP) PO SCH (09:52)
[2022-08-20] MEDS: NICOTINE 14 MG/24 HOURS TOPICAL PATCH TD SCH (09:53)
[2022-08-20] MEDS: QUEtiapine FUMARATE 400 MG TABLET PO SCH ×2 (09:53→21:34)
[2022-08-20] MEDS: NICOTINE POLACRILEX 2 MG GUM BUC PRN ×3 (09:53→18:48)
[2022-08-20] MEDS: MIRTAZAPINE 15 MG TABLET (FP) PO SCH (21:33)
[2022-08-20] MEDS: CITALOPRAM HYDROBROMIDE 20 MG TABLET PO SCH (21:33)
[2022-08-20] MEDS: THIAMINE HCL 100 MG TABLET (FP) PO SCH (21:34)
[2022-08-20] MEDS: hydrOXYzine PAMOATE 25 MG CAPSULE (FP) PO PRN (21:34)
[2022-08-21] MEDS: NICOTINE 14 MG/24 HOURS TOPICAL PATCH TD SCH (10:14)
[2022-08-21] MEDS: NICOTINE POLACRILEX 2 MG GUM BUC PRN ×5 (10:14→21:15)
[2022-08-21] MEDS: PRENATAL VITAMINS W/ FOLIC ACID TABLET (FP) PO SCH (10:14)
[2022-08-21] MEDS: QUEtiapine FUMARATE 400 MG TABLET PO SCH ×2 (10:14→21:15)
[2022-08-21] MEDS: AMMONIUM LACTATE 12% LOTION 225 GM BOTTLE TP PRN (15:45)
[2022-08-21] MEDS: hydrOXYzine PAMOATE 25 MG CAPSULE (FP) PO PRN (21:15)
[2022-08-21] MEDS: THIAMINE HCL 100 MG TABLET (FP) PO SCH (21:15)
[2022-08-21] MEDS: MIRTAZAPINE 15 MG TABLET (FP) PO SCH (21:15)
[2022-08-21] MEDS: CITALOPRAM HYDROBROMIDE 20 MG TABLET PO SCH (21:15)
[2022-08-22] MEDS: NICOTINE 14 MG/24 HOURS TOPICAL PATCH TD SCH (09:40)
[2022-08-22] MEDS: QUEtiapine FUMARATE 400 MG TABLET PO SCH ×2 (09:40→21:16)
[2022-08-22] MEDS: PRENATAL VITAMINS W/ FOLIC ACID TABLET (FP) PO SCH (09:40)
[2022-08-22] MEDS: NICOTINE POLACRILEX 2 MG GUM BUC PRN ×4 (09:41→21:16)
[2022-08-22] MEDS: CITALOPRAM HYDROBROMIDE 20 MG TABLET PO SCH (21:15)
[2022-08-22] MEDS: hydrOXYzine PAMOATE 25 MG CAPSULE (FP) PO PRN (21:15)
[2022-08-22] MEDS: THIAMINE HCL 100 MG TABLET (FP) PO SCH (21:15)
[2022-08-22] MEDS: MIRTAZAPINE 15 MG TABLET (FP) PO SCH (21:16)
[2022-08-23] MEDS: NICOTINE POLACRILEX 2 MG GUM BUC PRN ×4 (05:50→21:41)
[2022-08-23] MEDS: AMMONIUM LACTATE 12% LOTION 225 GM BOTTLE TP PRN (05:52)
[2022-08-23 06:49] VITALS: RESP 18
[2022-08-23] MEDS: NICOTINE 14 MG/24 HOURS TOPICAL PATCH TD SCH (10:37)
[2022-08-23] MEDS: PRENATAL VITAMINS W/ FOLIC ACID TABLET (FP) PO SCH (10:37)
[2022-08-23] MEDS: QUEtiapine FUMARATE 400 MG TABLET PO SCH ×2 (10:37→21:39)
[2022-08-23] MEDS: CITALOPRAM HYDROBROMIDE 20 MG TABLET PO SCH (21:39)
[2022-08-23] MEDS: THIAMINE HCL 100 MG TABLET (FP) PO SCH (21:39)
[2022-08-23] MEDS: MIRTAZAPINE 15 MG TABLET (FP) PO SCH (21:40)
[2022-08-23] MEDS: hydrOXYzine PAMOATE 25 MG CAPSULE (FP) PO PRN (21:40)
[2022-08-24 06:54] VITALS: BP 112/58; PULSE 64; TEMP 97.1
[2022-08-24] MEDS: NICOTINE POLACRILEX 2 MG GUM BUC PRN (09:01)
[2022-08-24] MEDS: QUEtiapine FUMARATE 400 MG TABLET PO SCH (09:01)
[2022-08-24] MEDS: NICOTINE 14 MG/24 HOURS TOPICAL PATCH TD SCH (09:01)
[2022-08-24] MEDS: PRENATAL VITAMINS W/ FOLIC ACID TABLET (FP) PO SCH (09:01)
== END 2022-08-24 09:10 | disposition home or self-care (01) | DRG 772 ==
LOC: YASAS 19:12 → Y3W 19:13
PROVIDERS: ADMIT Allergy & Immunology; ATTEND Psychiatry & Neurology Pain Medicine
PROC: HZ42ZZZ Group Counseling for Substance Abuse Treatment, Cognitive-Behavioral (ICD-10-PCS; principal; 2022-08-13)
DX: F10.20 Alcohol dependence, uncomplicated (principal); F14.20 Cocaine dependence, uncomplicated; F17.220 Nicotine dependence, chewing tobacco, uncomplicated; F17.210 Nicotine dependence, cigarettes, uncomplicated; F31.81 Bipolar II disorder; F19.24 Other psychoactive substance dependence with psychoactive substance-induced mood disorder; F41.9 Anxiety disorder, unspecified; L84 Corns and callosities; Z86.19 Personal history of other infectious and parasitic diseases
CPT/HCPCS: 36415; 83036; 86803; 93005; 93010

== ENCOUNTER 2022-10-02 12:03 | Inpatient (IN) | payer OTHER ==
[2022-10-02 12:59] VITALS: BMI 22.5
[2022-10-02] MEDS ORDERED: NALOXONE HCL 0.4 MG/ML VIAL IM PRN (13:24)
[2022-10-02] MEDS ORDERED: LOPERAMIDE HCL 2 MG CAPSULE PO PRN (13:24)
[2022-10-02] MEDS ORDERED: POLYETHYLENE GLYCOL (HEALTHYLAX) 3350 17 GM PACKET PO PRN (13:24)
[2022-10-02] MEDS ORDERED: ACETAMINOPHEN 325 MG TABLET (FP) PO PRN (13:24)
[2022-10-02] MEDS ORDERED: NALOXONE HCL (KLOXXADO) 8 MG SPRAY NS PRN (13:24)
[2022-10-02] MEDS ORDERED: IBUPROFEN 400 MG TABLET (FP) PO PRN (13:24)
[2022-10-02] MEDS ORDERED: IBUPROFEN 600 MG TABLET (FP) PO PRN (13:24)
[2022-10-02] MEDS ORDERED: MAGNESIUM HYDROX 2400MG/30ML ORAL SUSPENSION 30 ML CUP PO PRN (13:24)
[2022-10-02] MEDS ORDERED: BISMUTH SUBSALICYLATE 524 MG/30 ML PO PRN (13:24)
[2022-10-02] MEDS ORDERED: AMMONIUM LACTATE 12% LOTION 225 GM BOTTLE TP PRN (13:24)
[2022-10-02] MEDS ORDERED: METHOCARBAMOL 500 MG TABLET PO PRN (13:24)
[2022-10-02] MEDS ORDERED: MAG HYDROX/AL HYDROX/SIMETH 30 ML UNIT-DOSE CUP PO PRN (13:24)
[2022-10-02] MEDS ORDERED: BENZONATATE 200 MG CAPSULE PO PRN (13:24)
[2022-10-02] MEDS ORDERED: DICYCLOMINE HCL 10 MG CAPSULE PO PRN (13:24)
[2022-10-02] MEDS ORDERED: ONDANSETRON *ODT* 4 MG TABLET SL PRN (13:24)
[2022-10-02] MEDS ORDERED: MELATONIN 5 MG TABLETS PO SCH (22:00)
[2022-10-02] MEDS: hydrOXYzine PAMOATE 25 MG CAPSULE (FP) PO PRN (22:20)
[2022-10-02] MEDS: THIAMINE HCL 100 MG TABLET (FP) PO SCH (22:20)
[2022-10-02] MEDS: NICOTINE POLACRILEX 2 MG GUM BUC PRN (22:21)
[2022-10-03 09:57] LABS: POTASSIUM 4.4 mmol/L (3.5-5.1)
[2022-10-03 10:02] LABS: ALBUMIN 3.1 g/dl (3.4-5.0); BLOOD UREA NITROGEN 16.3 mg/dL (7-18); CALCIUM 8.5 mg/dL (8.5-10.1)
[2022-10-03 10:05] LABS: CREATININE 0.9 mg/dL (0.55-1.3)
[2022-10-03 10:07] LABS: BILIRUBIN,TOTAL 0.3 mg/dL (0.2-1); HEMATOCRIT 33.7 % (35.4-49); MCHC 35.5 g/dl (32.0-35.9); MEAN CELL VOLUME 92.9 fl (80-96); MEAN PLT VOLUME 8.5 fl (7.5-11.1); PLATELET COUNT 246 10^3/uL (134-434); RBC 3.62 M/mm3 (4.00-5.60); RDW 14.6 % (11.9-15.9); WHITE BLOOD COUNT 5.6 K/mm3 (4.0-10.0)
[2022-10-03] MEDS: PRENATAL VITAMINS W/ FOLIC ACID TABLET (FP) PO SCH (10:45)
[2022-10-03] MEDS: CITALOPRAM HYDROBROMIDE 20 MG TABLET PO SCH (10:46)
[2022-10-03] MEDS: NICOTINE POLACRILEX 2 MG GUM BUC PRN ×3 (10:47→22:22)
[2022-10-03] MEDS ORDERED: QUEtiapine FUMARATE 100 MG TABLET (FP) PO SCH (11:00)
[2022-10-03] MEDS ORDERED: chlordiazePOXIDE HCL 25 MG CAPSULE PO PRN (11:03)
[2022-10-03] MEDS: chlordiazePOXIDE HCL 25 MG CAPSULE PO SCH ×3 (11:40→22:18)
[2022-10-03] MEDS: LACTULOSE 20 GM/30 ML UDC (FOR ORAL USE ONLY) PO SCH ×3 (13:04→22:18)
[2022-10-03] MEDS ORDERED: QUEtiapine FUMARATE 400 MG TABLET PO SCH (22:00)
[2022-10-03] MEDS: hydrOXYzine PAMOATE 25 MG CAPSULE (FP) PO PRN (22:17)
[2022-10-03] MEDS: MIRTAZAPINE 15 MG TABLET (FP) PO SCH (22:17)
[2022-10-03] MEDS: THIAMINE HCL 100 MG TABLET (FP) PO SCH (22:18)
[2022-10-03] MEDS: guaiFENesin 600 MG TABLET.ER (FP) PO PRN (22:18)
[2022-10-04] MEDS: chlordiazePOXIDE HCL 25 MG CAPSULE PO SCH ×4 (06:00→22:30)
[2022-10-04] MEDS: NICOTINE POLACRILEX 2 MG GUM BUC PRN ×4 (06:20→22:41)
[2022-10-04] MEDS: guaiFENesin 600 MG TABLET.ER (FP) PO PRN (10:07)
[2022-10-04] MEDS: CITALOPRAM HYDROBROMIDE 20 MG TABLET PO SCH (10:07)
[2022-10-04] MEDS: LACTULOSE 20 GM/30 ML UDC (FOR ORAL USE ONLY) PO SCH ×5 (10:08→22:18)
[2022-10-04] MEDS: PRENATAL VITAMINS W/ FOLIC ACID TABLET (FP) PO SCH (10:08)
[2022-10-04] MEDS: QUEtiapine FUMARATE 400 MG TABLET PO SCH ×2 (10:08→22:18)
[2022-10-04] MEDS: MIRTAZAPINE 15 MG TABLET (FP) PO SCH (22:17)
[2022-10-04] MEDS: THIAMINE HCL 100 MG TABLET (FP) PO SCH (22:17)
[2022-10-04] MEDS: hydrOXYzine PAMOATE 25 MG CAPSULE (FP) PO PRN (22:18)
[2022-10-05] MEDS: chlordiazePOXIDE HCL 25 MG CAPSULE PO SCH ×4 (05:55→22:19)
[2022-10-05] MEDS: NICOTINE POLACRILEX 2 MG GUM BUC PRN ×5 (05:59→22:26)
[2022-10-05] MEDS: PRENATAL VITAMINS W/ FOLIC ACID TABLET (FP) PO SCH (10:34)
[2022-10-05] MEDS: LACTULOSE 20 GM/30 ML UDC (FOR ORAL USE ONLY) PO SCH ×4 (10:35→22:23)
[2022-10-05] MEDS: QUEtiapine FUMARATE 400 MG TABLET PO SCH ×2 (10:35→22:23)
[2022-10-05] MEDS: CITALOPRAM HYDROBROMIDE 20 MG TABLET PO SCH (10:35)
[2022-10-05] MEDS: guaiFENesin 600 MG TABLET.ER (FP) PO SCH ×2 (13:35→22:23)
[2022-10-05] MEDS: THIAMINE HCL 100 MG TABLET (FP) PO SCH (22:19)
[2022-10-05] MEDS: MIRTAZAPINE 15 MG TABLET (FP) PO SCH (22:20)
[2022-10-05] MEDS: hydrOXYzine PAMOATE 25 MG CAPSULE (FP) PO PRN (22:22)
[2022-10-06] MEDS ORDERED: chlordiazePOXIDE HCL 10 MG CAPSULE PO PRN
[2022-10-06] MEDS: chlordiazePOXIDE HCL 10 MG CAPSULE PO SCH ×4 (05:42→22:28)
[2022-10-06] MEDS: NICOTINE POLACRILEX 2 MG GUM BUC PRN ×4 (05:44→20:42)
[2022-10-06] MEDS: PRENATAL VITAMINS W/ FOLIC ACID TABLET (FP) PO SCH (10:19)
[2022-10-06] MEDS: CITALOPRAM HYDROBROMIDE 20 MG TABLET PO SCH (10:20)
[2022-10-06] MEDS: guaiFENesin 600 MG TABLET.ER (FP) PO SCH ×2 (10:20→22:28)
[2022-10-06] MEDS: QUEtiapine FUMARATE 400 MG TABLET PO SCH ×2 (10:20→22:27)
[2022-10-06] MEDS: LACTULOSE 20 GM/30 ML UDC (FOR ORAL USE ONLY) PO SCH ×4 (10:20→22:28)
[2022-10-06] MEDS: MIRTAZAPINE 15 MG TABLET (FP) PO SCH (22:27)
[2022-10-06] MEDS: THIAMINE HCL 100 MG TABLET (FP) PO SCH (22:28)
[2022-10-06] MEDS: hydrOXYzine PAMOATE 25 MG CAPSULE (FP) PO PRN (22:29)
[2022-10-07] MEDS: chlordiazePOXIDE HCL 10 MG CAPSULE PO SCH ×2 (05:29→17:27)
[2022-10-07] MEDS: BENZOCAINE/MENTHOL (CHLORASEPTIC ) LOZENGE MM PRN ×3 (05:32→22:28)
[2022-10-07] MEDS: PRENATAL VITAMINS W/ FOLIC ACID TABLET (FP) PO SCH (10:19)
[2022-10-07] MEDS: NICOTINE POLACRILEX 2 MG GUM BUC PRN ×3 (10:19→22:29)
[2022-10-07] MEDS: guaiFENesin 600 MG TABLET.ER (FP) PO SCH ×2 (10:19→22:26)
[2022-10-07] MEDS: LACTULOSE 20 GM/30 ML UDC (FOR ORAL USE ONLY) PO SCH ×2 (10:19→13:24)
[2022-10-07] MEDS: CITALOPRAM HYDROBROMIDE 20 MG TABLET PO SCH (10:19)
[2022-10-07] MEDS: QUEtiapine FUMARATE 400 MG TABLET PO SCH ×2 (10:19→22:26)
[2022-10-07 18:26] VITALS: RESP 18
[2022-10-07] MEDS: THIAMINE HCL 100 MG TABLET (FP) PO SCH (22:25)
[2022-10-07] MEDS: MIRTAZAPINE 15 MG TABLET (FP) PO SCH (22:26)
[2022-10-07] MEDS: hydrOXYzine PAMOATE 25 MG CAPSULE (FP) PO PRN (22:26)
[2022-10-08] MEDS ORDERED: chlordiazePOXIDE HCL 10 MG CAPSULE PO ONE (05:00)
[2022-10-08] MEDS: BENZOCAINE/MENTHOL (CHLORASEPTIC ) LOZENGE MM PRN (05:19)
[2022-10-08 09:15] VITALS: BP 133/79; PULSE 69; TEMP 97.3
[2022-10-08] MEDS: guaiFENesin 600 MG TABLET.ER (FP) PO SCH (10:44)
[2022-10-08] MEDS: QUEtiapine FUMARATE 400 MG TABLET PO SCH (10:44)
[2022-10-08] MEDS: CITALOPRAM HYDROBROMIDE 20 MG TABLET PO SCH (10:44)
[2022-10-08] MEDS: PRENATAL VITAMINS W/ FOLIC ACID TABLET (FP) PO SCH (10:44)
== END 2022-10-08 11:07 | disposition home or self-care (01) | DRG 774 ==
LOC: YASAS 12:03 → Y6N 13:39
PROVIDERS: ADMIT Allergy & Immunology; ATTEND Surgery
PROC: HZ2ZZZZ Detoxification Services for Substance Abuse Treatment (ICD-10-PCS; principal; 2022-10-02)
DX: F10.230 Alcohol dependence with withdrawal, uncomplicated (principal); F14.20 Cocaine dependence, uncomplicated; F17.210 Nicotine dependence, cigarettes, uncomplicated; F19.282 Other psychoactive substance dependence with psychoactive substance-induced sleep disorder; F31.81 Bipolar II disorder; R79.89 Other specified abnormal findings of blood chemistry; Z86.19 Personal history of other infectious and parasitic diseases; Z59.00 Homelessness unspecified; Z56.0 Unemployment, unspecified
CPT/HCPCS: 36415; 80053; 82140; 85027; 86593; 86780; 87811; C9803-CS; U0003; U0005

== ENCOUNTER 2022-11-09 11:20 | Inpatient (IN) | payer OTHER ==
[2022-11-09 13:04] VITALS: BMI 20.9
[2022-11-09] MEDS ORDERED: ACETAMINOPHEN 325 MG TABLET (FP) PO PRN (14:43)
[2022-11-09] MEDS ORDERED: MAG HYDROX/AL HYDROX/SIMETH 30 ML UNIT-DOSE CUP PO PRN (14:43)
[2022-11-09] MEDS ORDERED: POLYETHYLENE GLYCOL (HEALTHYLAX) 3350 17 GM PACKET PO PRN (14:43)
[2022-11-09] MEDS ORDERED: NALOXONE HCL 0.4 MG/ML VIAL IM PRN (14:43)
[2022-11-09] MEDS ORDERED: IBUPROFEN 600 MG TABLET (FP) PO PRN (14:43)
[2022-11-09] MEDS ORDERED: DICYCLOMINE HCL 10 MG CAPSULE PO PRN (14:43)
[2022-11-09] MEDS ORDERED: IBUPROFEN 400 MG TABLET (FP) PO PRN (14:43)
[2022-11-09] MEDS ORDERED: ONDANSETRON *ODT* 4 MG TABLET SL PRN (14:43)
[2022-11-09] MEDS ORDERED: METHOCARBAMOL 500 MG TABLET PO PRN (14:43)
[2022-11-09] MEDS ORDERED: guaiFENesin 600 MG TABLET.ER (FP) PO PRN (14:43)
[2022-11-09] MEDS ORDERED: NALOXONE HCL (KLOXXADO) 8 MG SPRAY NS PRN (14:43)
[2022-11-09] MEDS ORDERED: LOPERAMIDE HCL 2 MG CAPSULE PO PRN (14:43)
[2022-11-09] MEDS ORDERED: BENZONATATE 200 MG CAPSULE PO PRN (14:43)
[2022-11-09] MEDS ORDERED: BISMUTH SUBSALICYLATE 524 MG/30 ML PO PRN (14:43)
[2022-11-09] MEDS ORDERED: NICOTINE 10 MG CARTRIDGE (INHALER) IH PRN (14:43)
[2022-11-09] MEDS ORDERED: MAGNESIUM HYDROX 2400MG/30ML ORAL SUSPENSION 30 ML CUP PO PRN (14:43)
[2022-11-09] MEDS ORDERED: LORazepam 1 MG TABLET PO PRN (14:43)
[2022-11-09] MEDS ORDERED: BENZOCAINE/MENTHOL (CHLORASEPTIC ) LOZENGE MM PRN (14:43)
[2022-11-09] MEDS ORDERED: NICOTINE 14 MG/24 HOURS TOPICAL PATCH TD SCH (15:00)
[2022-11-09] MEDS: PRENATAL VITAMINS W/ FOLIC ACID TABLET (FP) PO SCH (16:47)
[2022-11-09] MEDS: LORazepam 2 MG TABLET PO SCH ×2 (16:48→22:20)
[2022-11-09] MEDS ORDERED: LORazepam 2 MG TABLET ONE (17:04)
[2022-11-09] MEDS ORDERED: PRENATAL VITAMINS W/ FOLIC ACID TABLET (FP) PO ONE (17:04)
[2022-11-09] MEDS: MELATONIN 5 MG TABLETS PO SCH (22:21)
[2022-11-09] MEDS: THIAMINE HCL 100 MG TABLET (FP) PO SCH (22:21)
[2022-11-09] MEDS: NICOTINE POLACRILEX 2 MG GUM BUC PRN (22:38)
[2022-11-10] MEDS: LORazepam 2 MG TABLET PO SCH ×4 (05:26→22:11)
[2022-11-10] MEDS: NICOTINE POLACRILEX 2 MG GUM BUC PRN ×4 (05:28→22:14)
[2022-11-10] MEDS: PRENATAL VITAMINS W/ FOLIC ACID TABLET (FP) PO SCH (10:09)
[2022-11-10 11:37] LABS: HEMATOCRIT 35.9 % (35.4-49); HEMOGLOBIN 12.1 GM/dL (11.7-16.9); MCH 31.3 pg (25.7-33.7); MCHC 33.7 g/dl (32.0-35.9); MEAN CELL VOLUME 92.9 fl (80-96); MEAN PLT VOLUME 7.9 fl (7.5-11.1); PLATELET COUNT 261 10^3/uL (134-434); RBC 3.86 M/mm3 (4.00-5.60); RDW 14.5 % (11.9-15.9); WHITE BLOOD COUNT 4.7 K/mm3 (4.0-10.0)
[2022-11-10 11:40] LABS: POTASSIUM 4.3 mmol/L (3.5-5.1)
[2022-11-10 11:47] LABS: CALCIUM 8.8 mg/dL (8.5-10.1)
[2022-11-10 11:48] LABS: BLOOD UREA NITROGEN 16.8 mg/dL (7-18)
[2022-11-10 11:50] LABS: CREATININE 0.9 mg/dL (0.55-1.3)
[2022-11-10 11:51] LABS: BILIRUBIN,TOTAL 0.2 mg/dL (0.2-1); TOT PROT 5.9 g/dl (6.4-8.2)
[2022-11-10] MEDS: LACTULOSE 20 GM/30 ML UDC (FOR ORAL USE ONLY) PO SCH ×2 (14:19→22:11)
[2022-11-10] MEDS: MELATONIN 5 MG TABLETS PO SCH (22:12)
[2022-11-10] MEDS: hydrOXYzine PAMOATE 25 MG CAPSULE (FP) PO PRN (22:12)
[2022-11-10] MEDS: THIAMINE HCL 100 MG TABLET (FP) PO SCH (22:12)
[2022-11-10] MEDS: QUEtiapine FUMARATE 300 MG TABLET PO SCH (22:12)
[2022-11-11] MEDS: LACTULOSE 20 GM/30 ML UDC (FOR ORAL USE ONLY) PO SCH ×3 (05:52→22:21)
[2022-11-11] MEDS: LORazepam 1 MG TABLET PO SCH ×4 (05:52→22:21)
[2022-11-11] MEDS: NICOTINE POLACRILEX 2 MG GUM BUC PRN ×6 (05:54→20:49)
[2022-11-11] MEDS: PRENATAL VITAMINS W/ FOLIC ACID TABLET (FP) PO SCH (10:11)
[2022-11-11] MEDS: QUEtiapine FUMARATE 200 MG TABLET PO SCH (10:11)
[2022-11-11] MEDS ORDERED: PNEUMOC 20-VAL CONJ-DIP CRM/PF 0.5 ML SYRINGE IM ONE (12:00)
[2022-11-11] MEDS: MELATONIN 5 MG TABLETS PO SCH (22:21)
[2022-11-11] MEDS: THIAMINE HCL 100 MG TABLET (FP) PO SCH (22:21)
[2022-11-11] MEDS: QUEtiapine FUMARATE 300 MG TABLET PO SCH (22:21)
[2022-11-11] MEDS: hydrOXYzine PAMOATE 25 MG CAPSULE (FP) PO PRN (22:22)
[2022-11-12] MEDS ORDERED: LORazepam 0.5 MG TABLET PO PRN
[2022-11-12] MEDS: LACTULOSE 20 GM/30 ML UDC (FOR ORAL USE ONLY) PO SCH ×3 (05:22→22:13)
[2022-11-12] MEDS: LORazepam 0.5 MG TABLET PO SCH ×4 (05:22→22:13)
[2022-11-12] MEDS: NICOTINE POLACRILEX 2 MG GUM BUC PRN ×3 (05:22→17:34)
[2022-11-12] MEDS: PRENATAL VITAMINS W/ FOLIC ACID TABLET (FP) PO SCH (10:02)
[2022-11-12] MEDS: QUEtiapine FUMARATE 200 MG TABLET PO SCH (10:02)
[2022-11-12] MEDS: MELATONIN 5 MG TABLETS PO SCH (22:13)
[2022-11-12] MEDS: QUEtiapine FUMARATE 300 MG TABLET PO SCH (22:13)
[2022-11-12] MEDS: THIAMINE HCL 100 MG TABLET (FP) PO SCH (22:13)
[2022-11-12] MEDS: hydrOXYzine PAMOATE 25 MG CAPSULE (FP) PO PRN (22:14)
[2022-11-13] MEDS ORDERED: LORazepam 0.5 MG TABLET PO ONE (05:00)
[2022-11-13] MEDS: LACTULOSE 20 GM/30 ML UDC (FOR ORAL USE ONLY) PO SCH (05:22)
[2022-11-13] MEDS: NICOTINE POLACRILEX 2 MG GUM BUC PRN ×2 (05:24→10:23)
[2022-11-13 06:19] VITALS: TEMP 98
[2022-11-13 09:54] VITALS: BP 113/64; PULSE 73; RESP 16
[2022-11-13] MEDS: QUEtiapine FUMARATE 200 MG TABLET PO SCH (10:22)
[2022-11-13] MEDS: PRENATAL VITAMINS W/ FOLIC ACID TABLET (FP) PO SCH (10:22)
== END 2022-11-13 12:39 | disposition other institution (70) | DRG 774 ==
LOC: YASAS 11:20 → Y3N 17:08
PROVIDERS: ADMIT Allergy & Immunology; ATTEND Surgery
PROC: HZ2ZZZZ Detoxification Services for Substance Abuse Treatment (ICD-10-PCS; principal; 2022-11-09)
DX: F10.230 Alcohol dependence with withdrawal, uncomplicated (principal); F14.20 Cocaine dependence, uncomplicated; F17.210 Nicotine dependence, cigarettes, uncomplicated; F31.81 Bipolar II disorder; F19.24 Other psychoactive substance dependence with psychoactive substance-induced mood disorder; G47.00 Insomnia, unspecified; R79.89 Other specified abnormal findings of blood chemistry; Z86.19 Personal history of other infectious and parasitic diseases; Z59.00 Homelessness unspecified
CPT/HCPCS: 36415; 80053; 82140; 85027; 86593; 86780; 87635

== ENCOUNTER 2022-11-13 12:54 | Inpatient (IN) | payer OTHER ==
[2022-11-13] MEDS ORDERED: guaiFENesin 600 MG TABLET.ER (FP) PO PRN (13:43)
[2022-11-13] MEDS ORDERED: COLLOIDAL OATMEAL 1 BAR EACH TP PRN (13:43)
[2022-11-13] MEDS ORDERED: AMMONIUM LACTATE 12% LOTION 225 GM BOTTLE TP PRN (13:43)
[2022-11-13] MEDS ORDERED: IBUPROFEN 400 MG TABLET (FP) PO PRN (13:43)
[2022-11-13] MEDS ORDERED: ACETAMINOPHEN 325 MG TABLET (FP) PO PRN (13:43)
[2022-11-13] MEDS ORDERED: P-EPHED 60MG/TRIPROLIDI 2.5MG TABLET PO PRN (13:43)
[2022-11-13] MEDS ORDERED: POLYETHYLENE GLYCOL (HEALTHYLAX) 3350 17 GM PACKET PO PRN (13:43)
[2022-11-13] MEDS ORDERED: BENZONATATE 200 MG CAPSULE PO PRN (13:43)
[2022-11-13] MEDS ORDERED: METHOCARBAMOL 500 MG TABLET PO PRN (13:43)
[2022-11-13] MEDS ORDERED: LOPERAMIDE HCL 2 MG CAPSULE PO PRN (13:43)
[2022-11-13] MEDS ORDERED: IBUPROFEN 600 MG TABLET (FP) PO PRN (13:43)
[2022-11-13] MEDS ORDERED: BENZOCAINE/MENTHOL (CHLORASEPTIC ) LOZENGE MM PRN (13:43)
[2022-11-13] MEDS ORDERED: MAGNESIUM HYDROX 2400MG/30ML ORAL SUSPENSION 30 ML CUP PO PRN (13:43)
[2022-11-13] MEDS: NICOTINE POLACRILEX 2 MG GUM BUC PRN ×2 (17:25→21:28)
[2022-11-13] MEDS: QUEtiapine FUMARATE 200 MG TABLET PO SCH (21:23)
[2022-11-13] MEDS: THIAMINE HCL 100 MG TABLET (FP) PO SCH (21:24)
[2022-11-13] MEDS: MIRTAZAPINE 15 MG TABLET (FP) PO SCH (21:24)
[2022-11-13] MEDS: hydrOXYzine PAMOATE 25 MG CAPSULE (FP) PO PRN (21:25)
[2022-11-14] MEDS: NICOTINE POLACRILEX 2 MG GUM BUC PRN ×4 (06:46→21:17)
[2022-11-14] MEDS: QUEtiapine FUMARATE 100 MG TABLET (FP) PO SCH (09:40)
[2022-11-14] MEDS: CITALOPRAM HYDROBROMIDE 20 MG TABLET PO SCH (09:40)
[2022-11-14] MEDS: PRENATAL VITAMINS W/ FOLIC ACID TABLET (FP) PO SCH (09:40)
[2022-11-14] MEDS: QUEtiapine FUMARATE 200 MG TABLET PO SCH (21:15)
[2022-11-14] MEDS: MIRTAZAPINE 15 MG TABLET (FP) PO SCH (21:16)
[2022-11-14] MEDS: hydrOXYzine PAMOATE 25 MG CAPSULE (FP) PO PRN (21:16)
[2022-11-14] MEDS: THIAMINE HCL 100 MG TABLET (FP) PO SCH (21:16)
[2022-11-15] MEDS: PRENATAL VITAMINS W/ FOLIC ACID TABLET (FP) PO SCH (09:42)
[2022-11-15] MEDS: CITALOPRAM HYDROBROMIDE 20 MG TABLET PO SCH (09:43)
[2022-11-15] MEDS: NICOTINE POLACRILEX 2 MG GUM BUC PRN ×2 (09:43→16:30)
[2022-11-15] MEDS: QUEtiapine FUMARATE 100 MG TABLET (FP) PO SCH (09:43)
[2022-11-15] MEDS: hydrOXYzine PAMOATE 25 MG CAPSULE (FP) PO PRN ×2 (09:49→16:29)
[2022-11-15] MEDS: TOLNAFTATE 1% CREAM 15 GM TUBE TP SCH ×2 (14:10→21:21)
[2022-11-15] MEDS: LACTULOSE 20 GM/30 ML UDC (FOR ORAL USE ONLY) PO SCH ×2 (14:10→21:18)
[2022-11-15] MEDS: QUEtiapine FUMARATE 200 MG TABLET PO SCH (21:18)
[2022-11-15] MEDS: MIRTAZAPINE 15 MG TABLET (FP) PO SCH (21:19)
[2022-11-15] MEDS: MELATONIN 5 MG TABLETS PO PRN (21:20)
[2022-11-15] MEDS: THIAMINE HCL 100 MG TABLET (FP) PO SCH (21:20)
[2022-11-15] MEDS: SALICYLIC ACID (WART REMOVER) 9 ML LIQUID TP SCH (21:20)
[2022-11-16] MEDS: LACTULOSE 20 GM/30 ML UDC (FOR ORAL USE ONLY) PO SCH ×3 (06:56→21:06)
[2022-11-16] MEDS: SALICYLIC ACID (WART REMOVER) 9 ML LIQUID TP SCH ×2 (09:56→22:50)
[2022-11-16] MEDS: CITALOPRAM HYDROBROMIDE 20 MG TABLET PO SCH (09:56)
[2022-11-16] MEDS: TOLNAFTATE 1% CREAM 15 GM TUBE TP SCH ×2 (09:56→21:08)
[2022-11-16] MEDS: PRENATAL VITAMINS W/ FOLIC ACID TABLET (FP) PO SCH (09:56)
[2022-11-16] MEDS: QUEtiapine FUMARATE 100 MG TABLET (FP) PO SCH (09:56)
[2022-11-16] MEDS: hydrOXYzine PAMOATE 25 MG CAPSULE (FP) PO PRN ×2 (09:58→21:07)
[2022-11-16] MEDS: NICOTINE POLACRILEX 2 MG GUM BUC PRN ×3 (12:37→21:07)
[2022-11-16] MEDS: QUEtiapine FUMARATE 200 MG TABLET PO SCH (21:06)
[2022-11-16] MEDS: THIAMINE HCL 100 MG TABLET (FP) PO SCH (21:06)
[2022-11-16] MEDS: MELATONIN 5 MG TABLETS PO PRN (21:07)
[2022-11-16] MEDS: MIRTAZAPINE 15 MG TABLET (FP) PO SCH (21:07)
[2022-11-17] MEDS: LACTULOSE 20 GM/30 ML UDC (FOR ORAL USE ONLY) PO SCH ×3 (06:52→21:22)
[2022-11-17] MEDS: NICOTINE POLACRILEX 2 MG GUM BUC PRN ×3 (06:53→19:01)
[2022-11-17] MEDS: TOLNAFTATE 1% CREAM 15 GM TUBE TP SCH ×2 (10:37→21:22)
[2022-11-17] MEDS: PRENATAL VITAMINS W/ FOLIC ACID TABLET (FP) PO SCH (10:37)
[2022-11-17] MEDS: CITALOPRAM HYDROBROMIDE 20 MG TABLET PO SCH (10:37)
[2022-11-17] MEDS: QUEtiapine FUMARATE 100 MG TABLET (FP) PO SCH (10:37)
[2022-11-17] MEDS: hydrOXYzine PAMOATE 25 MG CAPSULE (FP) PO PRN ×2 (10:38→21:22)
[2022-11-17] MEDS: SALICYLIC ACID (WART REMOVER) 9 ML LIQUID TP SCH ×2 (10:38→21:22)
[2022-11-17] MEDS: MIRTAZAPINE 15 MG TABLET (FP) PO SCH (21:22)
[2022-11-17] MEDS: MELATONIN 5 MG TABLETS PO PRN (21:22)
[2022-11-17] MEDS: THIAMINE HCL 100 MG TABLET (FP) PO SCH (21:22)
[2022-11-17] MEDS: QUEtiapine FUMARATE 200 MG TABLET PO SCH (21:22)
[2022-11-18] MEDS: LACTULOSE 20 GM/30 ML UDC (FOR ORAL USE ONLY) PO SCH ×3 (06:56→21:10)
[2022-11-18] MEDS ORDERED: QUEtiapine FUMARATE 100 MG TABLET (FP) PO SCH (10:00)
[2022-11-18] MEDS: PRENATAL VITAMINS W/ FOLIC ACID TABLET (FP) PO SCH (10:18)
[2022-11-18] MEDS: SALICYLIC ACID (WART REMOVER) 9 ML LIQUID TP SCH ×2 (10:19→21:12)
[2022-11-18] MEDS: CITALOPRAM HYDROBROMIDE 20 MG TABLET PO SCH (10:19)
[2022-11-18] MEDS: TOLNAFTATE 1% CREAM 15 GM TUBE TP SCH ×2 (10:19→21:12)
[2022-11-18] MEDS: NICOTINE POLACRILEX 2 MG GUM BUC PRN ×2 (10:20→13:16)
[2022-11-18] MEDS: MAG HYDROX/AL HYDROX/SIMETH 30 ML UNIT-DOSE CUP PO PRN (10:28)
[2022-11-18] MEDS: NICOTINE 10 MG CARTRIDGE (INHALER) IH PRN (16:55)
[2022-11-18] MEDS: MELATONIN 5 MG TABLETS PO PRN (21:10)
[2022-11-18] MEDS: THIAMINE HCL 100 MG TABLET (FP) PO SCH (21:11)
[2022-11-18] MEDS: MIRTAZAPINE 15 MG TABLET (FP) PO SCH (21:11)
[2022-11-18] MEDS: QUEtiapine FUMARATE 200 MG TABLET PO SCH (21:11)
[2022-11-18] MEDS: hydrOXYzine PAMOATE 25 MG CAPSULE (FP) PO PRN (21:12)
[2022-11-19] MEDS: NICOTINE POLACRILEX 2 MG GUM BUC PRN ×3 (06:51→17:33)
[2022-11-19] MEDS: LACTULOSE 20 GM/30 ML UDC (FOR ORAL USE ONLY) PO SCH ×2 (06:51→14:32)
[2022-11-19] MEDS: MAG HYDROX/AL HYDROX/SIMETH 30 ML UNIT-DOSE CUP PO PRN (09:49)
[2022-11-19] MEDS: PRENATAL VITAMINS W/ FOLIC ACID TABLET (FP) PO SCH (09:49)
[2022-11-19] MEDS: CITALOPRAM HYDROBROMIDE 20 MG TABLET PO SCH (09:49)
[2022-11-19] MEDS: QUEtiapine FUMARATE 200 MG TABLET PO SCH ×2 (09:49→21:45)
[2022-11-19] MEDS: TOLNAFTATE 1% CREAM 15 GM TUBE TP SCH ×2 (09:49→21:45)
[2022-11-19] MEDS: SALICYLIC ACID (WART REMOVER) 9 ML LIQUID TP SCH ×2 (09:50→22:08)
[2022-11-19] MEDS: THIAMINE HCL 100 MG TABLET (FP) PO SCH (21:45)
[2022-11-19] MEDS: MIRTAZAPINE 15 MG TABLET (FP) PO SCH (21:45)
[2022-11-19] MEDS: MELATONIN 5 MG TABLETS PO PRN (21:46)
[2022-11-19] MEDS: hydrOXYzine PAMOATE 25 MG CAPSULE (FP) PO PRN (21:46)
[2022-11-19] MEDS: NICOTINE 10 MG CARTRIDGE (INHALER) IH PRN (21:47)
[2022-11-20] MEDS: NICOTINE POLACRILEX 2 MG GUM BUC PRN ×4 (06:07→21:46)
[2022-11-20] MEDS: PRENATAL VITAMINS W/ FOLIC ACID TABLET (FP) PO SCH (09:27)
[2022-11-20] MEDS: SALICYLIC ACID (WART REMOVER) 9 ML LIQUID TP SCH ×2 (09:28→21:45)
[2022-11-20] MEDS: TOLNAFTATE 1% CREAM 15 GM TUBE TP SCH ×2 (09:28→21:45)
[2022-11-20] MEDS: QUEtiapine FUMARATE 200 MG TABLET PO SCH ×2 (09:28→21:44)
[2022-11-20] MEDS: CITALOPRAM HYDROBROMIDE 20 MG TABLET PO SCH (09:28)
[2022-11-20] MEDS: MIRTAZAPINE 15 MG TABLET (FP) PO SCH (21:44)
[2022-11-20] MEDS: MELATONIN 5 MG TABLETS PO PRN (21:44)
[2022-11-20] MEDS: THIAMINE HCL 100 MG TABLET (FP) PO SCH (21:44)
[2022-11-20] MEDS: hydrOXYzine PAMOATE 25 MG CAPSULE (FP) PO PRN (21:45)
[2022-11-21] MEDS: NICOTINE POLACRILEX 2 MG GUM BUC PRN ×4 (05:46→16:32)
[2022-11-21] MEDS: QUEtiapine FUMARATE 200 MG TABLET PO SCH ×2 (10:00→21:17)
[2022-11-21] MEDS: CITALOPRAM HYDROBROMIDE 20 MG TABLET PO SCH (10:00)
[2022-11-21] MEDS: PRENATAL VITAMINS W/ FOLIC ACID TABLET (FP) PO SCH (10:00)
[2022-11-21] MEDS: TOLNAFTATE 1% CREAM 15 GM TUBE TP SCH ×2 (10:02→21:18)
[2022-11-21] MEDS: SALICYLIC ACID (WART REMOVER) 9 ML LIQUID TP SCH ×2 (10:02→21:18)
[2022-11-21] MEDS: MIRTAZAPINE 15 MG TABLET (FP) PO SCH (21:17)
[2022-11-21] MEDS: MELATONIN 5 MG TABLETS PO PRN (21:17)
[2022-11-21] MEDS: THIAMINE HCL 100 MG TABLET (FP) PO SCH (21:17)
[2022-11-21] MEDS: hydrOXYzine PAMOATE 25 MG CAPSULE (FP) PO PRN (21:18)
[2022-11-22] MEDS: NICOTINE POLACRILEX 2 MG GUM BUC PRN ×5 (07:13→21:12)
[2022-11-22] MEDS: PRENATAL VITAMINS W/ FOLIC ACID TABLET (FP) PO SCH (10:37)
[2022-11-22] MEDS: CITALOPRAM HYDROBROMIDE 20 MG TABLET PO SCH (10:37)
[2022-11-22] MEDS: QUEtiapine FUMARATE 200 MG TABLET PO SCH ×2 (10:37→21:11)
[2022-11-22] MEDS: SALICYLIC ACID (WART REMOVER) 9 ML LIQUID TP SCH ×2 (10:53→21:12)
[2022-11-22] MEDS: TOLNAFTATE 1% CREAM 15 GM TUBE TP SCH ×2 (10:53→21:12)
[2022-11-22] MEDS: THIAMINE HCL 100 MG TABLET (FP) PO SCH (21:11)
[2022-11-22] MEDS: MIRTAZAPINE 15 MG TABLET (FP) PO SCH (21:11)
[2022-11-22] MEDS: MELATONIN 5 MG TABLETS PO PRN (21:11)
[2022-11-22] MEDS: hydrOXYzine PAMOATE 25 MG CAPSULE (FP) PO PRN (21:11)
[2022-11-23] MEDS: NICOTINE POLACRILEX 2 MG GUM BUC PRN ×5 (07:32→21:27)
[2022-11-23] MEDS: PRENATAL VITAMINS W/ FOLIC ACID TABLET (FP) PO SCH (10:27)
[2022-11-23] MEDS: CITALOPRAM HYDROBROMIDE 20 MG TABLET PO SCH (10:27)
[2022-11-23] MEDS: QUEtiapine FUMARATE 200 MG TABLET PO SCH ×2 (10:27→21:26)
[2022-11-23] MEDS: TOLNAFTATE 1% CREAM 15 GM TUBE TP SCH ×2 (10:28→21:27)
[2022-11-23] MEDS: hydrOXYzine PAMOATE 25 MG CAPSULE (FP) PO PRN (21:26)
[2022-11-23] MEDS: MIRTAZAPINE 15 MG TABLET (FP) PO SCH (21:26)
[2022-11-23] MEDS: MELATONIN 5 MG TABLETS PO PRN (21:26)
[2022-11-23] MEDS: THIAMINE HCL 100 MG TABLET (FP) PO SCH (21:26)
[2022-11-24] MEDS: NICOTINE POLACRILEX 2 MG GUM BUC PRN ×3 (06:39→18:58)
[2022-11-24 06:58] VITALS: RESP 18
[2022-11-24] MEDS: QUEtiapine FUMARATE 200 MG TABLET PO SCH ×2 (10:40→21:05)
[2022-11-24] MEDS: PRENATAL VITAMINS W/ FOLIC ACID TABLET (FP) PO SCH (10:42)
[2022-11-24] MEDS: CITALOPRAM HYDROBROMIDE 20 MG TABLET PO SCH (10:42)
[2022-11-24] MEDS: TOLNAFTATE 1% CREAM 15 GM TUBE TP SCH ×2 (10:43→21:06)
[2022-11-24] MEDS: MIRTAZAPINE 15 MG TABLET (FP) PO SCH (21:05)
[2022-11-24] MEDS: MELATONIN 5 MG TABLETS PO PRN (21:05)
[2022-11-24] MEDS: hydrOXYzine PAMOATE 25 MG CAPSULE (FP) PO PRN (21:05)
[2022-11-24] MEDS: THIAMINE HCL 100 MG TABLET (FP) PO SCH (21:06)
[2022-11-25] MEDS: NICOTINE POLACRILEX 2 MG GUM BUC PRN ×5 (06:57→21:10)
[2022-11-25 07:05] VITALS: PULSE 63
[2022-11-25] MEDS: QUEtiapine FUMARATE 200 MG TABLET PO SCH ×2 (10:03→21:10)
[2022-11-25] MEDS: TOLNAFTATE 1% CREAM 15 GM TUBE TP SCH ×2 (10:03→21:10)
[2022-11-25] MEDS: PRENATAL VITAMINS W/ FOLIC ACID TABLET (FP) PO SCH (10:03)
[2022-11-25] MEDS: CITALOPRAM HYDROBROMIDE 20 MG TABLET PO SCH (10:03)
[2022-11-25] MEDS: MIRTAZAPINE 15 MG TABLET (FP) PO SCH (21:09)
[2022-11-25] MEDS: THIAMINE HCL 100 MG TABLET (FP) PO SCH (21:09)
[2022-11-25] MEDS: MELATONIN 5 MG TABLETS PO PRN (21:10)
[2022-11-25] MEDS: hydrOXYzine PAMOATE 25 MG CAPSULE (FP) PO PRN (21:10)
[2022-11-26 07:04] VITALS: BP 126/69; TEMP 97.7
[2022-11-26] MEDS: PRENATAL VITAMINS W/ FOLIC ACID TABLET (FP) PO SCH (09:26)
[2022-11-26] MEDS: CITALOPRAM HYDROBROMIDE 20 MG TABLET PO SCH (09:26)
[2022-11-26] MEDS: TOLNAFTATE 1% CREAM 15 GM TUBE TP SCH (09:26)
[2022-11-26] MEDS: QUEtiapine FUMARATE 200 MG TABLET PO SCH (09:26)
[2022-11-26] MEDS: NICOTINE POLACRILEX 2 MG GUM BUC PRN (09:27)
== END 2022-11-26 09:30 | disposition home or self-care (01) | DRG 772 ==
LOC: YASAS 12:54 → Y5N 12:55 → Y3W 11-15 14:20
PROVIDERS: ADMIT Allergy & Immunology; ATTEND Psychiatry & Neurology Pain Medicine
PROC: HZ42ZZZ Group Counseling for Substance Abuse Treatment, Cognitive-Behavioral (ICD-10-PCS; principal; 2022-11-13)
DX: F10.20 Alcohol dependence, uncomplicated (principal); F14.20 Cocaine dependence, uncomplicated; F17.210 Nicotine dependence, cigarettes, uncomplicated; F31.9 Bipolar disorder, unspecified; F41.9 Anxiety disorder, unspecified; B35.1 Tinea unguium; L84 Corns and callosities; R79.89 Other specified abnormal findings of blood chemistry; Z86.19 Personal history of other infectious and parasitic diseases; Z59.02 Unsheltered homelessness
CPT/HCPCS: 36415; 82140; 86803

== ENCOUNTER 2022-12-27 12:04 | Inpatient (IN) | payer OTHER ==
[2022-12-27 13:01] VITALS: BMI 22.6
[2022-12-27] MEDS ORDERED: IBUPROFEN 400 MG TABLET (FP) PO PRN (13:50)
[2022-12-27] MEDS ORDERED: LOPERAMIDE HCL 2 MG CAPSULE PO PRN (13:50)
[2022-12-27] MEDS ORDERED: MAG HYDROX/AL HYDROX/SIMETH 30 ML UNIT-DOSE CUP PO PRN (13:50)
[2022-12-27] MEDS ORDERED: BENZOCAINE/MENTHOL (CHLORASEPTIC ) LOZENGE MM PRN (13:50)
[2022-12-27] MEDS ORDERED: ACETAMINOPHEN 325 MG TABLET (FP) PO PRN (13:50)
[2022-12-27] MEDS ORDERED: MAGNESIUM HYDROX 2400MG/30ML ORAL SUSPENSION 30 ML CUP PO PRN (13:50)
[2022-12-27] MEDS ORDERED: NALOXONE HCL (KLOXXADO) 8 MG SPRAY NS PRN (13:50)
[2022-12-27] MEDS ORDERED: POLYETHYLENE GLYCOL (HEALTHYLAX) 3350 17 GM PACKET PO PRN (13:50)
[2022-12-27] MEDS ORDERED: COLLOIDAL OATMEAL 1 BAR EACH TP PRN (13:50)
[2022-12-27] MEDS ORDERED: AMMONIUM LACTATE 12% LOTION 225 GM BOTTLE TP PRN (13:50)
[2022-12-27] MEDS ORDERED: guaiFENesin 600 MG TABLET.ER (FP) PO PRN (13:50)
[2022-12-27] MEDS ORDERED: IBUPROFEN 600 MG TABLET (FP) PO PRN (13:50)
[2022-12-27] MEDS ORDERED: NALOXONE HCL 0.4 MG/ML VIAL IM PRN (13:50)
[2022-12-27] MEDS ORDERED: BENZONATATE 200 MG CAPSULE PO PRN (13:50)
[2022-12-27] MEDS ORDERED: PRENATAL VITAMINS W/ FOLIC ACID TABLET (FP) PO ONE (14:53)
[2022-12-27] MEDS: PRENATAL VITAMINS W/ FOLIC ACID TABLET (FP) PO SCH (14:55)
[2022-12-27 16:14] LABS: POTASSIUM 4.3 mmol/L (3.5-5.1)
[2022-12-27 16:16] LABS: CALCIUM 8.7 mg/dL (8.5-10.1)
[2022-12-27 16:18] LABS: ALBUMIN 3.5 g/dl (3.4-5.0); BLOOD UREA NITROGEN 12.9 mg/dL (7-18); HEMATOCRIT 39.1 % (35.4-49); MCH 31.9 pg (25.7-33.7); MCHC 33.3 g/dl (32.0-35.9); MEAN CELL VOLUME 95.6 fl (80-96); MEAN PLT VOLUME 8.4 fl (7.5-11.1); PLATELET COUNT 353 10^3/uL (134-434); RBC 4.09 M/mm3 (4.00-5.60); RDW 13.8 % (11.9-15.9); WHITE BLOOD COUNT 4.4 K/mm3 (4.0-10.0)
[2022-12-27 16:21] LABS: BILIRUBIN,TOTAL 0.4 mg/dL (0.2-1); TOT PROT 6.9 g/dl (6.4-8.2)
[2022-12-27] MEDS: NICOTINE POLACRILEX 2 MG GUM BUC PRN ×2 (17:36→21:17)
[2022-12-27] MEDS: THIAMINE HCL 100 MG TABLET (FP) PO SCH (21:16)
[2022-12-27] MEDS: hydrOXYzine PAMOATE 25 MG CAPSULE (FP) PO PRN (21:16)
[2022-12-27] MEDS ORDERED: MELATONIN 5 MG TABLETS PO SCH (22:00)
[2022-12-28 07:23] VITALS: RESP 18
[2022-12-28] MEDS: hydrOXYzine PAMOATE 25 MG CAPSULE (FP) PO PRN ×2 (10:37→21:11)
[2022-12-28] MEDS: NICOTINE POLACRILEX 2 MG GUM BUC PRN ×4 (10:37→21:10)
[2022-12-28] MEDS: PRENATAL VITAMINS W/ FOLIC ACID TABLET (FP) PO SCH (10:37)
[2022-12-28] MEDS: CITALOPRAM HYDROBROMIDE 20 MG TABLET PO SCH (14:52)
[2022-12-28] MEDS: QUEtiapine FUMARATE 400 MG TABLET PO SCH ×2 (14:52→21:11)
[2022-12-28 15:33] LABS: URINE APPEARANCE CLEAR; URINE BILIRUBIN NEGATIVE (NEGATIVE); URINE COLOR YELLOW; URINE GLUCOSE (UA) NEGATIVE (NEGATIVE); URINE KETONE NEGATIVE (NEGATIVE); URINE LEUK ESTERASE NEGATIVE (NEGATIVE); URINE NITRITE NEGATIVE (NEGATIVE); URINE PROTEIN NEGATIVE (NEGATIVE); URINE UROBILINOGEN 0.2 mg/dL (0.2-1.0)
[2022-12-28] MEDS: MIRTAZAPINE 15 MG TABLET (FP) PO SCH (21:10)
[2022-12-28] MEDS: THIAMINE HCL 100 MG TABLET (FP) PO SCH (21:11)
[2022-12-28] MEDS: GABAPENTIN 100 MG CAPSULE PO SCH (21:11)
[2022-12-28] MEDS ORDERED: MIRTAZAPINE 15 MG TABLET (FP) PO SCH ×2 (22:00)
[2022-12-28] MEDS ORDERED: PATIENT'S OWN MEDICATION (NON-FORMULARY) (Gabapentin [Gabapentin] 600 MG Tablet) PO SCH (22:00)
[2022-12-29] MEDS: NICOTINE POLACRILEX 2 MG GUM BUC PRN ×4 (06:35→21:43)
[2022-12-29] MEDS: PRENATAL VITAMINS W/ FOLIC ACID TABLET (FP) PO SCH (09:44)
[2022-12-29] MEDS: CITALOPRAM HYDROBROMIDE 20 MG TABLET PO SCH (09:44)
[2022-12-29] MEDS: QUEtiapine FUMARATE 400 MG TABLET PO SCH (09:45)
[2022-12-29] MEDS: GABAPENTIN 100 MG CAPSULE PO SCH (21:42)
[2022-12-29] MEDS: THIAMINE HCL 100 MG TABLET (FP) PO SCH (21:42)
[2022-12-29] MEDS: QUEtiapine FUMARATE 200 MG TABLET PO SCH (21:42)
[2022-12-29] MEDS: MIRTAZAPINE 15 MG TABLET (FP) PO SCH (21:43)
[2022-12-30] MEDS: NICOTINE POLACRILEX 2 MG GUM BUC PRN ×3 (06:30→21:17)
[2022-12-30] MEDS: PRENATAL VITAMINS W/ FOLIC ACID TABLET (FP) PO SCH (09:52)
[2022-12-30] MEDS: QUEtiapine FUMARATE 200 MG TABLET PO SCH ×2 (09:53→21:14)
[2022-12-30] MEDS: CITALOPRAM HYDROBROMIDE 20 MG TABLET PO SCH (11:07)
[2022-12-30] MEDS: GABAPENTIN 100 MG CAPSULE PO SCH (21:14)
[2022-12-30] MEDS: MIRTAZAPINE 15 MG TABLET (FP) PO SCH (21:14)
[2022-12-30] MEDS: THIAMINE HCL 100 MG TABLET (FP) PO SCH (21:15)
[2022-12-31] MEDS: NICOTINE POLACRILEX 2 MG GUM BUC PRN ×3 (07:20→21:11)
[2022-12-31] MEDS: PRENATAL VITAMINS W/ FOLIC ACID TABLET (FP) PO SCH (09:51)
[2022-12-31] MEDS: QUEtiapine FUMARATE 200 MG TABLET PO SCH ×2 (09:51→21:09)
[2022-12-31] MEDS: CITALOPRAM HYDROBROMIDE 20 MG TABLET PO SCH (09:51)
[2022-12-31] MEDS: GABAPENTIN 100 MG CAPSULE PO SCH (21:09)
[2022-12-31] MEDS: MIRTAZAPINE 15 MG TABLET (FP) PO SCH (21:09)
[2022-12-31] MEDS: THIAMINE HCL 100 MG TABLET (FP) PO SCH (21:10)
[2023-01-01] MEDS: NICOTINE POLACRILEX 2 MG GUM BUC PRN ×5 (05:37→21:12)
[2023-01-01] MEDS: CITALOPRAM HYDROBROMIDE 20 MG TABLET PO SCH (09:47)
[2023-01-01] MEDS: QUEtiapine FUMARATE 200 MG TABLET PO SCH ×2 (09:47→21:11)
[2023-01-01] MEDS: PRENATAL VITAMINS W/ FOLIC ACID TABLET (FP) PO SCH (09:47)
[2023-01-01] MEDS: MIRTAZAPINE 15 MG TABLET (FP) PO SCH (21:10)
[2023-01-01] MEDS: THIAMINE HCL 100 MG TABLET (FP) PO SCH (21:10)
[2023-01-01] MEDS: GABAPENTIN 100 MG CAPSULE PO SCH (21:10)
[2023-01-02] MEDS: NICOTINE POLACRILEX 2 MG GUM BUC PRN ×5 (06:51→21:15)
[2023-01-02] MEDS: QUEtiapine FUMARATE 200 MG TABLET PO SCH ×2 (09:53→21:15)
[2023-01-02] MEDS: PRENATAL VITAMINS W/ FOLIC ACID TABLET (FP) PO SCH (09:53)
[2023-01-02] MEDS: CITALOPRAM HYDROBROMIDE 20 MG TABLET PO SCH (09:53)
[2023-01-02] MEDS: THIAMINE HCL 100 MG TABLET (FP) PO SCH (21:15)
[2023-01-02] MEDS: GABAPENTIN 100 MG CAPSULE PO SCH (21:15)
[2023-01-02] MEDS: MIRTAZAPINE 15 MG TABLET (FP) PO SCH (21:15)
[2023-01-03] MEDS: NICOTINE POLACRILEX 2 MG GUM BUC PRN ×6 (06:11→21:14)
[2023-01-03] MEDS: PRENATAL VITAMINS W/ FOLIC ACID TABLET (FP) PO SCH (10:01)
[2023-01-03] MEDS: CITALOPRAM HYDROBROMIDE 20 MG TABLET PO SCH (10:16)
[2023-01-03] MEDS: QUEtiapine FUMARATE 400 MG TABLET PO SCH ×2 (10:16→21:13)
[2023-01-03] MEDS: THIAMINE HCL 100 MG TABLET (FP) PO SCH (21:13)
[2023-01-03] MEDS: MIRTAZAPINE 15 MG TABLET (FP) PO SCH (21:13)
[2023-01-03] MEDS: GABAPENTIN 100 MG CAPSULE PO SCH (21:13)
[2023-01-04] MEDS: NICOTINE POLACRILEX 2 MG GUM BUC PRN ×5 (06:28→21:13)
[2023-01-04] MEDS: QUEtiapine FUMARATE 400 MG TABLET PO SCH ×2 (10:02→21:13)
[2023-01-04] MEDS: CITALOPRAM HYDROBROMIDE 20 MG TABLET PO SCH (10:02)
[2023-01-04] MEDS: PRENATAL VITAMINS W/ FOLIC ACID TABLET (FP) PO SCH (10:02)
[2023-01-04] MEDS: MIRTAZAPINE 15 MG TABLET (FP) PO SCH (21:12)
[2023-01-04] MEDS: THIAMINE HCL 100 MG TABLET (FP) PO SCH (21:13)
[2023-01-04] MEDS: GABAPENTIN 100 MG CAPSULE PO SCH (21:13)
[2023-01-05] MEDS: NICOTINE POLACRILEX 2 MG GUM BUC PRN ×5 (06:26→20:04)
[2023-01-05] MEDS: PRENATAL VITAMINS W/ FOLIC ACID TABLET (FP) PO SCH (09:59)
[2023-01-05] MEDS: QUEtiapine FUMARATE 400 MG TABLET PO SCH ×2 (10:00→21:18)
[2023-01-05] MEDS: CITALOPRAM HYDROBROMIDE 20 MG TABLET PO SCH (10:00)
[2023-01-05] MEDS: THIAMINE HCL 100 MG TABLET (FP) PO SCH (21:18)
[2023-01-05] MEDS: GABAPENTIN 100 MG CAPSULE PO SCH (21:18)
[2023-01-05] MEDS: MIRTAZAPINE 15 MG TABLET (FP) PO SCH (21:18)
[2023-01-06] MEDS: NICOTINE POLACRILEX 2 MG GUM BUC PRN ×5 (06:45→17:45)
[2023-01-06] MEDS: CITALOPRAM HYDROBROMIDE 20 MG TABLET PO SCH (09:58)
[2023-01-06] MEDS: PRENATAL VITAMINS W/ FOLIC ACID TABLET (FP) PO SCH (09:58)
[2023-01-06] MEDS: QUEtiapine FUMARATE 400 MG TABLET PO SCH ×2 (09:58→21:19)
[2023-01-06] MEDS: THIAMINE HCL 100 MG TABLET (FP) PO SCH (21:19)
[2023-01-06] MEDS: MIRTAZAPINE 15 MG TABLET (FP) PO SCH (21:19)
[2023-01-06] MEDS: GABAPENTIN 100 MG CAPSULE PO SCH (21:19)
[2023-01-07] MEDS: NICOTINE POLACRILEX 2 MG GUM BUC PRN ×5 (08:56→21:34)
[2023-01-07] MEDS: PRENATAL VITAMINS W/ FOLIC ACID TABLET (FP) PO SCH (09:52)
[2023-01-07] MEDS: QUEtiapine FUMARATE 400 MG TABLET PO SCH ×2 (09:53→21:33)
[2023-01-07] MEDS: CITALOPRAM HYDROBROMIDE 20 MG TABLET PO SCH (09:53)
[2023-01-07] MEDS: MIRTAZAPINE 15 MG TABLET (FP) PO SCH (21:32)
[2023-01-07] MEDS: GABAPENTIN 100 MG CAPSULE PO SCH (21:32)
[2023-01-07] MEDS: THIAMINE HCL 100 MG TABLET (FP) PO SCH (21:33)
[2023-01-08] MEDS: NICOTINE POLACRILEX 2 MG GUM BUC PRN ×5 (06:23→21:15)
[2023-01-08] MEDS: PRENATAL VITAMINS W/ FOLIC ACID TABLET (FP) PO SCH (10:01)
[2023-01-08] MEDS: CITALOPRAM HYDROBROMIDE 20 MG TABLET PO SCH (10:02)
[2023-01-08] MEDS: QUEtiapine FUMARATE 400 MG TABLET PO SCH ×2 (10:02→21:16)
[2023-01-08] MEDS: THIAMINE HCL 100 MG TABLET (FP) PO SCH (21:15)
[2023-01-08] MEDS: MIRTAZAPINE 15 MG TABLET (FP) PO SCH (21:16)
[2023-01-08] MEDS: GABAPENTIN 100 MG CAPSULE PO SCH (21:16)
[2023-01-09] MEDS: NICOTINE POLACRILEX 2 MG GUM BUC PRN ×3 (06:57→21:19)
[2023-01-09] MEDS: QUEtiapine FUMARATE 400 MG TABLET PO SCH ×2 (10:01→21:18)
[2023-01-09] MEDS: CITALOPRAM HYDROBROMIDE 20 MG TABLET PO SCH (10:01)
[2023-01-09] MEDS: PRENATAL VITAMINS W/ FOLIC ACID TABLET (FP) PO SCH (10:01)
[2023-01-09] MEDS: MIRTAZAPINE 15 MG TABLET (FP) PO SCH (21:18)
[2023-01-09] MEDS: THIAMINE HCL 100 MG TABLET (FP) PO SCH (21:18)
[2023-01-09] MEDS: GABAPENTIN 100 MG CAPSULE PO SCH (21:18)
[2023-01-10] MEDS: NICOTINE POLACRILEX 2 MG GUM BUC PRN ×4 (06:09→21:36)
[2023-01-10] MEDS: PRENATAL VITAMINS W/ FOLIC ACID TABLET (FP) PO SCH (09:53)
[2023-01-10] MEDS: QUEtiapine FUMARATE 400 MG TABLET PO SCH ×2 (09:53→21:34)
[2023-01-10] MEDS: CITALOPRAM HYDROBROMIDE 20 MG TABLET PO SCH (09:53)
[2023-01-10] MEDS: THIAMINE HCL 100 MG TABLET (FP) PO SCH (21:34)
[2023-01-10] MEDS: GABAPENTIN 100 MG CAPSULE PO SCH (21:34)
[2023-01-10] MEDS: MIRTAZAPINE 15 MG TABLET (FP) PO SCH (21:34)
[2023-01-11] MEDS: NICOTINE POLACRILEX 2 MG GUM BUC PRN ×3 (08:02→21:19)
[2023-01-11] MEDS: QUEtiapine FUMARATE 400 MG TABLET PO SCH ×2 (09:51→21:17)
[2023-01-11] MEDS: PRENATAL VITAMINS W/ FOLIC ACID TABLET (FP) PO SCH (09:51)
[2023-01-11] MEDS: CITALOPRAM HYDROBROMIDE 20 MG TABLET PO SCH (09:51)
[2023-01-11] MEDS: THIAMINE HCL 100 MG TABLET (FP) PO SCH (21:17)
[2023-01-11] MEDS: GABAPENTIN 100 MG CAPSULE PO SCH (21:17)
[2023-01-11] MEDS: MIRTAZAPINE 15 MG TABLET (FP) PO SCH (21:17)
[2023-01-12] MEDS: NICOTINE POLACRILEX 2 MG GUM BUC PRN ×4 (05:52→21:24)
[2023-01-12] MEDS: PRENATAL VITAMINS W/ FOLIC ACID TABLET (FP) PO SCH (09:41)
[2023-01-12] MEDS: CITALOPRAM HYDROBROMIDE 20 MG TABLET PO SCH (09:41)
[2023-01-12] MEDS: QUEtiapine FUMARATE 400 MG TABLET PO SCH ×2 (09:41→21:24)
[2023-01-12] MEDS: THIAMINE HCL 100 MG TABLET (FP) PO SCH (21:23)
[2023-01-12] MEDS: MIRTAZAPINE 15 MG TABLET (FP) PO SCH (21:23)
[2023-01-12] MEDS: GABAPENTIN 100 MG CAPSULE PO SCH (21:24)
[2023-01-13] MEDS: NICOTINE POLACRILEX 2 MG GUM BUC PRN ×3 (08:37→17:32)
[2023-01-13] MEDS: QUEtiapine FUMARATE 400 MG TABLET PO SCH ×2 (10:00→21:21)
[2023-01-13] MEDS: CITALOPRAM HYDROBROMIDE 20 MG TABLET PO SCH (10:00)
[2023-01-13] MEDS: PRENATAL VITAMINS W/ FOLIC ACID TABLET (FP) PO SCH (10:00)
[2023-01-13] MEDS: THIAMINE HCL 100 MG TABLET (FP) PO SCH (21:20)
[2023-01-13] MEDS: MIRTAZAPINE 15 MG TABLET (FP) PO SCH (21:20)
[2023-01-13] MEDS: GABAPENTIN 100 MG CAPSULE PO SCH (21:21)
[2023-01-14] MEDS: QUEtiapine FUMARATE 400 MG TABLET PO SCH ×2 (10:07→21:06)
[2023-01-14] MEDS: NICOTINE POLACRILEX 2 MG GUM BUC PRN ×4 (10:07→21:07)
[2023-01-14] MEDS: PRENATAL VITAMINS W/ FOLIC ACID TABLET (FP) PO SCH (10:07)
[2023-01-14] MEDS: CITALOPRAM HYDROBROMIDE 20 MG TABLET PO SCH (10:07)
[2023-01-14] MEDS: GABAPENTIN 100 MG CAPSULE PO SCH (21:06)
[2023-01-14] MEDS: THIAMINE HCL 100 MG TABLET (FP) PO SCH (21:06)
[2023-01-14] MEDS: MIRTAZAPINE 15 MG TABLET (FP) PO SCH (21:06)
[2023-01-15] MEDS: NICOTINE POLACRILEX 2 MG GUM BUC PRN (08:05)
[2023-01-15] MEDS: CITALOPRAM HYDROBROMIDE 20 MG TABLET PO SCH (09:56)
[2023-01-15] MEDS: PRENATAL VITAMINS W/ FOLIC ACID TABLET (FP) PO SCH (09:56)
[2023-01-15] MEDS: QUEtiapine FUMARATE 400 MG TABLET PO SCH ×2 (09:58→21:05)
[2023-01-15] MEDS: THIAMINE HCL 100 MG TABLET (FP) PO SCH (21:05)
[2023-01-15] MEDS: GABAPENTIN 100 MG CAPSULE PO SCH (21:05)
[2023-01-15] MEDS: MIRTAZAPINE 15 MG TABLET (FP) PO SCH (21:05)
[2023-01-16] MEDS: NICOTINE POLACRILEX 2 MG GUM BUC PRN ×4 (08:26→18:50)
[2023-01-16] MEDS: PRENATAL VITAMINS W/ FOLIC ACID TABLET (FP) PO SCH (09:41)
[2023-01-16] MEDS: QUEtiapine FUMARATE 400 MG TABLET PO SCH ×2 (09:41→21:14)
[2023-01-16] MEDS: CITALOPRAM HYDROBROMIDE 20 MG TABLET PO SCH (09:41)
[2023-01-16] MEDS: THIAMINE HCL 100 MG TABLET (FP) PO SCH (21:14)
[2023-01-16] MEDS: MIRTAZAPINE 15 MG TABLET (FP) PO SCH (21:14)
[2023-01-16] MEDS: GABAPENTIN 100 MG CAPSULE PO SCH (21:15)
[2023-01-17] MEDS: PRENATAL VITAMINS W/ FOLIC ACID TABLET (FP) PO SCH (09:35)
[2023-01-17] MEDS: QUEtiapine FUMARATE 400 MG TABLET PO SCH ×2 (09:36→21:45)
[2023-01-17] MEDS: CITALOPRAM HYDROBROMIDE 20 MG TABLET PO SCH (09:36)
[2023-01-17] MEDS: NICOTINE POLACRILEX 2 MG GUM BUC PRN ×5 (09:37→21:47)
[2023-01-17] MEDS: GABAPENTIN 100 MG CAPSULE PO SCH (21:45)
[2023-01-17] MEDS: MIRTAZAPINE 15 MG TABLET (FP) PO SCH (21:46)
[2023-01-17] MEDS: THIAMINE HCL 100 MG TABLET (FP) PO SCH (21:46)
[2023-01-18] MEDS: QUEtiapine FUMARATE 400 MG TABLET PO SCH ×2 (09:38→21:12)
[2023-01-18] MEDS: NICOTINE POLACRILEX 2 MG GUM BUC PRN ×4 (09:38→21:12)
[2023-01-18] MEDS: CITALOPRAM HYDROBROMIDE 20 MG TABLET PO SCH (09:38)
[2023-01-18] MEDS: PRENATAL VITAMINS W/ FOLIC ACID TABLET (FP) PO SCH (09:38)
[2023-01-18] MEDS: MIRTAZAPINE 15 MG TABLET (FP) PO SCH (21:12)
[2023-01-18] MEDS: THIAMINE HCL 100 MG TABLET (FP) PO SCH (21:12)
[2023-01-18] MEDS: GABAPENTIN 100 MG CAPSULE PO SCH (21:12)
[2023-01-19 07:14] VITALS: BP 136/64; PULSE 68; TEMP 97.3
[2023-01-19] MEDS: NICOTINE POLACRILEX 2 MG GUM BUC PRN ×2 (07:23→09:38)
[2023-01-19] MEDS: CITALOPRAM HYDROBROMIDE 20 MG TABLET PO SCH (09:37)
[2023-01-19] MEDS: PRENATAL VITAMINS W/ FOLIC ACID TABLET (FP) PO SCH (09:37)
[2023-01-19] MEDS: QUEtiapine FUMARATE 400 MG TABLET PO SCH (09:37)
== END 2023-01-19 09:55 | disposition home or self-care (01) | DRG 772 ==
LOC: YASAS 12:04 → Y5N 14:53
PROVIDERS: ADMIT Allergy & Immunology; ATTEND Psychiatry & Neurology Pain Medicine
PROC: HZ42ZZZ Group Counseling for Substance Abuse Treatment, Cognitive-Behavioral (ICD-10-PCS; principal; 2022-12-27)
DX: F11.20 Opioid dependence, uncomplicated (principal); F10.20 Alcohol dependence, uncomplicated; F14.20 Cocaine dependence, uncomplicated; F17.210 Nicotine dependence, cigarettes, uncomplicated; F19.282 Other psychoactive substance dependence with psychoactive substance-induced sleep disorder; F19.24 Other psychoactive substance dependence with psychoactive substance-induced mood disorder; F31.9 Bipolar disorder, unspecified; F41.9 Anxiety disorder, unspecified; G47.00 Insomnia, unspecified; Z56.0 Unemployment, unspecified; Z59.01 Sheltered homelessness
CPT/HCPCS: 36415; 80053; 81003; 85027; 86593; 86780; 87635; 87811

== ENCOUNTER 2023-10-02 13:14 | Inpatient (IN) | payer OTHER ==
[2023-10-02 14:52] VITALS: BMI 24.9
[2023-10-02] MEDS ORDERED: POLYETHYLENE GLYCOL (HEALTHYLAX) 3350 17 GM PACKET PO PRN (16:43)
[2023-10-02] MEDS ORDERED: MAG HYDROX/AL HYDROX/SIMETH 30 ML UNIT-DOSE CUP PO PRN (16:43)
[2023-10-02] MEDS ORDERED: guaiFENesin 600 MG TABLET.ER (FP) PO PRN (16:43)
[2023-10-02] MEDS ORDERED: hydrOXYzine PAMOATE 25 MG CAPSULE (FP) PO PRN (16:43)
[2023-10-02] MEDS ORDERED: BENZONATATE 200 MG CAPSULE PO PRN (16:43)
[2023-10-02] MEDS ORDERED: MAGNESIUM HYDROX 2400MG/30ML ORAL SUSPENSION 30 ML CUP PO PRN (16:43)
[2023-10-02] MEDS ORDERED: BENZOCAINE/MENTHOL (CHLORASEPTIC ) LOZENGE MM PRN (16:43)
[2023-10-02] MEDS ORDERED: LOPERAMIDE HCL 2 MG CAPSULE PO PRN (16:43)
[2023-10-02] MEDS ORDERED: IBUPROFEN 400 MG TABLET (FP) PO PRN (16:43)
[2023-10-02] MEDS: MELATONIN 5 MG TABLETS PO SCH (22:47)
[2023-10-02] MEDS: THIAMINE 100 MG TABLET PO SCH (22:47)
[2023-10-03] MEDS: NICOTINE POLACRILEX 2 MG GUM BUC PRN (05:49)
[2023-10-03] MEDS: PRENATAL VITAMINS W/ FOLIC ACID TABLET (FP) PO SCH (10:36)
[2023-10-03 11:55] LABS: HEMATOCRIT 36.4 % (35.4-49); HEMOGLOBIN 12.5 GM/dL (11.7-16.9); MCH 32.4 pg (25.7-33.7); MCHC 34.3 g/dl (32.0-35.9); MEAN CELL VOLUME 94.6 fl (80-96); MEAN PLT VOLUME 8.3 fl (7.5-11.1); PLATELET COUNT 310 10^3/uL (134-434); RBC 3.85 M/mm3 (4.00-5.60); RDW 14.3 % (11.9-15.9); WHITE BLOOD COUNT 4.2 K/mm3 (4.0-10.0)
[2023-10-03 12:18] LABS: POTASSIUM 4.3 mmol/L (3.5-5.1)
[2023-10-03 12:20] LABS: CALCIUM 8.1 mg/dL (8.5-10.1)
[2023-10-03 12:21] LABS: ALBUMIN 2.9 g/dl (3.4-5.0); BLOOD UREA NITROGEN 16.8 mg/dL (7-18)
[2023-10-03 12:24] LABS: CREATININE 0.9 mg/dL (0.55-1.3)
[2023-10-03 12:26] LABS: BILIRUBIN,TOTAL 0.2 mg/dL (0.2-1); TOT PROT 6.3 g/dl (6.4-8.2)
[2023-10-03] MEDS: HYDROCORTISONE 1% TOPICAL CREAM 30 GM TUBE TP SCH (18:44)
[2023-10-03] MEDS: GABAPENTIN 100 MG CAPSULE PO SCH (21:28)
[2023-10-03] MEDS: QUEtiapine FUMARATE 200 MG TABLET PO SCH (21:29)
[2023-10-03] MEDS: MIRTAZAPINE 15 MG TABLET (FP) PO SCH (21:30)
[2023-10-03] MEDS: MINERAL OIL/PET HY-PHL TOPICAL OINTMENT 454 GM JAR TP SCH (21:31)
[2023-10-03] MEDS ORDERED: MIRTAZAPINE 15 MG TABLET (FP) PO SCH (22:00)
[2023-10-04 17:40] LABS: PH,URINE 8.5 (5.0-8.0); URINE APPEARANCE CLEAR; URINE BILIRUBIN NEGATIVE (NEGATIVE); URINE COLOR YELLOW; URINE GLUCOSE (UA) NEGATIVE (NEGATIVE); URINE KETONE NEGATIVE (NEGATIVE); URINE LEUK ESTERASE NEGATIVE (NEGATIVE); URINE NITRITE NEGATIVE (NEGATIVE); URINE PROTEIN NEGATIVE (NEGATIVE); URINE UROBILINOGEN 0.2 mg/dL (0.2-1.0)
[2023-10-05] MEDS: QUEtiapine FUMARATE 200 MG TABLET PO SCH (21:48)
[2023-10-06] MEDS: GABAPENTIN 300 MG CAPSULE PO SCH (21:41)
[2023-10-06] MEDS: hydrOXYzine PAMOATE 25 MG CAPSULE (FP) PO PRN (21:42)
[2023-10-07] MEDS: QUEtiapine FUMARATE 200 MG TABLET PO SCH (10:03)
[2023-10-09] MEDS: IBUPROFEN 600 MG TABLET (FP) PO PRN (10:14)
[2023-10-11] MEDS: TOLNAFTATE 1% CREAM 15 GM TUBE TP SCH (23:22)
[2023-10-12] MEDS: HYDROCORTISONE 1% TOPICAL CREAM 30 GM TUBE TP SCH (09:56)
[2023-10-13] MEDS: ACETAMINOPHEN 325 MG TABLET (FP) PO PRN (15:56)
[2023-10-13] MEDS: BENZOCAINE 20 % GEL TUBE MM PRN (18:41)
[2023-10-13] MEDS: AMOX TR/POT CLAV 500MG/125MG TABLETS (FP) PO SCH (22:14)
[2023-10-20] MEDS: MINERAL OIL/PET HY-PHL TOPICAL OINTMENT 454 GM JAR TP SCH (11:00)
[2023-10-24 06:50] VITALS: BP 141/76; PULSE 69; RESP 18; TEMP 97.5
== END 2023-10-24 09:52 | disposition home or self-care (01) | DRG 772 ==
LOC: YASAS 13:14 → Y3NR 17:20 → Y5N 10-03 15:46
PROVIDERS: ADMIT Allergy & Immunology; ATTEND Psychiatry & Neurology Pain Medicine
PROC: HZ42ZZZ Group Counseling for Substance Abuse Treatment, Cognitive-Behavioral (ICD-10-PCS; principal; 2023-10-02)
DX: F14.20 Cocaine dependence, uncomplicated (principal); F10.20 Alcohol dependence, uncomplicated; F17.210 Nicotine dependence, cigarettes, uncomplicated; F31.81 Bipolar II disorder; F19.24 Other psychoactive substance dependence with psychoactive substance-induced mood disorder; F41.9 Anxiety disorder, unspecified; K02.9 Dental caries, unspecified; Z86.19 Personal history of other infectious and parasitic diseases; Z56.0 Unemployment, unspecified; Z59.01 Sheltered homelessness
CPT/HCPCS: 36415; 80053; 80305; 80307; 81003; 85027; 86593; 86780; 87811; 93005; 93010

== ENCOUNTER 2024-06-25 12:14 | Inpatient (IN) | payer OTHER ==
[2024-06-25 12:27] VITALS: BMI 20.9
[2024-06-25] MEDS ORDERED: BISMUTH SUBSALICYLATE 262 MG/15 ML BTL PO PRN (12:38)
[2024-06-25] MEDS ORDERED: IBUPROFEN 600 MG TABLET (FP) PO PRN (12:38)
[2024-06-25] MEDS ORDERED: MAG HYDROX/AL HYDROX/SIMETH 30 ML UNIT-DOSE CUP PO PRN (12:38)
[2024-06-25] MEDS ORDERED: hydrOXYzine PAMOATE 25 MG CAPSULE (FP) PO PRN (12:38)
[2024-06-25] MEDS ORDERED: ONDANSETRON *ODT* 4 MG TABLET SL PRN (12:38)
[2024-06-25] MEDS ORDERED: ACETAMINOPHEN 325 MG TABLET (FP) PO PRN (12:38)
[2024-06-25] MEDS ORDERED: BENZONATATE 200 MG CAPSULE PO PRN (12:38)
[2024-06-25] MEDS ORDERED: guaiFENesin 600 MG TABLET.ER (FP) PO PRN (12:38)
[2024-06-25] MEDS ORDERED: NALOXONE (NARCAN) HCL 4 MG/0.1 ML SPRAY NS PRN (12:38)
[2024-06-25] MEDS ORDERED: BENZOCAINE/MENTHOL (CHLORASEPTIC ) LOZENGE MM PRN (12:38)
[2024-06-25] MEDS ORDERED: IBUPROFEN 400 MG TABLET (FP) PO PRN (12:38)
[2024-06-25] MEDS ORDERED: LOPERAMIDE HCL 2 MG CAPSULE PO PRN (12:38)
[2024-06-25] MEDS ORDERED: DICYCLOMINE HCL 10 MG CAPSULE PO PRN (12:38)
[2024-06-25] MEDS ORDERED: MAGNESIUM HYDROX 2400MG/30ML ORAL SUSPENSION 30 ML CUP PO PRN (12:38)
[2024-06-25] MEDS ORDERED: POLYETHYLENE GLYCOL (HEALTHYLAX) 3350 17 GM PACKET PO PRN (12:38)
[2024-06-25] MEDS: GABAPENTIN 100 MG CAPSULE PO SCH (14:28)
[2024-06-25] MEDS: NALTREXONE HCL 50 MG TABLET PO ONE (14:28)
[2024-06-25] MEDS ORDERED: cloNIDine HCL 0.1 MG TABLET PO PRN (14:29)
[2024-06-25] MEDS: MINERAL OIL/PETROLAT/WATER TOPICAL CREAM 113 GM JAR TP SCH (14:34)
[2024-06-25] MEDS: QUEtiapine FUMARATE 100 MG TABLET (FP) PO ONE (22:28)
[2024-06-25] MEDS: MELATONIN 5 MG TABLETS PO SCH (22:28)
[2024-06-25] MEDS: MIRTAZAPINE 15 MG TABLET (FP) PO SCH (22:29)
[2024-06-25] MEDS: THIAMINE 100 MG TABLET PO SCH (22:29)
[2024-06-25] MEDS: NICOTINE POLACRILEX 2 MG GUM BUC PRN (22:30)
[2024-06-26] MEDS: NALTREXONE HCL 50 MG TABLET PO SCH (10:27)
[2024-06-26] MEDS: METHOCARBAMOL 500 MG TABLET PO PRN (10:27)
[2024-06-26] MEDS: PRENATAL VITAMINS W/ FOLIC ACID TABLET (FP) PO SCH (10:28)
[2024-06-26 11:00] LABS: HEMATOCRIT 35.3 % (35.4-49); HEMOGLOBIN 11.4 GM/dL (11.7-16.9); MCH 30.9 pg (25.7-33.7); MCHC 32.3 g/dl (32.0-35.9); MEAN CELL VOLUME 95.5 fl (80-96); MEAN PLT VOLUME 8.3 fl (7.5-11.1); PLATELET COUNT 288 10^3/uL (134-434); RDW 14.3 % (11.9-15.9); WHITE BLOOD COUNT 4.1 K/mm3 (4.0-10.0)
[2024-06-26 11:08] LABS: POTASSIUM 4.1 mmol/L (3.5-5.1)
[2024-06-26 11:12] LABS: ALBUMIN 2.7 g/dl (3.4-5.0); BLOOD UREA NITROGEN 18.1 mg/dL (7-18); CALCIUM 8.5 mg/dL (8.5-10.1)
[2024-06-26 11:15] LABS: CREATININE 0.9 mg/dL (0.55-1.3)
[2024-06-26 11:17] LABS: BILIRUBIN,TOTAL 0.2 mg/dL (0.2-1); TOT PROT 5.8 g/dl (6.4-8.2)
[2024-06-26] MEDS: LACTULOSE 20 GM/30 ML UDC (FOR ORAL USE ONLY) PO SCH (17:16)
[2024-06-26] MEDS: MIRTAZAPINE 30 MG TABLET PO SCH (22:11)
[2024-06-26] MEDS: MIRTAZAPINE 15 MG TABLET (FP) PO SCH (22:12)
[2024-06-26] MEDS: QUEtiapine FUMARATE 200 MG TABLET PO SCH (22:12)
[2024-06-27 08:46] VITALS: BP 161/89; PULSE 73; RESP 16; TEMP 98
[2024-06-27] MEDS: amLODIPine BESYLATE 5 MG TABLET (FP) PO SCH (09:33)
== END 2024-06-27 10:22 | disposition home or self-care (01) | DRG 774 ==
LOC: YASAS 12:14 → Y6N 13:27
PROVIDERS: ADMIT Allergy & Immunology; ATTEND Allergy & Immunology
PROC: HZ2ZZZZ Detoxification Services for Substance Abuse Treatment (ICD-10-PCS; principal; 2024-06-25)
DX: F10.20 Alcohol dependence, uncomplicated (principal); F14.20 Cocaine dependence, uncomplicated; F17.210 Nicotine dependence, cigarettes, uncomplicated; F31.9 Bipolar disorder, unspecified; F19.282 Other psychoactive substance dependence with psychoactive substance-induced sleep disorder; F41.1 Generalized anxiety disorder; G47.00 Insomnia, unspecified; Z86.19 Personal history of other infectious and parasitic diseases; Z59.01 Sheltered homelessness
CPT/HCPCS: 36415; 80053; 80305; 80307; 82140; 82550; 84484; 85027; 86593; 86780; 93005; 93010